=== PATIENT | male | born 1955 | race Hispanic/Latino ===

== ENCOUNTER 2018-02-13 01:00 | Emergency (ER) | payer OTHER ==
[2018-02-13] MEDS ORDERED: EYE WASH SOLNT 118 ML BTL ONE (01:34)
[2018-02-13] MEDS ORDERED: TETRACAINE HCL 0.5% 2ML OPTH ONE (01:34)
[2018-02-13] MEDS ORDERED: FLUORESCEIN SODIUM 0.6 MG/WRAP ONE (01:34)
--- NOTE | 2018-02-13 01:53 | EDPHYS ---
Physician Documentation [facility] Name: Clinton Arnold Age: 63 yrs Sex: Male : 1955 Arrival Date: 02/13/2018 Time: 01:05 Bed 5 Private MD: ED Physician Jermaine Chou HPI: 02/13 01:32 This 63 yrs old Male presents to ER via Ambulatory with complaints of Foreign cecily Body In Eye, Redness of Eye. 01:32 The patient sustained Unknown. Onset: The symptoms/episode began/occurred just prior to [facility] arrival, last night. Duration: the symptoms are continuous. Aggravated by blinking, closing eye. Associated signs and symptoms: Pertinent positives: None. Patient wears glasses. Severity of symptoms: At their worst the symptoms were mild moderate in the emergency department the symptoms are unchanged. The patient has not experienced similar symptoms in the past. Historical: - Allergies: 01:20 No Known Allergies; bp - Home Meds: 01:20 Unable to obtain [Active]; bp - PMHx: 01:20 Back pain; Hypertension; High Cholesterol; bp - PSHx: 01:20 Heart stents; bp - Immunization history:: Adult Immunizations up to date. - Social history:: Smoking status: Patient/guardian denies using tobacco. - Family history:: not pertinent. ROS: 01:32 Constitutional: Negative for fever, chills, and weight loss, ENT: Negative for injury, cecily pain, and discharge, Neck: Negative for injury, pain, and swelling, Cardiovascular: Negative for chest pain, palpitations, and edema, Respiratory: Negative for shortness of breath, cough, wheezing, and pleuritic chest pain, Abdomen/GI: Negative for abdominal pain, nausea, vomiting, diarrhea, and constipation, Back: Negative for injury and pain, : Negative for injury, bleeding, discharge, and swelling, MS/Extremity: Negative for injury and deformity, Skin: Negative for injury, rash, and discoloration, Neuro: Negative for headache, weakness, numbness, tingling, and seizure, Psych: Negative for depression, anxiety, suicide ideation, homicidal ideation, and hallucinations, Allergy/Immunology: Negative for hives, rash, and allergies, Endocrine: Negative for neck swelling, polydipsia, polyuria, polyphagia, and marked weight changes. 01:32 Eyes: Positive for foreign body sensation, pain, of the outer aspect of conjuctiva of right eye, iris of right eye and inner aspect of conjuctiva of right eye. Exam: 01:32 Constitutional: This is a well developed, well nourished patient who is awake, alert, cecily and in no acute distress. Head/Face: Normocephalic, atraumatic. ENT: Nares patent. No nasal discharge, no septal abnormalities noted. Tympanic membranes are normal and external auditory canals are clear. Oropharynx with no redness, swelling, or masses, exudates, or evidence of obstruction, uvula midline. Mucous membranes moist. Neck: Trachea midline, no thyromegaly or masses palpated, and no cervical lymphadenopathy. Supple, full range of motion without nuchal rigidity, or vertebral point tenderness. No Meningismus. Chest/axilla: Normal chest wall appearance and motion. Nontender with no deformity. No lesions are appreciated. Cardiovascular: Regular rate and rhythm with a normal S1 and S2. No gallops, murmurs, or rubs. Normal PMI, no JVD. No pulse deficits. Respiratory: Lungs have equal breath sounds bilaterally, clear to auscultation and percussion. No rales, rhonchi or wheezes noted. No increased work of breathing, no retractions or nasal flaring. Abdomen/GI: Soft, non-tender, with normal bowel sounds. No distension or tympany. No guarding or rebound. No evidence of tenderness throughout. Back: No spinal tenderness. No costovertebral tenderness. Full range of motion. Male : Normal genitalia with no discharge or lesions. Skin: Warm, dry with normal turgor. Normal color with no rashes, no lesions, and no evidence of cellulitis. MS/ Extremity: Pulses equal, no cyanosis. Neurovascular intact. Full, normal range of motion. Neuro: Awake and alert, GCS 15, oriented to person, place, time, and situation. Cranial nerves II-XII grossly intact. Motor strength 5/5 in all extremities. Sensory grossly intact. Cerebellar exam normal. Normal gait. Psych: Awake, alert, with orientation to person, place and time. Behavior, mood, and affect are within normal limits. 01:32 Eyes: Periorbital structures: appear normal, Pupils: irregularly shaped, in the right eye, Extraocular movements: intact throughout, Conjunctiva: injected, Corneas: are normal, Sclera: injected. Vital Signs: 01:20 BP 143 / 83; Pulse 78; Resp 16; Temp 98.1; Pulse Ox 98% on R/A; Weight 81.65 kg; Height bp 5 ft. 7 in. (170.18 cm); 02:00 BP 129 / 79; Pulse 71; Resp 16; Pulse Ox 96% on R/A; bp 01:20 Body Mass Index 28.19 (81.65 kg, 170.18 cm) bp MDM: 01:29 Patient medically screened. [facility] 01:32 Data reviewed: vital signs, nurses notes. [facility] 02/13 01:32 Order name: Eye Tray; Complete Time: 01:39 [facility] Administered Medications: 01:39 Drug: Tetracaine Drops 0.5 % 1 drops Route: Ophthalmic; Site: right eye; bp 02:05 CANCELLED (Duplicate Order): Garamycin Ointment 0.3 % 0.5 inches Ophthalmic once; Right cecily Eye 02:09 Not Given (PT D/C PRIOR TO ORDER): ERYTHromycin Ointment 1 application Ophthalmic once bp Disposition: 02/13/18 01:52 Discharged to Home. Impression: Ocular pain, right eye, Conjunctivitis. - Condition is Stable. - Discharge Instructions: Conjunctivitis (Viral and Bacterial), Pain Without a Known Cause. - Prescriptions for Tylenol- Codeine #3 300-30 mg Oral Tablet - take 2 tablet by ORAL route every 6 hours As needed; 30 tablet. Erythromycin 5 mg/gram (0.5 %) Ophthalmic Ointment - apply 1 centimeter by OPHTHALMIC route 4 times per day for 7 days; 1 tube. - Medication Reconciliation Form, Thank You Letter, Antibiotic Education, Prescription Opioid Use form. - Follow up: Private Physician; When: Today; Reason: Recheck today's complaints, Continuance of care, Re-evaluation by your physician. Follow up: Mauricio Pham MD; When: Today; Reason: Recheck today's complaints, Re-evaluation by your physician. - Problem is new. - Symptoms have improved. Signatures: Jermaine Chou MD MD cha Peltier, Brian, RN RN bp Corrections: (The following items were deleted from the chart) 02:05 01:51 Garamycin Ointment 0.3 % 0.5 inches Ophthalmic once; Right Eye ordered. cecily tony
--- NOTE | 2018-02-13 01:53 | ER ---
Nurse's Notes [facility] Name: Clinton Arnold Age: 63 yrs Sex: Male : 1955 Arrival Date: 02/13/2018 Time: 01:05 Bed 5 Private MD: Diagnosis: Ocular pain, right eye;Conjunctivitis Presentation: 02/13 01:18 Presenting complaint: Patient states: I GOT SOMETHING IN MY EYE AT MY [employer] bp GAME. Transition of care: patient was not received from another setting of care. Onset of symptoms was February 12, 2018 at 18:00. Care prior to arrival: None. 01:18 Method Of Arrival: Ambulatory bp 01:18 Acuity: [place] 4 bp Triage Assessment: 01:20 General: Appears in no apparent distress. comfortable, Behavior is calm, cooperative, bp appropriate for age. Pain: Complains of pain in right eye. Historical: - Allergies: 01:20 No Known Allergies; bp - Home Meds: 01:20 Unable to obtain [Active]; bp - PMHx: 01:20 Back pain; Hypertension; High Cholesterol; bp - PSHx: 01:20 Heart stents; bp - Immunization history:: Adult Immunizations up to date. - Social history:: Smoking status: Patient/guardian denies using tobacco. - Family history:: not pertinent. Screenin:40 Abuse screen: Denies threats or abuse. Denies injuries from another. Nutritional bp screening: No deficits noted. Tuberculosis screening: No symptoms or risk factors identified. Fall Risk None identified. Assessment: 01:20 General: Appears in no apparent distress. comfortable, Behavior is calm, cooperative, bp appropriate for age. Pain: Complains of pain in right eye. Neuro: Level of Consciousness is awake, alert, obeys commands, Oriented to person, place, time, situation, Appropriate for age. Cardiovascular: No deficits noted. Respiratory: Airway is patent Respiratory effort is even, unlabored, Respiratory pattern is regular, symmetrical. GI: No signs and/or symptoms were reported involving the gastrointestinal system. : No signs and/or symptoms were reported regarding the genitourinary system. EENT: Eyes are tearing on outer aspect of conjuctiva of right eye, iris of right eye and inner aspect of conjuctiva of right eye. Derm: No signs and/or symptoms reported regarding the dermatologic system. Musculoskeletal: Circulation, motion, and sensation intact. Range of motion: intact in all extremities. 02:09 Reassessment: PT D/C HOME, DX WITH CONJUNCTIVITIS, TO F/U WITH OPTHO IN THE AM. bp Vital Signs: 01:20 BP 143 / 83; Pulse 78; Resp 16; Temp 98.1; Pulse Ox 98% on R/A; Weight 81.65 kg; Height bp 5 ft. 7 in. (170.18 cm); 02:00 BP 129 / 79; Pulse 71; Resp 16; Pulse Ox 96% on R/A; bp 01:20 Body Mass Index 28.19 (81.65 kg, 170.18 cm) bp ED Course: 01:05 Patient arrived in ED. do 01:18 Dallin Arthur, RN is Primary Nurse. bp 01:19 Triage completed. bp 01:21 Arm band placed on. bp 01:29 Jermaine Chou MD is Attending Physician. cecily 01:40 Patient has correct armband on for positive identification. Bed in low position. Call bp light in reach. Side rails up X2. 01:51 Mauricio Pham MD is Referral Physician. cecily 02:10 No provider procedures requiring assistance completed. Patient did not have IV access bp during this emergency room visit. Administered Medications: 01:39 Drug: Tetracaine Drops 0.5 % 1 drops Route: Ophthalmic; Site: right eye; bp 02:05 CANCELLED (Duplicate Order): Garamycin Ointment 0.3 % 0.5 inches Ophthalmic once; Right cecily Eye 02:09 Not Given (PT D/C PRIOR TO ORDER): ERYTHromycin Ointment 1 application Ophthalmic once bp Outcome: 01:52 Discharge ordered by . cecily 02:10 Discharged to home ambulatory, with family. bp 02:10 Condition: stable 02:10 Discharge instructions given to patient, Instructed on discharge instructions, follow up and referral plans. medication usage, Demonstrated understanding of instructions, follow-up care, medications, Prescriptions given X 2. 02:12 Patient left the ED. bp Signatures: Jermaine Chou MD MD cha Ogletree, Danielle do Peltier, Brian, RN RN bp
[2018-02-13 02:29] VITALS: TEMP 98.1
[2018-02-13 02:30] VITALS: BP 129/79; O2SAT 96
== END 2018-02-13 02:12 | disposition home or self-care (01) ==
LOC: ER 01:00
DX: H10.9 Unspecified conjunctivitis (principal); I10 Essential (primary) hypertension; Z95.818 Presence of other cardiac implants and grafts
CPT/HCPCS: 99283

== ENCOUNTER 2018-02-18 09:01 | Emergency (ER) | payer OTHER ==
[2018-02-18] MEDS ORDERED: ALBUTEROL 2.5 MG/3 ML NEB SOL ONE (09:25)
[2018-02-18] MEDS ORDERED: CETIRIZINE HCL 5 MG TABLET ONE (09:25)
[2018-02-18] MEDS ORDERED: HYDROCODONE/CHLORPHEN 5 ML/OSYR ONE (09:26)
--- NOTE | 2018-02-18 10:14 | RAD REPORT ---
EXAM DESCRIPTION: RAD - Chest Pa And Lat (2 Views) - 02/18/2018 9:44 am CLINICAL HISTORY: Productive cough. COMPARISON: 09/06/2016 FINDINGS: Ill-defined interstitial lung opacities are present bilaterally. Increased left lung base anterior lingular lung markings also seen, raising suspicion for superimposed pneumonia or aspiration . The heart is normal in size. No displaced fractures.
[2018-02-18] MEDS ORDERED: levoFLOXacin 500 MG TAB ONE (11:25)
--- NOTE | 2018-02-18 11:58 | EDPHYS ---
Physician Documentation [facility] Name: Clinton Arnold Age: 63 yrs Sex: Male : 1955 Arrival Date: 02/18/2018 Time: 09:03 Bed 14 Private MD: Alonzo Barrett B ED Physician Eloy Palmer HPI: 02/18 09:35 This 63 yrs old Male presents to ER via Ambulatory with complaints of Cough, snw Chest Pain, Headache. 09:35 The patient or guardian reports airway noise, cough, described as moderate, flu snw symptoms, no appetite, hoarse voice. Onset: The symptoms/episode began/occurred suddenly, 4 day(s) ago, and became persistent. Severity of symptoms: At their worst the symptoms were moderate. Associated signs and symptoms: Pertinent positives: fever, rhinorrhea. The patient has not experienced similar symptoms in the past. appt with Dr. Barrett next week. Historical: - Allergies: 09:20 NKA; iw - Home Meds: 09:18 Plavix 75 mg Oral tab 1 tab once daily [Active]; aspirin 81 mg Oral TbEC 1 tab once iw daily [Active]; atorvastatin 40 mg oral tab 1 tab once daily [Active]; losartan 25 mg oral tab 1 tab once daily [Active]; multivitamin oral cap [Active]; - PMHx: 09:18 Back pain; High Cholesterol; Hypertension; Hodgkin's Lymphoma; iw - PSHx: 09:18 Heart stents; iw - Immunization history:: Adult Immunizations up to date. - Social history:: Smoking status: Patient/guardian denies using tobacco. ROS: 09:35 ENT: Negative for injury, pain, and discharge, Neck: Negative for injury, pain, and snw swelling, Cardiovascular: Negative for chest pain, palpitations, and edema. 09:35 Abdomen/GI: Negative for abdominal pain, nausea, vomiting, diarrhea, and constipation, Back: Negative for injury and pain, : Negative for injury, bleeding, discharge, and swelling, MS/Extremity: Negative for injury and deformity, Skin: Negative for injury, rash, and discoloration, Neuro: Negative for headache, weakness, numbness, tingling, and seizure. 09:35 Constitutional: Positive for body aches, fatigue, fever, malaise, poor PO intake. 09:35 Eyes: Positive for redness. 09:35 Respiratory: Positive for cough, orthopnea. Exam: 09:20 Head/Face: Normocephalic, atraumatic. snw 09:20 Neck: Trachea midline, no thyromegaly or masses palpated, and no cervical lymphadenopathy. Supple, full range of motion without nuchal rigidity, or vertebral point tenderness. No Meningismus. Chest/axilla: Normal chest wall appearance and motion. Nontender with no deformity. No lesions are appreciated. Cardiovascular: Regular rate and rhythm with a normal S1 and S2. No gallops, murmurs, or rubs. Normal PMI, no JVD. No pulse deficits. 09:20 Abdomen/GI: Soft, non-tender, with normal bowel sounds. No distension or tympany. No guarding or rebound. No evidence of tenderness throughout. Back: No spinal tenderness. No costovertebral tenderness. Full range of motion. Skin: Warm, dry with normal turgor. Normal color with no rashes, no lesions, and no evidence of cellulitis. MS/ Extremity: Pulses equal, no cyanosis. Neurovascular intact. Full, normal range of motion. Neuro: Awake and alert, GCS 15, oriented to person, place, time, and situation. Cranial nerves II-XII grossly intact. Motor strength 5/5 in all extremities. Sensory grossly intact. Cerebellar exam normal. Normal gait. 09:20 Constitutional: The patient appears alert, awake, anxious. 09:20 Eyes: Conjunctiva: subconjunctival hemorrhage(s), are present in both eyes. 09:20 ENT: Ear canal(s): are normal, TM's: are normal, Nose: Nasal mucosa: edematous, Mouth: is normal, Posterior pharynx: is normal, Voice: is hoarse. 09:20 Respiratory: the patient does not display signs of respiratory distress, Respirations: shallow respirations, Breath sounds: bronchial sounds, that are moderate, are heard in the left posterior lower lobe, rhonchi, are located in both bases, bronchitic cough. Vital Signs: 09:21 BP 116 / 78; Pulse 115; Resp 20 S; Temp 99.2(TE); Pulse Ox 98% on R/A; iw 10:30 BP 134 / 70; Pulse 113; Resp 19; Pulse Ox 90% on 2 lpm NC; rb1 11:30 BP 138 / 80; Pulse 102; Resp 18; Pulse Ox 93% on 2 lpm NC; rb1 12:40 BP 141 / 83; Pulse 99; Resp 17; Pulse Ox 95% on R/A; rb1 MDM: 09:18 Patient medically screened. snw 12:04 Data reviewed: vital signs, nurses notes. Data interpreted: Pulse oximetry: on room air snw is 95 %. Interpretation: normal. Counseling: I had a detailed discussion with the patient and/or guardian regarding: the historical points, exam findings, and any diagnostic results supporting the discharge/admit diagnosis, the presence of at least one elevated blood pressure reading (>120/80) during this emergency department visit, radiology results, the need for outpatient follow up, to return to the emergency department if symptoms worsen or persist or if there are any questions or concerns that arise at home. Response to treatment: the patient's symptoms have markedly improved after treatment. Special discussion: I have referred the patient to see his PCP for further evaluation of high blood pressure. Based on the history and exam findings, there is no indication for further emergent testing or inpatient evaluation. I discussed with the patient/guardian the need to see the primary care provider for further evaluation of the symptoms. ED course: discussed need for f/u with PCP as scheduled in one week. Return to ED immediately for worsening s/s. 02/18 10:20 Order name: Blood Culture Adult (2) snw 02/18 09:18 Order name: Chest Pa And Lat (2 Views) XRAY; Complete Time: 10:18 snw Administered Medications: : Drug: Tussionex Pennkinetic ER 5 ml Route: PO; rb1 10:00 Follow up: Response: No adverse reaction; Marked relief of symptoms rb1 : Drug: ZyrTEC - Cetirizine 10 mg Route: PO; rb1 10:00 Follow up: Response: No adverse reaction rb1 : Drug: Albuterol 2.5 mg Route: Inhalation; rb1 10:50 Drug: Albuterol 2.5 mg Route: Inhalation; rb1 11:20 Drug: Albuterol 2.5 mg Route: Inhalation; rb1 11:20 Drug: LevaQUIN 500 mg Route: PO; rb1 12:00 Follow up: Response: No adverse reaction rb1 12:18 Drug: Simethicone 120 mg {Note: Had to wait for pharmacy to bring the medication to the rb1 floor..} Route: PO; 12:40 Follow up: Response: No adverse reaction rb1 Disposition: 18:08 Co-signature as Attending Physician, Eloy Palmer MD Available for consultation at ps1 all times. . Disposition: 02/18/18 11:58 Discharged to Home. Impression: Pneumonia, unspecified organism. - Condition is Stable. - Discharge Instructions: Pneumonia, Adult. - Prescriptions for Levaquin 500 mg Oral Tablet - take 1 tablet by ORAL route once daily for 7 days; 7 tablet. Zyrtec 10 mg Oral Tablet - take 1 tablet by ORAL route once daily As needed; 20 tablet. Tessalon Perles 100 mg Oral Capsule - take 1 capsule by ORAL route every 8 hours As needed; 15 capsule. Albuterol Sulfate 90 mcg/actuation - inhale 1-2 puff by INHALATION route every 4-6 hours; 1 Inhaler. - Medication Reconciliation Form, Thank You Letter, Antibiotic Education, Prescription Opioid Use form. - Follow up: Alonzo Barrett MD; When: as scheduled; Reason: Recheck today's complaints, Continuance of care, Re-evaluation by your physician. Follow up: Emergency Department; When: As needed; Reason: Worsening of condition. Signatures: Dispatcher [employer] EDMS Richa Gutierrez, MARIA DE JESUS-C BRIM POUNCING MACHINE OPERATOR-Csnw Patricia Dawkins, RN ELIJAH iw Prabha Ventura RN RN rb1 Eloy Palmer MD MD ps1
--- NOTE | 2018-02-18 11:58 | ER ---
Nurse's Notes [facility] Name: Clinton Arnold Age: 63 yrs Sex: Male : 1955 Arrival Date: 02/18/2018 Time: 09:03 Bed 14 Private MD: Alonzo Barrett B Diagnosis: Pneumonia, unspecified organism Presentation: 02/18 09:15 Presenting complaint: Patient states: has had a productive cough X 4 days, lots of iw congestion, fever, fatigue, also started to have midsternal CP last night. Transition of care: patient was not received from another setting of care. Onset of symptoms was February 14, 2018. Initial Sepsis Screen: Does the patient meet any 2 criteria? HR > 90 bpm. No. Patient's initial sepsis screen is negative. Does the patient have a suspected source of infection? Yes: Productive cough/pneumonia. Care prior to arrival: None. 09:15 Method Of Arrival: Ambulatory iw 09:15 Acuity: [place] 3 iw Historical: - Allergies: 09:20 NKA; iw - Home Meds: 09:18 Plavix 75 mg Oral tab 1 tab once daily [Active]; aspirin 81 mg Oral TbEC 1 tab once iw daily [Active]; atorvastatin 40 mg oral tab 1 tab once daily [Active]; losartan 25 mg oral tab 1 tab once daily [Active]; multivitamin oral cap [Active]; - PMHx: 09:18 Back pain; High Cholesterol; Hypertension; Hodgkin's Lymphoma; iw - PSHx: 09:18 Heart stents; iw - Immunization history:: Adult Immunizations up to date. - Social history:: Smoking status: Patient/guardian denies using tobacco. Screenin:15 Abuse screen: Denies threats or abuse. Nutritional screening: No deficits noted. rb1 Tuberculosis screening: No symptoms or risk factors identified. Fall Risk None identified. Assessment: 09:15 General: Appears in no apparent distress. comfortable, Behavior is calm, cooperative, rb1 Reports fever for fatigue for >3 days. Pain: Complains of pain in mid-sternal Pain does not radiate. Pain currently is 6 out of 10 on a pain scale. Quality of pain is described as Pt. stated, "My chest hurts from coughing." Pain began x 4 days. Neuro: Level of Consciousness is awake, alert, obeys commands, Oriented to person, place, time, situation. Cardiovascular: Capillary refill < 3 seconds is brisk in bilateral fingers. Respiratory: Airway is patent Respiratory effort is even, unlabored, Respiratory pattern is regular, symmetrical. Derm: Skin is dry, Skin is normal, Skin temperature is warm. 10:09 Reassessment: Patient appears in no apparent distress at this time. Patient and/or rb1 family updated on plan of care and expected duration. Pain level reassessed. Patient is alert, oriented x 3, equal unlabored respirations, skin warm/dry/pink. 11:00 Reassessment: Patient appears in no apparent distress at this time. No changes from rb1 previously documented assessment. 12:00 Reassessment: Patient appears in no apparent distress at this time. Patient and/or rb1 family updated on plan of care and expected duration. Pain level reassessed. Patient is alert, oriented x 3, equal unlabored respirations, skin warm/dry/pink. 12:15 Reassessment: discharge pending due to paperwork and prescriptions needing to be rb1 reprinted by the provider. 12:35 Reassessment: Pt. voiced concern about his insurance not covering the Albuterol because rb1 he is on disability; provider notified. Provider stated, "He really needs to get the Albuterol." No new order received. Vital Signs: 09:21 BP 116 / 78; Pulse 115; Resp 20 S; Temp 99.2(TE); Pulse Ox 98% on R/A; iw 10:30 BP 134 / 70; Pulse 113; Resp 19; Pulse Ox 90% on 2 lpm NC; rb1 11:30 BP 138 / 80; Pulse 102; Resp 18; Pulse Ox 93% on 2 lpm NC; rb1 12:40 BP 141 / 83; Pulse 99; Resp 17; Pulse Ox 95% on R/A; rb1 ED Course: 09:03 Patient arrived in ED. as 09:04 Alonzo Barrett MD is Private Physician. as 09:12 Richa Gutierrez FNP-C is [facility]. snw 09:12 Eloy Palmer MD is Attending Physician. snw 09:15 Patient has correct armband on for positive identification. Bed in low position. Call rb1 light in reach. Side rails up X 1. Pulse ox on. NIBP on. 09:15 Patient maintains SpO2 saturation greater than 95% on room air. rb1 09:16 Triage completed. iw 09:21 Arm band placed on. iw 09:22 Prabha Ventura, RN is Primary Nurse. rb1 09:42 X-ray completed. Patient tolerated procedure well. Patient moved back from radiology. ml 09:43 Chest Pa And Lat (2 Views) XRAY In Process Unspecified. EDMS 11:57 Alonzo Barrett MD is Referral Physician. snw 12:40 No provider procedures requiring assistance completed. Patient did not have IV access rb1 during this emergency room visit. Administered Medications: 09:25 Drug: Tussionex Pennkinetic ER 5 ml Route: PO; rb1 10:00 Follow up: Response: No adverse reaction; Marked relief of symptoms rb1 09:25 Drug: ZyrTEC - Cetirizine 10 mg Route: PO; rb1 10:00 Follow up: Response: No adverse reaction rb1 09:27 Drug: Albuterol 2.5 mg Route: Inhalation; rb1 10:50 Drug: Albuterol 2.5 mg Route: Inhalation; rb1 11:20 Drug: Albuterol 2.5 mg Route: Inhalation; rb1 11:20 Drug: LevaQUIN 500 mg Route: PO; rb1 12:00 Follow up: Response: No adverse reaction rb1 12:18 Drug: Simethicone 120 mg {Note: Had to wait for pharmacy to bring the medication to the rb1 floor..} Route: PO; 12:40 Follow up: Response: No adverse reaction rb1 Outcome: 11:58 Discharge ordered by MD. snw 12:40 Discharged to home ambulatory. rb1 12:40 Condition: stable 12:40 Discharge instructions given to patient, Instructed on discharge instructions, follow up and referral plans. medication usage, Demonstrated understanding of instructions, follow-up care, medications, Prescriptions given X 4. 12:40 Patient left the ED. rb1 Signatures: Dispatcher [employer] EDOR Richa Gutierrez FNP-C COMMISSION CLERK-Vanessa Lucas Irene, ELIJAH RN iw Dali Arnold Rebecca, RN RN rb1 Corrections: (The following items were deleted from the chart) 12:43 12:43 Patient left the ED. rb1 rb1
[2018-02-18 12:47] VITALS: TEMP 99.2
[2018-02-18 12:56] VITALS: BP 141/83; O2SAT 95
[2018-02-18] MEDS ORDERED: SIMETHICONE 80 MG TAB PO ONE (13:00)
== END 2018-02-18 12:43 | disposition home or self-care (01) ==
LOC: ER 09:01
DX: J18.9 Pneumonia, unspecified organism (principal); I10 Essential (primary) hypertension; E78.00 Pure hypercholesterolemia, unspecified; Z85.72 Personal history of non-Hodgkin lymphomas; Z95.818 Presence of other cardiac implants and grafts; Z79.01 Long term (current) use of anticoagulants; Z79.82 Long term (current) use of aspirin
CPT/HCPCS: 71046; 87040; 87077; 87186; 87205; 99285

== ENCOUNTER 2018-02-19 03:17 | Inpatient (IN) | payer OTHER ==
[2018-02-19 04:30] LABS: Absolute Lymphocytes (CBC) 1.9 K/uL (0.7-4.9); Absolute Monocytes 1.5 K/uL (0.1-1.3); Absolute Neutrophil 12.2 K/uL (1.8-8.0); Basophils % 0.3 % (0-1.3); Eosinophils % 1.2 % (0-4.4); Hematocrit 37.6 % (39.6-49.0); Lymphocytes % 11.9 % (15.3-44.8); MCH 28.3 pg (27.0-35.0); MCV 85.8 fL (80-100); MPV 8.5 fL (7.6-11.3); Monocytes % 9.5 % (3.3-12.3); RBC Red Blood Cell Count 4.39 M/uL (4.33-5.43)
[2018-02-19] MEDS ORDERED: NA CHLORIDE 0.9% 1,000 ML ONE (04:32)
[2018-02-19] MEDS ORDERED: CEFTRIAXONE 1000 MG/VIAL ONE (04:32)
[2018-02-19] MEDS ORDERED: LEVALBUTEROL 1.25 MG/3 ML NEB ONE (04:32)
[2018-02-19] MEDS ORDERED: IPRATROPIUM BROM 0.5MG/2.5ML ONE (04:32)
[2018-02-19 04:37] LABS: Protime INR 1.21
[2018-02-19] MEDS ORDERED: AZITHROMYCIN 250 MG TAB ONE (04:37)
[2018-02-19 04:58] LABS: Glucose Level 123 mg/dL (65-120)
[2018-02-19 04:59] LABS: Bicarbonate 28 mEq/L (21-31); CKMB Creatine Kinase MB 3.5 ng/ml (0.3-4.0); Sodium Level 135 mEq/L (135-145)
[2018-02-19 05:04] LABS: ALT/SGPT 53 IU/L (10-60); AST/SGOT 60 IU/L (10-42); Albumin 3.4 g/dL (3.2-5.5); Alkaline Phosphatase 118 IU/L (42-121); BUN Blood Urea Nitrogen 16 mg/dL (6-20); Bilirubin Direct 0.4 mg/dL (0-0.2); Bilirubin Total 1.6 mg/dL (0.3-1.2); Creatine Phosphokinase 521 IU/L (22-269); Magnesium 2.2 mg/dL (1.8-2.5)
[2018-02-19] MEDS ORDERED: POTASSIUM 25 MEQ EFFERV TAB ONE (05:49)
--- NOTE | 2018-02-19 07:01 | ER ---
Nurse's Notes [facility] Name: Clinton Arnold Age: 63 yrs Sex: Male : 1955 Arrival Date: 02/19/2018 Time: 03:21 Bed 15 Private MD: Alonzo Barrett B Diagnosis: Dyspnea;Essential (primary) hypertension;Bronchiectasis;Chronic obstructive pulmonary disease, unspecified;Hypokalemia Presentation: 02/19 03:35 Presenting complaint: Patient states: he was here yesterday and diagnosed with bb pneumonia but is having difficulty breathing. Transition of care: patient was not received from another setting of care. Onset of symptoms was February 19, 2018. Initial Sepsis Screen: Does the patient meet any 2 criteria? No. Patient's initial sepsis screen is negative. Does the patient have a suspected source of infection? No. Patient's initial sepsis screen is negative. Care prior to arrival: None. 03:35 Method Of Arrival: Ambulatory bb 03:35 Acuity: [place] 3 bb Triage Assessment: 05:10 Respiratory: Reports shortness of breath Onset: The symptoms/episode began/occurred jd3 yesterday, the patient has mild shortness of breath. Historical: - Allergies: 03:38 NKA; bb - Home Meds: 03:38 aspirin 81 mg Oral TbEC 1 tab once daily [Active]; atorvastatin 40 mg Oral tab 1 tab bb once daily [Active]; losartan 25 mg Oral tab 1 tab once daily [Active]; multivitamin Oral cap [Active]; Plavix 75 mg Oral tab 1 tab once daily [Active]; - PMHx: 03:38 Back pain; High Cholesterol; Hodgkin's Lymphoma; Hypertension; bb - PSHx: 03:38 Heart stents; bb - Immunization history:: Adult Immunizations unknown. - Social history:: Smoking status: Patient/guardian denies using tobacco, Patient/guardian denies using alcohol, street drugs. - Family history:: not pertinent. Screenin:09 Abuse screen: Denies threats or abuse. Nutritional screening: No deficits noted. jd3 Nutritional screening:. Tuberculosis screening: No symptoms or risk factors identified. Fall Risk IV access (20 points). Total Ziegler Fall Scale indicates No Risk (0-24 pts). Assessment: 03:45 General: Appears in no apparent distress. uncomfortable, Behavior is calm, cooperative, jd3 appropriate for age. Pain: Complains of pain in chest Quality of pain is described as aching. Neuro: Level of Consciousness is awake, alert, obeys commands, Oriented to person, place, time, situation. Cardiovascular: Heart tones S1 S2 present Capillary refill < 3 seconds Patient's skin is warm and dry. Rhythm is regular. Respiratory: Airway is patent Respiratory effort is even, unlabored, Respiratory pattern is regular, symmetrical, Breath sounds are clear bilaterally. GI: Abdomen is round Bowel sounds present X 4 quads. Abd is soft and non tender X 4 quads. : No signs and/or symptoms were reported regarding the genitourinary system. EENT: No signs and/or symptoms were reported regarding the EENT system. Derm: Skin is intact, Skin is dry, Skin is normal, Skin temperature is warm. Musculoskeletal: Circulation, motion, and sensation intact. Range of motion: intact in all extremities. 05:11 Reassessment: Patient appears in no apparent distress at this time. Patient and/or jd3 family updated on plan of care and expected duration. Pain level reassessed. Patient is alert, oriented x 3, equal unlabored respirations, skin warm/dry/pink. 05:59 Reassessment: Patient appears in no apparent distress at this time. Patient and/or jd3 family updated on plan of care and expected duration. Pain level reassessed. Patient is alert, oriented x 3, equal unlabored respirations, skin warm/dry/pink. 06:53 Reassessment: Patient appears in no apparent distress at this time. Patient and/or jd3 family updated on plan of care and expected duration. Pain level reassessed. Patient is alert, oriented x 3, equal unlabored respirations, skin warm/dry/pink. 07:00 General: Appears in no apparent distress. uncomfortable, Behavior is calm, cooperative, hj appropriate for age. Pain: Complains of pain in right posterior lower lobe and right posterior middle lobe Quality of pain is described as aching. Neuro: Level of Consciousness is awake, alert, obeys commands, Oriented to person, place, time, situation, Appropriate for age. Cardiovascular: Heart tones S1 S2 present Capillary refill < 3 seconds Patient's skin is warm and dry. Rhythm is regular. Respiratory: Airway is patent Respiratory effort is even, unlabored, Respiratory pattern is regular, symmetrical, Breath sounds are clear. GI: Abdomen is round Bowel sounds present X 4 quads. Abd is soft and non tender. : No signs and/or symptoms were reported regarding the genitourinary system. EENT: No signs and/or symptoms were reported regarding the EENT system. Derm: Skin is intact, Skin is dry, Skin is pink, warm \T\ dry. normal, Skin temperature is warm. Musculoskeletal: No signs and/or symptoms reported regarding the musculoskeletal system. 07:42 Reassessment: awaiting room placement;. hj Vital Signs: 03:38 BP 136 / 84; Pulse 88; Resp 20 S; Temp 98.3(O); Pulse Ox 95% on R/A; Weight 81.65 kg bb (R); Height 5 ft. 7 in. (170.18 cm) (R); Pain 6/10; 05:07 BP 119 / 74; Pulse 94; Resp 20 S; Pulse Ox 96% on R/A; jd3 05:58 BP 120 / 75; Pulse 90; Resp 22 S; Pulse Ox 95% on R/A; jd3 06:53 BP 110 / 64; Pulse 97; Resp 22 S; Pulse Ox 94% on R/A; jd3 07:15 BP 120 / 65; Pulse 86; Resp 18; Pulse Ox 95% on R/A; hj 03:38 Body Mass Index 28.19 (81.65 kg, 170.18 cm) ED Course: 03:21 Patient arrived in ED. do 03:22 Alonzo Barrett MD is Private Physician. do 03:32 Jermaine Chou MD is Attending Physician. cecily 03:37 Triage completed. bb 03:38 Arm band placed on Patient placed in an exam room, on a stretcher, on pulse oximetry. bb 03:47 El Early RN is Primary Nurse. jd3 03:53 X-ray completed. Portable x-ray completed in exam room. Patient tolerated procedure kw well. 03:54 XRAY Chest (1 view) In Process Unspecified. EDMS 04:15 Inserted saline lock: 20 gauge in right antecubital area, using aseptic technique. jd3 Blood collected. 04:46 Radiology exam delayed due to lab results not completed at this time. (BUN/Creatinine). vm2 05:10 Patient has correct armband on for positive identification. Bed in low position. Call j light in reach. Side rails up X2. 05:21 CT Chest For PE Angio In Process Unspecified. EDMS 06:59 Peace Pop MD is Hospitalizing Provider. cecily 07:04 Report given to Adryan NAVA. jd3 09:47 No provider procedures requiring assistance completed. Patient admitted, IV remains in hj place. Administered Medications: Discontinued: NS 0.9% 1000 ml IV at 125 ml/hr continuous 04:51 Drug: Xopenex 2.5 mg Route: Inhalation; jd3 05:56 Follow up: Response: No adverse reaction jd3 04:51 Drug: AtroVENT Aerosol 0.5 mg Route: Inhalation; jd3 05:56 Follow up: Response: No adverse reaction jd3 04:51 Drug: Rocephin - (cefTRIAXone) 1 grams Route: IVPB; Infused Over: 30 mins; Site: right [facility] antecubital; 05:56 Follow up: Response: No adverse reaction; IV Status: Completed infusion jd3 04:52 Drug: NS 0.9% 1000 ml Route: IV; Rate: 125 ml/hr; Site: right antecubital; jd3 04:52 Drug: Zithromax 500 mg {Note: provider changed order to PO.} Route: IVPB; Infused Over: j 1 hrs; Site: Other; 05:57 Follow up: Response: No adverse reaction jd3 07:45 Follow up: IV Status: Completed infusion hj 05:55 Drug: Potassium Effervescent Tablet 50 mEq Route: PO; jd3 06:58 Follow up: Response: No adverse reaction jd3 07:00 Drug: levofloxacin 500 mg Volume: 100 ml; Route: IVPB; Infused Over: 60 mins; Site: hj right antecubital; 07:44 Follow up: IV Status: Completed infusion hj 07:00 Drug: SOLU-Medrol 125 mg Route: IVP; Site: right antecubital; hj 07:44 Follow up: Response: No adverse reaction hj 07:00 Drug: Pepcid 20 mg Route: IVP; Site: right antecubital; hj 07:44 Follow up: Response: No adverse reaction hj 07:02 Drug: NS 0.9% with KCl 20 mEq/L 1000 ml Route: IV; Rate: ml/hr; Site: right antecubital;hj 07:43 Follow up: IV Status: Infusion continued upon admission harris Outcome: 07:00 Decision to Hospitalize by Provider. cecily 09:47 Admitted to Tele accompanied by nurse, via wheelchair, room 423, with chart, Report harris called to ELIJAH Chung 09:47 Condition: stable 09:47 Instructed on the need for admit, Demonstrated understanding of instructions. 09:48 Patient left the ED. harris Signatures: Dispatcher [employer] EDMS Jermaine Chou MD MD cha Ballard, Brenda, RN RN Liz Esqueda Henry, RN RN Jaymie Blue [facility] El Early RN RN jd3 Corrections: (The following items were deleted from the chart) 04:54 04:53 Inserted saline lock: 20 gauge in right antecubital area, using aseptic jd3 technique. Blood collected. jd3
--- NOTE | 2018-02-19 07:01 | EDPHYS ---
Physician Documentation [facility] Name: Clinton Arnold Age: 63 yrs Sex: Male : 1955 Arrival Date: 02/19/2018 Time: 03:21 Bed 15 Private MD: Alonzo Barrett B ED Physician Jermaine Chou HPI: 02/19 03:40 This 63 yrs old Male presents to ER via Ambulatory with complaints of cecily Breathing Difficulty. 03:40 The patient has shortness of breath at rest, with light activity. Onset: The cecily symptoms/episode began/occurred 3 day(s) ago. Duration: The symptoms are continuous, and are steadily getting worse. The patient's shortness of breath has no apparent modifying factors. Associated signs and symptoms: The patient has no apparent associated signs or symptoms. Severity of symptoms: At their worst the symptoms were mild in the emergency department the symptoms are unchanged. The patient has not experienced similar symptoms in the past. Historical: - Allergies: 03:38 NKA; bb - Home Meds: 03:38 aspirin 81 mg Oral TbEC 1 tab once daily [Active]; atorvastatin 40 mg Oral tab 1 tab bb once daily [Active]; losartan 25 mg Oral tab 1 tab once daily [Active]; multivitamin Oral cap [Active]; Plavix 75 mg Oral tab 1 tab once daily [Active]; - PMHx: 03:38 Back pain; High Cholesterol; Hodgkin's Lymphoma; Hypertension; bb - PSHx: 03:38 Heart stents; bb - Immunization history:: Adult Immunizations unknown. - Social history:: Smoking status: Patient/guardian denies using tobacco, Patient/guardian denies using alcohol, street drugs. - Family history:: not pertinent. ROS: 03:40 Constitutional: Negative for fever, chills, and weight loss, Eyes: Negative for injury, cecily pain, redness, and discharge, ENT: Negative for injury, pain, and discharge, Neck: Negative for injury, pain, and swelling, Cardiovascular: Negative for chest pain, palpitations, and edema, Abdomen/GI: Negative for abdominal pain, nausea, vomiting, diarrhea, and constipation, Back: Negative for injury and pain, : Negative for injury, bleeding, discharge, and swelling, MS/Extremity: Negative for injury and deformity, Skin: Negative for injury, rash, and discoloration, Neuro: Negative for headache, weakness, numbness, tingling, and seizure, Psych: Negative for depression, anxiety, suicide ideation, homicidal ideation, and hallucinations, Allergy/Immunology: Negative for hives, rash, and allergies, Endocrine: Negative for neck swelling, polydipsia, polyuria, polyphagia, and marked weight changes, Hematologic/Lymphatic: Negative for swollen nodes, abnormal bleeding, and unusual bruising. 03:40 Respiratory: Positive for cough, shortness of breath, at rest. Exam: 03:40 Constitutional: This is a well developed, well nourished patient who is awake, alert, cecily and in no acute distress. Head/Face: Normocephalic, atraumatic. Eyes: Pupils equal round and reactive to light, extra-ocular motions intact. Lids and lashes normal. Conjunctiva and sclera are non-icteric and not injected. Cornea within normal limits. Periorbital areas with no swelling, redness, or edema. ENT: Nares patent. No nasal discharge, no septal abnormalities noted. Tympanic membranes are normal and external auditory canals are clear. Oropharynx with no redness, swelling, or masses, exudates, or evidence of obstruction, uvula midline. Mucous membranes moist. Neck: Trachea midline, no thyromegaly or masses palpated, and no cervical lymphadenopathy. Supple, full range of motion without nuchal rigidity, or vertebral point tenderness. No Meningismus. Chest/axilla: Normal chest wall appearance and motion. Nontender with no deformity. No lesions are appreciated. Cardiovascular: Regular rate and rhythm with a normal S1 and S2. No gallops, murmurs, or rubs. Normal PMI, no JVD. No pulse deficits. Abdomen/GI: Soft, non-tender, with normal bowel sounds. No distension or tympany. No guarding or rebound. No evidence of tenderness throughout. Back: No spinal tenderness. No costovertebral tenderness. Full range of motion. Male : Normal genitalia with no discharge or lesions. Skin: Warm, dry with normal turgor. Normal color with no rashes, no lesions, and no evidence of cellulitis. MS/ Extremity: Pulses equal, no cyanosis. Neurovascular intact. Full, normal range of motion. Neuro: Awake and alert, GCS 15, oriented to person, place, time, and situation. Cranial nerves II-XII grossly intact. Motor strength 5/5 in all extremities. Sensory grossly intact. Cerebellar exam normal. Normal gait. Psych: Awake, alert, with orientation to person, place and time. Behavior, mood, and affect are within normal limits. 03:40 Respiratory: the patient does not display signs of respiratory distress, Respirations: normal, Breath sounds: bronchial sounds, rhonchi, that are moderate, are heard in the right posterior middle lobe and right posterior lower lobe. Vital Signs: 03:38 BP 136 / 84; Pulse 88; Resp 20 S; Temp 98.3(O); Pulse Ox 95% on R/A; Weight 81.65 kg bb (R); Height 5 ft. 7 in. (170.18 cm) (R); Pain 6/10; 05:07 BP 119 / 74; Pulse 94; Resp 20 S; Pulse Ox 96% on R/A; jd3 05:58 BP 120 / 75; Pulse 90; Resp 22 S; Pulse Ox 95% on R/A; jd3 06:53 BP 110 / 64; Pulse 97; Resp 22 S; Pulse Ox 94% on R/A; jd3 07:15 BP 120 / 65; Pulse 86; Resp 18; Pulse Ox 95% on R/A; hj 03:38 Body Mass Index 28.19 (81.65 kg, 170.18 cm) MDM: 03:32 Patient medically screened. [facility] 03:43 Data reviewed: vital signs, nurses notes, lab test result(s), EKG, radiologic studies, [facility] CT scan, plain films. 02/19 03:39 Order name: Basic Metabolic Panel; Complete Time: 05:14 [facility] 02/19 03:39 Order name: BNP; Complete Time: 05:14 [facility] 02/19 03:39 Order name: CBC with Diff; Complete Time: 05:14 [facility] 02/19 03:39 Order name: Ckmb; Complete Time: 05:14 [facility] 02/19 03:39 Order name: CPK; Complete Time: 05:14 [facility] 02/19 03:39 Order name: LFT's; Complete Time: 05:14 [facility] 02/19 03:39 Order name: Magnesium; Complete Time: 05:14 [facility] 02/19 03:39 Order name: PT-INR; Complete Time: 05:14 [facility] 02/19 03:39 Order name: Ptt, Activated; Complete Time: 05:14 [facility] 02/19 03:39 Order name: Troponin (emerg Dept Use Only); Complete Time: 05:14 [facility] 02/19 03:39 Order name: XRAY Chest (1 view) [facility] 02/19 03:39 Order name: Blood Culture Adult (2) [facility] 02/19 06:58 Order name: Sputum Culture [facility] 02/19 08:59 Order name: Urine Dipstick--Ancillary (enter results) mw2 02/19 03:39 Order name: EKG; Complete Time: 03:40 [facility] 02/19 03:39 Order name: Cardiac monitoring; Complete Time: 04:53 [facility] 02/19 03:39 Order name: EKG - Nurse/Tech; Complete Time: 04:53 [facility] 02/19 03:39 Order name: CT Chest For PE Angio [facility] 02/19 07:09 Order name: CONS Physician Consult EDFL 02/19 07:52 Order name: Diet Regular; Complete Time: 07:52 02/19 03:39 Order name: IV Saline Lock; Complete Time: 04:53 [facility] 02/19 03:39 Order name: Labs collected and sent; Complete Time: 04:53 [facility] 02/19 03:39 Order name: O2 Per Protocol; Complete Time: 04:53 [facility] 02/19 03:39 Order name: O2 Sat Monitoring; Complete Time: 04:53 [facility] Administered Medications: Discontinued: NS 0.9% 1000 ml IV at 125 ml/hr continuous 04:51 Drug: Xopenex 2.5 mg Route: Inhalation; jd3 05:56 Follow up: Response: No adverse reaction jd3 04:51 Drug: AtroVENT Aerosol 0.5 mg Route: Inhalation; jd3 05:56 Follow up: Response: No adverse reaction jd3 04:51 Drug: Rocephin - (cefTRIAXone) 1 grams Route: IVPB; Infused Over: 30 mins; Site: right jd3 antecubital; 05:56 Follow up: Response: No adverse reaction; IV Status: Completed infusion jd3 04:52 Drug: NS 0.9% 1000 ml Route: IV; Rate: 125 ml/hr; Site: right antecubital; jd3 04:52 Drug: Zithromax 500 mg {Note: provider changed order to PO.} Route: IVPB; Infused Over: jd3 1 hrs; Site: Other; 05:57 Follow up: Response: No adverse reaction jd3 07:45 Follow up: IV Status: Completed infusion hj 05:55 Drug: Potassium Effervescent Tablet 50 mEq Route: PO; jd3 06:58 Follow up: Response: No adverse reaction jd3 07:00 Drug: levofloxacin 500 mg Volume: 100 ml; Route: IVPB; Infused Over: 60 mins; Site: right antecubital; 07:44 Follow up: IV Status: Completed infusion hj 07:00 Drug: SOLU-Medrol 125 mg Route: IVP; Site: right antecubital; hj 07:44 Follow up: Response: No adverse reaction hj 07:00 Drug: Pepcid 20 mg Route: IVP; Site: right antecubital; hj 07:44 Follow up: Response: No adverse reaction hj 07:02 Drug: NS 0.9% with KCl 20 mEq/L 1000 ml Route: IV; Rate: ml/hr; Site: right antecubital;hj 07:43 Follow up: IV Status: Infusion continued upon admission Disposition: 18 07:00 Hospitalization ordered by Peace Pop for Inpatient Admission. Preliminary diagnosis are Dyspnea, Essential (primary) hypertension, Bronchiectasis, Chronic obstructive pulmonary disease, unspecified, Hypokalemia. - Bed requested for Telemetry/MedSurg (Inpatient). - Status is Inpatient Admission. hj - Condition is Stable. - Problem is new. - Symptoms have improved. UTI on Admission? No Signatures: Dispatcher [employer] EDJermaine Latham MD MD cha Ballard, Brenda, RN RN bb Joaquin, Henry, RN RN hj Davies, Jonathon, RN RN jd3 Westbrook, MyKena 2
[2018-02-19] MEDS ORDERED: METHYLPREDNISOLONE 125 MG INJ ONE (07:05)
[2018-02-19] MEDS ORDERED: FAMOTIDINE 20 MG/2 ML VIAL IV ONE (07:06)
[2018-02-19] MEDS ORDERED: NS KCL 20MEQ 1,000 ML IV ONE (07:06)
[2018-02-19] MEDS ORDERED: Levofloxacin500mg IV 500 MG/100 ML BAG IV ONE (07:06)
--- NOTE | 2018-02-19 07:26 | EKG ---
Test Date: 2018-02-19 Test Time: 03:59:03 [employer]: SUJATA MEASUREMENT RESULTS: Intervals: Rate: 88 AL: 138 QRSD: 96 QT: 396 QTc: 479 Bayard: P: 23 AL: 138 QRS: -14 T: 5 INTERPRETIVE STATEMENTS: Sinus rhythm with occasional premature ventricular complexes Minimal voltage criteria for LVH, may be normal variant Borderline ECG Compared to ECG 10/26/2014 07:03:05 Ventricular premature complex(es) now present Sinus bradycardia no longer present Myocardial infarct finding no longer present Electronically Signed On 02-19-18 07:26:16 CDT by Orlando Ledezma
[2018-02-19] MEDS ORDERED: IPRATROPIUM BROM 0.5MG/2.5ML NEB PRN (08:01)
[2018-02-19] MEDS ORDERED: ACETAMINOPHEN 500 MG TAB PO PRN (08:01)
[2018-02-19] MEDS ORDERED: ALBUTEROL 2.5 MG/3 ML NEB SOL NEB PRN (08:01)
[2018-02-19] MEDS ORDERED: ONDANSETRON 4 MG/2 ML VIAL IV PRN (08:01)
[2018-02-19] MEDS: METHYLPREDNISOLONE 40 MG INJ IV SCH ×2 (09:00→17:46)
[2018-02-19] MEDS: AZITHROMYCIN IV 500 MG in NA CHLORIDE 0.9% 250 ML IVPB SCH (09:00)
--- NOTE | 2018-02-19 09:03 | RAD REPORT ---
EXAM DESCRIPTION: RAD - Chest Single View - 02/19/2018 3:56 am CLINICAL HISTORY: Shortness of breath. COMPARISON: 02/18/2018, 09/06/2016 FINDINGS: Portable technique limits examination quality. 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 Ill-defined opacities in the lung bases, greater on the left raise suspicion for atypical infection or aspiration. The heart is normal in siz e. No displaced fractures. IMPRESSION: Stable chest since 02/18/2018.
--- NOTE | 2018-02-19 09:04 | RAD REPORT ---
EXAM DESCRIPTION: CT - Chest For Pe Angio - 02/19/2018 6:23 am CLINICAL HISTORY: Chest pain. COMPARISON: None. TECHNIQUE: CT angiogram of the pulmonary arteries was performed with MIP. All CT scans are performed using dose optimization technique as appropriate and may include automated exposure control or mA/KV adjustment according to patient size. FINDINGS: No evidence of pulmonary thromboembolism. No acute aortic finding demonstrated. Fibrotic changes are present throughout the lungs with traction bronchiectasis in both lung bases. Mi ld reticular opacities in both medial lung bases could represent superimposed atypical infection or a spiration. No significant pericardial or pleural fluid. No concerning bony finding. IMPRESSION: No evidence of pulmonary thromboembolism.
[2018-02-19 10:03] LABS: Urine Blood NEGATIVE (NEG); Urine Glucose NEGATIVE (NEG); Urine Protein TRACE (NEG); Urine Specific Gravity <1.005 (1.005-1.030)
[2018-02-19] MEDS: NA CHLORIDE 0.9% 1,000 ML IV SCH ×3 (10:52→22:33)
[2018-02-19 11:09] VITALS: BMI 27.3
[2018-02-19] MEDS: ENOXAPARIN 40 MG/0.4 ML SQ SCH (17:46)
[2018-02-19] MEDS: ATORVASTATIN 40 MG TAB PO SCH (22:19)
[2018-02-19] MEDS ORDERED: SIMETHICONE 125 MG TAB PO PRN (23:09)
[2018-02-19] MEDS: BENZONATATE 100 MG CAP PO PRN (23:56)
[2018-02-20] MEDS: METHYLPREDNISOLONE 40 MG INJ IV SCH ×2 (01:20→09:39)
--- NOTE | 2018-02-20 03:43 | HP ---
Date of Admission: 02/19/2018 Chief Complaint: Shortness of breath. Primary Care Physician: Alonzo Barrett MD. Code Status: Full. History Of Present Illness: The patient is a 63-year-old male with past medical history of hypertens ion, hyperlipidemia, coronary artery disease status post stent, history of Hodgkin's lymphoma, and ch ronic back pain, who was in his usual state of health until 3 days prior to admission when the patien t started having some cough with sputum production as well as some shortness of breath. The patient did have some subjective fever and chills. Denies any ill contact. The patient's symptoms were cons tant, moderate, and progressively worsening, worsened with cough. He also reports some dizziness whe n he has a coughing fit. The patient came to the ER for further evaluation. Upon arrival, he was st able, he was afebrile, saturating 95% on room air. [place] [address]. Potass ium was low. His imaging studies including chest x-ray showed some ill-defined opacities throughout the lung bases, greater on the left, great suspicion for atypical infection or aspiration, fibroemphy sematous changes. CT angio chest was also done, which showed no PE. When seen in the ER, the patien t was awake, alert, and oriented x3, not in any acute distress. Past Medical History: Hypertension, hyperlipidemia, coronary artery disease status post stent, Hodgk in's lymphoma, chronic back pain. Past Surgical History: Knee surgery, 4 laminectomies, balloon angioplasty, and cardiac stent x3. Allergies: NO KNOWN DRUG ALLERGIES. Medications: Reviewed. Social History: The patient denies any tobacco use. Drinks occasionally. No illicit drug use. Ind ependent of activities of daily living. Family History: Positive for heart disease, hypertension, hyperlipidemia, and stroke. Father o f [place] at age of 91. Review of Systems: An 11-point systems reviewed, negative except as per HPI. Physical Examination: Vital Signs: Temperature 98.3, heart rate 86, blood pressure 120/65, respirations 18, O2 saturation 95% on room air. General: Awake, alert, oriented x3, not in acute distress. HEENT: Normocephalic and atraumatic. PERRLA. EOMI. Moist mucous membranes. Dentition is normal. Oropharynx is clear. Conjunctivae anicteric. Neck: Supple. No JVD. Trachea midline. CV: S1, S2. No murmurs. Regular rate and rhythm. Peripheral pulses present bilaterally. Respiratory: Diminished breath sounds bilaterally. Some wheezing. No rhonchi. No use of accessory muscles. Gastrointestinal: Soft abdomen, nontender, and nondistended. Positive bowel sounds. No guarding or rigidity. Extremities: No clubbing, cyanosis, or edema. No calf tenderness. Neuro: Cranial nerves 2 through 12 intact grossly, 5/5 strength in bilateral upper and lower extremi ties. Sensation intact to light touch. Speech is normal. Skin: No rashes. Normal skin turgor. Psych: Mood is okay. Affect is full. Insight and judgment are good. Laboratory Data: Sodium 135, potassium 3, chloride 98, CO2 of 28, BUN 16, creatinine 0.72, glucose 1 23, calcium 8.9, magnesium 2.2, total bilirubin 1.6, AST 60, ALT 53, alkaline phosphatase 118. CK of 521. Troponin 0.03. BNP 30. Albumin 3.4. INR 1.21. WBC 15.8, H and H 12.4 and 37.6, platelets 3 05, neutrophils 77%. UA negative. Blood cultures and sputum cultures pending. CT angio chest shows no PE. Chest x-ray shows fibroemphysematous changes present throughout the lungs; calcified opaciti es in the lung bases, greater on the left, great suspicion for atypical infection or aspiration; no d isplaced fractures. Assessment And Plan: A 63-year-old male with; 1.Shortness of breath, likely secondary to chronic obstructive pulmonary disease, bronchiectasis. W e will continue with nebulizer treatments and steroids. 2.Acute chronic obstructive pulmonary disease exacerbation. Continue with treatment with steroids a nd nebulizer treatments. We will resume home medications. We will get Pulmonology involved. The katy velasquez sees Dr. Natarajan as an outpatient. 3.Hypokalemia. We will replace and monitor. 4.Elevated CK level, possible rhabdomyolysis. Creatinine level is normal. We will continue with IV fluids and monitor. 5.Essential hypertension. Resume home medications as appropriate. 6.Mixed hyperlipidemia, statins. 7.Coronary artery disease, status post stent to the [place] artery and [place] heart without angina. 8.History of Hodgkin lymphoma, currently in remission. 9.Chronic back pain in midline without sciatica. Resume home medications. 10.Gastrointestinal and deep venous thrombosis prophylaxes with PPI and Lovenox. Plan: Admit the patient to Med-Surg, place as inpatient. /PRIYA Voice ID: [id number]
[2018-02-20] MEDS: NA CHLORIDE 0.9% 1,000 ML IV SCH (05:00)
[2018-02-20 05:47] LABS: Absolute Lymphocytes (CBC) 1.2 K/uL (0.7-4.9); Absolute Monocytes 0.5 K/uL (0.1-1.3); Absolute Neutrophil 17.4 K/uL (1.8-8.0); Basophils % 0.1 % (0-1.3); Hematocrit 37.1 % (39.6-49.0); Lymphocytes % 6.3 % (15.3-44.8); MCH 28.1 pg (27.0-35.0); MCV 86.5 fL (80-100); MPV 8.7 fL (7.6-11.3); Monocytes % 2.5 % (3.3-12.3); RBC Red Blood Cell Count 4.29 M/uL (4.33-5.43)
[2018-02-20 06:01] LABS: BUN Blood Urea Nitrogen 17 mg/dL (6-20); Bicarbonate 26 mEq/L (21-31); Glucose Level 143 mg/dL (65-120); Potassium 5.2 mEq/L (3.6-5.0); Sodium Level 139 mEq/L (135-145)
[2018-02-20] MEDS: CEFTRIAXONE/SWI 1gm 1 GM/10 ML SYR IV SCH (06:06)
[2018-02-20 07:22] LABS: Anisocytosis 1+; Blood Morphology Comment NOTED (NOT SEEN); Platelet Estimate ADEQ
--- NOTE | 2018-02-20 08:03 | P.CNS ---
Date of Consult: 02/20/18 Chief Complaint: Shortness of breath History of Present Illness: Patient is 63 years of age I last saw him about a year ago and was prescribed Breo patient did not follow up with me for the past 3-4 days intake icteric complaining of increasing shortness of breath denies any chest pain cough sputum or hemoptysis was admitted to the hospital apparently debris had a helped him in the past he does not smoke and is doing much better CT scan shows no evidence of thromboembolism he has some interstitial changes Allergies No Known Drug Allergies Allergy (Verified 02/19/18 08:48) Unknown No Known Allergies Allergy (Uncoded 02/19/18 10:31) Unknown Home Medications: Aspirin [Vickie Chewable Aspirin] 81 mg PO DAILY 02/19/18 Atorvastatin Calcium [Lipitor] 40 mg PO BEDTIME 02/19/18 Clopidogrel Bisulfate [Plavix] 75 mg PO DAILY 02/19/18 Losartan Potassium [Cozaar] 25 mg PO DAILY 02/19/18 - Past Medical/Surgical History Diabetic: No -: htn -: chronic back pain -: hyperlipidemia -: hodgkins lymphoma -: knee surgery -: right eye surgery -: laminectomy x4 - Family History Father Medical History: Heart disease Mother Medical History: Stroke, Cancer Sister Medical History: Hypertension, Stroke Brother Medical History: Heart disease, Hypertension brother casa Notes: glaucoma - Social History Alcohol use: Yes CD- Drugs: No Caffeine use: Yes Place of Residence: Home Review of Systems Unremarkable Physical Examination Temp Pulse Resp BP Pulse Ox 97.8 F 68 16 113/69 97 02/20/18 04:00 02/20/18 04:00 02/20/18 04:00 02/20/18 04:00 02/20/18 04:00 General: Alert, Oriented x3 Neck: Supple Respiratory: Clear to auscultation bilaterally Cardiovascular: No edema, Regular rate/rhythm Gastrointestinal: Normal bowel sounds, Soft and benign - Problems (1) Dyspnea Onset Date: 02/19/18 Current Visit: Yes Status: Acute Plan: Patient is 63 years of age admitted with dyspnea I seen her any year ago Janice and responded very well to Breo discharged home resume Breo vital signs are stable oxygenation is satisfactory no evidence of thromboembolism CT scan shows some interstitial changes no evidence of an infection is quite possible that his underlying obstructive airways disease stable to go home follow up with me in 2 weeks patient's white count is elevated probably due to side effect of steroids he does not need any antibiotics
[2018-02-20] MEDS: ASPIRIN 81 MG CHEWABLE TABLET PO SCH (09:37)
[2018-02-20] MEDS: LOSARTAN POTASSIUM 50 MG TABLET PO SCH (09:37)
[2018-02-20] MEDS: CLOPIDOGREL 75 MG TABLET PO SCH (09:37)
[2018-02-20] MEDS: AZITHROMYCIN IV 500 MG in NA CHLORIDE 0.9% 250 ML IVPB SCH (09:38)
[2018-02-20] MEDS ORDERED: SOD POLYSTYREN SUL 15 GM/60 ML UCUP PO ONE (10:09)
[2018-02-20] MEDS: BENZONATATE 100 MG CAP PO PRN (17:26)
[2018-02-20] MEDS: ENOXAPARIN 40 MG/0.4 ML SQ SCH (17:26)
--- NOTE | 2018-02-20 18:25 | PN ---
Date of Progress Note: 02/20/2018 Subjective: The patient seen and examined, chart reviewed, and case discussed with RN. The patient says that, he is feeling better, however, still having some shortness of breath. Says his appetite h as returned. Did have some diarrhea this morning. Review of Systems: Negative except as above. Medications: Reviewed. Physical Examination: Vital Signs: Temperature 97.4, heart rate 71, blood pressure 115/69, respirations 16, and O2 93% on room air. General: awake, alert, oriented x3, in some mild distress, elderly male. CV: S1, S2. No murmurs. Regular rate and rhythm. Peripheral pulses present. Respiratory: Air movement is better, still somewhat diminished at the bases. Very minimal wheezing Gastrointestinal: Abdomen is soft, nontender, nondistended. Positive bowel sounds. No guarding or rigidity. Extremities: No clubbing, cyanosis, edema. Neurologic: Nonfocal. Laboratory Data: Sodium 139, potassium 5.2, chloride 108, CO2 26, BUN 17, creatinine 0.74, glucose 1 43, and calcium 9.1. WBC 19.1, H and H 12.1, 37.1, and neutrophils 91.1%. Blood cultures, no growth to date. Sputum cultures, no growth to date. Assessment: A 63-year-old male with; 1.Shortness of breath, likely secondary to chronic obstructive pulmonary disease exacerbation and br onchiectasis. Continue nebulizer treatments. We will wean steroids. 2.Acute chronic obstructive pulmonary disease exacerbation. Continue nebulizer treatments. Wean st eroids to p.o. Appreciate Pulmonology input. Continue antibiotics. 3.Leukocytosis, likely steroid induced. We will check procalcitonin level. 4.Hyperkalemia. We will give Kayexalate and repeat potassium level. 5.Essential hypertension, stable, on home medications. 6.Mixed hyperlipidemia, statin. 7.Coronary artery disease, status post stent, [place] artery, [place] heart without angina. 8.History of Hodgkin lymphoma, currently in remission. 9.Chronic back pain, midline, without sciatica. 10.Gastrointestinal and deep venous thrombosis prophylaxis with PPI and Lovenox. Plan: Likely discharge in the next 24 hours if continues to improve. We will have respiratory thera py to ambulate the patient and recheck room air sat. SA/MODL Voice ID: [id number] Report ID: [id number]
[2018-02-20] MEDS: predniSONE 20 MG TAB PO SCH (21:53)
[2018-02-20] MEDS: ATORVASTATIN 40 MG TAB PO SCH (21:53)
[2018-02-21] MEDS: CEFTRIAXONE/SWI 1gm 1 GM/10 ML SYR IV SCH (05:21)
[2018-02-21 06:35] LABS: Absolute Lymphocytes (CBC) 1.5 K/uL (0.7-4.9); Absolute Monocytes 1.1 K/uL (0.1-1.3); Absolute Neutrophil 17.7 K/uL (1.8-8.0); Basophils % 0.1 % (0-1.3); Hematocrit 35.2 % (39.6-49.0); Lymphocytes % 7.3 % (15.3-44.8); MCH 28.3 pg (27.0-35.0); MCV 86.8 fL (80-100); MPV 8.6 fL (7.6-11.3); Monocytes % 5.3 % (3.3-12.3); RBC Red Blood Cell Count 4.05 M/uL (4.33-5.43)
[2018-02-21 06:39] LABS: BUN Blood Urea Nitrogen 16 mg/dL (6-20); Bicarbonate 28 mEq/L (21-31); Glucose Level 108 mg/dL (65-120); Potassium 4.2 mEq/L (3.6-5.0); Sodium Level 140 mEq/L (135-145)
[2018-02-21] MEDS: ASPIRIN 81 MG CHEWABLE TABLET PO SCH (09:04)
[2018-02-21] MEDS: LOSARTAN POTASSIUM 50 MG TABLET PO SCH (09:04)
[2018-02-21] MEDS: CLOPIDOGREL 75 MG TABLET PO SCH (09:04)
[2018-02-21] MEDS: predniSONE 20 MG TAB PO SCH (09:05)
[2018-02-21] MEDS: AZITHROMYCIN IV 500 MG in NA CHLORIDE 0.9% 250 ML IVPB SCH (09:09)
[2018-02-21 09:27] VITALS: O2SAT 98
[2018-02-21 09:58] LABS: Blood Morphology Comment NOT SEEN (NOT SEEN); Platelet Estimate ADEQ
[2018-02-21 13:03] VITALS: BP 121/79; TEMP 97.4
[2018-02-21 13:39] LABS: Absolute Lymphocytes (CBC) 1.4 K/uL (0.7-4.9); Absolute Monocytes 1.1 K/uL (0.1-1.3); Absolute Neutrophil 12.9 K/uL (1.8-8.0); Basophils % 0.1 % (0-1.3); Eosinophils % 0.3 % (0-4.4); MCH 28.7 pg (27.0-35.0); MPV 8.5 fL (7.6-11.3); Monocytes % 7.3 % (3.3-12.3); RBC Red Blood Cell Count 4.53 M/uL (4.33-5.43)
[2018-02-21] MEDS ORDERED: HYDROCODONE/CHLORPHEN 5 ML/OSYR PO ONE (15:02)
--- NOTE | 2018-02-22 07:16 | DS ---
Date of Discharge: 02/21/2018 Consultants: Dr. Natarajan with Pulmonology. Admitting Diagnoses: 1.Shortness of breath. 2.Acute chronic obstructive pulmonary disease exacerbation. 3.Hypokalemia. 4.Elevated CK level. 5.Essential hypertension. 6.Mixed hyperlipidemia. 7.Coronary artery disease, status post stent. [place] artery and [place] heart without angina. 8.History of Hodgkin lymphoma, in remission. 9.Chronic back pain, midline without sciatica. Discharge Diagnoses: 1.Shortness of breath, improved, now off supplemental oxygen. 2.Acute chronic obstructive pulmonary disease exacerbation, improved. 3.Leukocytosis, steroid induced, procalcitonin level negative, not septic. 4.Hyperkalemia, corrected. 5.Essential hypertension, stable. 6.Mixed hyperlipidemia, statin. 7.Coronary artery disease, status post stent. [place] artery and [place] heart without angina, stable . 8.History of Hodgkin lymphoma, in remission. 9.Chronic back pain, midline without sciatica. Hospital Course: The patient is a 63-year-old male, who came in with shortness of breath. The patie nt does have a history of COPD and his inhalers have been recently changed. The patient was found to have COPD exacerbation. He did have an elevated white count of 15,000. His chest x-ray showed some ill-defined opacities suspicious for atypical infection or aspiration, fibro-emphysematous changes. CT angio of the chest was also done, which showed no PE. The patient was seen by his textile coating machine operator, Dr. Natarajan. He was started on breathing treatments and nebulizer treatments, which improved his c ondition. The patient was able to be weaned off oxygen. He was ambulated and did well. His O2 satu rations were above 95% after ambulation. The patient's shortness of breath improved significantly. The patient did complain of couple episodes of diarrhea, which resolved. The patient's white count w as likely elevated further secondary to steroids. His procalcitonin level was checked which was nega tive. He did develop some hyperkalemia, which was corrected. His blood cultures remained negative. The patient was able to produce a sputum culture. The patient was then cleared for discharge from P ulmonology standpoint. He was doing well and was then discharged home in a stable condition. Followup: Follow up with primary care physician in 2-3 days. Activity: No strenuous activity. Medications: As per medication reconciliation list. Total time spent discharging the patient was 35 minutes. Physical Examination: General: Awake, alert, oriented, no acute distress. CV: S1, S2. No murmurs. Respiratory: Moving air well bilaterally. No wheezing. Gastrointestinal: Abdomen is soft, nontender, nondistended. Positive bowel sounds. Extremities: No clubbing, cyanosis, edema. Neurologic: Nonfocal. SA/MODL Voice ID: [id number] Report ID: [id number]
[2018-02-22] MEDS ORDERED: predniSONE 20 MG TAB PO SCH (09:00)
== END 2018-02-21 15:33 | disposition home or self-care (01) | DRG 192 ==
LOC: ER 03:17 → ERHOLD 07:05 → 4TH 09:12
PROVIDERS: ADMIT Family Medicine; ATTEND Family Medicine
DX: J44.1 Chronic obstructive pulmonary disease with (acute) exacerbation (principal); D72.829 Elevated white blood cell count, unspecified; I25.10 Atherosclerotic heart disease of native coronary artery without angina pectoris; I10 Essential (primary) hypertension; M54.9 Dorsalgia, unspecified; E78.2 Mixed hyperlipidemia; E87.6 Hypokalemia; E87.5 Hyperkalemia; Z95.5 Presence of coronary angioplasty implant and graft; Z85.71 Personal history of Hodgkin lymphoma; Z79.82 Long term (current) use of aspirin
CPT/HCPCS: 36415; 71045; 71046; 71275; 80048; 80076; 81003; 82550; 82553; 83735; 83880; 84132; 84145; 84484; 85025; 85610; 85730; 87040; 87077; 87186; 87205; 93005; 94640; 94760; 99285; J0456; J0696; J1650; J2920; J2930; J7030; J7512; Q9967

== ENCOUNTER 2019-05-17 08:36 | Observation (INO) | payer OTHER ==
[2019-05-17 09:14] LABS: Absolute Lymphocytes (CBC) 1.9 K/uL (0.7-4.9); Basophils % 0.4 % (0-1.3); Eosinophils % 1.5 % (0-4.4); Hematocrit 40.7 % (39.6-49.0); Lymphocytes % 22.9 % (15.3-44.8); MPV 8.7 fL (7.6-11.3); Monocytes % 7.1 % (3.3-12.3); RBC Red Blood Cell Count 4.69 M/uL (4.33-5.43)
[2019-05-17 09:15] LABS: Protime INR 0.89
--- NOTE | 2019-05-17 09:18 | RAD REPORT ---
EXAM DESCRIPTION: Pradip Single View05/17/2019 9:05 am CLINICAL HISTORY: Chest pain COMPARISON: February 2018 FINDINGS: The lungs appear clear of acute infiltrate. The heart is mildly enlarged IMPRESSION: No acute abnormalities displayed
[2019-05-17] MEDS ORDERED: ASPIRIN 81 MG CHEWABLE TABLET ONE (09:21)
[2019-05-17 09:29] LABS: ALT/SGPT 36 U/L (12-78); AST/SGOT 27 U/L (15-37); Albumin 3.9 g/dL (3.4-5.0); Alkaline Phosphatase 118 U/L (45-117); BUN Blood Urea Nitrogen 15 mg/dL (7-18); Bicarbonate 29 mmol/L (21-32); Bilirubin Direct 0.3 mg/dL (0-0.2); Bilirubin Total 0.9 mg/dL (0.2-1.0); Glucose Level 102 mg/dL (74-106); Magnesium 2.2 mg/dL (1.8-2.4); NT PRO-BNP 111 pg/mL (<125); Potassium 3.1 mmol/L (3.5-5.1); Protein, Total 7.8 g/dL (6.4-8.2); Sodium Level 140 mmol/L (136-145); Troponin (Emerg Dept Use Only) < 0.02 ng/mL (0.0-0.045)
[2019-05-17] MEDS ORDERED: POTASSIUM 25 MEQ EFFERV TAB ONE (10:05)
--- NOTE | 2019-05-17 10:27 | RAD REPORT ---
EXAM DESCRIPTION: CT - Chest For Pe Angio - 05/17/2019 10:07 am CLINICAL HISTORY: Chest pain COMPARISON: February 2018 TECHNIQUE: Dynamically enhanced axial 3 mm thick images of the chest were obtained during administra tion of <100> mL Isovue 370 IV contrast. Coronal and oblique reconstruction images were generated and reviewed. Exam utilizes a protocol for optimal evaluation of pulmonary arterial tree. Maximum intensity projections 3D imaging was utilized All CT scans are performed using dose optimization technique as appropriate and may include automated exposure control or mA/KV adjustment according to patient size. FINDINGS: A pulmonary embolus is not seen. A thoracic aortic aneurysm is not noted. A pleural effusion is not seen. A pericardial effusion is not seen. A lung consolidation is not present. Mild to moderate pulmonary fibrosis IMPRESSION: Negative for a pulmonary embolism.
--- NOTE | 2019-05-17 10:56 | EDPHYS ---
Physician Documentation [facility] Name: Clinton Arnold Age: 64 yrs Sex: Male : 1955 Arrival Date: 05/17/2019 Time: 08:37 Bed 20 Private MD: Alonzo Barrett B ED Physician Jace Hannah HPI: 05/17 08:44 This 64 yrs old Male presents to ER via Unassigned with complaints of Chest snw Pain. 08:44 Onset: The symptoms/episode began/occurred suddenly, at 04:00. Associated signs and snw symptoms: Pertinent positives: chest pain, congestion, cough. Modifying factors: The patient symptoms are alleviated by nothing. The patient has experienced similar episodes in the past. The patient has not recently seen a physician. sees Dr. Barrett and Dr. Calle, hx of 3 stents, no medication changes. Historical: - Allergies: 09:04 NKA; iw - Home Meds: 09:04 aspirin 81 mg Oral TbEC 1 tab once daily [Active]; atorvastatin 40 mg Oral tab 1 tab aa5 once daily [Active]; losartan 25 mg Oral tab 1 tab once daily [Active]; Plavix 75 mg Oral tab 1 tab once daily [Active]; multivitamin Oral cap [Active]; tramadol 50 mg Oral tab [Active]; Flexeril 10 mg Oral tab [Active]; - PMHx: 09:04 Back pain; High Cholesterol; Hodgkin's Lymphoma; Hypertension; iw - PSHx: 09:04 Heart stents; iw 09:04 Knee surgery; back sx; aa5 - Immunization history:: Flu vaccine is not up to date. - Ebola Screening: : Patient negative for fever greater than or equal to 101.5 degrees Fahrenheit, and additional compatible Ebola Virus Disease symptoms Patient denies exposure to infectious person Patient denies travel to an Ebola-affected area in the 21 days before illness onset No symptoms or risks identified at this time. - Social history:: Smoking status: Patient/guardian denies using tobacco. ROS: 08:44 Constitutional: Negative for fever, chills, and weight loss, Eyes: Negative for injury, snw pain, redness, and discharge, ENT: Negative for injury, pain, and discharge, Neck: Negative for injury, pain, and swelling. 08:44 Abdomen/GI: Negative for abdominal pain, nausea, vomiting, diarrhea, and constipation, Back: Negative for injury and pain, : Negative for injury, bleeding, discharge, and swelling, MS/Extremity: Negative for injury and deformity, Skin: Negative for injury, rash, and discoloration, Neuro: Negative for headache, weakness, numbness, tingling, and seizure, Psych: Negative for depression, anxiety, suicide ideation, homicidal ideation, and hallucinations. 08:44 Cardiovascular: Positive for chest pain. 08:44 Respiratory: Positive for cough, shortness of breath. Exam: 08:42 Head/Face: Normocephalic, atraumatic. Eyes: Pupils equal round and reactive to light, snw extra-ocular motions intact. Lids and lashes normal. Conjunctiva and sclera are non-icteric and not injected. Cornea within normal limits. Periorbital areas with no swelling, redness, or edema. ENT: Nares patent. No nasal discharge, no septal abnormalities noted. Tympanic membranes are normal and external auditory canals are clear. Oropharynx with no redness, swelling, or masses, exudates, or evidence of obstruction, uvula midline. Mucous membranes moist. Neck: Trachea midline, no thyromegaly or masses palpated, and no cervical lymphadenopathy. Supple, full range of motion without nuchal rigidity, or vertebral point tenderness. No Meningismus. Chest/axilla: Normal chest wall appearance and motion. Nontender with no deformity. No lesions are appreciated. 08:42 Abdomen/GI: Soft, non-tender, with normal bowel sounds. No distension or tympany. No guarding or rebound. No evidence of tenderness throughout. Back: No spinal tenderness. No costovertebral tenderness. Full range of motion. Skin: Warm, dry with normal turgor. Normal color with no rashes, no lesions, and no evidence of cellulitis. MS/ Extremity: Pulses equal, no cyanosis. Neurovascular intact. Full, normal range of motion. Neuro: Awake and alert, GCS 15, oriented to person, place, time, and situation. Cranial nerves II-XII grossly intact. Motor strength 5/5 in all extremities. Sensory grossly intact. Cerebellar exam normal. Normal gait. 08:42 Constitutional: The patient appears alert, awake, anxious. 08:42 Cardiovascular: Rate: tachycardic, Heart sounds: normal. 08:42 ECG was reviewed by the Attending Physician. 08:42 Respiratory: the patient does not display signs of respiratory distress, Respirations: shallow respirations, Breath sounds: rhonchi, that are moderate, are heard in the right posterior lower lobe. Vital Signs: 08:58 BP 151 / 73; Pulse 68; Resp 20; Temp 98.5; Pulse Ox 98% ; aa5 08:58 Weight 74.84 kg (R); Height 5 ft. 6 in. (167.64 cm) (R); Pain 0/10; aa5 10:17 BP 134 / 67; Pulse 58; Resp 21; Temp 98.2; Pulse Ox 99% on R/A; mh5 08:58 Body Mass Index 26.63 (74.84 kg, 167.64 cm) aa5 MDM: 08:39 Patient medically screened. rn 10:43 Data reviewed: vital signs, nurses notes. Data interpreted: Pulse oximetry: on room air snw is 99 %. Interpretation: normal. Counseling: I had a detailed discussion with the patient and/or guardian regarding: the historical points, exam findings, and any diagnostic results supporting the discharge/admit diagnosis, the presence of at least one elevated blood pressure reading (>120/80) during this emergency department visit, lab results, radiology results. 10:44 HEART Score: History: Highly Suspicious (2), ECG: Non specific repolarization snw disturbance / LBTB / PM (1), Age: > 45 and < 65 years (1), Risk Factors: > or = 3 Risk factors for atherosclerotic disease (2), [Hypercholesterolemia] [Hypertension] [+ Family HX] Troponin: < or = 1 x Normal Limit (0). 10:56 The patient was given aspirin in the Emergency Department. Physician consultation: baltazar Liz MD was called at 10:56, was contacted at 10:56, regarding admission, to the telemetry unit. 05/17 08:41 Order name: Basic Metabolic Panel [facility] 05/17 08:41 Order name: CBC with Diff [facility] 05/17 08:41 Order name: LFT's [facility] 05/17 08:41 Order name: Magnesium; Complete Time: 09:43 [facility] 05/17 08:41 Order name: NT PRO-BNP; Complete Time: 09:43 [facility] 05/17 08:41 Order name: PT-INR; Complete Time: 09:43 snw 05/17 08:41 Order name: Troponin (emerg Dept Use Only); Complete Time: 09:43 snw 05/17 08:41 Order name: Blood Culture Adult (2) snw 05/17 08:41 Order name: Lactate; Complete Time: 09:43 snw 05/17 08:42 Order name: Basic Metabolic Panel; Complete Time: 09:43 EDMS 05/17 08:42 Order name: CBC with Automated Diff; Complete Time: 09:43 EDMS 05/17 08:43 Order name: Liver (Hepatic) Function; Complete Time: 09:43 EDMS 05/17 11:17 Order name: Troponin I EDMS 05/17 11:17 Order name: Troponin I EDMS 05/17 08:41 Order name: XRAY Chest (1 view); Complete Time: 09:22 snw 05/17 08:41 Order name: EKG; Complete Time: 08:43 snw 05/17 08:41 Order name: Cardiac monitoring; Complete Time: 09:03 snw 05/17 08:41 Order name: EKG - Nurse/Tech; Complete Time: 09:03 snw 05/17 08:41 Order name: IV Saline Lock; Complete Time: 09:03 snw 05/17 08:41 Order name: Labs collected and sent; Complete Time: 09:03 snw 05/17 08:41 Order name: O2 Per Protocol; Complete Time: 09:03 snw 05/17 08:41 Order name: O2 Sat Monitoring; Complete Time: 09:03 snw 05/17 09:44 Order name: CT Chest For PE Angio; Complete Time: 10:38 snw 05/17 11:17 Order name: Troponin I EDMS 05/17 11:17 Order name: Troponin I EDMS 05/17 11:24 Order name: Diet Heart Healthy; Complete Time: 11:24 aa5 Administered Medications: 09:04 Drug: Aspirin Chewable Tablet 324 mg Route: PO; aa5 09:50 Follow up: Response: No adverse reaction aa5 09:20 CANCELLED (error): Phenergan 12.5 mg IVP once snw 09:50 Drug: Potassium Effervescent Tablet 50 mEq Route: PO; aa5 11:57 Follow up: Response: No adverse reaction aa5 Disposition: 14:46 Co-signature as Attending Physician, Jace Hannah MD. rn Disposition: 05/17/19 10:56 Hospitalization ordered by Lindsay Liz for Observation. Preliminary diagnosis is Chest pain, unspecified. - Bed requested for Telemetry/MedSurg (observation). - Status is Observation. iw - Condition is Stable. - Problem is new. - Symptoms are unchanged. UTI on Admission? No Signatures: Dispatcher [employer] EDMS Richa Gutierrez, GRADER OPERATOR-C GRADER OPERATOR-Csnw Patricia Dawkins, RN RN iw Jace Hannah MD MD rn Calderon, Audri, RN RN aa5 Bambi Sands Corrections: (The following items were deleted from the chart) 09:20 09:18 Phenergan 12.5 mg IVP once ordered. snw snw 11:52 10:56 Hospitalization Ordered by Lindsay Liz MD for Observation. Preliminary eb diagnosis is Chest pain, unspecified. Bed requested for Telemetry/MedSurg (observation). Status is Observation. Condition is Stable. Problem is new. Symptoms are unchanged. UTI on Admission? No. snw 12:32 11:52 05/17/2019 10:56 Hospitalization Ordered by Lindsay Liz MD for Observation. iw Preliminary diagnosis is Chest pain, unspecified. Bed requested for Telemetry/MedSurg (observation). Status is Observation. Condition is Stable. Problem is new. Symptoms are unchanged. UTI on Admission? No. eb
--- NOTE | 2019-05-17 10:56 | ER ---
Nurse's Notes [facility] Name: Clinton Arnold Age: 64 yrs Sex: Male : 1955 Arrival Date: 05/17/2019 Time: 08:37 Bed 20 Private MD: Alonzo Barrett B Diagnosis: Chest pain, unspecified Presentation: 05/17 08:44 Presenting complaint: Patient states: woke up with midsternal cheat pain and difficulty iw breathing, has had cough. 08:44 Transition of care: patient was not received from another setting of care. Onset of iw symptoms was May 17, 2019. Risk Assessment: Do you want to hurt yourself or someone else? Patient reports no desire to harm self or others. Initial Sepsis Screen: Does the patient meet any 2 criteria? No. Patient's initial sepsis screen is negative. Does the patient have a suspected source of infection? No. Patient's initial sepsis screen is negative. Care prior to arrival: None. 08:44 Method Of Arrival: Ambulatory iw 08:44 Acuity: [place] 3 iw Historical: - Allergies: 09:04 NKA; iw - Home Meds: 09:04 aspirin 81 mg Oral TbEC 1 tab once daily [Active]; atorvastatin 40 mg Oral tab 1 tab aa5 once daily [Active]; losartan 25 mg Oral tab 1 tab once daily [Active]; Plavix 75 mg Oral tab 1 tab once daily [Active]; multivitamin Oral cap [Active]; tramadol 50 mg Oral tab [Active]; Flexeril 10 mg Oral tab [Active]; - PMHx: 09:04 Back pain; High Cholesterol; Hodgkin's Lymphoma; Hypertension; iw - PSHx: 09:04 Heart stents; iw 09:04 Knee surgery; back sx; aa5 - Immunization history:: Flu vaccine is not up to date. - Ebola Screening: : Patient negative for fever greater than or equal to 101.5 degrees Fahrenheit, and additional compatible Ebola Virus Disease symptoms Patient denies exposure to infectious person Patient denies travel to an Ebola-affected area in the 21 days before illness onset No symptoms or risks identified at this time. - Social history:: Smoking status: Patient/guardian denies using tobacco. Screenin:14 Abuse screen: Denies threats or abuse. Nutritional screening: No deficits noted. aa5 Tuberculosis screening: No symptoms or risk factors identified. Fall Risk None identified. Assessment: 08:45 General: Appears comfortable, Behavior is calm, cooperative. Pain: Complains of pain in aa5 mid-sternal area Pain does not radiate. Pain currently is 0 out of 10 on a pain scale. Quality of pain is described as pressure, Pt states "It's not really pain is just discomfort" Pain began 0400 today Is continuous. Neuro: Level of Consciousness is awake, alert, obeys commands, Oriented to person, place, time, situation. Cardiovascular: Heart tones S1 S2 present Rhythm is regular. Respiratory: Reports shortness of breath cough Airway is patent Respiratory effort is even, unlabored, Respiratory pattern is regular, symmetrical, Breath sounds with crackles in left posterior lower lobe, right posterior middle lobe and right posterior lower lobe. GI: Abdomen is round Bowel sounds present X 4 quads. Abd is soft and non tender X 4 quads. : No signs and/or symptoms were reported regarding the genitourinary system. EENT: No signs and/or symptoms were reported regarding the EENT system. Derm: Skin is dry, Skin is normal, Skin temperature is warm. Musculoskeletal: Range of motion: intact in all extremities. 09:50 Reassessment: Patient is alert, oriented x 3, equal unlabored respirations, skin aa5 warm/dry/pink. Pt sitting up watching TV. Pt c/o SOB and dizziness. . 09:50 Cardiovascular: Rhythm is sinus rhythm. aa5 09:58 Reassessment: Pt taken to CT . aa5 10:45 Reassessment: Patient is alert, oriented x 3, equal unlabored respirations, skin aa5 warm/dry/pink. Patient denies pain at this time. 10:59 Reassessment: JOSE Abrams at bedside speaking to patient about need for admission. . aa5 11:57 Reassessment: Patient is alert, oriented x 3, equal unlabored respirations, skin aa5 warm/dry/pink. Pt given food tray, pt now eating and tolerating well. . Vital Signs: 08:58 BP 151 / 73; Pulse 68; Resp 20; Temp 98.5; Pulse Ox 98% ; aa5 08:58 Weight 74.84 kg (R); Height 5 ft. 6 in. (167.64 cm) (R); Pain 0/10; aa5 10:17 BP 134 / 67; Pulse 58; Resp 21; Temp 98.2; Pulse Ox 99% on R/A; mh5 08:58 Body Mass Index 26.63 (74.84 kg, 167.64 cm) aa5 ED Course: 08:37 Patient arrived in ED. as 08:37 Charito Crowe, RN is Primary Nurse. aa5 08:38 Alonzo Barrett MD is Private Physician. as 08:39 Jace Hannah MD is Attending Physician. rn 08:41 Richa Gutierrez FNP-C is [facility]. snw 08:45 EKG done, by ED staff, reviewed by Richa PEREYRA. 5 08:45 Arm band placed on. aa5 08:45 Patient has correct armband on for positive identification. Placed in gown. Bed in low aa5 position. Call light in reach. Side rails up X2. transverse abdominal muscle nurse on. Pulse ox on. NIBP on. 08:50 First set of blood cultures drawn by me. aa5 09:00 Inserted saline lock: 20 gauge in right forearm, using aseptic technique. Blood aa5 collected. 09:00 Second set of blood cultures drawn by me. aa5 09:03 Triage completed. iw 09:05 XRAY Chest (1 view) In Process Unspecified. EDMS 09:14 No provider procedures requiring assistance completed. Patient maintains SpO2 aa5 saturation greater than 95% on room air. 10:06 CT completed. Patient tolerated procedure well. Patient moved back from CT. mw3 10:07 CT Chest For PE Angio In Process Unspecified. EDMS 10:55 Lindsay Liz MD is Hospitalizing Provider. snw 11:45 Report given to ELIJAH Green. aa5 12:07 Patient admitted, IV remains in place. intact. aj 12:07 Report given to Adryan NAVA. aj Administered Medications: 09:04 Drug: Aspirin Chewable Tablet 324 mg Route: PO; aa5 09:50 Follow up: Response: No adverse reaction aa5 09:20 CANCELLED (error): Phenergan 12.5 mg IVP once snw 09:50 Drug: Potassium Effervescent Tablet 50 mEq Route: PO; aa5 11:57 Follow up: Response: No adverse reaction aa5 Outcome: 10:56 Decision to Hospitalize by Provider. snw 12:07 Admitted to Tele accompanied by tech, via wheelchair, room 414, Report called to Adryan narayanan 12:07 Condition: good 12:07 Instructed on the need for admit. 12:32 Patient left the ED. iw Signatures: Dispatcher [employer] EDNorma Clinton, Richa Spann RN, PLASTIC MIXER-C PLASTIC MIXER-Csnw Vanessa Rosario Irene, RN RN Jace Hannah MD MD rn Calderon, Audri, RN RN aa5 Martinez, Maria [facility] Sonam Smith mw3 Corrections: (The following items were deleted from the chart) 08:59 08:58 BP 151 / 73; Pulse 68bpm; Resp 20bpm; Pulse Ox 98%; iw aa5 09:03 08:40 Presenting complaint: Patient states: woke up with midsternal cheat pain and iw difficulty breathing, has had cough iw 09:12 09:04 Arm band placed on iw aa5
[2019-05-17] MEDS: INSULIN -REGULAR HUMAN 50 UNIT/0.5 ML ML SQ SCH ×3 (12:34→21:00)
--- NOTE | 2019-05-17 12:41 | P.HP ---
Certification for Inpatient Patient admitted to: Observation With expected LOS: <2 Midnights Patient will require the following post-hospital care: None Practitioner: I am a practitioner with admitting privileges, knowledge of patient current condition, hospital course, and medical plan of care. Services: Services provided to patient in accordance with Admission requirements found in Title 42 Section 412.3 of the Code of Federal Regulations Patient History Date of Service: 05/17/19 Reason for admission: Chest pain History of Present Illness: 64-year-old male with significant past medical history who presented to the ED complaining of having chest pain that started 4:00 a.m. this morning. Patient stated that pain was stabbing in nature and was not radiating anywhere. Patient denied having any shortness of breath nausea vomiting or any abdominal pain at that time. Patient does have a history of stent placement in the past does see watershed engineer here locally. Stated that his pain is not not like it was before. Was created progressively worse and thus he decided to come to the ER to get a further checked out. Allergies No Known Drug Allergies Allergy (Verified 02/19/18 08:48) Unknown No Known Allergies Allergy (Uncoded 02/19/18 10:31) Unknown Home Medications: Aspirin [Vickie Chewable Aspirin] 81 mg PO DAILY 02/19/18 Atorvastatin Calcium [Lipitor] 40 mg PO BEDTIME 02/19/18 Clopidogrel Bisulfate [Plavix*] 75 mg PO DAILY 02/19/18 Losartan Potassium [Cozaar] 25 mg PO DAILY 02/19/18 Albuterol Inhaler [Ventolin Inhaler*] 2 puff IH Q6H PRN #1 hfa.aer.ad 02/21/18 Benzonatate [Tessalon Perle*] 100 mg PO TID PRN #20 cap 02/21/18 Fluticasone/Vilanterol [Breo Ellipta 200-25 Mcg INH] 1 each IH DAILY #30 blst.w.dev 02/21/18 Guaifenesin/Dextromethorphan [Tussin Dm Cough Syrup] 120 ml PO Q6HR #1 bottle levoFLOXacin [Levaquin] 750 mg PO DAILY #7 tab 02/21/18 predniSONE [Deltasone*] 10 mg PO BID #20 tab 02/21/18 - Past Medical/Surgical History Diabetic: No -: htn -: chronic back pain -: hyperlipidemia -: hodgkins lymphoma -: knee surgery -: right eye surgery -: laminectomy x4 - Family History Father -: Heart disease Mother -: Stroke, Cancer Sister -: Hypertension, Stroke Brother -: Heart disease, Hypertension brother casa Notes: glaucoma - Social History Alcohol use: Yes CD- Drugs: No Caffeine use: Yes Review of Systems 10-point ROS is otherwise unremarkable Physical Examination - Physical Exam General: Alert, In no apparent distress HEENT: Atraumatic, PERRLA, Mucous membr. moist/pink, EOMI, Sclerae nonicteric Neck: Supple, 2+ carotid pulse no bruit, No LAD, Without JVD or thyroid abnormality Respiratory: Clear to auscultation bilaterally, Normal air movement Cardiovascular: Regular rate/rhythm, Normal S1 S2 Gastrointestinal: Normal bowel sounds, No tenderness Musculoskeletal: No tenderness Integumentary: No rashes Neurological: Normal gait, Normal speech, Normal strength at 5/5 x4 extr, Normal tone, Normal affect Lymphatics: No axilla or inguinal lymphadenopathy - Studies Laboratory Data (last 24 hrs) 05/17/19 09:00: WBC 8.2, Hgb 13.4 L, Hct 40.7, Plt Count 255 05/17/19 09:00: Sodium 140, Potassium 3.1 L, BUN 15, Creatinine 0.75, Glucose 102, Magnesium 2.2, Total Bilirubin 0.9, AST 27, ALT 36, Alkaline Phosphatase 118 H 05/17/19 08:50: PT 10.5, INR 0.89 Assessment and Plan - Problems (Diagnosis) (1) Chest pain Onset Date: 10/07/14 Current Visit: No Status: Acute Plan: Chest pain rule out ACS -troponin x1 negative. EKG within normal limits -heart score of 6 -will rule get troponin x2 done here in the hospital -will restart on ACS protocol here in the hospital -if needed will get cardiology consultation Qualifiers: Chest pain type: other chest pain Qualified Code(s): R07.89 - Other chest pain; R07.8 - Other chest pain (2) Hodgkin disease Current Visit: Yes Status: Chronic Qualifiers: Hodgkin lymphoma type: unspecified type Lymphoma site: unspecified region Qualified Code(s): C81.90 - Hodgkin lymphoma, unspecified, unspecified site (3) CAD (coronary artery disease) Onset Date: 10/26/14 Current Visit: No Status: Chronic Qualifiers: Coronary Disease-Associated Artery/Lesion type: [place] artery [place] vs. transplanted heart: [place] heart Associated angina: with stable angina Qualified Code(s): I25.118 - Atherosclerotic heart disease of [place] coronary artery with other forms of angina pectoris Discharge Plan: Home Plan to discharge in: 48 Hours - Advance Directives Does patient have a Living Will: No Does patient have a Durable POA for Healthcare: No - Code Status/Comfort Care Code Status Assessed: Yes Critical Care: No
[2019-05-17 15:02] VITALS: BMI 26.6
[2019-05-17] MEDS ORDERED: POTASSIUM CL SA 10 MEQ TAB PO ONE (16:00)
--- NOTE | 2019-05-17 20:06 | RAD REPORT ---
EXAM DESCRIPTION: USCarotid Artery Bilateral05/17/2019 7:53 pm CLINICAL HISTORY: Coronary artery disease COMPARISON: None FINDINGS: The velocity of the right internal carotid artery equals 78 cm/sec. The right ICA/CCA rati o 1.2 The velocity of the left internal carotid artery equals 61 cm/sec. The left ICA/CCA ratio 1.1 Mild to moderate plaque is present within the carotid bulbs bilaterally. The vertebral arteries demonstrate antegrade flow IMPRESSION: Mild to moderate plaque within the carotid bulbs bilaterally which do not appear to resu lt in hemodynamically significant stenosis NASCET criteria used. Mild 0-49% stenosis Moderate 50-69% stenosis Severe 70-99% stenosis
--- NOTE | 2019-05-17 20:09 | EKG ---
Test Date: 2019-05-17 Test Time: 13:32:50 Pharmacist Helper: PHYLLIS MEASUREMENT RESULTS: Intervals: Rate: 58 OR: 148 QRSD: 88 QT: 440 QTc: 431 [place]: P: 19 OR: 148 QRS: -10 T: 20 INTERPRETIVE STATEMENTS: Sinus bradycardia Minimal voltage criteria for LVH, may be normal variant Borderline ECG Compared to ECG 05/17/2019 08:40:22 Sinus rhythm no longer present Electronically Signed On 05-17-19 20:08:24 CDT by Orlando Ledezma
--- NOTE | 2019-05-17 20:10 | EKG ---
Test Date: 2019-05-17 Test Time: 08:40:22 Lard Bleacher: DONNA MEASUREMENT RESULTS: Intervals: Rate: 77 TX: 142 QRSD: 92 QT: 394 QTc: 445 [place]: P: 22 TX: 142 QRS: -15 T: 12 INTERPRETIVE STATEMENTS: Normal sinus rhythm Minimal voltage criteria for LVH, may be normal variant Borderline ECG Compared to ECG 02/19/2018 03:59:03 Ventricular premature complex(es) no longer present Electronically Signed On 05-17-19 20:08:45 CDT by Orlando Ledezma
[2019-05-17 22:36] LABS: Urine Appearance CLEAR; Urine Bilirubin NEGATIVE (NEG); Urine Blood NEGATIVE (NEG); Urine Color YELLOW; Urine Glucose NEGATIVE (NEG); Urine Protein NEGATIVE (NEG); Urine Specific Gravity 1.015 (1.005-1.030); Urine Urobilinogen 0.2 mg/dL (0.2-1.0)
[2019-05-17 22:40] LABS: Urine Microscopic Reflex NO UMIC
[2019-05-18 05:38] LABS: Absolute Lymphocytes (CBC) 1.9 K/uL (0.7-4.9); Basophils % 0.4 % (0-1.3); Eosinophils % 3.7 % (0-4.4); Lymphocytes % 25.2 % (15.3-44.8); MPV 8.4 fL (7.6-11.3); Monocytes % 8.2 % (3.3-12.3); RBC Red Blood Cell Count 4.61 M/uL (4.33-5.43)
[2019-05-18 06:03] LABS: ALT/SGPT 30 U/L (12-78); AST/SGOT 23 U/L (15-37); Albumin 3.6 g/dL (3.4-5.0); Alkaline Phosphatase 98 U/L (45-117); BUN Blood Urea Nitrogen 11 mg/dL (7-18); Bicarbonate 29 mmol/L (21-32); Bilirubin Total 1.4 mg/dL (0.2-1.0); Glucose Level 93 mg/dL (74-106); Protein, Total 7.3 g/dL (6.4-8.2); Sodium Level 139 mmol/L (136-145)
[2019-05-18] MEDS: INSULIN -REGULAR HUMAN 50 UNIT/0.5 ML ML SQ SCH ×2 (07:30→11:30)
[2019-05-18] MEDS: CLOPIDOGREL 75 MG TABLET PO SCH (10:40)
[2019-05-18] MEDS: LOSARTAN POTASSIUM 50 MG TABLET PO SCH (10:40)
[2019-05-18] MEDS: ASPIRIN 81 MG CHEWABLE TABLET PO SCH (10:40)
[2019-05-18] MEDS ORDERED: HEPA 1000U/500MLS 0 UNIT/0 ML BAG IV ONE (10:43)
[2019-05-18] MEDS ORDERED: TRAMADOL HCL 50 MG TAB PO ONE (10:49)
--- NOTE | 2019-05-18 12:59 | P.PN ---
Subjective Date of Service: 05/18/19 Chief Complaint: Chest pain Patient seen and examined at bedside with RN. Chart reviewed. Case discussed with cardiology at this time. Patient denies having any chest pain at this time. Does state that he is much better than before. No nausea vomiting abdominal pain or any other associated symptoms. Review of Systems 10-point ROS is otherwise unremarkable Physical Examination - Vital Signs Temperature: 97.4 F Blood Pressure: 123/74 Pulse: 62 Respirations: 16 Pulse Ox (%): 98 - Physical Exam General: Alert, In no apparent distress HEENT: Atraumatic, PERRLA, EOMI Neck: Supple, JVD not distended Respiratory: Clear to auscultation bilaterally, Normal air movement Cardiovascular: Regular rate/rhythm, Normal S1 S2 Gastrointestinal: Normal bowel sounds, No tenderness Musculoskeletal: No tenderness Integumentary: No rashes Neurological: Normal speech, Normal tone, Normal affect Lymphatics: No axilla or inguinal lymphadenopathy - Studies Microbiology Data (last 24 hrs): 05/17/19 08:50 Blood - Blood Anaerobic Blood Culture - Final Medications List Reviewed: Yes Assessment And Plan - Current Problems (Diagnosis) (1) Chest pain Onset Date: 10/07/14 Current Visit: No Status: Acute Plan: Chest pain rule out ACS -troponin x2 negative. EKG within normal limits -heart score of 6 -cardiology consulted. Appreciated recommendations at this time -currently on ACS medication -scheduled for cardiac catheterization tomorrow morning Qualifiers: Chest pain type: other chest pain Qualified Code(s): R07.89 - Other chest pain; R07.8 - Other chest pain (2) Hodgkin disease Current Visit: Yes Status: Chronic Qualifiers: Hodgkin lymphoma type: unspecified type Lymphoma site: unspecified region Qualified Code(s): C81.90 - Hodgkin lymphoma, unspecified, unspecified site (3) CAD (coronary artery disease) Onset Date: 10/26/14 Current Visit: No Status: Chronic Qualifiers: Coronary Disease-Associated Artery/Lesion type: [place] artery [place] vs. transplanted heart: [place] heart Associated angina: with stable angina Qualified Code(s): I25.118 - Atherosclerotic heart disease of [place] coronary artery with other forms of angina pectoris - Plan Pending clinical improvement at this time Discharge Plan: Home Plan to discharge in: 48 Hours - Code Status/Comfort Care Code Status Assessed: Yes Critical Care: No
--- NOTE | 2019-05-18 14:32 | CON ---
Identifying Information: A 64-year-old man. Chief Complaint: Chest pain and shortness of breath. History Of Present Illness: Mr. Arnold is 64. He has a history of intracoronary stents, both the RCA and LAD in 2014. Since then, he is on Lipitor, aspirin, and Plavix. Does not use tobacco. He was feeling well until an episode of chest pain and shortness of breath that awakened him and went away i n a few hours. Later the same day, while driving, he had the same thing occurred. He came to the em ergency room. The symptoms went away, but he has not had any symptoms from 2014 until now. The francois ent has a history of coronary heart disease, dyslipidemia, hypertension. Does not have diabetes. He uses no tobacco. He has had Hodgkin disease remotely, somewhere around 2005 and is in complete radha ssion. Since being in the hospital, troponins are all normal. His creatinine is 0.75. One blood john[place] gar was 175, all the others are 102 or less. Physical Examination: Vital Signs: He is 5 feet 6 inches, 165 pounds. HEENT: Unremarkable. Lungs: Clear. Cardiac: Within normal limits. Extremities: Normal. Imaging Data: Electrocardiogram reveals LVH, sinus bradycardia. Recommendation: I would recommend we do a nuclear stress test and if it is abnormal, do a cardiac ca th. An alternative would be to schedule him for cardiac cath tomorrow. ERIK Voice ID: [id number] Report ID: [id number]
[2019-05-18] MEDS: ATORVASTATIN 40 MG TAB PO SCH (20:23)
[2019-05-18] MEDS ORDERED: LORATADINE 10 MG TAB PO ONE (23:25)
[2019-05-18] MEDS ORDERED: METHYLPREDNISOLONE 40 MG INJ IV ONE (23:25)
[2019-05-19] MEDS: ASPIRIN 81 MG CHEWABLE TABLET PO SCH (08:04)
[2019-05-19] MEDS: CLOPIDOGREL 75 MG TABLET PO SCH (08:04)
[2019-05-19] MEDS ORDERED: NA CHLORIDE 0.9% 1,000 ML ONE (08:07)
[2019-05-19] MEDS: LOSARTAN POTASSIUM 50 MG TABLET PO SCH (08:10)
[2019-05-19] MEDS: PANTOPRAZOLE 40MG TABLET PO SCH (08:10)
[2019-05-19] MEDS ORDERED: HEPA 1000U/500MLS 1,000 UNIT/500 ML BAG IV ONE (08:50)
[2019-05-19] MEDS ORDERED: NA CHLORIDE 0.9% 50 ML ONE (08:51)
[2019-05-19] MEDS ORDERED: MIDAZOLAM HCL 2 MG/2 ML INJ ONE ×3 (08:51→09:17)
[2019-05-19] MEDS ORDERED: FENTANYL CITR 100 MCG/2 ML ONE (08:51)
[2019-05-19] MEDS ORDERED: ATROPINE SULF 1 MG/10 ML SYR IV ONE (08:51)
[2019-05-19] MEDS ORDERED: PRASUGREL (EFFIENT) 10 MG TAB ONE (10:06)
[2019-05-19] MEDS ORDERED: ACETAMINOPHEN 325 MG TABLET PO PRN (11:00)
[2019-05-19] MEDS ORDERED: NITROGLYCERIN 0.4 MG/TAB SL PRN (11:00)
[2019-05-19] MEDS ORDERED: NA CHLORIDE 0.9% 1,000 ML IV SCH (11:00)
[2019-05-19] MEDS ORDERED: ZOLPIDEM TARTRATE 5 MG TABLET PO PRN (11:03)
[2019-05-19] MEDS ORDERED: MORPHINE 4 MG/ML SYR IV PRN (11:04)
--- NOTE | 2019-05-19 11:43 | P.PN ---
Subjective Date of Service: 05/19/19 Chief Complaint: Chest pain Patient seen and examined at bedside with RN. Chart reviewed. Case discussed with cardiology at this time. Patient denies having any chest pain at this time. Does state that he is much better than before. No nausea vomiting abdominal pain or any other associated symptoms. Currently status post heart catheterization with stent placement Review of Systems 10-point ROS is otherwise unremarkable Physical Examination - Vital Signs Temperature: 98.1 F Blood Pressure: 120/68 Pulse: 62 Respirations: 18 Pulse Ox (%): 96 - Physical Exam General: Alert, In no apparent distress HEENT: Atraumatic, PERRLA, EOMI Neck: Supple, JVD not distended Respiratory: Clear to auscultation bilaterally, Normal air movement Cardiovascular: Regular rate/rhythm, Normal S1 S2 Gastrointestinal: Normal bowel sounds, No tenderness Musculoskeletal: No tenderness Integumentary: No rashes Neurological: Normal speech, Normal tone, Normal affect Lymphatics: No axilla or inguinal lymphadenopathy - Studies Microbiology Data (last 24 hrs): 05/17/19 08:50 Blood - Blood Anaerobic Blood Culture - Final Medications List Reviewed: Yes Assessment And Plan - Current Problems (Diagnosis) (1) Chest pain Onset Date: 10/07/14 Current Visit: No Status: Acute Plan: Chest pain rule out ACS -troponin x2 negative. EKG within normal limits, heart score of 6 -cardiology consulted. Appreciated recommendations at this time -status post heart catheterization with stent placement at this time -will monitor for next 24 hr and discharge if doing well overall overnight Qualifiers: Chest pain type: other chest pain Qualified Code(s): R07.89 - Other chest pain; R07.8 - Other chest pain (2) Hodgkin disease Current Visit: Yes Status: Chronic Qualifiers: Hodgkin lymphoma type: unspecified type Lymphoma site: unspecified region Qualified Code(s): C81.90 - Hodgkin lymphoma, unspecified, unspecified site (3) CAD (coronary artery disease) Onset Date: 10/26/14 Current Visit: No Status: Chronic Qualifiers: Coronary Disease-Associated Artery/Lesion type: [place] artery [place] vs. transplanted heart: [place] heart Associated angina: with stable angina Qualified Code(s): I25.118 - Atherosclerotic heart disease of [place] coronary artery with other forms of angina pectoris - Plan Anticipate discharge in next 24-48 hr. Discharge Plan: Home Plan to discharge in: 24 Hours - Code Status/Comfort Care Code Status Assessed: Yes Critical Care: No
[2019-05-19] MEDS: ATORVASTATIN 40 MG TAB PO SCH (20:19)
--- NOTE | 2019-05-19 20:21 | OP ---
Date of Procedure: 05/19/2019 Surgeon: Jacky Calle MD Product Development Engineer: Hailey Hurst. The patient received Angiomax during the procedure. He will also receive Effient and aspirin today. He will be going home tomorrow. Procedures: Left heart catheterization, selective coronary arteriogram, primary stent of the mid lef t anterior descending artery. Indications For Procedure: Mr. Arnold is 64, who has had a history of stents in the LAD in the past. He came in with unstable angina, was admitted by Dr. Liz on 05/17/2019. Dr. Ledezma saw him on 05/04, for unstable angina. He was brought to the cath lab technologist today as an inpatient. Description Of Procedure: He was prepped and draped in the routine sterile fashion. Given believe 4 mg of Versed and 100 of fentanyl for sedation. Right common femoral artery access obtained with a 6 -[place] sheath. Angiography there was normal. Angio-Seal was used to close the case. Meaghan justin ter was used to do the diagnostic angiography. His right coronary had mild plaquing throughout, was right dominant. The circumflex was normal. Proximal LAD had multiple sequential stents in the proxi mal area, all of which were patent. He had an 80% stenosis in the mid LAD, far from the previous shruthi nts. An XB LAD 3.5 guide with side hole was used to cannulate the left main. A [place] wire was used to cross the lesion, 0.14. A primary stent, Synergy 2.25 x 16 was deployed in the lesion with 0% re sidual. Complications: There were no complications. Blood Loss: 5 cc. Final Diagnosis: Status post successful LAD stent. Anesthesia: Conscious sedation was 45 minutes. MAHESH/PRIYA Voice ID: [id number] Report ID: [id number]
[2019-05-20 05:58] LABS: Absolute Lymphocytes (CBC) 3.2 K/uL (0.7-4.9); Basophils % 0.4 % (0-1.3); Eosinophils % 1.6 % (0-4.4); Hematocrit 42.1 % (39.6-49.0); Lymphocytes % 28.5 % (15.3-44.8); MPV 8.8 fL (7.6-11.3); Monocytes % 7.8 % (3.3-12.3); RBC Red Blood Cell Count 4.78 M/uL (4.33-5.43)
[2019-05-20 06:17] VITALS: O2SAT 96
[2019-05-20 06:19] LABS: Potassium 5.3 mmol/L (3.5-5.1)
[2019-05-20 06:24] VITALS: TEMP 97.4
[2019-05-20] MEDS: CLOPIDOGREL 75 MG TABLET PO SCH (08:34)
[2019-05-20] MEDS: ASPIRIN 81 MG CHEWABLE TABLET PO SCH (08:34)
[2019-05-20] MEDS: PANTOPRAZOLE 40MG TABLET PO SCH (08:34)
[2019-05-20] MEDS: LOSARTAN POTASSIUM 50 MG TABLET PO SCH (08:37)
[2019-05-20 09:28] VITALS: BP 121/61
--- NOTE | 2019-05-20 09:45 | PN ---
Mr. Arnold is free of any chest pain. His right groin looks good. He will go home and take 80 mg of Lipitor instead of pravastatin. He will continue aspirin, Plavix, losartan, his previous medications . He will see Dr. Calle in a couple of weeks. At this point, he is stable enough to be discharged and okay with Dr. Liz. RONY/PRIYA Voice ID: [id number] Report ID: [id number]
--- NOTE | 2019-05-20 13:05 | P.DS ---
Admission Date: 05/17/19 Discharge Date: 05/20/19 Disposition: ROUTINE DISCHARGE Discharge Condition: GOOD Reason for Admission: Chest pain Consultations: Cardiology Procedures: Cardiac angiography with stent placement - Problems (1) Chest pain Onset Date: 10/07/14 Status: Acute Qualifiers: Chest pain type: other chest pain Qualified Code(s): R07.89 - Other chest pain; R07.8 - Other chest pain (2) Hodgkin disease Status: Chronic Qualifiers: Hodgkin lymphoma type: unspecified type Lymphoma site: unspecified region Qualified Code(s): C81.90 - Hodgkin lymphoma, unspecified, unspecified site (3) CAD (coronary artery disease) Onset Date: 10/26/14 Status: Chronic Qualifiers: Coronary Disease-Associated Artery/Lesion type: [place] artery [place] vs. transplanted heart: [place] heart Associated angina: with stable angina Qualified Code(s): I25.118 - Atherosclerotic heart disease of [place] coronary artery with other forms of angina pectoris Brief History of Present Illness: 64-year-old male with significant past medical history who presented to the ED complaining of having chest pain that started 4:00 a.m. this morning. Patient stated that pain was stabbing in nature and was not radiating anywhere. Patient denied having any shortness of breath nausea vomiting or any abdominal pain at that time. Patient does have a history of stent placement in the past does see headwaitress here locally. Stated that his pain is not not like it was before. Was created progressively worse and thus he decided to come to the ER to get a further checked out. Hospital Course: Overall during the hospital stay patient remained stable Patient was initially admitted to the hospital for chest pain ACS rule out. Troponin x2 was negative. EKG was with acute changes. Cardiology was consulted who recommended cardiac catheterization. Patient had a heart catheterization done which was positive for LAD occlusion patient received stent placement in the LAD and was monitor for next 24 hr did well overall and thus was discharged home under stable condition Vital Signs/Physical Exam: Temp Pulse Resp BP Pulse Ox 97.4 F 51 16 121/61 99 05/20/19 08:00 05/20/19 08:00 05/20/19 08:00 05/20/19 08:00 05/20/19 08:00 General: Alert, In no apparent distress HEENT: Atraumatic, PERRLA, EOMI Neck: Supple, JVD not distended Respiratory: Clear to auscultation bilaterally, Normal air movement Cardiovascular: Regular rate/rhythm, Normal S1 S2 Gastrointestinal: Normal bowel sounds, No tenderness Musculoskeletal: No tenderness Integumentary: No rashes Neurological: Normal speech, Normal tone, Normal affect Lymphatics: No axilla or inguinal lymphadenopathy Laboratory Data at Discharge: WBC 11.1 K/uL (4.3-10.9) H D 05/20/19 05:17 Hgb 13.6 g/dL (13.6-17.9) 05/20/19 05:17 Hct 42.1 % (39.6-49.0) 05/20/19 05:17 Plt Count 286 K/uL (152-406) 05/20/19 05:17 PT 10.5 SECONDS (9.5-12.5) 05/17/19 08:50 INR 0.89 05/17/19 08:50 Sodium 140 mmol/L (136-145) 05/20/19 05:17 Potassium 5.3 mmol/L (3.5-5.1) H 05/20/19 05:17 BUN 19 mg/dL (7-18) H 05/20/19 05:17 Creatinine 0.88 mg/dL (0.55-1.3) 05/20/19 05:17 Glucose 98 mg/dL (74-106) 05/20/19 05:17 Magnesium 2.2 mg/dL (1.8-2.4) 05/17/19 09:00 Total Bilirubin 1.4 mg/dL (0.2-1.0) H 05/18/19 05:30 AST 23 U/L (15-37) 05/18/19 05:30 ALT 30 U/L (12-78) 05/18/19 05:30 Alkaline Phosphatase 98 U/L (45-117) 05/18/19 05:30 Troponin I < 0.02 ng/mL (0.0-0.045) 05/18/19 05:30 Triglycerides 113 mg/dL (<150) 05/20/19 05:17 Cholesterol 145 mg/dL (<200) 05/20/19 05:17 HDL Cholesterol 64 mg/dL (40-60) H 05/20/19 05:17 Cholesterol/HDL Ratio 2.27 05/20/19 05:17 Home Medications: Aspirin [Vickie Chewable Aspirin] 81 mg PO DAILY 02/19/18 Atorvastatin Calcium [Lipitor] 40 mg PO BEDTIME 02/19/18 Clopidogrel Bisulfate [Plavix*] 75 mg PO DAILY 02/19/18 Losartan Potassium [Cozaar] 25 mg PO DAILY 02/19/18 Cyclobenzaprine [Flexeril*] 10 mg PO TID PRN 05/17/19 Montelukast [Singulair*] 10 mg PO DAILY 05/17/19 Tramadol HCl [Ultram] 50 mg PO TID 05/17/19 Atorvastatin Calcium [Lipitor] 80 mg PO BEDTIME #90 tab 05/20/19 New Medications: Atorvastatin Calcium [Lipitor] 80 mg PO BEDTIME #90 tab Diet: Regular Activity: Ad jhoana
--- NOTE | 2019-05-20 15:05 | EKG ---
Test Date: 2019-05-20 Test Time: 07:13:03 Sales And Distribution Clerk: DONNA MEASUREMENT RESULTS: Intervals: Rate: 51 WI: 156 QRSD: 108 QT: 456 QTc: 420 [place]: P: 26 WI: 156 QRS: -6 T: 26 INTERPRETIVE STATEMENTS: Sinus bradycardia Otherwise normal ECG Compared to ECG 05/17/2019 13:32:50 Left ventricular hypertrophy no longer present Electronically Signed On 05-20-19 15:04:37 CDT by Orlando Ledezma
== END 2019-05-20 10:19 | disposition home or self-care (01) ==
LOC: ER 08:36 → ERHOLD 11:15 → 4TH 12:12
PROVIDERS: ADMIT Family Medicine; ATTEND Family Medicine
DX: I25.118 Atherosclerotic heart disease of native coronary artery with other forms of angina pectoris (principal); E78.5 Hyperlipidemia, unspecified; I10 Essential (primary) hypertension; Z79.82 Long term (current) use of aspirin; Z79.02 Long term (current) use of antithrombotics/antiplatelets; Z79.899 Other long term (current) drug therapy; Z85.71 Personal history of Hodgkin lymphoma
CPT/HCPCS: 93005 ×3; 87040 ×2; 85025 ×3; 80048 ×2; 36415 ×2; 83735; 84132; 85610; 80061; 82962 ×4; 80076; 85347 ×2; 83605; 81003; 84484 ×4; 80053; 83880; 71275; 71045; 93454; 93880; 99285; Q9967; C1893; C1760; C1725; C1877; C9600; J2250 ×3; J3010; J0583; J7030; J2920; G0378 ×2

== ENCOUNTER 2022-09-24 12:58 | Emergency (ER) | payer OTHER ==
--- OUTSIDE RECORDS SUMMARY | 2022-09-24 13:03 | XMS REPORT | Continuity of Care Document ---
:1955 Author Organization [facility] t Address [address] [place] [address] Care Team Providers Name Role Phone [phone] Primary Care Physician Unavailable SYSTEM, PROVIDER NOT IN Attending Clinician Unavailable WARREN CASTRO Attending Clinician Unavailable LUCRETIA LOVE Attending Clinician Unavailable ROOSEVELT MESSINA Attending Clinician Unavailable ARABELLA WHITNEY Attending Clinician Unavailable NIKITA WILSON Attending Clinician Unavailable JULIANA LOVE Attending Clinician Unavailable FAUSTINO ESPINOSA Attending Clinician Unavailable eMlissa Attending Clinician Unavailable Sagrario Avalos Attending Clinician [phone] SILVA DOVER Attending Clinician Unavailable ANJELICA ROCK Attending Clinician Unavailable JANA DIAS Attending Clinician Unavailable ANDREY LAWSON Attending Clinician Unavailable CLAUDIA CESAR Attending Clinician Unavailable ADONIS YOU Attending Clinician Unavailable ASHUTOSH BARROW Attending Clinician Unavailable TENA BHAKTA Attending Clinician Unavailable FUENTES DOLAN Attending Clinician Unavailable UNIQUE RAVI Attending Clinician Unavailable JULIANA LOVE Admitting Clinician Unavailable Melissa Admitting Clinician Unavailable SILVIA LAW Admitting Clinician Unavailable Payers Payer Name Policy Type Policy Number Effective Date Expiration Date S anneliese [employer] MEDICARE PPO [id number] 2020 00:00:00 MEDICARE PART A [id number] 2016 AND B 00:00:00 [employer] MEDICARE PPO [id number] 2020 00:00:00 Problems Condition Condition Condition Status Onset Resolution Last Treating Co mments Source Name Details Category Date Date Treatment Clinician Date Lumbar Lumbar Problem Active [facility] radiculopa Radiculopa 7-08 [facility] thy thy 00:00: dic 00 Sports Medic[facility] e Pain in Pain in Problem Active 2019-11 [facility] left knee Left Knee 0-01 Orth ope 00:00: dic 00 Sports Medic[facility] e Lumbar Lumbar Problem Active [facility] spine 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 Ankylosis 00:00: dic 00 Sports Medicin e Lumbosacra Lumbosacra Problem Active A zalea l l 3-20 [facility] spondylosi Spondylosi 00:00: di c s s 00 Sports Medicin e Lumbar Lumbar Problem Active [facility] disc Disc 3-20 [facility] prolapse Prolapse 00:00: dic with with 00 Sports radiculopa Radiculopa Me dicin thy thy e Degenerati Degenerati Problem Active A [place] on of on of 3-20 [facility] lumbar Lumbar 00:00: dic interverte Interverte 00 Sp orts bral disc bral Disc Medi mike e 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 00 Sports Medicin e Lumbosacra Lumbosacra Problem Active A zalea l l 3-22 [facility] spondylosi Spondylosi 00:00: di c s with s with 00 Sports radiculopa Radiculopa Me dicin thy thy e Displaceme Displaceme Problem Active A [place] nt of nt of 3-22 [facility] lumbar Lumbar 00:00: dic interverte Interverte 00 Sp orts bral disc bral Disc Medi mike without without e myelopathy Myelopathy Prepatella Prepatella Problem Active A [facility] r bursitis r Bursitis 8-25 Or thope 00:00: dic 00 Sports Medicin e 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 7-17 Orth[facility] syndrome Syndrome 00:00: dic 00 Sports Medicin e Hypertensi Hypertensi Problem Active phu ve ve 06-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 00:00: dic 00 Sports Medicin e Degenerati Degenerati Problem Active [place] on of on of 06-30 Orthope cervicotho Cervicotho 00:00: di c racic racic 00 Sports interverte Interverte Me dicin bral disc bral Disc e Radiculiti Radiculiti Problem Active phu s due to s Due to 06-30 Orthop e displaceme Displaceme 00:00: di c nt of nt of 00 Sports lumbar Lumbar Medicin interverte Interverte e bral disc bral Disc Allergies, Adverse Reactions, Alerts Allergy Allergy Status Severity Reaction(s) Onset Inactive Treating Comm ents Source Name Type Date Date Clinician PREDNISO DRUG Active Other 2020-0 MD LONE INGREDI 2-24 Anderso 00:00: n 00 PREDNISO DRUG Active Other 2020-0 MD LONE INGREDI 2-24 Anderso 00:00: n 00 PREDNISO DRUG Active Other 2020-0 MD LONE INGREDI 2-24 Anderso 00:00: n 00 PREDNISO DRUG Active Other 2020-0 MD LONE INGREDI 2-24 Anderso 00:00: n 00 PREDNISO DRUG Active Other 2020-0 MD LONE INGREDI 2-24 Anderso 00:00: n 00 PREDNISO DRUG Active Other 2020-0 MD LONE INGREDI 2-24 Anderso 00:00: n 00 PREDNISO DRUG Active Other 2020-0 MD LONE INGREDI 2-24 Anderso 00:00: n 00 PREDNISO DRUG Active Other 2020-0 MD LONE INGREDI 2-24 Anderso 00:00: n 00 PREDNISO DRUG Active Other 2020-0 MD LONE INGREDI 2-24 Anderso 00:00: n 00 PREDNISO DRUG Active Other 2020-0 MD LONE INGREDI 2-24 Anderso 00:00: n 00 PREDNISO DRUG Active Other 2020-0 MD LONE INGREDI 2-24 Anderso 00:00: n 00 PREDNISO DRUG Active Other 2020-0 MD LONE INGREDI 2-24 Anderso 00:00: n 00 PREDNISO DRUG Active Other 2020-0 MD LONE INGREDI 2-24 Anderso 00:00: n 00 PREDNISO DRUG Active Other 2020-0 MD LONE INGREDI 2-24 Anderso 00:00: n 00 PREDNISO DRUG Active Other 2020-0 MD LONE INGREDI 2-24 Anderso 00:00: n 00 PREDNISO DRUG Active Other 2020-0 MD LONE INGREDI 2-24 Anderso 00:00: n 00 PREDNISO DRUG Active Other 2020-0 MD LONE INGREDI 2-24 Anderso 00:00: n 00 PREDNISO DRUG Active Other 2020-0 MD LONE INGREDI 2-24 Anderso 00:00: n 00 PREDNISO DRUG Active Other 2020-0 MD LONE INGREDI 2-24 Anderso 00:00: n 00 PREDNISO DRUG Active Other 2020-0 MD LONE INGREDI 2-24 Anderso 00:00: n 00 PREDNISO DRUG Active Other 2020-0 MD LONE INGREDI 2-24 Anderso 00:00: n 00 PREDNISO DRUG Active Other 2020-0 MD LONE INGREDI 2-24 Anderso 00:00: n 00 PREDNISO DRUG Active Other 2020-0 MD LONE INGREDI 2-24 Anderso 00:00: n 00 PREDNISO DRUG Active Other 2020-0 MD LONE INGREDI 2-24 Anderso 00:00: n 00 PREDNISO DRUG Active Other 2020-0 MD LONE INGREDI 2-24 Anderso 00:00: n 00 PREDNISO DRUG Active Other 2020-0 MD LONE INGREDI 2-24 Anderso 00:00: n 00 PREDNISO DRUG Active Other 2020-0 MD LONE INGREDI 2-24 Anderso 00:00: n 00 PREDNISO DRUG Active Other 2020-0 MD LONE INGREDI 2-24 Anderso 00:00: n 00 PREDNISO DRUG Active Other 2020-0 MD LONE INGREDI 2-24 Anderso 00:00: n 00 PREDNISO DRUG Active Other 2020-0 MD LONE INGREDI 2-24 Anderso 00:00: n 00 PREDNISO DRUG Active Other 2020-0 MD LONE INGREDI 2-24 Anderso 00:00: n 00 PREDNISO DRUG Active Other 2020-0 MD LONE INGREDI 2-24 Anderso 00:00: n 00 PREDNISO DRUG Active Other 2020-0 MD LONE INGREDI 2-24 Anderso 00:00: n 00 PREDNISO DRUG Active Other 2020-0 MD LONE INGREDI 2-24 Anderso 00:00: n 00 PREDNISO DRUG Active Other 2020-0 MD LONE INGREDI 2-24 Anderso 00:00: n 00 PREDNISO DRUG Active Other 2020-0 MD LONE INGREDI 2-24 Anderso 00:00: n 00 PREDNISO DRUG Active Other 2020-0 MD LONE INGREDI 2-24 Anderso 00:00: n 00 PREDNISO DRUG Active Other 2020-0 MD LONE INGREDI 2-24 Anderso 00:00: n 00 PREDNISO DRUG Active Other 2020-0 MD LONE INGREDI 2-24 Anderso 00:00: n 00 PREDNISO DRUG Active Other 2020-0 MD LONE INGREDI 2-24 Anderso 00:00: n 00 PREDNISO DRUG Active Other 2020-0 MD LONE INGREDI 2-24 Anderso 00:00: n 00 PREDNISO DRUG Active Other 2020-0 MD LONE INGREDI 2-24 Anderso 00:00: n 00 PREDNISO DRUG Active Other 2020-0 MD LONE INGREDI 2-24 Anderso 00:00: n 00 PREDNISO DRUG Active Other 2020-0 MD LONE INGREDI 2-24 Anderso 00:00: n 00 PREDNISO DRUG Active Other 2020-0 MD LONE INGREDI 2-24 Anderso 00:00: n 00 PREDNISO DRUG Active Other 2020-0 MD LONE INGREDI 2-24 Anderso 00:00: n 00 PREDNISO DRUG Active Other 2020-0 MD LONE INGREDI 2-24 Anderso 00:00: n 00 PREDNISO DRUG Active Other 2020-0 MD LONE INGREDI 2-24 Anderso 00:00: n 00 PREDNISO DRUG Active Other 2020-0 MD LONE INGREDI 2-24 Anderso 00:00: n 00 PREDNISO DRUG Active Other 2020-0 MD LONE INGREDI 2-24 Anderso 00:00: n 00 PREDNISO DRUG Active Other 2020-0 MD LONE INGREDI 2-24 Anderso 00:00: n 00 PREDNISO DRUG Active Other 2020-0 MD LONE INGREDI 2-24 Anderso 00:00: n 00 PREDNISO DRUG Active Other 2020-0 MD LONE INGREDI 2-24 Anderso 00:00: n 00 PREDNISO DRUG Active Other 2020-0 MD LONE INGREDI 2-24 Anderso 00:00: n 00 PREDNISO DRUG Active Other 2020-0 MD LONE INGREDI 2-24 Anderso 00:00: n 00 PREDNISO DRUG Active Other 2020-0 MD LONE INGREDI 2-24 Anderso 00:00: n 00 PREDNISO DRUG Active Other 2020-0 MD LONE INGREDI 2-24 Anderso 00:00: n 00 PREDNISO DRUG Active Other 2020-0 MD LONE INGREDI 2-24 Anderso 00:00: n 00 PREDNISO DRUG Active Other 2020-0 MD LONE INGREDI 2-24 Anderso 00:00: n 00 PREDNISO DRUG Active Other 2020-0 MD LONE INGREDI 2-24 Anderso 00:00: n 00 PREDNISO DRUG Active Other 2020-0 MD LONE INGREDI 2-24 Anderso 00:00: n 00 PREDNISO DRUG Active Other 2020-0 MD LONE INGREDI 2-24 Anderso 00:00: n 00 PREDNISO DRUG Active Other 2020-0 MD LONE INGREDI 2-24 Anderso 00:00: n 00 PREDNISO DRUG Active Other 2020-0 MD LONE INGREDI 2-24 Anderso 00:00: n 00 PREDNISO DRUG Active Other 2020-0 MD LONE INGREDI 2-24 Anderso 00:00: n 00 PREDNISO DRUG Active Other 2020-0 MD LONE INGREDI 2-24 Anderso 00:00: n 00 PREDNISO DRUG Active Other 2020-0 MD LONE INGREDI 2-24 Anderso 00:00: n 00 PREDNISO DRUG Active Other 2020-0 MD LONE INGREDI 2-24 Anderso 00:00: n 00 PREDNISO DRUG Active Other 2020-0 MD LONE INGREDI 2-24 Anderso 00:00: n 00 PREDNISO DRUG Active Other 2020-0 MD LONE INGREDI 2-24 Anderso 00:00: n 00 PREDNISO DRUG Active Other 2020-0 MD LONE INGREDI 2-24 Anderso 00:00: n 00 PREDNISO DRUG Active Other 2020-0 MD LONE INGREDI 2-24 Anderso 00:00: n 00 PREDNISO DRUG Active Other 2020-0 MD LONE INGREDI 2-24 Anderso 00:00: n 00 PREDNISO DRUG Active Other 2020-0 MD LONE INGREDI 2-24 Anderso 00:00: n 00 PREDNISO DRUG Active Other 2020-0 MD LONE INGREDI 2-24 Anderso 00:00: n 00 PREDNISO DRUG Active Other 2020-0 MD LONE INGREDI 2-24 Anderso 00:00: n 00 PREDNISO DRUG Active Other 2020-0 MD LONE INGREDI 2-24 Anderso 00:00: n 00 PREDNISO DRUG Active Other 2020-0 MD LONE INGREDI 2-24 Anderso 00:00: n 00 PREDNISO DRUG Active Other 2020-0 MD LONE INGREDI 2-24 Anderso 00:00: n 00 PREDNISO DRUG Active Other 2020-0 MD LONE INGREDI 2-24 Anderso 00:00: n 00 PREDNISO DRUG Active Other 2020-0 MD LONE INGREDI 2-24 Anderso 00:00: n 00 PREDNISO DRUG Active Other 2020-0 MD LONE INGREDI 2-24 Anderso 00:00: n 00 LEVOFLOX DRUG Active Other 2019-0 MD ACIN INGREDI 8-16 Anderso 00:00: n 00 LEVOFLOX DRUG Active Other 2019-0 MD ACIN INGREDI 8-16 Anderso 00:00: n 00 LEVOFLOX DRUG Active Other 2019-0 MD ACIN INGREDI 8-16 Anderso 00:00: n 00 LEVOFLOX DRUG Active Other 2019-0 MD ACIN INGREDI 8-16 Anderso 00:00: n 00 LEVOFLOX DRUG Active Other 2019-0 MD ACIN INGREDI 8-16 Anderso 00:00: n 00 LEVOFLOX DRUG Active Other 2019-0 MD ACIN INGREDI 8-16 Anderso 00:00: n 00 LEVOFLOX DRUG Active Other 2019-0 MD ACIN INGREDI 8-16 Anderso 00:00: n 00 LEVOFLOX DRUG Active Other 2019-0 MD ACIN INGREDI 8-16 Anderso 00:00: n 00 LEVOFLOX DRUG Active Other 2019-0 MD ACIN INGREDI 8-16 Anderso 00:00: n 00 LEVOFLOX DRUG Active Other 2019-0 MD ACIN INGREDI 8-16 Anderso 00:00: n 00 LEVOFLOX DRUG Active Other 2019-0 MD ACIN INGREDI 8-16 Anderso 00:00: n 00 LEVOFLOX DRUG Active Other 2019-0 MD ACIN INGREDI 8-16 Anderso 00:00: n 00 LEVOFLOX DRUG Active Other 2019-0 MD ACIN INGREDI 8-16 Anderso 00:00: n 00 LEVOFLOX DRUG Active Other 2019-0 MD ACIN INGREDI 8-16 Anderso 00:00: n 00 LEVOFLOX DRUG Active Other 2019-0 MD ACIN INGREDI 8-16 Anderso 00:00: n 00 LEVOFLOX DRUG Active Other 2019-0 MD ACIN INGREDI 8-16 Anderso 00:00: n 00 LEVOFLOX DRUG Active Other 2019-0 MD ACIN INGREDI 8-16 Anderso 00:00: n 00 LEVOFLOX DRUG Active Other 2019-0 MD ACIN INGREDI 8-16 Anderso 00:00: n 00 LEVOFLOX DRUG Active Other 2019-0 MD ACIN INGREDI 8-16 Anderso 00:00: n 00 LEVOFLOX DRUG Active Other 2019-0 MD ACIN INGREDI 8-16 Anderso 00:00: n 00 LEVOFLOX DRUG Active Other 2019-0 MD ACIN INGREDI 8-16 Anderso 00:00: n 00 LEVOFLOX DRUG Active Other 2019-0 MD ACIN INGREDI 8-16 Anderso 00:00: n 00 LEVOFLOX DRUG Active Other 2019-0 MD ACIN INGREDI 8-16 Anderso 00:00: n 00 LEVOFLOX DRUG Active Other 2019-0 MD ACIN INGREDI 8-16 Anderso 00:00: n 00 LEVOFLOX DRUG Active Other 2019-0 MD ACIN INGREDI 8-16 Anderso 00:00: n 00 LEVOFLOX DRUG Active Other 2019-0 MD ACIN INGREDI 8-16 Anderso 00:00: n 00 LEVOFLOX DRUG Active Other 2019-0 MD ACIN INGREDI 8-16 Anderso 00:00: n 00 LEVOFLOX DRUG Active Other 2019-0 MD ACIN INGREDI 8-16 Anderso 00:00: n 00 LEVOFLOX DRUG Active Other 2019-0 MD ACIN INGREDI 8-16 Anderso 00:00: n 00 LEVOFLOX DRUG Active Other 2019-0 MD ACIN INGREDI 8-16 Anderso 00:00: n 00 LEVOFLOX DRUG Active Other 2019-0 MD ACIN INGREDI 8-16 Anderso 00:00: n 00 LEVOFLOX DRUG Active Other 2019-0 MD ACIN INGREDI 8-16 Anderso 00:00: n 00 LEVOFLOX DRUG Active Other 2019-0 MD ACIN INGREDI 8-16 Anderso 00:00: n 00 LEVOFLOX DRUG Active Other 2019-0 MD ACIN INGREDI 8-16 Anderso 00:00: n 00 LEVOFLOX DRUG Active Other 2019-0 MD ACIN INGREDI 8-16 Anderso 00:00: n 00 LEVOFLOX DRUG Active Other 2019-0 MD ACIN INGREDI 8-16 Anderso 00:00: n 00 LEVOFLOX DRUG Active Other 2019-0 MD ACIN INGREDI 8-16 Anderso 00:00: n 00 LEVOFLOX DRUG Active Other 2019-0 MD ACIN INGREDI 8-16 Anderso 00:00: n 00 LEVOFLOX DRUG Active Other 2019-0 MD ACIN INGREDI 8-16 Anderso 00:00: n 00 LEVOFLOX DRUG Active Other 2019-0 MD ACIN INGREDI 8-16 Anderso 00:00: n 00 LEVOFLOX DRUG Active Other 2019-0 MD ACIN INGREDI 8-16 Anderso 00:00: n 00 LEVOFLOX DRUG Active Other 2019-0 MD ACIN INGREDI 8-16 Anderso 00:00: n 00 LEVOFLOX DRUG Active Other 2019-0 MD ACIN INGREDI 8-16 Anderso 00:00: n 00 LEVOFLOX DRUG Active Other 2019-0 MD ACIN INGREDI 8-16 Anderso 00:00: n 00 LEVOFLOX DRUG Active Other 2019-0 MD ACIN INGREDI 8-16 Anderso 00:00: n 00 LEVOFLOX DRUG Active Other 2019-0 MD ACIN INGREDI 8-16 Anderso 00:00: n 00 LEVOFLOX DRUG Active Other 2019-0 MD ACIN INGREDI 8-16 Anderso 00:00: n 00 LEVOFLOX DRUG Active Other 2019-0 MD ACIN INGREDI 8-16 Anderso 00:00: n 00 LEVOFLOX DRUG Active Other 2019-0 MD ACIN INGREDI 8-16 Anderso 00:00: n 00 LEVOFLOX DRUG Active Other 2019-0 MD ACIN INGREDI 8-16 Anderso 00:00: n 00 LEVOFLOX DRUG Active Other 2019-0 MD ACIN INGREDI 8-16 Anderso 00:00: n 00 LEVOFLOX DRUG Active Other 2019-0 MD ACIN INGREDI 8-16 Anderso 00:00: n 00 LEVOFLOX DRUG Active Other 2019-0 MD ACIN INGREDI 8-16 Anderso 00:00: n 00 LEVOFLOX DRUG Active Other 2019-0 MD ACIN INGREDI 8-16 Anderso 00:00: n 00 LEVOFLOX DRUG Active Other 2019-0 MD ACIN INGREDI 8-16 Anderso 00:00: n 00 LEVOFLOX DRUG Active Other 2019-0 MD ACIN INGREDI 8-16 Anderso 00:00: n 00 LEVOFLOX DRUG Active Other 2019-0 MD ACIN INGREDI 8-16 Anderso 00:00: n 00 LEVOFLOX DRUG Active Other 2019-0 MD ACIN INGREDI 8-16 Anderso 00:00: n 00 LEVOFLOX DRUG Active Other 2019-0 MD ACIN INGREDI 8-16 Anderso 00:00: n 00 LEVOFLOX DRUG Active Other 2019-0 MD ACIN INGREDI 8-16 Anderso 00:00: n 00 LEVOFLOX DRUG Active Other 2019-0 MD ACIN INGREDI 8-16 Anderso 00:00: n 00 LEVOFLOX DRUG Active Other 2019-0 MD ACIN INGREDI 8-16 Anderso 00:00: n 00 LEVOFLOX DRUG Active Other 2019-0 MD ACIN INGREDI 8-16 Anderso 00:00: n 00 LEVOFLOX DRUG Active Other 2019-0 MD ACIN INGREDI 8-16 Anderso 00:00: n 00 LEVOFLOX DRUG Active Other 2019-0 MD ACIN INGREDI 8-16 Anderso 00:00: n 00 LEVOFLOX DRUG Active Other 2019-0 MD ACIN INGREDI 8-16 Anderso 00:00: n 00 LEVOFLOX DRUG Active Other 2019-0 MD ACIN INGREDI 8-16 Anderso 00:00: n 00 LEVOFLOX DRUG Active Other 2019-0 MD ACIN INGREDI 8-16 Anderso 00:00: n 00 LEVOFLOX DRUG Active Other 2019-0 MD ACIN INGREDI 8-16 Anderso 00:00: n 00 LEVOFLOX DRUG Active Other 2019-0 MD ACIN INGREDI 8-16 Anderso 00:00: n 00 LEVOFLOX DRUG Active Other 2019-0 MD ACIN INGREDI 8-16 Anderso 00:00: n 00 LEVOFLOX DRUG Active Other 2019-0 MD ACIN INGREDI 8-16 Anderso 00:00: n 00 LEVOFLOX DRUG Active Other 2019-0 MD ACIN INGREDI 8-16 Anderso 00:00: n 00 LEVOFLOX DRUG Active Other 2019-0 MD ACIN INGREDI 8-16 Anderso 00:00: n 00 LEVOFLOX DRUG Active Other 2019-0 MD ACIN INGREDI 8-16 Anderso 00:00: n 00 LEVOFLOX DRUG Active Other 2019-0 MD ACIN INGREDI 8-16 Anderso 00:00: n 00 LEVOFLOX DRUG Active Other 2019-0 MD ACIN INGREDI 8-16 Anderso 00:00: n 00 LEVOFLOX DRUG Active Other 2019-0 MD ACIN INGREDI 8-16 Anderso 00:00: n 00 LEVOFLOX DRUG Active Other 2019-0 MD ACIN INGREDI 8-16 Anderso 00:00: n 00 LEVOFLOX DRUG Active Other 2019-0 MD ACIN INGREDI 8-16 Anderso 00:00: n 00 LEVOFLOX DRUG Active Other 2019-0 MD ACIN INGREDI 8-16 Anderso 00:00: n 00 LEVOFLOX DRUG Active Other 2018-0 MD ACIN INGREDI 8-16 Anderso 00:00: n 00 No Known DA Active [facility] 00[facility]: [facility] 00 [facility] No Known DA Active U 0 [facility]26 [facility] 00:00: [facility] 00 dic [facility]ospita [facility] Social History Smoking Status Start Date Stop Date Source Never Smoker [facility] Medications Ordered Filled Start Stop Current Ordering Indication Dosage Frequency Signature Comments Components Source Medication Medication Date Date Medication? Clinician (SIG) Name Name Valium 5 mg Valium 5 mg 2019-11 No Valium 5 [facility] tablet Take tablet Take 2-03 mg tablet Orth[facility] one tablet one tablet 00:00: Take one dic one hour one hour 00 tablet one S ports before the before the hour Med icin MRI and 2nd MRI and 2nd before the e one right one right MRI and before the before the 2nd one study if study if right still still before the needed needed study if still needed Valium 10 Valium 10 2012-11 No Valium 10 [facility] mg tablet mg tablet 0-15 mg tablet [facility] TAKE 1 PO TAKE 1 PO 00:00: TAKE 1 PO dic 15 MINUTES 15 MINUTES 00 15 MINUTES Sports PRIOR TO PRIOR TO PRIOR TO Med icin PROCEDURE PROCEDURE PROCEDURE e THEN 1 THEN 1 THEN 1 IMMEDIATELY IMMEDIATELY IMMEDIATEL PRIOR TO PRIOR TO Y PRIOR TO PROCEDURE PROCEDURE PROCEDURE atorvastati atorvastati No 1 Q1D atorvastat [facility] n 40 mg n 40 mg in 40 mg Ortho pe tablet Take tablet Take tablet dic 1 tablet 1 tablet Take 1 Sport s every day every day tablet Med icin by oral by oral every day e route as route as by oral directed. directed. route as directed. Cialis 5 mg Cialis 5 mg No Cialis 5 [facility] tablet RX tablet RX mg tablet [facility] by other MD by other MD RX by dic other MD Sports Medicin e cyclobenzap cyclobenzap No 1 BID cyclobenza [facility] rine 10 mg rine 10 mg janell 10 [facility] tablet Take tablet Take mg tablet dic 1 tablet 1 tablet Take 1 Sport s twice a day twice a day tablet Medicin by oral by oral twice a e route for route for day by 30 days. 30 days. oral route for 30 days. gabapentin gabapentin No gabapentin [facility] 300 mg 300 mg 300 mg [facility] capsule capsule capsule dic Take 2 caps Take 2 caps Take 2 Sports PO TID PO TID caps PO Medicin TID e losartan 25 losartan 25 No 1 Q1D losartan [facility] mg tablet mg tablet 25 mg Orth ope Take 1 Take 1 tablet dic tablet tablet Take 1 Sports every day every day tablet Med icin by oral by oral every day e route as route as by oral directed. directed. route as directed. pantoprazol pantoprazol No 1 Q1D pantoprazo [facility] e 40 mg e 40 mg le 40 mg Ortho pe tablet,mike tablet,mike tablet,del dic yed release yed release ayed S ports Take 1 Take 1 release Medicin tablet tablet Take 1 e every day every day tablet by oral by oral every day route as route as by oral directed. directed. route as directed. Plavix 75 Plavix 75 No 1 Q1D Plavix 75 [facility] mg tablet mg tablet mg tablet [facility] Take 1 Take 1 Take 1 dic tablet tablet tablet Sports every day every day every day Medicin by oral by oral by oral e route as route as route as directed. directed. directed. SB Low Dose SB Low Dose No 1 Q1D SB Low [facility] ASA EC 81 ASA EC 81 Dose ASA O rthope mg mg EC 81 mg dic tablet,mike tablet,mike tablet,del Sports yed release yed release ayed M edicin Take 1 Take 1 release e tablet tablet Take 1 every day every day tablet by oral by oral every day route as route as by oral directed. directed. route as directed. Singulair Singulair No 1 Q1D Singulair [facility] 10 mg 10 mg 10 mg [facility] tablet Take tablet Take tablet dic 1 tablet 1 tablet Take 1 Sport s every day every day tablet Med icin by oral by oral every day e route as route as by oral directed. directed. route as directed. Symbicort Symbicort No 2puff(s BID Symbicort [facility] 160 mcg-4.5 160 mcg-4.5 ) 160 O rthope mcg/actuati mcg/actuati mcg-4.5 dic on HFA on HFA mcg/actuat Sport s aerosol aerosol ion HFA Medici n inhaler inhaler aerosol e Inhale 2 Inhale 2 inhaler puffs twice puffs twice Inhale 2 a day by a day by puffs inhalation inhalation twice a route as route as day by directed. directed. inhalation route as directed. tramadol 50 tramadol 50 No 1 TID tramadol [facility] mg tablet mg tablet 50 mg Orth ope Take 1 Take 1 tablet dic tablet 3 tablet 3 Take 1 Sport s times a day times a day tablet 3 Medicin by oral by oral times a e route as route as day by needed for needed for oral route 30 days. 30 days. as needed for 30 days. atorvastati atorvastati No 1 Q1D atorvastat [facility] n 40 mg n 40 mg in 40 mg Ortho pe tablet Take tablet Take tablet dic 1 tablet 1 tablet Take 1 Sport s every day every day tablet Med icin by oral by oral every day e route as route as by oral directed. directed. route as directed. Cialis 5 mg Cialis 5 mg No Cialis 5 [facility] tablet RX tablet RX mg tablet Orthope by other MD by other MD RX by dic other MD Sports Medicin e cyclobenzap cyclobenzap No 1 BID cyclobenza [facility] rine 10 mg rine 10 mg janell 10 [facility] tablet Take tablet Take mg tablet dic 1 tablet 1 tablet Take 1 Sport s twice a day twice a day tablet Medicin by oral by oral twice a e route for route for day by 30 days. 30 days. oral route for 30 days. gabapentin gabapentin No 1capsul TID gabapentin [facility] 300 mg 300 mg e(s) 300 mg [facility] capsule capsule capsule dic Take 1 Take 1 Take 1 Sports capsule 3 capsule 3 capsule 3 Medicin times a day times a day times a e by oral by oral day by route for route for oral route 30 days. 30 days. for 30 days. losartan 25 losartan 25 No 1 Q1D losartan [facility] mg tablet mg tablet 25 mg Orth ope Take 1 Take 1 tablet dic tablet tablet Take 1 Sports every day every day tablet Med icin by oral by oral every day e route as route as by oral directed. directed. route as directed. pantoprazol pantoprazol No 1 Q1D pantoprazo [facility] e 40 mg e 40 mg le 40 mg Ortho pe tablet,mike tablet,mike tablet,del dic yed release yed release ayed S ports Take 1 Take 1 release Medicin tablet tablet Take 1 e every day every day tablet by oral by oral every day route as route as by oral directed. directed. route as directed. Plavix 75 Plavix 75 No 1 Q1D Plavix 75 [facility] mg tablet mg tablet mg tablet [facility] Take 1 Take 1 Take 1 dic tablet tablet tablet Sports every day every day every day Medicin by oral by oral by oral e route as route as route as directed. directed. directed. SB Low Dose SB Low Dose No 1 Q1D SB Low [facility] ASA EC 81 ASA EC 81 Dose ASA O rthope mg mg EC 81 mg dic tablet,mike tablet,mike tablet,del Sports yed release yed release ayed M edicin Take 1 Take 1 release e tablet tablet Take 1 every day every day tablet by oral by oral every day route as route as by oral directed. directed. route as directed. Singulair Singulair No 1 Q1D Singulair [facility] 10 mg 10 mg 10 mg [facility] tablet Take tablet Take tablet dic 1 tablet 1 tablet Take 1 Sport s every day every day tablet Med icin by oral by oral every day e route as route as by oral directed. directed. route as directed. Symbicort Symbicort No 2puff(s BID Symbicort [facility] 160 mcg-4.5 160 mcg-4.5 ) 160 O rthope mcg/actuati mcg/actuati mcg-4.5 dic on HFA on HFA mcg/actuat Sport s aerosol aerosol ion HFA Medici n inhaler inhaler aerosol e Inhale 2 Inhale 2 inhaler puffs twice puffs twice Inhale 2 a day by a day by puffs inhalation inhalation twice a route as route as day by directed. directed. inhalation route as directed. tramadol 50 tramadol 50 No 1 TID tramadol [facility] mg tablet mg tablet 50 mg Orth ope Take 1 Take 1 tablet dic tablet 3 tablet 3 Take 1 Sport s times a day times a day tablet 3 Medicin by oral by oral times a e route as route as day by needed for needed for oral route 30 days. 30 days. as needed for 30 days. Vital Signs Vital Name Observation Time Observation Value Comments Source Height 2022-06-13 00:00:00 67 [in_i] [facility] BMI (Body Mass 2022-06-13 00:00:00 28.2 kg/m2 [facility]) Sports Medicine Body Weight 2022-06-13 00:00:00 180 [lb_av] [facility] Medicine Height 2022-05-11 00:00:00 67 [in_i] [facility] BMI (Body Mass 2022-05-11 00:00:00 28.5 kg/m2 [facility] Sports Medicine Body Weight 2022-05-11 00:00:00 182 [lb_av] [facility] WEIGHT 2021-03-20 11:23:15 82 kg HEIGHT 2020-12-26 07:45:00 168 cm WEIGHT 2020-12-26 07:45:00 79 kg WEIGHT 2020-12-12 09:25:40 79 kg HEIGHT 2020-06-21 11:47:00 168 cm WEIGHT 2020-06-21 11:47:00 81 kg WEIGHT 2020-05-24 10:19:22 81 kg Procedures This patient has no known procedures. Plan of Care Planned Activity Planned Date Details Comments Source Instructions [facility] Encounters Start End Encounter Admission Attending Care Care Encounter Source Date/Time Date/Time Type Type Clinicians Facility Department ID 2022-09-[address] [facility] [id number] [place] 13:39:20 [id number] [facility] 2022-09-[address] [facility] [id number] [place] 11:52:17 [id number] [facility] 2022-08-[address] [facility] [id number] [place] 11:27:12 [id number] [facility] 2022-08-[address] [facility] [id number] [place] 13:51:48 [id number] [facility] 2022-07-[address] [facility] [id number] [place] 15:15:30 [id number] [facility] 2021-09-05 Outpatient SYSTEM, MDA MDA [id number] 12:42:25 PROVIDER Vaughn billings 2021-05-19 [address]patient GORDON-AVENDA [facility] [id number] [place] 17:11:58 NO, WARREN Heal 2021-05-19 Outpatient SYSTEM, MDA MDA [id number] 13:16:01 PROVIDER Vaughn billings 2020-12-30 Outpatient SYSTEM, MDA MDA [id number] 16:03:31 PROVIDER Vaughn billings 2020-05-25 Outpatient IVAN LUCRETIA MDA MDA [id number] 13:03:32 Karli billings 2022-09-13 2022-09-[address] [facility]-AV[facility] [id number] [place] 15:40:00 15:40:00 NO, WARREN [facility] 2022-07-20 2022-07-20 Outpatient CHRIS MESSINA, MDA MDA [id number] 09:37:54 23:59:00 ROOSEVELT billings 2022-07-20 2022-07-20 Outpatient CHRIS MAYURI, MDA MDA [id number] 09:37:06 23:59:00 ROOSEVELT billings 2022-07-20 2022-07-20 Outpatient EL WHITNEY, MDA MDA [id number] 12:33:48 14:05:20 ARABELLA billings 2022-07-12 2022-07-13 Inpatient UR VOGEL [facility] [id number] 16:51:00 16:51:00 Javier GAMEZ 2022-07-13 2022-07-13 Inpatient EL IVAN, MDA MDA [id number] 02:04:44 02:43:18 JULIANA billings 2022-06-22 2022-06-22 Outpatient CHRIS ESPINOSA, MDA MDA [id number] 08:56:19 23:59:00 PRACHEE Vaughn phuc billings 2022-06-22 2022-06-22 Outpatient CHRIS ESPINOSA MDA MDA [id number] 12:49:33 14:55:23 FAUSTINO Solers o manuelito 2022-06-22 2022-06-22 Outpatient CHRIS ESPINOSA MDA MDA [id number] 09:18:08 09:18:08 FAUSTINO Solers o manuelito 2022-06-13 2022-06-13 Outpatient FOG_Torres_ AOSM AOSM [id number] Alicia 00:00:00 00:00:00 Veroni_NP [id number] Orth ope dic Sports Medicin e 2022-06-13 2022-06-13 Sagrario J AOSM [place] - Ortho 2021 [id number] Alicia 00:00:00 00:00:00 Avalos, Irwin - Or thope POEM WRITER: [id number] FOG_Ofc dic [facility], [place] [id number] , Ph. [phone] 2022-06-13 2022-06-13 Outpatient Robbie, AOSM AOSM [id number] 00:00:00 00:00:00 Sagrario Trejo [id number] 2022-05-21 2022-05-21 Outpatient CHRIS DOVER MDA MDA [id number] 12:45:00 23:59:00 SILVA billings 2022-05-21 2022-05-21 Outpatient CHRIS DOVER MDA MDA [id number] 12:20:45 12:44:00 SILVA Solers o manuelito 2022-05-21 2022-05-21 Outpatient CHRIS DOVER MDA MDA [id number] 10:59:15 12:36:40 SILVA Solers o manuelito 2022-05-11 2022-05-11 Outpatient FOG_Torres_ AOSM AOSM [id number] Alicia 00:00:00 00:00:00 Veroni_NP [id number] Orth ope dic Sports Medicin e 2022-05-11 2022-05-11 Sagrario Trejo AOSM [place] - Ortho 2021 [id number] Alicia 00:00:00 00:00:00 Avalos, Irwin - Or thope POEM WRITER: [id number] FOG_Ofc dic [facility], [place] [address] , Ph. [phone] 2022-05-11 2022-05-11 Outpatient LISSA Avalos AO [id number] 00:00:00 00:00:00 Sagrario Trejo mobility [id number] 2022-01-05 2022-01-05 Outpatient CHRIS PRANAV, MDA MDA [id number] MD 11:14:13 23:59:00 ANJELICA Herrera rso n 2022-01-05 2022-01-05 Outpatient CHRIS ROCK MDA MDA [id number] MD 09:00:00 11:13:00 ANJELICA Herrera rso n 2022-01-05 2022-01-05 Outpatient CHRIS ROCK MDA MDA [id number] MD 08:50:00 08:59:00 ANJELICA Herrera rso n 2022-01-05 2022-01-05 Outpatient CHRIS ROCK MDA MDA [id number] MD 08:49:57 08:49:57 ANJELICA Herrera rso n 2022-01-05 2022-01-05 Outpatient CHRIS ROCK MDA MDA [id number] MD 08:09:45 08:48:00 ANJELICA Herrera rso n 2022-01-05 2022-01-05 Outpatient CHRIS ROCK MDA MDA [id number] MD 07:15:39 08:08:00 ANJELICA Herrera rso n 2021-12-29 2021-12-29 Outpatient CHRIS DIAS MDA MDA [id number] MD 12:46:56 12:46:56 JANA billings 2021-12-25 2021-12-25 Outpatient CHRIS ROCK MDA MDA [id number] MD 15:22:30 23:59:00 ANJELICA Herrera rso n 2021-12-25 2021-12-25 Outpatient CHRIS ROCK MDA MDA [id number] MD 14:41:42 15:21:00 ANJELICA Herrera rso n 2021-12-25 2021-12-25 Outpatient CHRIS DOVER MDA MDA [id number] MD 14:00:02 15:15:53 SILVA billings 2021-12-25 2021-12-25 Outpatient EL LARISSA, MDA MDA [id number] 11:09:16 11:52:34 JANA billings 2021-09-25 2021-09-25 Outpatient EL LARISSA, MDA MDA [id number] 08:08:58 10:04:23 JANA billings 2021-09-15 2021-09-16 Outpatient ER ANDREY LAWSON MDA Emergency 1 [id number] 12:03:00 13:25:00 Vaughn billings 2021-09-02 2021-09-02 Outpatient EL MDA MDA [id number] 12:36:38 12:36:38 Vaughn billings 2021-08-18 2021-08-18 Outpatient EL DEVONTE, MDA MDA [id number] 10:02:16 10:02:16 ARABELLA billings 2021-06-26 2021-06-26 Outpatient EL DEVONTE, MDA MDA [id number] 10:50:15 11:13:08 ARABELLA billings 2021-06-23 2021-06-23 Outpatient EL TALI, MDA MDA [id number] 14:06:56 15:58:36 CLAUDIA billings 2021-06-08 2021-06-08 Outpatient EL DEVONTE, MDA MDA [id number] 13:51:51 23:59:00 ARABELLA billings 2021-06-08 2021-06-08 Outpatient EL WHITNEY, MDA MDA [id number] 12:47:17 12:47:17 ARABELLA billings 2021-05-26 2021-05-26 Outpatient EL TALI, MDA MDA [id number] MD 08:35:17 23:59:00 CLAUDIA billings 2021-05-26 2021-05-26 Outpatient EL TALI, MDA MDA [id number] MD 08:47:32 08:47:32 CLAUDIA billings 2021-05-02 2021-05-02 Outpatient EL YOU, MDA MDA [id number] 09:10:58 09:10:58 ADONIS billings 2021-03-20 2021-03-20 Outpatient CHRIS DOVER, MDA MDA [id number] 12:11:06 15:58:51 SILVA billings 2021-03-20 2021-03-20 Outpatient CHRIS WHITNEY, MDA MDA [id number] MD 10:23:01 12:28:40 ARABELLA billings 2021-03-20 2021-03-20 Outpatient DEVONTE, MDA MDA [id number] MD 09:59:56 09:59:56 ARABELLA billings 2020-12-31 2020-12-31 Outpatient CHRIS WHITNEY, MDA MDA [id number] 10:08:40 11:59:17 ARABELLA billings 2020-12-26 2020-12-26 Outpatient CHRIS DOVER, MDA MDA [id number] MD 09:25:14 23:59:00 SILVA billings 2020-12-26 2020-12-26 Outpatient CHRIS DOVER, MDA MDA [id number] MD 07:33:15 09:24:00 SILVA billings 2020-12-26 2020-12-26 Outpatient CHRIS DOVER, MDA MDA [id number] MD 07:33:00 07:33:00 ISLVA billings 2020-12-26 2020-12-26 Outpatient CHRIS DOVER, MDA MDA [id number] 07:08:19 07:32:00 SILVA billings 2020-12-12 2020-12-12 Outpatient CHRIS DOVER, MDA MDA [id number] MD 08:59:11 23:59:00 SILVA billings 2020-12-12 2020-12-12 Outpatient DEVONTE, MDA MDA [id number] MD 11:22:35 11:22:35 ARABELLA billings 2020-12-12 2020-12-12 Outpatient PUSHPA, MDA MDA [id number] MD 08:33:58 11:00:10 JEANNE billings 2020-12-12 2020-12-12 Outpatient DEVONTE, MDA MDA [id number] MD 07:42:51 08:58:00 ARABELLA billings 2020-12-10 2020-12-10 Outpatient EL YONY, MDA MDA [id number] MD 10:14:40 10:33:36 TENA billings 2020-11-16 2020-11-16 Outpatient DEVONTE, MDA MDA [id number] MD 11:20:08 14:51:10 ARABELLA billings 2020-09-02 2020-09-02 Outpatient KENYATTA, MDA MDA [id number] MD 13:40:49 13:40:49 ADONIS billings 2020-08-02 2020-08-02 Outpatient NEL MDA MDA [id number] MD 08:09:05 09:39:30 N, FUENTES And erso n 2020-08-02 2020-08-02 Outpatient TALI, MDA MDA [id number] MD 06:12:36 06:12:36 CLAUDIA billings 2020-07-25 2020-07-25 Outpatient TALI, MDA MDA [id number] MD 00:00:00 00:00:00 CLAUDIA billings 2020-06-21 2020-06-21 Outpatient DEVONTE, MDA MDA [id number] MD 07:40:19 23:59:00 ARABELLA billings 2020-06-21 2020-06-21 Outpatient DEVONTE, MDA MDA [id number] MD 07:40:01 23:59:00 ARABELLA billings 2020-06-21 2020-06-21 Outpatient NEL MDA MDA [id number] 10:01:04 13:05:13 N, FUENTES And erso n 2020-06-21 2020-06-21 Outpatient MAYURI, MDA MDA [id number] 07:39:23 07:39:23 ROOSEVELT billings 2020-05-26 2020-05-26 Outpatient TALI, MDA MDA [id number] 12:36:31 12:36:31 CLAUDIA billings 2020-05-24 2020-05-24 Outpatient TALI, MDA MDA [id number] MD 12:36:47 12:50:04 CLAUDIA billings 2020-05-24 2020-05-24 Outpatient TALI, MDA MDA [id number] MD 09:50:14 12:16:05 CLAUDIA billings 2020-05-24 2020-05-24 Outpatient EL TALI, MDA MDA [id number] 08:26:51 08:26:51 CLAUDIA billings 2020-05-24 2020-05-24 Outpatient EL TALI, MDA MDA [id number] 08:00:39 08:00:39 CLAUDIA billings 2020-05-24 2020-05-24 Outpatient EL BREONNA, MDA MDA [id number] 07:06:16 07:06:16 UNIQUE billings 2020-05-24 2020-05-24 Outpatient EL TALI, MDA MDA [id number] 00:00:00 00:00:00 CLAUDIA billings 2016-04-13 2016-04-13 Outpatient EL MDA MDA [id number] 00:00:00 00:00:00 Vaughn billings Results This patient has no known results.
--- NOTE | 2022-09-24 15:21 | RAD REPORT ---
EXAM DESCRIPTION: RAD - Chest Pa And Lat (2 Views) - 09/24/2022 3:03 pm CLINICAL HISTORY: COUGH Chest pain. COMPARISON: Chest Single View dated 05/17/2019; Chest Single View dated 02/19/2018; Chest Pa And Lat ( 2 Views) dated 02/18/2018; Chest Pa And Lat (2 Views) dated 09/06/2016 FINDINGS: Moderate bilateral interstitial lung opacities are present. This most likely represents in fection/pneumonia or less likely pulmonary edema. The heart is upper limit normal in size.
[2022-09-24 16:07] LABS: SARS-COV-2 RT PCR NEGATIVE (NEGATIVE)
[2022-09-24 16:23] LABS: Absolute Lymphocytes (CBC) 0.7 K/uL (0.7-4.9); Hematocrit 40.9 % (39.6-49.0); Lymphocytes % 8.8 % (15.3-44.8); MCV 87.5 fL (80-100); MPV 8.1 fL (7.6-11.3); RBC Red Blood Cell Count 4.67 M/uL (4.33-5.43)
[2022-09-24] MEDS ORDERED: PIPERACIL/TAZO 3.375 GM VIAL IV ONE (16:33)
[2022-09-24] MEDS ORDERED: HYDROCODONE/CHLORPHEN 5 ML/OSYR ONE (16:33)
[2022-09-24] MEDS ORDERED: NA CHLORIDE 0.9% 1,000 ML ONE (16:33)
[2022-09-24] MEDS ORDERED: NA CHLORIDE 0.9% 100 ML IV ONE (16:33)
[2022-09-24 16:48] LABS: Potassium 3.4 mmol/L (3.5-5.1)
--- NOTE | 2022-09-24 18:05 | ER ---
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 Coronavirus screen: Vaccine status: Patient reports receiving the 2nd dose of the covid vaccine. Client denies travel out of the [place] in the last 14 days. Ebola Screen: Patient negative for fever greater than or equal to 101.5 degrees Fahrenheit, and additional compatible Ebola Virus Disease symptoms Patient denies exposure to infectious person. Patient denies travel to an Ebola-affected area in the 21 days before illness onset. Initial Sepsis Screen: Does the patient meet any 2 criteria? No. Patient's initial sepsis screen is negative. Does the patient have a suspected source of infection? No. Patient's initial sepsis screen is negative. Risk Assessment: Do you want to hurt yourself or someone else? Patient reports no desire to harm self or others. 13:12 Method Of Arrival: Ambulatory [facility] 13:12 Acuity: [place] 3 5 Triage Assessment: 13:16 General: Appears uncomfortable, slender, well groomed, well developed, well nourished, [facility] Behavior is calm, cooperative, appropriate for age, anxious. Pain: Denies pain. Historical: - Allergies: 13:16 Prednisone; jh5 - PMHx: 13:16 Hypertension; Hodgkin's Lymphoma; High Cholesterol; Back pain; pulmonary fibrosis; jh5 - Immunization history:: Adult Immunizations up to date. - Social history:: Smoking status: Patient denies any tobacco usage or history of. Screenin:45 Abuse screen: Denies threats or abuse. Denies injuries from another. Nutritional kb3 screening: No deficits noted. Tuberculosis screening: No symptoms or risk factors identified. Fall Risk None identified. Assessment: 14:45 General: Appears in no apparent distress. Behavior is calm, cooperative, Pt reports kb3 cough and SOB since last night. reports history of pulmonary fibrosis. 14:45 Pain: Denies pain. Cardiovascular: Heart tones present Chest pain is described as kb3 vague, quality is Pain with cough. Respiratory: Reports shortness of breath cough that is air hunger Airway is patent Respiratory effort is even, unlabored, Breath sounds with rhonchi bilaterally. Onset: The symptoms/episode began/occurred yesterday. 16:22 General: Pt moved to room 18 via stretcher pending admission. kb3 16:57 Reassessment: Patient appears in no apparent distress at this time. No changes from vg1 previously documented assessment. Patient and/or family updated on plan of care and expected duration. Pain level reassessed. Patient is alert, oriented x 3, equal unlabored respirations, skin warm/dry/pink. 18:02 Reassessment: Patient appears in no apparent distress at this time. No changes from vg1 previously documented assessment. Patient and/or family updated on plan of care and expected duration. Pain level reassessed. Patient is alert, oriented x 3, equal unlabored respirations, skin warm/dry/pink. 19:10 Reassessment: Patient appears in no apparent distress at this time. Patient and/or vg1 family updated on plan of care and expected duration. Pain level reassessed. Patient is alert, oriented x 3, equal unlabored respirations, skin warm/dry/pink. Patient denies pain at this time. Patient states feeling better. Vital Signs: 13:12 BP 161 / 84; Pulse 94; Resp 23; Temp 99.1; Pulse Ox 97% ; Weight 83.91 kg; Height 5 ft. 5 6 in. (167.64 cm); Pain 6/10; 16:24 BP 131 / 62; Pulse 89; Resp 22; Pulse Ox 97% ; kb3 17:00 BP 120 / 56; Pulse 86; Resp 17; Pulse Ox 95% on R/A; vg1 13:12 Body Mass Index 29.86 (83.91 kg, 167.64 cm) [facility] ED Course: 13:01 Patient arrived in ED. rg4 13:16 Triage completed. 5 13:16 Arm band placed on right wrist. [facility] 14:03 Richa Steel FNP-C [facility] 14:03 Trell Bloom MD is Attending Physician. snw 14:45 Maria Luisa Sarabia, ELIJAH is Primary Nurse. kb3 14:45 Patient has correct armband on for positive identification. Placed in gown. Bed in low kb3 position. Call light in reach. Side rails up X 1. Adult w/ patient. Client placed on continuous cardiac and pulse oximetry monitoring. NIBP monitoring applied. Warm blanket given. 14:45 No provider procedures requiring assistance completed. Inserted saline lock: 20 gauge kb3 in right antecubital area, using aseptic technique. Blood collected. Patient maintains SpO2 saturation greater than 95% on room air. 14:50 Patient moved to radiology via wheelchair. kb3 15:04 Chest Pa And Lat (2 Views) XRAY In Process Unspecified. EDMS 16:36 First set of blood cultures drawn Right wrist. vg1 16:44 Second set of blood cultures drawn Left wrist. vg1 19:11 IV discontinued, intact, bleeding controlled, No redness/swelling at site. Pressure vg1 dressing applied. Administered Medications: 16:37 Drug: Tussionex Pennkinetic ER (chlorpheniramine-hydrocodone) Suspension 5 ml Route: PO;vg1 19:00 Follow up: Response: No adverse reaction; Marked relief of symptoms vg1 16:45 Drug: NS 0.9% 1000 ml Route: IV; Rate: 75 ml/hr; Site: right antecubital; vg1 19:10 Follow up: IV Status: Completed infusion; IV Intake: 200ml vg1 16:51 Drug: Zosyn (piperacillin-tazobactam) 3.375 grams Route: IVPB; Infused Over: 60 mins; vg1 Site: right antecubital; 17:52 Follow up: IV Status: Completed infusion; IV Intake: 100ml vg1 18:55 Drug: Albuterol 2.5 mg Route: Inhalation; vg1 19:10 Follow up: Response: Marked relief of symptoms vg1 Medication: 14:45 VIS not applicable for this client. kb3 Intake: 17:52 IV: 100ml; Total: 100ml. vg1 19:10 IV: 200ml; Total: 300ml. vg1 Outcome: 18:05 Discharge ordered by . snw 19:10 Discharged to home ambulatory, with family. vg1 19:10 Condition: good 19:10 Discharge instructions given to patient, family, Instructed on discharge instructions, follow up and referral plans. medication usage, Demonstrated understanding of instructions, follow-up care, medications, Prescriptions given X x6 19:11 Patient left the ED. vg1 Signatures: Dispatcher [employer] EDMS Richa Steel, MARIA DE JESUS-C CLINICAL ACCOUNT EXECUTIVE-Ilaw Isha Sullivan rg4 Deysi Sullivan, RN RN vg1 Lucretia Llody, RN RN jh5 Maria Luisa Sarabia RN RN kb3 Corrections: (The following items were deleted from the chart) 13:17 13:16 Allergies: NKA; 5 5 16:22 14:45 Respiratory: Reports shortness of breath cough that is air hunger Airway is kb3 patent Respiratory effort is even, unlabored, Breath sounds are clear Onset: The symptoms/episode began/occurred yesterday, kb3
--- NOTE | 2022-09-24 18:06 | EDPHYS ---
Physician Documentation [facility] Name: Clinton Arnold Age: 67 yrs Sex: Male : 1955 Arrival Date: 09/24/2022 Time: 13:01 Bed 18 Private MD: ED Physician Trell Bloom HPI: 09/24 15:52 This 67 yrs old Male presents to ER via Ambulatory with complaints of Cough, snw Chest Pain, Congestion. 15:52 The patient or guardian reports cough, described as moderate, flu symptoms, low-grade snw fever, myalgias. Onset: The symptoms/episode began/occurred suddenly, yesterday, and became worse last night. Severity of symptoms: At their worst the symptoms were moderate, severe. Associated signs and symptoms: The patient has no apparent associated signs or symptoms. The patient has experienced similar episodes in the past, multiple times. Dr. Barrett. Historical: - Allergies: 13:16 Prednisone; jh5 - PMHx: 13:16 Hypertension; Hodgkin's Lymphoma; High Cholesterol; Back pain; pulmonary fibrosis; jh5 - Immunization history:: Adult Immunizations up to date. - Social history:: Smoking status: Patient denies any tobacco usage or history of. ROS: 15:50 Eyes: Negative for injury, pain, redness, and discharge, ENT: Negative for injury, snw pain, and discharge, Neck: Negative for injury, pain, and swelling. 15:50 Abdomen/GI: Negative for abdominal pain, nausea, vomiting, diarrhea, and constipation, Back: Negative for injury and pain, : Negative for injury, bleeding, discharge, and swelling, MS/Extremity: Negative for injury and deformity, Skin: Negative for injury, rash, and discoloration, Neuro: Negative for headache, weakness, numbness, tingling, and seizure. 15:50 Constitutional: Positive for body aches, fatigue, fever, malaise. 15:50 Cardiovascular: Positive for chest pain, of the anterior aspect of left upper chest. 15:50 Respiratory: Positive for cough, with yellow sputum. Exam: 15:48 Constitutional: This is a well developed, well nourished patient who is awake, alert, snw and in no acute distress. Head/Face: Normocephalic, atraumatic. Eyes: Pupils equal round and reactive to light, extra-ocular motions intact. Lids and lashes normal. Conjunctiva and sclera are non-icteric and not injected. Cornea within normal limits. Periorbital areas with no swelling, redness, or edema. 15:48 Neck: Trachea midline, no thyromegaly or masses palpated, and no cervical lymphadenopathy. Supple, full range of motion without nuchal rigidity, or vertebral point tenderness. No Meningismus. Chest/axilla: Normal chest wall appearance and motion. Nontender with no deformity. No lesions are appreciated. Cardiovascular: Regular rate and rhythm with a normal S1 and S2. No gallops, murmurs, or rubs. Normal PMI, no JVD. No pulse deficits. 15:48 Abdomen/GI: Soft, non-tender, with normal bowel sounds. No distension or tympany. No guarding or rebound. No evidence of tenderness throughout. Back: No spinal tenderness. No costovertebral tenderness. Full range of motion. Skin: Warm, dry with normal turgor. Normal color with no rashes, no lesions, and no evidence of cellulitis. MS/ Extremity: Pulses equal, no cyanosis. Neurovascular intact. Full, normal range of motion. Neuro: Awake and alert, GCS 15, oriented to person, place, time, and situation. Cranial nerves II-XII grossly intact. Motor strength 5/5 in all extremities. Sensory grossly intact. Cerebellar exam normal. Normal gait. 15:48 ENT: Nose: Nasal mucosa: edematous, Mouth: is normal. 15:48 Respiratory: the patient does not display signs of respiratory distress, Respirations: tachypnea, Breath sounds: rhonchi, that are moderate. Vital Signs: 13:12 BP 161 / 84; Pulse 94; Resp 23; Temp 99.1; Pulse Ox 97% ; Weight 83.91 kg; Height 5 ft. jh5 6 in. (167.64 cm); Pain 6/10; 16:24 BP 131 / 62; Pulse 89; Resp 22; Pulse Ox 97% ; kb3 17:00 BP 120 / 56; Pulse 86; Resp 17; Pulse Ox 95% on R/A; vg1 13:12 Body Mass Index 29.86 (83.91 kg, 167.64 cm) 5 MDM: 15:11 Patient medically screened. snw 18:08 Data reviewed: vital signs, nurses notes. Data interpreted: Pulse oximetry: on room air snw is 95 %. Interpretation: acceptable. Counseling: I had a detailed discussion with the patient and/or guardian regarding: the historical points, exam findings, and any diagnostic results supporting the discharge/admit diagnosis, lab results, radiology results, the need for outpatient follow up, to return to the emergency department if symptoms worsen or persist or if there are any questions or concerns that arise at home. Special discussion: Based on the history and exam findings, there is no indication for further emergent testing or inpatient evaluation. I discussed with the patient/guardian the need to see the primary care provider for further evaluation of the symptoms. 09/24 14:04 Order name: COVID-19/FLU A+B/RSV; Complete Time: 16:24 snw 09/24 15:47 Order name: CBC with Diff; Complete Time: 16:40 snw 09/24 15:47 Order name: Chem 7; Complete Time: 16:49 snw 09/24 15:47 Order name: Procalcitonin; Complete Time: 17:23 snw 09/24 15:47 Order name: Lactate w/ 2H reflex if indic.; Complete Time: 16:40 snw 09/24 15:47 Order name: Blood Culture Adult (2) snw 09/24 14:04 Order name: Chest Pa And Lat (2 Views) XRAY; Complete Time: 15:31 snw 09/24 15:50 Order name: Troponin High Sensitivity; Complete Time: 18:05 snw 09/24 15:50 Order name: EKG; Complete Time: 15:51 snw 09/24 15:50 Order name: EKG - Nurse/Tech; Complete Time: 17:44 snw EC:49 Rate is 87 beats/min. Rhythm is regular. QRS [place] is Normal. AR interval is normal. QRS snw interval is normal. QT interval is normal. T waves are Flattened. Clinical impression: NSR w/ Non-specific ST/T Changes. Administered Medications: 16:37 Drug: Tussionex Pennkinetic ER (chlorpheniramine-hydrocodone) Suspension 5 ml Route: PO;vg1 19:00 Follow up: Response: No adverse reaction; Marked relief of symptoms vg1 16:45 Drug: NS 0.9% 1000 ml Route: IV; Rate: 75 ml/hr; Site: right antecubital; vg1 19:10 Follow up: IV Status: Completed infusion; IV Intake: 200ml vg1 16:51 Drug: Zosyn (piperacillin-tazobactam) 3.375 grams Route: IVPB; Infused Over: 60 mins; vg1 Site: right antecubital; 17:52 Follow up: IV Status: Completed infusion; IV Intake: 100ml vg1 18:55 Drug: Albuterol 2.5 mg Route: Inhalation; vg1 19:10 Follow up: Response: Marked relief of symptoms vg1 Disposition: 16:44 Co-signature as Attending Physician, Trell Bloom MD I agree with the assessment and rt plan of care. Disposition Summary: 09/24/22 18:05 Discharge Ordered Location: Home snw Condition: Stable snw Diagnosis - Influenza due to identified novel influenza A virus snw - Viral pneumonia, unspecified snw Followup: snw - With: Emergency Department - When: As needed - Reason: Worsening of condition Followup: snw - With: Private Physician - When: 2 - 3 days - Reason: Recheck today's complaints, Continuance of care, Re-evaluation by your physician Discharge Instructions: - Discharge Summary Sheet snw - Fever, Adult snw - How to Provide Postural Drainage, Chest Percussion, and Chest Vibration, Pediatric snw - Influenza, Adult, [id number] snw - Community-Acquired Pneumonia, Adult, [id number] snw Forms: - Medication Reconciliation Form snw - Thank You Letter snw - Antibiotic Education snw - Prescription Opioid Use snw Prescriptions: - Xofluza 80 mg Oral tablet - take 1 tablet by ORAL route one time; 1 tablet; Refills: 0, Product Selection snw Permitted - Zyrtec 10 mg Oral Tablet - take 1 tablet by ORAL route once daily As needed; 20 tablet; Refills: 0, snw Product Selection Permitted - Pepcid 20 mg Oral Tablet - take 1 tablet by ORAL route once daily; 20 tablet; Refills: 0, Product snw Selection Permitted - Tylenol-Codeine #3 300 mg-30 mg Oral - take 1 tablet by ORAL route 2 times per day; 12 tablet; Refills: 0, Product snw Selection Permitted - acetylcysteine (bulk) - take 600 milligram by ORAL route once daily; 30 milligram; Refills: 0, Product snw Selection Permitted - albuterol sulfate 90 mcg/actuation Inhalation HFA aerosol inhaler - inhale 2 puff by INHALATION route every 4-6 hours; 1 vial; Refills: 0, Product snw Selection Permitted Signatures: Dispatcher [employer] EDRicha Mcleod FNP-C FNP-Deysi Lin RN RN vg1 Lucretia Lloyd RN RN jh5 Trell Bloom MD MD rt Corrections: (The following items were deleted from the chart) 13:17 13:16 Allergies: NKA; marika jh5
[2022-09-24] MEDS ORDERED: ALBUTEROL 2.5 MG/3 ML NEB SOL ONE (18:43)
[2022-09-24 19:21] VITALS: TEMP 99.1
[2022-09-24 19:23] VITALS: BP 120/56; O2SAT 95
--- NOTE | 2022-09-25 13:49 | EKG ---
Test Date: 2022-09-24 Test Time: 17:34:31 Inspector Optical Instrument: MEASUREMENT RESULTS: Intervals: Rate: 87 UT: 142 QRSD: 94 QT: 344 QTc: 413 [place]: P: 19 UT: 142 QRS: -7 T: -2 INTERPRETIVE STATEMENTS: Normal sinus rhythm Minimal voltage criteria for LVH, may be normal variant Borderline ECG Compared to ECG 05/20/2019 07:13:03 Left ventricular hypertrophy now present Sinus bradycardia no longer present Electronically Signed On 09-25-22 13:47:03 ELECTRONIC OPERATOR by Jimmy Streeter
== END 2022-09-24 19:11 | disposition home or self-care (01) ==
LOC: ER 12:58
DX: J10.08 Influenza due to other identified influenza virus with other specified pneumonia (principal); J12.9 Viral pneumonia, unspecified; Z20.822 Contact with and (suspected) exposure to COVID-19; I10 Essential (primary) hypertension; Z85.6 Personal history of leukemia; Z88.8 Allergy status to other drugs, medicaments and biological substances
CPT/HCPCS: 96365; 96361; 93005; 87040 ×2; 85025; 80048; 36415; 83605; 84484; 84145; 0241U; 71046; 99285; J2543; J7613; J7030

== ENCOUNTER 2023-02-27 02:11 | Emergency (ER) | payer OTHER ==
--- OUTSIDE RECORDS SUMMARY | 2023-02-27 02:19 | XMS REPORT | Continuity of Care Document ---
:[address] [facility] t Address [address] [facility] [address] [place] [address] Care Team Providers Name Role Phone [phone] Primary Care Physician Unavailable SYSTEM, PROVIDER NOT IN Attending Clinician Unavailable WARREN CASTRO Attending Clinician Unavailable LUCRETIA LOVE Attending Clinician Unavailable SILVA DOVER Attending Clinician Unavailable Grazyna Hairston Attending Clinician Unavailable Doctor Unassigned, [place] Attending Clinician Unavailable STONE FUENTES Attending Clinician Unavailable Therapist, [facility] Attending Clinician Unavailable Stone Fuentes MD Attending Clinician ARABELLA WHITNEY Attending Clinician Unavailable ROOSEVELT MESSINA Attending Clinician Unavailable NIKITA WILSON Attending Clinician Unavailable JULIANA LOVE Attending Clinician Unavailable FAUSTINO ESPINOSA Attending Clinician Unavailable [email or web address]_NP Attending Clinician Unavailable Sagrario Avalos Attending Clinician [phone] ANJELICA ROCK Attending Clinician Unavailable JANA DIAS Attending Clinician Unavailable ANDREY LAWSON Attending Clinician Unavailable CLAUDIA CESAR Attending Clinician Unavailable ADONIS YOU Attending Clinician Unavailable ASHUTOSH BARROW Attending Clinician Unavailable TENA BHAKTA Attending Clinician Unavailable FUENTES DOLAN Attending Clinician Unavailable UNIQUE RAVI Attending Clinician Unavailable JULIANA LOVE Admitting Clinician Unavailable [email or web address] Admitting Clinician Unavailable SILVIA LAW Admitting Clinician Unavailable Payers Payer Name Policy Type Policy Number Effective Date Expiration Date Yisel coy [employer] PPO [id number] 2020 00:00:00 MEDICARE PART A [id number] 2016 AND B 00:00:00 [employer] MED[employer] PPO [id number] 2020 00:00:00 Problems Condition Condition Condition Status [...] myelopathy Myelopathy Prepatella Prepatella Problem Active A [place] r bursitis r Bursitis 8-25 Or thope 00:00: dic 00 Sports Medicin e 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 00:00: dic 00 Sports Medicin e Hypertensi Hypertensi Problem Active A [place] ve ve 06-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 00:00: dic 00 Sports Medicin e Degenerati Degenerati Problem Active A [place] on of on of 06-30 Orthope cervicotho Cervicotho 00:00: di c racic racic 00 Sports interverte Interverte Me dicin bral disc bral Disc e Radiculiti Radiculiti Problem Active Emily nuñez s due to s Due to 06-30 Orthop e displaceme Displaceme 00:00: di c nt of nt of 00 Sports lumbar Lumbar Medicin interverte Interverte e bral disc bral Disc No known No known Disease Unive rs active active ity of problems problems [place] [facility] Allergies, Adverse Reactions, Alerts Allergy Allergy Status Severity Reaction(s) Onset Inactive Treating Comm ents Source Name Type Date Date Clinician Levoflox Propensi Active Other - See 2021-11 Weakened Univers acin ty to comments 2-15 muscles ity of adverse 00:00: everywher [place] reaction 00 e Medical s Branch Methylpr Propensi Active Hives 2021-11 Univer s ednisolo ty to 2-15 ity of ne adverse 00:00: [place] reaction 00 Medical s Branch LEVOFLOX DRUG Active High Other-Cmnt 2021-11 Univ ers ACIN INGREDI 2-15 ity of 00:00: [place] 00 Medical Branch METHYLPR DRUG Active High Hives 2021-11 Univers EDNISOLO INGREDI 2-15 ity of NE 00:00: [place] 00 Medical Branch PREDNISO DRUG Active Other 2019-0 MD LONE INGREDI 2-24 Anderso 00:00: n 00 PREDNISO DRUG Active Other 2019-0 MD LONE INGREDI 2-24 Anderso 00:00: n 00 PREDNISO DRUG Active Other 2019-0 MD LONE INGREDI 2-24 Anderso 00:00: n 00 PREDNISO DRUG Active Other 2019-0 MD LONE INGREDI 2-24 Anderso 00:00: n [...] n 00 No Known DA Active U 2018-0 [facility] Allergie 3-26 [place] [facility] 00:[facility]: [facility] No Known DA Active U 2018-0 [facility] Allergie 3-26 [place] [facility] 00:[facility]: [facility] 00 dic H[facility] NO KNOWN Drug Active Univers ALLERGIE Class ity of S [facility] Social History Social Habit Start Date Stop Date Quantity Comments Source History of Snuff User University of tobacco use [facility] Exposure to 2022-12-08 2022-12-18 Not sure [facility] SARS-CoV-2 00:00:00 11:57:00 [facility] (event) Branch Tobacco use and 2022-10-18 2022-10-18 Former smokeless Uni versity of exposure 00:00:00 00:00:00 [facility] Alcohol intake 2022-10-18 2022-10-18 .29 /d University of 00:00:00 00:00:00 [facility] Tobacco Comment 2022-10-18 2022-10-18 Quit 30 yrs ago Univ ersity of 00:00:00 00:00:00 [facility] Alcohol Comment 2022-10-18 2022-10-18 reports drinks 1 Uni versity of 00:00:00 00:00:00 beer q2wks; 1 [place] [facility] bottle 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 Clinician (SIG) Name Name sodium Yes 1{ampul Inhale 1 Univ ers chloride 2-07 e} Ampule 2 ity of 3.5 % Nebu 12:02: (two) [place] 54 times Medical daily. Branch Indication s: help clear secretions , per pt & MD Chou; reports takes separately from Albuterol. sodium Yes 1{ampul Inhale 1 Univ ers chloride 2-07 e} Ampule 2 ity of 3.5 % Nebu 12:02: (two) [place] 54 times Medical daily. Branch Indication s: help clear secretions , per pt & MD Chou; reports takes separately from Albuterol. sodium Yes 1{ampul Inhale 1 Univ ers chloride 2-07 e} Ampule 2 ity of 3.5 % Nebu 12:02: (two) [place] 54 times Medical daily. Branch Indication s: help clear secretions , per pt & MD José Antonio; reports takes separately from Albuterol. sodium 2023-0 Yes 1{ampul Inhale 1 Univ ers chloride 2-07 e} Ampule 2 ity of 3.5 % Nebu 12:02: (two) [place] 54 times Medical daily. Branch Indication s: help clear secretions , per pt & MD José Antonio; reports takes separately from Albuterol. sodium 3-0 Yes 1{ampul Inhale 1 Univ ers chloride 2-07 e} Ampule 2 ity of 3.5 % Nebu 12:02: (two) [place] 54 times Medical daily. Branch Indication s: help clear secretions , per pt & MD José Antonio; reports takes separately from Albuterol. sodium 2022-0 Yes 1{ampul Inhale 1 Univ ers chloride 2-07 e} Ampule 2 ity of 3.5 % Nebu 12:02: (two) [place] 54 times Medical daily. Branch Indication s: help clear secretions , per pt & MD José Antonio; reports takes separately from Albuterol. sodium 2023-0 Yes 1{ampul Inhale 1 Univ ers chloride 2-07 e} Ampule 2 ity of 3.5 % Nebu 12:02: (two) [place] 54 times Medical daily. Branch Indication s: help clear secretions , per pt & MD José Antonio; reports takes separately from Albuterol. sodium 2022-0 Yes 1{ampul Inhale 1 Univ ers chloride 2-07 e} Ampule 2 ity of 3.5 % Nebu 12:02: (two) [place] 54 times Medical daily. Branch Indication s: help clear secretions , per pt & MD José Antonio; reports takes separately from Albuterol. sodium 2023-0 Yes 1{ampul Inhale 1 Univ ers chloride 2-07 e} Ampule 2 ity of 3.5 % Nebu 12:02: (two) [place] 54 times Medical daily. Branch Indication s: help clear secretions , per pt & MD José Antonio; reports takes separately from Albuterol. sodium 2023-0 Yes 1{ampul Inhale 1 Univ ers chloride 2-07 e} Ampule 2 ity of 3.5 % Nebu 12:02: (two) [place] 54 times Medical daily. Branch Indication s: help clear secretions , per pt & MD José Antonio; reports takes separately from Albuterol. aspirin 81 2021-11 Yes 81mg Take 81 mg U nivers mg EC 2-15 by mouth ity of tablet 14:38: in the [place] [address] morning. Medical Indication Branch s: per pt from Cardiologi st, MD Chou albuterol 2021-11 Yes 2{puff} Inhale 2 U nivers 90 2-15 Puffs ity of mcg/actuati 14:38: every 6 [place] as on inhaler 04 (six) Medical hours as Branch needed for Wheezing or Shortness of Breath. Indication s: per MD Chou fluticasone 2021-11 Yes 2{puff} Inhale 2 Univers propionate 2-15 Puffs ity of (FLOVENT 14:38: every 6 [place] HFA) 110 04 (six) Medical mcg/actuati hours. Branch on inhaler Indication s: PRN from MD Chou albuterol 2021-11 Yes 1{ampul Use 1 Univ ers 2.5 mg/0.5 2-15 e} Ampule as ity of mL 14:38: directed [place] nebulizer 04 in the Medical solution morning Branch and 1 Ampule in the evening. Indication s: from MD Chou losartan 25 2021-11 Yes 25mg Take 25 mg Univers mg tablet 2-15 by mouth ity of 14:38: in the [place] [address] morning. Medical Indication Branch s: taking 50 mg daily per MD Chou atorvastati 2021-11 Yes 80mg Take 80 mg Univers n 80 mg 2-15 by mouth ity of tablet 14:38: at [place] [address] bedtime. Medical Indication Branch s: per MD Chou tadalafiL 5 2021-11 Yes 5mg Take 5 mg U nivers mg tablet 2-15 by mouth ity of 14:38: in the [place] [address] morning. Medical Indication Branch s: per MD Chou gabapentin 2021-11 Yes 300mg Take 300 Un valeriy 300 mg 2-15 mg by ity of capsule 14:38: mouth in [place] [address] the Medical morning Branch and 300 mg in the evening. Indication s: per MD Chou traMADoL 50 2021-11 Yes 50mg Take 50 mg Univers mg tablet 2-15 by mouth ity of 14:38: every 6 [place] 04 (six) Medical hours as Branch needed (usually takes at least daily, depending on level pain; per patient). magnesium 2021-11 Yes 200mg Take 200 Uni vers gluconate 2-15 mg by ity of 200 mg 14:38: mouth in [place] tablet 04 the Medical morning. Branch Indication s: per patient; PCP ordered cholecalcif 2021-11 Yes 1000U Take 1,000 Univers marleen, 2-15 Units by ity of vitamin D3, 14:38: mouth in [place] (VITAMIN 04 the Medical D3) 25 mcg morning. Branc h (1,000 Indication unit) s: per pt, tablet PCP ordered aspirin 81 2021-11 Yes 81mg Take 81 mg U nivers mg EC 2-15 by mouth ity of tablet 14:38: in the [place] 04 morning. Medical Indication Branch s: per pt from Cardiologi MD José Antonio sandoval albuterol 2021-11 Yes 2{puff} Inhale 2 U nivers 90 2-15 Puffs ity of mcg/actuati 14:38: every 6 [place] as on inhaler 04 (six) Medical hours as Branch needed for Wheezing or Shortness of Breath. Indication s: per MD Chou fluticasone 2021-11 Yes 2{puff} Inhale 2 Univers propionate 2-15 Puffs ity of (FLOVENT 14:38: every 6 [place] HFA) 110 04 (six) Medical mcg/actuati hours. Branch on inhaler Indication s: PRN from MD Chou albuterol 2021-11 Yes 1{ampul Use 1 Univ ers 2.5 mg/0.5 2-15 e} Ampule as ity of mL 14:38: directed [place] nebulizer 04 in the Medical solution morning Branch and 1 Ampule in the evening. Indication s: from MD Chou losartan 25 2021-11 Yes 25mg Take 25 mg Univers mg tablet 2-15 by mouth ity of 14:38: in the [place] 04 morning. Medical Indication Branch s: taking 50 mg daily per MD Chou atorvastati 2021-11 Yes 80mg Take 80 mg Univers n 80 mg 2-15 by mouth ity of tablet 14:38: at [place] 04 bedtime. Medical Indication Branch s: per MD Chou tadalafiL 5 2021-11 Yes 5mg Take 5 mg U nivers mg tablet 2-15 by mouth ity of 14:38: in the [place] 04 morning. Medical Indication Branch s: per MD Chou gabapentin 2021-11 Yes 300mg Take 300 Un valeriy 300 mg 2-15 mg by ity of capsule 14:38: mouth in [place] 04 the Medical morning Branch and 300 mg in the evening. Indication s: per MD Chou traMADoL 50 2021-11 Yes 50mg Take 50 mg Univers mg tablet 2-15 by mouth ity of 14:38: every 6 [place] 04 (six) Medical hours as Branch needed (usually takes at least daily, depending on level pain; per patient). magnesium 2021-11 Yes 200mg Take 200 Uni vers gluconate 2-15 mg by ity of 200 mg 14:38: mouth in [place] tablet 04 the Medical morning. Branch Indication s: per patient; PCP ordered cholecalcif 2021-11 Yes 1000U Take 1,000 Univers marleen, 2-15 Units by ity of vitamin D3, 14:38: [place] (VITAMIN 04 the Medical D3) 25 mcg morning. Branc h (1,000 Indication unit) s: per pt, tablet PCP ordered aspirin 81 2021-11 Yes 81mg Take 81 mg U nivers mg EC 2-15 by mouth ity of tablet 14:38: in the [place] 04 morning. Medical Indication Branch s: per pt from Cardiologi stMD Chou albuterol 2021-11 Yes 2{puff} Inhale 2 U nivers 90 2-15 Puffs ity of mcg/actuati 14:38: every 6 [place] as on inhaler 04 (six) Medical hours as Branch needed for Wheezing or Shortness of Breath. Indication s: per MD Chou fluticasone 2021-11 Yes 2{puff} Inhale 2 Univers propionate 2-15 Puffs ity of (FLOVENT 14:38: every 6 [place] HFA) 110 04 (six) Medical mcg/actuati hours. Branch on inhaler Indication s: PRN from MD Chou albuterol 2021-11 Yes 1{ampul Use 1 Univ ers 2.5 mg/0.5 2-15 e} Ampule as ity of mL 14:38: directed [place] nebulizer 04 in the Medical solution morning Branch and 1 Ampule in the evening. Indication s: from MD Chou losartan 25 2021-11 Yes 25mg Take 25 mg Univers mg tablet 2-15 by mouth ity of 14:38: in the [place] 04 morning. Medical Indication Branch s: taking 50 mg daily per MD Chou atorvastati 2021-11 Yes 80mg Take 80 mg Univers n 80 mg 2-15 by mouth ity of tablet 14:38: at [place] [address] bedtime. Medical Indication Branch s: per MD Chou tadalafiL 5 2021-11 Yes 5mg Take 5 mg U nivers mg tablet 2-15 by mouth ity of 14:38: in the [place] 04 morning. Medical Indication Branch s: per MD Chou gabapentin 2021-11 Yes 300mg Take 300 Un valeriy 300 mg 2-15 mg by ity of capsule 14:38: mouth in [place] 04 the Medical morning Branch and 300 mg in the evening. Indication s: per MD Chou traMADoL 50 2021-11 Yes 50mg Take 50 mg Univers mg tablet 2-15 by mouth ity of 14:38: every 6 [place] 04 (six) Medical hours as Branch needed (usually takes at least daily, depending on level pain; per patient). magnesium 2021-11 Yes 200mg Take 200 Uni vers gluconate 2-15 mg by ity of 200 mg 14:38: mouth in [place] tablet 04 the Medical morning. Branch Indication s: per patient; PCP ordered cholecalcif 2021-11 Yes 1000U Take 1,000 Univers marleen, 2-15 Units by ity of vitamin D3, 14:38: mouth in [place] (VITAMIN 04 the Medical D3) 25 mcg morning. Branc h (1,000 Indication unit) s: per pt, tablet PCP ordered aspirin 81 2021-11 Yes 81mg Take 81 mg U nivers mg EC 2-15 by mouth ity of tablet 14:38: in the [place] 04 morning. Medical Indication Branch s: per pt from Cardiologi MD Chou albuterol 2021-11 Yes 2{puff} Inhale 2 U nivers 90 2-15 Puffs ity of mcg/actuati 14:38: every 6 [place] as on inhaler 04 (six) Medical hours as Branch needed for Wheezing or Shortness of Breath. Indication s: per MD Chou fluticasone 2021-11 Yes 2{puff} Inhale 2 Univers propionate 2-15 Puffs ity of (FLOVENT 14:38: every 6 [place] HFA) 110 04 (six) Medical mcg/actuati hours. Branch on inhaler Indication s: PRN from MD Chou albuterol 2021-11 Yes 1{ampul Use 1 Univ ers 2.5 mg/0.5 2-15 e} Ampule as ity of mL 14:38: directed [place] nebulizer 04 in the Medical solution morning Branch and 1 Ampule in the evening. Indication s: from MD Chou losartan 25 2021-11 Yes 25mg Take 25 mg Univers mg tablet 2-15 by mouth ity of 14:38: in the [place] 04 morning. Medical Indication Branch s: taking 50 mg daily per MD Chou atorvastati 2021-11 Yes 80mg Take 80 mg Univers n 80 mg 2-15 by mouth ity of tablet 14:38: at [place] [address] bedtime. Medical Indication Branch s: per MD Chou tadalafiL 5 2021-11 Yes 5mg Take 5 mg U nivers mg tablet 2-15 by mouth ity of 14:38: in the [place] 04 morning. Medical Indication Branch s: per MD Chou gabapentin 2021-11 Yes 300mg Take 300 Un valeriy 300 mg 2-15 mg by ity of capsule 14:38: mouth in [place] 04 the Medical morning Branch and 300 mg in the evening. Indication s: per MD Chou traMADoL 50 2021-11 Yes 50mg Take 50 mg Univers mg tablet 2-15 by mouth ity of 14:38: every 6 [place] 04 (six) Medical hours as Branch needed (usually takes at least daily, depending on level pain; per patient). magnesium 2021-11 Yes 200mg Take 200 Uni vers gluconate 2-15 mg by ity of 200 mg 14:38: mouth in [place] tablet 04 the Medical morning. Branch Indication s: per patient; PCP ordered cholecalcif 2021-11 Yes 1000U Take 1,000 Univers marleen, 2-15 Units by ity of vitamin D3, 14:38: mouth in [place] (VITAMIN 04 the Medical D3) 25 mcg morning. Branc h (1,000 Indication unit) s: per pt, tablet PCP ordered aspirin 81 2021-11 Yes 81mg Take 81 mg U nivers mg EC 2-15 by mouth ity of tablet 14:38: in the [place] 04 morning. Medical Indication Branch s: per pt from Cardiologi stMD Chou albuterol 2021-11 Yes 2{puff} Inhale 2 U nivers 90 2-15 Puffs ity of mcg/actuati 14:38: every 6 [place] as on inhaler 04 (six) Medical hours as Branch needed for Wheezing or Shortness of Breath. Indication s: per MD Chou fluticasone 2021-11 Yes 2{puff} Inhale 2 Univers propionate 2-15 Puffs ity of (FLOVENT 14:38: every 6 [place] HFA) 110 04 (six) Medical mcg/actuati hours. Branch on inhaler Indication s: PRN from MD Chou albuterol 2021-11 Yes 1{ampul Use 1 Univ ers 2.5 mg/0.5 2-15 e} Ampule as ity of mL 14:38: directed [place] nebulizer 04 in the Medical solution morning Branch and 1 Ampule in the evening. Indication s: from MD Chou losartan 25 2021-11 Yes 25mg Take 25 mg Univers mg tablet 2-15 by mouth ity of 14:38: in the [place] [address] morning. Medical Indication Branch s: taking 50 mg daily per MD Chou atorvastati 2021-11 Yes 80mg Take 80 mg Univers n 80 mg 2-15 by mouth ity of tablet 14:38: at [place] [address] bedtime. Medical Indication Branch s: per MD Chou tadalafiL 5 2021-11 Yes 5mg Take 5 mg U nivers mg tablet 2-15 by mouth ity of 14:38: in the [place] [address] morning. Medical Indication Branch s: per MD Chou gabapentin 2021-11 Yes 300mg Take 300 Un valeriy 300 mg 2-15 mg by ity of capsule 14:38: mouth in [place] [address] the Medical morning Branch and 300 mg in the evening. Indication s: per MD Chou traMADoL 50 2021-11 Yes 50mg Take 50 mg Univers mg tablet 2-15 by mouth ity of 14:38: every 6 [place] 04 (six) Medical hours as Branch needed (usually takes at least daily, depending on level pain; per patient). magnesium 2021-11 Yes 200mg Take 200 Uni vers gluconate 2-15 mg by ity of 200 mg 14:38: mouth in [place] tablet 04 the Medical morning. Branch Indication s: per patient; PCP ordered cholecalcif 2021-11 Yes 1000U Take 1,000 Univers marleen, 2-15 Units by ity of vitamin D3, 14:38: mouth in [place] (VITAMIN 04 the Medical D3) 25 mcg morning. Branc h (1,000 Indication unit) s: per pt, tablet PCP ordered aspirin 81 2021-11 Yes 81mg Take 81 mg U nivers mg EC 2-15 by mouth ity of tablet 14:38: in the [place] [address] morning. Medical Indication Branch s: per pt from Cardiologi st, MD Chou albuterol 2021-11 Yes 2{puff} Inhale 2 U nivers 90 2-15 Puffs ity of mcg/actuati 14:38: every 6 [place] as on inhaler 04 (six) Medical hours as Branch needed for Wheezing or Shortness of Breath. Indication s: per MD Chou fluticasone 2021-11 Yes 2{puff} Inhale 2 Univers propionate 2-15 Puffs ity of (FLOVENT 14:38: every 6 [place] HFA) 110 04 (six) Medical mcg/actuati hours. Branch on inhaler Indication s: PRN from MD Chou albuterol 2021-11 Yes 1{ampul Use 1 Univ ers 2.5 mg/0.5 2-15 e} Ampule as ity of mL 14:38: directed [place] nebulizer 04 in the Medical solution morning Branch and 1 Ampule in the evening. Indication s: from MD Chou losartan 25 2021-11 Yes 25mg Take 25 mg Univers mg tablet 2-15 by mouth ity of 14:38: in the [place] [address] morning. Medical Indication Branch s: taking 50 mg daily per MD Chou atorvastati 2021-11 Yes 80mg Take 80 mg Univers n 80 mg 2-15 by mouth ity of tablet 14:38: at [place] [address] bedtime. Medical Indication Branch s: per MD Chou tadalafiL 5 2021-11 Yes 5mg Take 5 mg U nivers mg tablet 2-15 by mouth ity of 14:38: in the [place] [address] morning. Medical Indication Branch s: per MD Chou gabapentin 2021-11 Yes 300mg Take 300 Un valeriy 300 mg 2-15 mg by ity of capsule 14:38: mouth in [place] 04 the Medical morning Branch and 300 mg in the evening. Indication s: per MD Chou albuterol 2021-11 Yes 2{puff} Inhale 2 U nivers 90 2-15 Puffs ity of mcg/actuati 14:38: every 6 [place] as on inhaler 04 (six) Medical hours as Branch needed for Wheezing or Shortness of Breath. Indication s: per MD Chou traMADoL 50 2021-11 Yes 50mg Take 50 mg Univers mg tablet 2-15 by mouth ity of 14:38: every 6 [place] 04 (six) Medical hours as Branch needed (usually takes at least daily, depending on level pain; per patient). magnesium 2021-11 Yes 200mg Take 200 Uni vers gluconate 2-15 mg by ity of 200 mg 14:38: mouth in [place] tablet 04 the Medical morning. Branch Indication s: per patient; PCP ordered cholecalcif 2021-11 Yes 1000U Take 1,000 Univers marleen, 2-15 Units by ity of vitamin D3, 14:38: mouth in [place] (VITAMIN 04 the Medical D3) 25 mcg morning. Branc h (1,000 Indication unit) s: per pt, tablet PCP ordered aspirin 81 2021-11 Yes 81mg Take 81 mg U nivers mg EC 2-15 by mouth ity of tablet 14:38: in the [place] 04 morning. Medical Indication Branch s: per pt from Cardiologi st, MD Chou fluticasone 2021-11 Yes 2{puff} Inhale 2 Univers propionate 2-15 Puffs ity of (FLOVENT 14:38: every 6 [place] HFA) 110 04 (six) Medical mcg/actuati hours. Branch on inhaler Indication s: PRN from MD Chou albuterol 2021-11 Yes 2{puff} Inhale 2 U nivers 90 2-15 Puffs ity of mcg/actuati 14:38: every 6 [place] as on inhaler 04 (six) Medical hours as Branch needed for Wheezing or Shortness of Breath. Indication s: per MD Chou fluticasone 2021-11 Yes 2{puff} Inhale 2 Univers propionate 2-15 Puffs ity of (FLOVENT 14:38: every 6 [place] HFA) 110 04 (six) Medical mcg/actuati hours. Branch on inhaler Indication s: PRN from MD Chou albuterol 2021-11 Yes 1{ampul Use 1 Univ ers 2.5 mg/0.5 2-15 e} Ampule as ity of mL 14:38: directed [place] nebulizer 04 in the Medical solution morning Branch and 1 Ampule in the evening. Indication s: from MD Chou losartan 25 2021-11 Yes 25mg Take 25 mg Univers mg tablet 2-15 by mouth ity of 14:38: in the [place] 04 morning. Medical Indication Branch s: taking 50 mg daily per MD Chou atorvastati 2021-11 Yes 80mg Take 80 mg Univers n 80 mg 2-15 by mouth ity of tablet 14:38: at [place] 04 bedtime. Medical Indication Branch s: per MD Chou tadalafiL 5 2021-11 Yes 5mg Take 5 mg U nivers mg tablet 2-15 by mouth ity of 14:38: in the [place] 04 morning. Medical Indication Branch s: per MD Chou gabapentin 2021-11 Yes 300mg Take 300 Un valeriy 300 mg 2-15 mg by ity of capsule 14:38: mouth in [place] 04 the Medical morning Branch and 300 mg in the evening. Indication s: per MD Chou traMADoL 50 2021-11 Yes 50mg Take 50 mg Univers mg tablet 2-15 by mouth ity of 14:38: every 6 [place] 04 (six) Medical hours as Branch needed (usually takes at least daily, depending on level pain; per patient). albuterol 2021-11 Yes 1{ampul Use 1 Univ ers 2.5 mg/0.5 2-15 e} Ampule as ity of mL 14:38: directed [place] nebulizer 04 in the Medical solution morning Branch and 1 Ampule in the evening. Indication s: from MD Chou magnesium 2021-11 Yes 200mg Take 200 Uni vers gluconate 2-15 mg by ity of 200 mg 14:38: mouth in [place] tablet 04 the Medical morning. Branch Indication s: per patient; PCP ordered cholecalcif 2021-11 Yes 1000U Take 1,000 Univers marleen, 2-15 Units by ity of vitamin D3, 14:38: mouth in [place] (VITAMIN 04 the Medical D3) 25 mcg morning. Branc h (1,000 Indication unit) s: per pt, tablet PCP ordered aspirin 81 2021-11 Yes 81mg Take 81 mg U nivers mg EC 2-15 by mouth ity of tablet 14:38: in the [place] 04 morning. Medical Indication Branch s: per pt from Cardiologi stMD Chou albuterol 2021-11 Yes 2{puff} Inhale 2 U nivers 90 2-15 Puffs ity of mcg/actuati 14:38: every 6 [place] as on inhaler 04 (six) Medical hours as Branch needed for Wheezing or Shortness of Breath. Indication s: per [facility] losartan 25 2021-11 Yes 25mg Take 25 mg Univers mg tablet 2-15 by mouth ity of 14:38: in the [place] [address] morning. Medical Indication Branch s: taking 50 mg daily per [facility] fluticasone 2021-11 Yes 2{puff} Inhale 2 Univers propionate 2-15 Puffs ity of (FLOVENT 14:38: every 6 [place] HF) [facility] 04 (six) Medical mcg/actuati hours. Branch on inhaler Indication s: PRN from [facility] albuterol 2021-11 Yes 1{ampul Use 1 Univ ers 2.5 mg/0.5 2-15 e} Ampule as ity of mL 14:38: directed [place] nebulizer 04 in the Medical solution morning Branch and 1 Ampule in the evening. Indication s: from [facility] losartan 25 2021-11 Yes 25mg Take 25 mg [facility] mg tablet 2-15 by mouth ity of 14:38: in the [place] [address] morning. Medical Indication Branch s: taking 50 mg daily per [facility] atorvastati 2021-11 Yes 80mg Take 80 mg [facility] n 80 mg 2-15 by mouth ity of tablet 14:38: at [place] [address] bedtime. Medical Indication Branch s: per [facility] tadalafiL 5 2021-11 Yes 5mg Take 5 mg U nivers mg tablet 2-15 by mouth ity of 14:38: in the [place] [address] morning. Medical Indication Branch s: per [facility] gabapentin 2021-11 Yes 300mg Take 300 Un valeriy 300 mg 2-15 mg by ity of capsule 14:38: mouth in [place] [address] the Medical morning Branch and 300 mg in the evening. Indication s: per [facility] traMADoL 50 2021-11 Yes 50mg Take 50 mg [facility] mg tablet 2-15 by mouth ity of 14:38: every 6 [place] 04 (six) Medical hours as Branch needed (usually takes at least daily, depending on level pain; per patient). magnesium 2021-11 Yes 200mg Take 200 Uni vers gluconate 2-15 mg by ity of 200 mg 14:38: mouth in [facility] 04 the Medical morning. Branch Indication s: per patient; PCP ordered cholecalcif 2021-11 Yes 1000U Take 1,000 [facility] marleen, 2-15 Units by ity of vitamin D3, 14:38: mouth in [place] (VITAMIN 04 the Medical D3) 25 mcg morning. Branc h (1,000 Indication unit) s: per pt, tablet PCP ordered aspirin 81 2021-11 Yes 81mg Take 81 mg U nivers mg EC 2-15 by mouth ity of tablet 14:38: in the [place] 04 morning. Medical Indication Branch s: per pt from Cardiologi st, MD Chou atorvastati 2021-11 Yes 80mg Take 80 mg [facility] n 80 mg 2-15 by mouth ity of tablet 14:38: at [place] [address] bedtime. Medical Indication Branch s: per MD Chou albuterol 2021-11 Yes 2{puff} Inhale 2 U nivers 90 2-15 Puffs ity of mcg/actuati 14:38: every 6 [place] as on inhaler 04 (six) Medical hours as Branch needed for Wheezing or Shortness of Breath. Indication s: per MD Chou fluticasone 2021-11 Yes 2{puff} Inhale 2 [facility] propionate 2-15 Puffs ity of (FLOVENT 14:38: every 6 [place] HFA) 110 04 (six) Medical mcg/actuati hours. Branch on inhaler Indication s: PRN from MD Chou tadalafiL 5 2021-11 Yes 5mg Take 5 mg U nivers mg tablet 2-15 by mouth ity of 14:38: in the [place] 04 morning. Medical Indication Branch s: per MD Chou albuterol 2021-11 Yes 1{ampul Use 1 Univ ers 2.5 mg/0.5 2-15 e} Ampule as ity of mL 14:38: directed [place] nebulizer 04 in the Medical solution morning Branch and 1 Ampule in the evening. Indication s: from MD Chou losartan 25 2021-11 Yes 25mg Take 25 mg [facility] mg tablet 2-15 by mouth ity of 14:38: in the [place] [address] morning. Medical Indication Branch s: taking 50 mg daily per MD Chou atorvastati 2021-11 Yes 80mg Take 80 mg [facility] n 80 mg 2-15 by mouth ity of tablet 14:38: at [place] [address] bedtime. Medical Indication Branch s: per MD Chou tadalafiL 5 2021-11 Yes 5mg Take 5 mg U nivers mg tablet 2-15 by mouth ity of 14:38: in the [place] 04 morning. Medical Indication Branch s: per MD Chou gabapentin 2021-11 Yes 300mg Take 300 Un valeriy 300 mg 2-15 mg by ity of capsule 14:38: mouth in [place] 04 the Medical morning Branch and 300 mg in the evening. Indication s: per MD Chou traMADoL 50 2021-11 Yes 50mg Take 50 mg [facility] mg tablet 2-15 by mouth ity of 14:38: every 6 [place] 04 (six) Medical hours as Branch needed (usually takes at least daily, depending on level pain; per patient). magnesium 2021-11 Yes 200mg Take 200 Uni vers gluconate 2-15 mg by ity of 200 mg 14:38: mouth in [place] tablet 04 the Medical morning. Branch Indication s: per patient; PCP ordered cholecalcif 2021-11 Yes 1000U Take 1,000 [facility] marleen, 2-15 Units by ity of vitamin D3, 14:38: mouth [place] (VITAMIN 04 the Medical D3) 25 mcg morning. Branc h (1,000 Indication unit) s: per pt, tablet PCP ordered aspirin 81 2021-11 Yes 81mg Take 81 mg U nivers mg EC 2-15 by mouth ity of tablet 14:38: in the [place] 04 morning. Medical Indication Branch s: per pt from [facility], MD Chou gabapentin 2021-11 Yes 300mg Take 300 Un valeriy 300 mg 2-15 mg by ity of capsule 14:38: mouth in [place] 04 the Medical morning Branch and 300 mg in the evening. Indication s: per MD Chou albuterol 2021-11 Yes 2{puff} Inhale 2 U nivers 90 2-15 Puffs ity of mcg/actuati 14:38: every 6 [place] as on inhaler 04 (six) Medical hours as Branch needed for Wheezing or Shortness of Breath. Indication s: per MD Chou fluticasone 2021-11 Yes 2{puff} Inhale 2 [facility] propionate 2-15 Puffs ity of (FLOVENT 14:38: every 6 [place] HFA) 110 04 (six) Medical mcg/actuati hours. Branch on inhaler Indication s: PRN from MD Chou albuterol 2021-11 Yes 1{ampul Use 1 Univ ers 2.5 mg/0.5 2-15 e} Ampule as ity of mL 14:38: directed [place] nebulizer 04 in the Medical solution morning Branch and 1 Ampule in the evening. Indication s: from MD Chou losartan 25 2021-11 Yes 25mg Take 25 mg [facility] mg tablet 2-15 by mouth ity of 14:38: in the [place] [address] morning. Medical Indication Branch s: taking 50 mg daily per MD Chou atorvastati 2021-11 Yes 80mg Take 80 mg [facility] n 80 mg 2-15 by mouth ity of tablet 14:38: at [place] [address] bedtime. Medical Indication Branch s: per MD Chou tadalafiL 5 2021-11 Yes 5mg Take 5 mg U nivers mg tablet 2-15 by mouth ity of 14:38: in the [place] [address] morning. Medical Indication Branch s: per MD Chou gabapentin 2021-11 Yes 300mg Take 300 Un valeriy 300 mg 2-15 mg by ity of capsule 14:38: mouth in [place] 04 the Medical morning Branch and 300 mg in the evening. Indication s: per MD Chou traMADoL 50 2021-11 Yes 50mg Take 50 mg [facility] mg tablet 2-15 by mouth ity of 14:38: every 6 [place] [address] (six) Medical hours as Branch needed (usually takes at least daily, depending on level pain; per patient). traMADoL 50 2021-11 Yes 50mg Take 50 mg [facility] mg tablet 2-15 by mouth ity of 14:38: every 6 [place] [address] (six) Medical hours as Branch needed (usually takes at least daily, depending on level pain; per patient). magnesium 2021-11 Yes 200mg Take 200 Uni vers gluconate 2-15 mg by ity of 200 mg 14:38: mouth in [place] tablet 04 the Medical morning. Branch Indication s: per patient; PCP ordered cholecalcif 2021-11 Yes 1000U Take 1,000 [facility] marleen, 2-15 Units by ity of vitamin D3, 14:38: mouth in [place] (VITAMIN 04 the Medical D3) 25 mcg morning. Branc h (1,000 Indication unit) s: per pt, tablet PCP ordered aspirin 81 2021-11 Yes 81mg Take 81 mg U nivers mg EC 2-15 by mouth ity of tablet 14:38: in the [place] [address] morning. Medical Indication Branch s: per pt from Cardiologi stMD Chou albuterol 2021-11 Yes 2{puff} Inhale 2 U nivers 90 2-15 Puffs ity of mcg/actuati 14:38: every 6 [place] as on inhaler 04 (six) Medical hours as Branch needed for Wheezing or Shortness of Breath. Indication s: per MD Chou fluticasone 2021-11 Yes 2{puff} Inhale 2 [facility] propionate 2-15 Puffs ity of (FLOVENT 14:38: every 6 [place] HFA) 110 04 (six) Medical mcg/actuati hours. Branch on inhaler Indication s: PRN from MD Chou magnesium 2021-11 Yes 200mg Take 200 Uni vers gluconate 2-15 mg by ity of 200 mg 14:38: mouth in [place] tablet 04 the Medical morning. Branch Indication s: per patient; PCP ordered albuterol 2021-11 Yes 1{ampul Use 1 Univ ers 2.5 mg/0.5 2-15 e} Ampule as ity of mL 14:38: directed [place] nebulizer 04 in the Medical solution morning Branch and 1 Ampule in the evening. Indication s: from MD Chou losartan 25 2021-11 Yes 25mg Take 25 mg [facility] mg tablet 2-15 by mouth ity of 14:38: in the [place] [address] morning. Medical Indication Branch s: taking 50 mg daily per MD Chou atorvastati 2021-11 Yes 80mg Take 80 mg [facility] n 80 mg 2-15 by mouth ity of tablet 14:38: at [place] [address] bedtime. Medical Indication Branch s: per MD Chou tadalafiL 5 2021-11 Yes 5mg Take 5 mg U nivers mg tablet 2-15 by mouth ity of 14:38: in the [place] [address] morning. Medical Indication Branch s: per MD Chou gabapentin 2021-11 Yes 300mg Take 300 Un valeriy 300 mg 2-15 mg by ity of capsule 14:38: mouth in [place] 04 the Medical morning Branch and 300 mg in the evening. Indication s: per MD Chou traMADoL 50 2021-11 Yes 50mg Take 50 mg [facility] mg tablet 2-15 by mouth ity of 14:38: every 6 [place] 04 (six) Medical hours as Branch needed (usually takes at least daily, depending on level pain; per patient). magnesium 2021-11 Yes 200mg Take 200 Uni vers gluconate 2-15 mg by ity of 200 mg 14:38: mouth in [place] tablet 04 the Medical morning. Branch Indication s: per patient; PCP ordered cholecalcif 2021-11 Yes 1000U Take 1,000 [facility] marleen, 2-15 Units by ity of vitamin D3, 14:38: mouth in [place] (VITAMIN 04 the Medical D3) 25 mcg morning. Branc h (1,000 Indication unit) s: per pt, tablet PCP ordered aspirin 81 2021-11 Yes 81mg Take 81 mg U nivers mg EC 2-15 by mouth ity of tablet 14:38: in the [place] 04 morning. Medical Indication Branch s: per pt from Cardiologi MD José Antonio sandoval cholecalcif 2021-11 Yes 1000U Take 1,000 [facility] marleen, 2-15 Units by ity of vitamin D3, 14:38: mouth in [place] (VITAMIN 04 the Medical D3) 25 mcg morning. Branc h (1,000 Indication unit) s: per pt, tablet PCP ordered albuterol 2021-11 Yes 2{puff} Inhale 2 U nivers 90 2-15 Puffs ity of mcg/actuati 14:38: every 6 [place] as on inhaler 04 (six) Medical hours as Branch needed for Wheezing or Shortness of Breath. Indication s: per MD Chou fluticasone 2021-11 Yes 2{puff} Inhale 2 [facility] propionate 2-15 Puffs ity of (FLOVENT 14:38: every 6 [place] HFA) 110 04 (six) Medical mcg/actuati hours. Branch on inhaler Indication s: PRN from MD Chou albuterol 2021-11 Yes 1{ampul Use 1 Univ ers 2.5 mg/0.5 2-15 e} Ampule as ity of mL 14:38: directed [place] nebulizer 04 in the Medical solution morning Branch and 1 Ampule in the evening. Indication s: from MD Chou losartan 25 2021-11 Yes 25mg Take 25 mg [facility] mg tablet 2-15 by mouth ity of 14:38: in the [place] [address] morning. Medical Indication Branch s: taking 50 mg daily per MD Chou atorvastati 2021-11 Yes 80mg Take 80 mg [facility] n 80 mg 2-15 by mouth ity of tablet 14:38: at [place] [address] bedtime. Medical Indication Branch s: per MD Chou tadalafiL 5 2021-11 Yes 5mg Take 5 mg U nivers mg tablet 2-15 by mouth ity of 14:38: in the [place] 04 morning. Medical Indication Branch s: per MD Chou gabapentin 2021-11 Yes 300mg Take 300 Un valeriy 300 mg 2-15 mg by ity of capsule 14:38: mouth in [place] 04 the Medical morning Branch and 300 mg in the evening. Indication s: per MD Chou traMADoL 50 2021-11 Yes 50mg Take 50 mg [facility] mg tablet 2-15 by mouth ity of 14:38: every 6 [place] 04 (six) Medical hours as Branch needed (usually takes at least daily, depending on level pain; per patient). aspirin 81 2021-11 Yes 81mg Take 81 mg U nivers mg EC 2-15 by mouth ity of tablet 14:38: in the [place] 04 morning. Medical Indication Branch s: [facility] 2021-11 Yes 200mg Take 200 Uni vers gluconate 2-15 mg by ity of 200 mg 14:38: mouth in [place] [facility] 04 the Medical morning. Branch Indication s: per patient; PCP ordered cholecalcif 2021-11 Yes 1000U Take 1,000 [facility] marleen, 2-15 Units by ity of vitamin D3, 14:38: mouth in [place] (VITAMIN 04 the Medical D3) 25 mcg morning. Branc h (1,000 Indication unit) s: per pt, tablet PCP ordered aspirin 81 2021-11 Yes 81mg Take 81 mg U nivers mg EC 2-15 by mouth ity of tablet 14:38: in the [place] 04 morning. Medical Indication Branch s: [facility] albuterol 2021-11 Yes 2{puff} Inhale 2 U nivers 90 2-15 Puffs ity of mcg/actuati 14:38: every 6 [place] as on inhaler 04 (six) Medical hours as Branch needed for Wheezing or Shortness of Breath. Indication s: per MD Chou fluticasone 2021-11 Yes 2{puff} Inhale 2 [facility] propionate 2-15 Puffs ity of (FLOVENT 14:38: every 6 [place] HFA) 110 04 (six) Medical mcg/actuati hours. Branch on inhaler Indication s: PRN from MD Chou albuterol 2021-11 Yes 1{ampul Use 1 Univ ers 2.5 mg/0.5 2-15 e} Ampule as ity of mL 14:38: directed [place] nebulizer 04 in the Medical solution morning Branch and 1 Ampule in the evening. Indication s: from MD Chou losartan 25 2021-11 Yes 25mg Take 25 mg [facility] mg tablet 2-15 by mouth ity of 14:38: in the [place] 04 morning. Medical Indication Branch s: taking 50 mg daily per MD Chou atorvastati 2021-11 Yes 80mg Take 80 mg [facility] n 80 mg 2-15 by mouth ity of tablet 14:38: at [place] [address] bedtime. Medical Indication Branch s: per MD Chou tadalafiL 5 2021-11 Yes 5mg Take 5 mg U nivers mg tablet 2-15 by mouth ity of 14:38: in the [place] 04 morning. Medical Indication Branch s: per MD Chou gabapentin 2021-11 Yes 300mg Take 300 Un valeriy 300 mg 2-15 mg by ity of capsule 14:38: mouth in [place] 04 the Medical morning Branch and 300 mg in the evening. Indication s: per MD Chou traMADoL 50 2021-11 Yes 50mg Take 50 mg [facility] mg tablet 2-15 by mouth ity of 14:38: every 6 [place] 04 (six) Medical hours as Branch needed (usually takes at least daily, depending on level pain; per patient). magnesium 2021-11 Yes 200mg Take 200 Uni vers gluconate 2-15 mg by ity of 200 mg 14:38: mouth in [place] tablet 04 the Medical morning. Branch Indication s: per patient; PCP ordered cholecalcif 2021-11 Yes 1000U Take 1,000 [facility] marleen, 2-15 Units by ity of vitamin D3, 14:38: mouth in [place] (VITAMIN 04 the Medical D3) 25 mcg morning. Branc h (1,000 Indication unit) s: per pt, tablet PCP ordered aspirin 81 2021-11 Yes 81mg Take 81 mg U nivers mg EC 2-15 by mouth ity of tablet 14:38: in the [place] [address] morning. Medical Indication Branch s: per pt from Cardiologi stMD Chou albuterol 2021-11 Yes 2{puff} Inhale 2 U nivers 90 2-15 Puffs ity of mcg/actuati 14:38: every 6 [place] as on inhaler 04 (six) Medical hours as Branch needed for Wheezing or Shortness of Breath. Indication s: per MD Chou fluticasone 2021-11 Yes 2{puff} Inhale 2 [facility] propionate 2-15 Puffs ity of (FLOVENT 14:38: every 6 [place] HFA) 110 04 (six) Medical mcg/actuati hours. Branch on inhaler Indication s: PRN from MD Chou albuterol 2021-11 Yes 1{ampul Use 1 Univ ers 2.5 mg/0.5 2-15 e} Ampule as ity of mL 14:38: directed [place] nebulizer 04 in the Medical solution morning Branch and 1 Ampule in the evening. Indication s: from MD Chou losartan 25 2021-11 Yes 25mg Take 25 mg [facility] mg tablet 2-15 by mouth ity of 14:38: in the [place] [address] morning. Medical Indication Branch s: taking 50 mg daily per José Antonio atorvastati 2021-11 Yes 80mg Take 80 mg [facility] n 80 mg 2-15 by mouth ity of tablet 14:38: at [place] [address] bedtime. Medical Indication Branch s: per MD Chou tadalafiL 5 2021-11 Yes 5mg Take 5 mg U nivers mg tablet 2-15 by mouth ity of 14:38: in the [place] [address] morning. Medical Indication Branch s: per MD Chou gabapentin 2021-11 Yes 300mg Take 300 Un valeriy 300 mg 2-15 mg by ity of capsule 14:38: mouth in [place] [address] the Medical morning Branch and 300 mg in the evening. Indication s: per [facility] traMADoL 50 2021-11 Yes 50mg Take 50 mg [facility] mg tablet 2-15 by mouth ity of 14:38: every 6 [place] 04 (six) Medical hours as Branch needed (usually takes at least daily, depending on level pain; per patient). magnesium 2021-11 Yes 200mg Take 200 Uni vers gluconate 2-15 mg by ity of 200 mg 14:38: mouth in [place] tablet 04 the Medical morning. Branch Indication s: per patient; PCP ordered cholecalcif 2021-11 Yes 1000U Take 1,000 [facility] marleen, 2-15 Units by ity of vitamin D3, 14:38: mouth in [place] (VITAMIN 04 the Medical D3) 25 mcg morning. Branc h (1,000 Indication unit) s: per pt, tablet PCP ordered aspirin 81 2021-11 Yes 81mg Take 81 mg U nivers mg EC 2-15 by mouth ity of tablet 14:38: in the [place] [address] morning. Medical Indication Branch s: per pt from Cardiologi MD José Antonio sandoval albuterol 2021-11 Yes 2{puff} Inhale 2 U nivers 90 2-15 Puffs ity of mcg/actuati 14:38: every 6 [place] as on inhaler 04 (six) Medical hours as Branch needed for Wheezing or Shortness of Breath. Indication s: per MD Chou fluticasone 2021-11 Yes 2{puff} Inhale 2 [facility] propionate 2-15 Puffs ity of (FLOVENT 14:38: every 6 [place] HFA) 110 04 (six) Medical mcg/actuati hours. Branch on inhaler Indication s: PRN from MD Chou albuterol 2021-11 Yes 1{ampul Use 1 Univ ers 2.5 mg/0.5 2-15 e} Ampule as ity of mL 14:38: directed [place] nebulizer 04 in the Medical solution morning Branch and 1 Ampule in the evening. Indication s: from MD Chou losartan 25 2021-11 Yes 25mg Take 25 mg [facility] mg tablet 2-15 by mouth ity of 14:38: in the [place] [address] morning. Medical Indication Branch s: taking 50 mg daily per MD Chou atorvastati 2021-11 Yes 80mg Take 80 mg [facility] n 80 mg 2-15 by mouth ity of tablet 14:38: at [place] [address] bedtime. Medical Indication Branch s: per MD Chou tadalafiL 5 2021-11 Yes 5mg Take 5 mg U nivers mg tablet 2-15 by mouth ity of 14:38: in the [place] [address] morning. Medical Indication Branch s: per MD Chou gabapentin 2021-11 Yes 300mg Take 300 Un valeriy 300 mg 2-15 mg by ity of capsule 14:38: mouth in [place] 04 the Medical morning Branch and 300 mg in the evening. Indication s: per MD Chou traMADoL 50 2021-11 Yes 50mg Take 50 mg [facility] mg tablet 2-15 by mouth ity of 14:38: every 6 [place] 04 (six) Medical hours as Branch needed (usually takes at least daily, depending on level pain; per patient). magnesium 2021-11 Yes 200mg Take 200 Uni vers gluconate 2-15 mg by ity of 200 mg 14:38: mouth in [place] tablet 04 the Medical morning. Branch Indication s: per patient; PCP ordered cholecalcif 2021-11 Yes 1000U Take 1,000 [facility] marleen, 2-15 Units by ity of vitamin D3, 14:38: mouth in [place] (VITAMIN 04 the Medical D3) 25 mcg morning. Branc h (1,000 Indication unit) s: per pt, tablet PCP ordered aspirin 81 2021-11 Yes 81mg Take 81 mg U nivers mg EC 2-15 by mouth ity of tablet 14:38: in the [place] 04 morning. Medical Indication Branch s: per pt from Cardiologi , MD hCou albuterol 2021-11 Yes 2{puff} Inhale 2 U nivers 90 2-15 Puffs ity of mcg/actuati 14:38: every 6 [place] as on inhaler 04 (six) Medical hours as Branch needed for Wheezing or Shortness of Breath. Indication s: per MD Chou fluticasone 2021-11 Yes 2{puff} Inhale 2 [facility] propionate 2-15 Puffs ity of (FLOVENT 14:38: every 6 [place] HFA) 110 04 (six) Medical mcg/actuati hours. Branch on inhaler Indication s: PRN from MD Chou albuterol 2021-11 Yes 1{ampul Use 1 Univ ers 2.5 mg/0.5 2-15 e} Ampule as ity of mL 14:38: directed [place] nebulizer 04 in the Medical solution morning Branch and 1 Ampule in the evening. Indication s: from MD Chou losartan 25 2021-11 Yes 25mg Take 25 mg [facility] mg tablet 2-15 by mouth ity of 14:38: in the [place] 04 morning. Medical Indication Branch s: taking 50 mg daily per MD Chou atorvastati 2021-11 Yes 80mg Take 80 mg [facility] n 80 mg 2-15 by mouth ity of tablet 14:38: at [place] 04 bedtime. Medical Indication Branch s: per MD Chou tadalafiL 5 2021-11 Yes 5mg Take 5 mg U nivers mg tablet 2-15 by mouth ity of 14:38: in the [place] 04 morning. Medical Indication Branch s: per MD Chou gabapentin 2021-11 Yes 300mg Take 300 Un valeriy 300 mg 2-15 mg by ity of capsule 14:38: mouth in [place] 04 the Medical morning Branch and 300 mg in the evening. Indication s: per MD Chou traMADoL 50 2021-11 Yes 50mg Take 50 mg [facility] mg tablet 2-15 by mouth ity of 14:38: every 6 [place] 04 (six) Medical hours as Branch needed (usually takes at least daily, depending on level pain; per patient). magnesium 2021-11 Yes 200mg Take 200 Uni vers gluconate 2-15 mg by ity of 200 mg 14:38: mouth in [place] tablet 04 the Medical morning. Branch Indication s: per patient; PCP ordered cholecalcif 2021-11 Yes 1000U Take 1,000 [facility] marleen, 2-15 Units by ity of vitamin D3, 14:38: [place] (VITAMIN 04 the Medical D3) 25 mcg morning. Branc h (1,000 Indication unit) s: per pt, tablet PCP ordered aspirin 81 2021-11 Yes 81mg Take 81 mg U nivers mg EC 2-15 by mouth ity of tablet 14:38: in the [place] [address] morning. Medical Indication Branch s: per pt from Cardiologi st, MD Chou albuterol 2021-11 Yes 2{puff} Inhale 2 U nivers 90 2-15 Puffs ity of mcg/actuati 14:38: every 6 [place] as on inhaler 04 (six) Medical hours as Branch needed for Wheezing or Shortness of Breath. Indication s: per MD Chou fluticasone 2021-11 Yes 2{puff} Inhale 2 [facility] propionate 2-15 Puffs ity of (FLOVENT 14:38: every 6 [place] HFA) 110 04 (six) Medical mcg/actuati hours. Branch on inhaler Indication s: PRN from MD Chou albuterol 2021-11 Yes 1{ampul Use 1 Univ ers 2.5 mg/0.5 2-15 e} Ampule as ity of mL 14:38: directed [place] nebulizer 04 in the Medical solution morning Branch and 1 Ampule in the evening. Indication s: from MD Chou losartan 25 2021-11 Yes 25mg Take 25 mg [facility] mg tablet 2-15 by mouth ity of 14:38: in the [place] 04 morning. Medical Indication Branch s: taking 50 mg daily per MD Chou atorvastati 2021-11 Yes 80mg Take 80 mg [facility] n 80 mg 2-15 by mouth ity of tablet 14:38: at [place] [address] bedtime. Medical Indication Branch s: per MD Chou tadalafiL 5 2021-11 Yes 5mg Take 5 mg U nivers mg tablet 2-15 by mouth ity of 14:38: in the [place] 04 morning. Medical Indication Branch s: per MD Cohu gabapentin 2021-11 Yes 300mg Take 300 Un valeriy 300 mg 2-15 mg by ity of capsule 14:38: mouth in [place] 04 the Medical morning Branch and 300 mg in the evening. Indication s: per MD Chou traMADoL 50 2021-11 Yes 50mg Take 50 mg [facility] mg tablet 2-15 by mouth ity of 14:38: every 6 [place] 04 (six) Medical hours as Branch needed (usually takes at least daily, depending on level pain; per patient). magnesium 2021-11 Yes 200mg Take 200 Uni vers gluconate 2-15 mg by ity of 200 mg 14:38: mouth in [place] tablet 04 the Medical morning. Branch Indication s: per patient; PCP ordered cholecalcif 2021-11 Yes 1000U Take 1,000 [facility] marleen, 2-15 Units by ity of vitamin D3, 14:38: mouth in [place] (VITAMIN 04 the Medical D3) 25 mcg morning. Branc h (1,000 Indication unit) s: per pt, tablet PCP ordered aspirin 81 2021-11 Yes 81mg Take 81 mg U nivers mg EC 2-15 by mouth ity of tablet 14:38: in the [place] 04 morning. Medical Indication Branch s: per pt from Cardiologi stMD Chou albuterol 2021-11 Yes 2{puff} Inhale 2 U nivers 90 2-15 Puffs ity of mcg/actuati 14:38: every 6 [place] as on inhaler 04 (six) Medical hours as Branch needed for Wheezing or Shortness of Breath. Indication s: per MD Chou fluticasone 2021-11 Yes 2{puff} Inhale 2 [facility] propionate 2-15 Puffs ity of (FLOVENT 14:38: every 6 [place] HFA) 110 04 (six) Medical mcg/actuati hours. Branch on inhaler Indication s: PRN from MD Chou albuterol 2021-11 Yes 1{ampul Use 1 Univ ers 2.5 mg/0.5 2-15 e} Ampule as ity of mL 14:38: directed [place] nebulizer 04 in the Medical solution morning Branch and 1 Ampule in the evening. Indication s: from MD Chou losartan 25 2021-11 Yes 25mg Take 25 mg [facility] mg tablet 2-15 by mouth ity of 14:38: in the [place] 04 morning. Medical Indication Branch s: taking 50 mg daily per MD Chou atorvastati 2021-11 Yes 80mg Take 80 mg [facility] n 80 mg 2-15 by mouth ity of tablet 14:38: at [place] [address] bedtime. Medical Indication Branch s: per MD Chou tadalafiL 5 2021-11 Yes 5mg Take 5 mg U nivers mg tablet 2-15 by mouth ity of 14:38: in the [place] 04 morning. Medical Indication Branch s: per MD Chou gabapentin 2021-11 Yes 300mg Take 300 Un valeriy 300 mg 2-15 mg by ity of capsule 14:38: mouth in [place] 04 the Medical morning Branch and 300 mg in the evening. Indication s: per MD Chou traMADoL 50 2021-11 Yes 50mg Take 50 mg [facility] mg tablet 2-15 by mouth ity of 14:38: every 6 [place] 04 (six) Medical hours as Branch needed (usually takes at least daily, depending on level pain; per patient). magnesium 2021-11 Yes 200mg Take 200 Uni vers gluconate 2-15 mg by ity of 200 mg 14:38: mouth in [place] tablet 04 the Medical morning. Branch Indication s: per patient; PCP ordered cholecalcif 2021-11 Yes 1000U Take 1,000 [facility] marleen, 2-15 Units by ity of vitamin D3, 14:38: mouth in [place] (VITAMIN 04 the Medical D3) 25 mcg morning. Branc h (1,000 Indication unit) s: per pt, tablet PCP ordered aspirin 81 2021-11 Yes 81mg Take 81 mg U nivers mg EC 2-15 by mouth ity of tablet 14:38: in the [place] [address] morning. Medical Indication Branch s: per pt from Cardiologi st, MD Chou albuterol 2021-11 Yes 2{puff} Inhale 2 U nivers 90 2-15 Puffs ity of mcg/actuati 14:38: every 6 [place] as on inhaler 04 (six) Medical hours as Branch needed for Wheezing or Shortness of Breath. Indication s: per MD Chou fluticasone 2021-11 Yes 2{puff} Inhale 2 [facility] propionate 2-15 Puffs ity of (FLOVENT 14:38: every 6 [place] HFA) 110 04 (six) Medical mcg/actuati hours. Branch on inhaler Indication s: PRN from MD Chou albuterol 2021-11 Yes 1{ampul Use 1 Univ ers 2.5 mg/0.5 2-15 e} Ampule as ity of mL 14:38: directed [place] nebulizer 04 in the Medical solution morning Branch and 1 Ampule in the evening. Indication s: from MD Chou losartan 25 2021-11 Yes 25mg Take 25 mg [facility] mg tablet 2-15 by mouth ity of 14:38: in the [place] [address] morning. Medical Indication Branch s: taking 50 mg daily per MD Chou atorvastati 2021-11 Yes 80mg Take 80 mg [facility] n 80 mg 2-15 by mouth ity of tablet 14:38: at [place] [address] bedtime. Medical Indication Branch s: per MD Chou tadalafiL 5 2021-11 Yes 5mg Take 5 mg U nivers mg tablet 2-15 by mouth ity of 14:38: in the [place] [address] morning. Medical Indication Branch s: per MD Chou gabapentin 2021-11 Yes 300mg Take 300 Un valeriy 300 mg 2-15 mg by ity of capsule 14:38: mouth in [place] 04 the Medical morning Branch and 300 mg in the evening. Indication s: per MD Chou traMADoL 50 2021-11 Yes 50mg Take 50 mg [facility] mg tablet 2-15 by mouth ity of 14:38: every 6 [place] 04 (six) Medical hours as Branch needed (usually takes at least daily, depending on level pain; per patient). magnesium 2021-11 Yes 200mg Take 200 Uni vers gluconate 2-15 mg by ity of 200 mg 14:38: mouth in [place] tablet 04 the Medical morning. Branch Indication s: per patient; PCP ordered cholecalcif 2021-11 Yes 1000U Take 1,000 [facility] marleen, 2-15 Units by ity of vitamin D3, 14:38: mouth in [place] (VITAMIN 04 the Medical D3) 25 mcg morning. Branc h (1,000 Indication unit) s: per pt, tablet PCP ordered aspirin 81 2021-11 Yes 81mg Take 81 mg U nivers mg EC 2-15 by mouth ity of tablet 14:38: in the [place] [address] morning. Medical Indication Branch s: per pt from Cardiologi st, MD Chou albuterol 2021-11 Yes 2{puff} Inhale 2 U nivers 90 2-15 Puffs ity of mcg/actuati 14:38: every 6 [place] as on inhaler 04 (six) Medical hours as Branch needed for Wheezing or Shortness of Breath. Indication s: per MD Chou fluticasone 2021-11 Yes 2{puff} Inhale 2 [facility] propionate 2-15 Puffs ity of (FLOVENT 14:38: every 6 [place] HFA) 110 04 (six) Medical mcg/actuati hours. Branch on inhaler Indication s: PRN from MD Chou albuterol 2021-11 Yes 1{ampul Use 1 Univ ers 2.5 mg/0.5 2-15 e} Ampule as ity of mL 14:38: directed [place] nebulizer 04 in the Medical solution morning Branch and 1 Ampule in the evening. Indication s: from MD Chou losartan 25 2021-11 Yes 25mg Take 25 mg [facility] mg tablet 2-15 by mouth ity of 14:38: in the [place] [address] morning. Medical Indication Branch s: taking 50 mg daily per MD Chou atorvastati 2021-11 Yes 80mg Take 80 mg [facility] n 80 mg 2-15 by mouth ity of tablet 14:38: at [place] [address] bedtime. Medical Indication Branch s: per MD Chou tadalafiL 5 2021-11 Yes 5mg Take 5 mg U nivers mg tablet 2-15 by mouth ity of 14:38: in the [place] [address] morning. Medical Indication Branch s: per MD Chou gabapentin 2021-11 Yes 300mg Take 300 Un valeriy 300 mg 2-15 mg by ity of capsule 14:38: mouth in [place] 04 the Medical morning Branch and 300 mg in the evening. Indication s: per MD Chou traMADoL 50 2021-11 Yes 50mg Take 50 mg [facility] mg tablet 2-15 by mouth ity of 14:38: every 6 [place] 04 (six) Medical hours as Branch needed (usually takes at least daily, depending on level pain; per patient). magnesium 2021-11 Yes 200mg Take 200 Uni vers gluconate 2-15 mg by ity of 200 mg 14:38: mouth in [place] tablet 04 the Medical morning. Branch Indication s: per patient; PCP ordered cholecalcif 2021-11 Yes 1000U Take 1,000 [facility] marleen, 2-15 Units by ity of vitamin D3, 14:38: mouth in [place] (VITAMIN 04 the Medical D3) 25 mcg morning. Branc h (1,000 Indication unit) s: per pt, tablet PCP ordered aspirin 81 2021-11 Yes 81mg Take 81 mg U nivers mg EC 2-15 by mouth ity of tablet 14:38: in the [place] 04 morning. Medical Indication Branch s: per pt from Cardiologi , MD Chou albuterol 2021-11 Yes 2{puff} Inhale 2 U nivers 90 2-15 Puffs ity of mcg/actuati 14:38: every 6 [place] as on inhaler 04 (six) Medical hours as Branch needed for Wheezing or Shortness of Breath. Indication s: per MD Chou fluticasone 2021-11 Yes 2{puff} Inhale 2 [facility] propionate 2-15 Puffs ity of (FLOVENT 14:38: every 6 [place] HFA) 110 04 (six) Medical mcg/actuati hours. Branch on inhaler Indication s: PRN from MD Chou albuterol 2021-11 Yes 1{ampul Use 1 Univ ers 2.5 mg/0.5 2-15 e} Ampule as ity of mL 14:38: directed [place] nebulizer 04 in the Medical solution morning Branch and 1 Ampule in the evening. Indication s: from MD Chou albuterol 2021-11 Yes 2{puff} Inhale 2 U nivers 90 2-15 Puffs ity of mcg/actuati 14:38: every 6 [place] as on inhaler 04 (six) Medical hours as Branch needed for Wheezing or Shortness of Breath. Indication s: per MD Chou losartan 25 2021-11 Yes 25mg Take 25 mg [facility] mg tablet 2-15 by mouth ity of 14:38: in the [place] 04 morning. Medical Indication Branch s: taking 50 mg daily per MD Chou atorvastati 2021-11 Yes 80mg Take 80 mg [facility] n 80 mg 2-15 by mouth ity of tablet 14:38: at [place] 04 bedtime. Medical Indication Branch s: per MD Chou tadalafiL 5 2021-11 Yes 5mg Take 5 mg U nivers mg tablet 2-15 by mouth ity of 14:38: in the [place] 04 morning. Medical Indication Branch s: per MD Chou gabapentin 2021-11 Yes 300mg Take 300 Un valeriy 300 mg 2-15 mg by ity of capsule 14:38: mouth in [place] 04 the Medical morning Branch and 300 mg in the evening. Indication s: per MD Chou traMADoL 50 2021-11 Yes 50mg Take 50 mg [facility] mg tablet 2-15 by mouth ity of 14:38: every 6 [place] 04 (six) Medical hours as Branch needed (usually takes at least daily, depending on level pain; per patient). magnesium 2021-11 Yes 200mg Take 200 Uni vers gluconate 2-15 mg by ity of 200 mg 14:38: mouth in [place] tablet 04 the Medical morning. Branch Indication s: per patient; PCP ordered cholecalcif 2021-11 Yes 1000U Take 1,000 [facility] marleen, 2-15 Units by ity of vitamin D3, 14:38: [place] (VITAMIN 04 the Medical D3) 25 mcg morning. Branc h (1,000 Indication unit) s: per pt, tablet PCP ordered aspirin 81 2021-11 Yes 81mg Take 81 mg U nivers mg EC 2-15 by mouth ity of tablet 14:38: in the [place] [address] morning. Medical Indication Branch s: per pt from Cardiologi st, MD Chou fluticasone 2021-11 Yes 2{puff} Inhale 2 [facility] propionate 2-15 Puffs ity of (FLOVENT 14:38: every 6 [place] HFA) 110 04 (six) Medical mcg/actuati hours. Branch on inhaler Indication s: PRN from MD Chou albuterol 2021-11 Yes 2{puff} Inhale 2 U nivers 90 2-15 Puffs ity of mcg/actuati 14:38: every 6 [place] as on inhaler 04 (six) Medical hours as Branch needed for Wheezing or Shortness of Breath. Indication s: per MD Chou fluticasone 2021-11 Yes 2{puff} Inhale 2 [facility] propionate 2-15 Puffs ity of (FLOVENT 14:38: every 6 [place] HFA) 110 04 (six) Medical mcg/actuati hours. Branch on inhaler Indication s: PRN from MD Chou albuterol 2021-11 Yes 1{ampul Use 1 Univ ers 2.5 mg/0.5 2-15 e} Ampule as ity of mL 14:38: directed [place] nebulizer 04 in the Medical solution morning Branch and 1 Ampule in the evening. Indication s: from [facility] losartan 25 2021-11 Yes 25mg Take 25 mg [facility] mg tablet 2-15 by mouth ity of 14:38: in the [place] [address] morning. Medical Indication Branch s: taking 50 mg daily per [facility] atorvastati 2021-11 Yes 80mg Take 80 mg [facility] n 80 mg 2-15 by mouth ity of tablet 14:38: at [place] [address] bedtime. Medical Indication Branch s: per [facility] tadalafiL 5 2021-11 Yes 5mg Take 5 mg U nivers mg tablet 2-15 by mouth ity of 14:38: in the [place] [address] morning. Medical Indication Branch s: per [facility] gabapentin 2021-11 Yes 300mg Take 300 Un valeriy 300 mg 2-15 mg by ity of capsule 14:38: mouth in [place] [address] the Medical morning Branch and 300 mg in the evening. Indication s: per [facility] albuterol 2021-11 Yes 1{ampul Use 1 Univ ers 2.5 mg/0.5 2-15 e} Ampule as ity of mL 14:38: directed [place] nebulizer 04 in the Medical solution morning Branch and 1 Ampule in the evening. Indication s: from [facility] traMADoL 50 2021-11 Yes 50mg Take 50 mg [facility] mg tablet 2-15 by mouth ity of 14:38: every 6 [place] [address] (six) Medical hours as Branch needed (usually takes at least daily, depending on level pain; per patient). magnesium 2021-11 Yes 200mg Take 200 Uni vers gluconate 2-15 mg by ity of 200 mg 14:38: mouth in [place] tablet 04 the Medical morning. Branch Indication s: per patient; PCP ordered cholecalcif 2021-11 Yes 1000U Take 1,000 [facility] marleen, 2-15 Units by ity of vitamin D3, 14:38: mouth in [place] (VITAMIN 04 the Medical D3) 25 mcg morning. Branc h (1,000 Indication unit) s: per pt, tablet PCP ordered aspirin 81 2021-11 Yes 81mg Take 81 mg U nivers mg EC 2-15 by mouth ity of tablet 14:38: in the [place] 04 morning. Medical Indication Branch s: per pt from Cardiologi st, MD Chou losartan 25 2021-11 Yes 25mg Take 25 mg [facility] mg tablet 2-15 by mouth ity of 14:38: in the [place] [address] morning. Medical Indication Branch s: taking 50 mg daily per MD Chou albuterol 2021-11 Yes 2{puff} Inhale 2 U nivers 90 2-15 Puffs ity of mcg/actuati 14:38: every 6 [place] as on inhaler 04 (six) Medical hours as Branch needed for Wheezing or Shortness of Breath. Indication s: per MD Chou fluticasone 2021-11 Yes 2{puff} Inhale 2 [facility] propionate 2-15 Puffs ity of (FLOVENT 14:38: every 6 [place] HFA) 110 04 (six) Medical mcg/actuati hours. Branch on inhaler Indication s: PRN from MD Chou albuterol 2021-11 Yes 1{ampul Use 1 Univ ers 2.5 mg/0.5 2-15 e} Ampule as ity of mL 14:38: directed [place] nebulizer 04 in the Medical solution morning Branch and 1 Ampule in the evening. Indication s: from MD Chou losartan 25 2021-11 Yes 25mg Take 25 mg [facility] mg tablet 2-15 by mouth ity of 14:38: in the [place] [address] morning. Medical Indication Branch s: taking 50 mg daily per MD Chou atorvastati 2021-11 Yes 80mg Take 80 mg [facility] n 80 mg 2-15 by mouth ity of tablet 14:38: at [place] [address] bedtime. Medical Indication Branch s: per MD Chou tadalafiL 5 2021-11 Yes 5mg Take 5 mg U nivers mg tablet 2-15 by mouth ity of 14:38: in the [place] [address] morning. Medical Indication Branch s: per MD Chou gabapentin 2021-11 Yes 300mg Take 300 Un valeriy 300 mg 2-15 mg by ity of capsule 14:38: mouth in [place] 04 the Medical morning Branch and 300 mg in the evening. Indication s: per MD Chou traMADoL 50 2021-11 Yes 50mg Take 50 mg [facility] mg tablet 2-15 by mouth ity of 14:38: every 6 [place] 04 (six) Medical hours as Branch needed (usually takes at least daily, depending on level pain; per patient). magnesium 2021-11 Yes 200mg Take 200 Uni vers gluconate 2-15 mg by ity of 200 mg 14:38: mouth in [place] tablet 04 the Medical morning. Branch Indication s: per patient; PCP ordered atorvastati 2021-11 Yes 80mg Take 80 mg [facility] n 80 mg 2-15 by mouth ity of tablet 14:38: at [place] 04 bedtime. Medical Indication Branch s: per MD Chou cholecalcif 2021-11 Yes 1000U Take 1,000 [facility] marleen, 2-15 Units by ity of vitamin D3, 14:38: mouth in [place] (VITAMIN 04 the Medical D3) 25 mcg morning. Branc h (1,000 Indication unit) s: per pt, tablet PCP ordered aspirin 81 2021-11 Yes 81mg Take 81 mg U nivers mg EC 2-15 by mouth ity of tablet 14:38: in the [place] 04 morning. Medical Indication Branch s: per pt from Cardiologi st, MD Chou albuterol 2021-11 Yes 2{puff} Inhale 2 U nivers 90 2-15 Puffs ity of mcg/actuati 14:38: every 6 [place] as on inhaler 04 (six) Medical hours as Branch needed for Wheezing or Shortness of Breath. Indication s: per MD Chou fluticasone 2021-11 Yes 2{puff} Inhale 2 [facility] propionate 2-15 Puffs ity of (FLOVENT 14:38: every 6 [place] HFA) 110 04 (six) Medical mcg/actuati hours. Branch on inhaler Indication s: PRN from MD Chou albuterol 2021-11 Yes 1{ampul Use 1 Univ ers 2.5 mg/0.5 2-15 e} Ampule as ity of mL 14:38: directed [place] nebulizer 04 in the Medical solution morning Branch and 1 Ampule in the evening. Indication s: from MD Chou losartan 25 2021-11 Yes 25mg Take 25 mg [facility] mg tablet 2-15 by mouth ity of 14:38: in the [place] 04 morning. Medical Indication Branch s: taking 50 mg daily per MD Chou atorvastati 2021-11 Yes 80mg Take 80 mg [facility] n 80 mg 2-15 by mouth ity of tablet 14:38: at [place] [address] bedtime. Medical Indication Branch s: per MD Chou tadalafiL 5 2021-11 Yes 5mg Take 5 mg U nivers mg tablet 2-15 by mouth ity of 14:38: in the [place] [address] morning. Medical Indication Branch s: per MD Chou tadalafiL 5 2021-11 Yes 5mg Take 5 mg U nivers mg tablet 2-15 by mouth ity of 14:38: in the [place] [address] morning. Medical Indication Branch s: per MD Chou gabapentin 2021-11 Yes 300mg Take 300 Un valeriy 300 mg 2-15 mg by ity of capsule 14:38: mouth in [place] 04 the Medical morning Branch and 300 mg in the evening. Indication s: per MD Chou traMADoL 50 2021-11 Yes 50mg Take 50 mg [facility] mg tablet 2-15 by mouth ity of 14:38: every 6 [place] 04 (six) Medical hours as Branch needed (usually takes at least daily, depending on level pain; per patient). magnesium 2021-11 Yes 200mg Take 200 Uni vers gluconate 2-15 mg by ity of 200 mg 14:38: mouth in [facility] 04 the Medical morning. Branch Indication s: per patient; PCP ordered cholecalcif 2021-11 Yes 1000U Take 1,000 [facility] marleen, 2-15 Units by ity of vitamin D3, 14:38: [place] (VITAMIN 04 the Medical D3) 25 mcg morning. Branc h (1,000 Indication unit) s: per pt, tablet PCP ordered aspirin 81 2021-11 Yes 81mg Take 81 mg U nivers mg EC 2-15 by mouth ity of tablet 14:38: in the [place] [address] morning. Medical Indication Branch s: per pt from Cardiologi MD José Antonio sandoval gabapentin 2021-11 Yes 300mg Take 300 Un valeriy 300 mg 2-15 mg by ity of capsule 14:38: mouth in [place] 04 the Medical morning Branch and 300 mg in the evening. Indication s: per MD Chou albuterol 2021-11 Yes 2{puff} Inhale 2 U nivers 90 2-15 Puffs ity of mcg/actuati 14:38: every 6 [place] as on inhaler 04 (six) Medical hours as Branch needed for Wheezing or Shortness of Breath. Indication s: per MD Chou fluticasone 2021-11 Yes 2{puff} Inhale 2 [facility] propionate 2-15 Puffs ity of (FLOVENT 14:38: every 6 [place] HFA) 110 04 (six) Medical mcg/actuati hours. Branch on inhaler Indication s: PRN from MD Chou albuterol 2021-11 Yes 1{ampul Use 1 Univ ers 2.5 mg/0.5 2-15 e} Ampule as ity of mL 14:38: directed [place] nebulizer 04 in the Medical solution morning Branch and 1 Ampule in the evening. Indication s: from MD Chou losartan 25 2021-11 Yes 25mg Take 25 mg [facility] mg tablet 2-15 by mouth ity of 14:38: in the [place] [address] morning. Medical Indication Branch s: taking 50 mg daily per MD Chou atorvastati 2021-11 Yes 80mg Take 80 mg [facility] n 80 mg 2-15 by mouth ity of tablet 14:38: at [place] [address] bedtime. Medical Indication Branch s: per MD Chou tadalafiL 5 2021-11 Yes 5mg Take 5 mg U nivers mg tablet 2-15 by mouth ity of 14:38: in the [place] [address] morning. Medical Indication Branch s: per MD Chou gabapentin 2021-11 Yes 300mg Take 300 Un valeriy 300 mg 2-15 mg by ity of capsule 14:38: mouth in [place] 04 the Medical morning Branch and 300 mg in the evening. Indication s: per MD Chou traMADoL 50 2021-11 Yes 50mg Take 50 mg [facility] mg tablet 2-15 by mouth ity of 14:38: every 6 [place] 04 (six) Medical hours as Branch needed (usually takes at least daily, depending on level pain; per patient). traMADoL 50 2021-11 Yes 50mg Take 50 mg [facility] mg tablet 2-15 by mouth ity of 14:38: every 6 [place] 04 (six) Medical hours as Branch needed (usually takes at least daily, depending on level pain; per patient). magnesium 2021-11 Yes 200mg Take 200 Uni vers gluconate 2-15 mg by ity of 200 mg 14:38: mouth in [place] tablet 04 the Medical morning. Branch Indication s: per patient; PCP ordered cholecalcif 2021-11 Yes 1000U Take 1,000 [facility] marleen, 2-15 Units by ity of vitamin D3, 14:38: mouth in [place] (VITAMIN 04 the Medical D3) 25 mcg morning. Branc h (1,000 Indication unit) s: per pt, tablet PCP ordered aspirin 81 2021-11 Yes 81mg Take 81 mg U nivers mg EC 2-15 by mouth ity of tablet 14:38: in the [place] 04 morning. Medical Indication Branch s: per pt from Cardiologi MD Chou albuterol 2021-11 Yes 2{puff} Inhale 2 U nivers 90 2-15 Puffs ity of mcg/actuati 14:38: every 6 [place] as on inhaler 04 (six) Medical hours as Branch needed for Wheezing or Shortness of Breath. Indication s: per MD Chou fluticasone 2021-11 Yes 2{puff} Inhale 2 [facility] propionate 2-15 Puffs ity of (FLOVENT 14:38: every 6 [place] HFA) 110 04 (six) Medical mcg/actuati hours. Branch on inhaler Indication s: PRN from MD Chou magnesium 2021-11 Yes 200mg Take 200 Uni vers gluconate 2-15 mg by ity of 200 mg 14:38: mouth in [place] tablet 04 the Medical morning. Branch Indication s: per patient; PCP ordered albuterol 2021-11 Yes 1{ampul Use 1 Univ ers 2.5 mg/0.5 2-15 e} Ampule as ity of mL 14:38: directed [place] nebulizer 04 in the Medical solution morning Branch and 1 Ampule in the evening. Indication s: from MD Chou losartan 25 2021-11 Yes 25mg Take 25 mg [facility] mg tablet 2-15 by mouth ity of 14:38: in the [place] 04 morning. Medical Indication Branch s: taking 50 mg daily per MD Chou atorvastati 2021-11 Yes 80mg Take 80 mg [facility] n 80 mg 2-15 by mouth ity of tablet 14:38: at [place] [address] bedtime. Medical Indication Branch s: per MD Chou tadalafiL 5 2021-11 Yes 5mg Take 5 mg U nivers mg tablet 2-15 by mouth ity of 14:38: in the [place] [address] morning. Medical Indication Branch s: per MD Chou gabapentin 2021-11 Yes 300mg Take 300 Un valeriy 300 mg 2-15 mg by ity of capsule 14:38: mouth in [place] 04 the Medical morning Branch and 300 mg in the evening. Indication s: per MD Chou traMADoL 50 2021-11 Yes 50mg Take 50 mg [facility] mg tablet 2-15 by mouth ity of 14:38: every 6 [place] 04 (six) Medical hours as Branch needed (usually takes at least daily, depending on level pain; per patient). magnesium 2021-11 Yes 200mg Take 200 Uni vers gluconate 2-15 mg by ity of 200 mg 14:38: mouth in [place] tablet 04 the Medical morning. Branch Indication s: per patient; PCP ordered cholecalcif 2021-11 Yes 1000U Take 1,000 [facility] marleen, 2-15 Units by ity of vitamin D3, 14:38: mouth in [place] (VITAMIN 04 the Medical D3) 25 mcg morning. Branc h (1,000 Indication unit) s: per pt, tablet PCP ordered aspirin 81 2021-11 Yes 81mg Take 81 mg U nivers mg EC 2-15 by mouth ity of tablet 14:38: in the [place] 04 morning. Medical Indication Branch [facility] ch[facility] 2021-11 Yes 1000U Take 1,000 [facility] marleen, 2-15 Units by ity of vitamin D3, 14:38: mouth in [place] (VITAMIN 04 the Medical D3) 25 mcg morning. Branc h (1,000 Indication unit) s: per pt, tablet PCP ordered aspirin 81 2021-11 Yes 81mg Take 81 mg U nivers mg EC 2-15 by mouth ity of tablet 14:38: in the [place] 04 morning. Medical Indication Branch [facility] José Antonio sandoval albuterol 2021-11 Yes 2{puff} Inhale 2 U nivers 90 2-15 Puffs ity of mcg/actuati 14:38: every 6 [place] as on inhaler 04 (six) Medical hours as Branch needed for Wheezing or Shortness of Breath. Indication s: per MD Chou fluticasone 2021-11 Yes 2{puff} Inhale 2 [facility] propionate 2-15 Puffs ity of (FLOVENT 14:38: every 6 [place] HFA) 110 04 (six) Medical mcg/actuati hours. Branch on inhaler Indication s: PRN from MD Chou albuterol 2021-11 Yes 1{ampul Use 1 Univ ers 2.5 mg/0.5 2-15 e} Ampule as ity of mL 14:38: directed [place] nebulizer 04 in the Medical solution morning Branch and 1 Ampule in the evening. Indication s: from MD Chou losartan 25 2021-11 Yes 25mg Take 25 mg [facility] mg tablet 2-15 by mouth ity of 14:38: in the [place] [address] morning. Medical Indication Branch s: taking 50 mg daily per MD Chou atorvastati 2021-11 Yes 80mg Take 80 mg [facility] n 80 mg 2-15 by mouth ity of tablet 14:38: at [place] [address] bedtime. Medical Indication Branch s: per MD Chou tadalafiL 5 2021-11 Yes 5mg Take 5 mg U nivers mg tablet 2-15 by mouth ity of 14:38: in the [place] [address] morning. Medical Indication Branch s: per MD Chou gabapentin 2021-11 Yes 300mg Take 300 Un valeriy 300 mg 2-15 mg by ity of capsule 14:38: mouth in [place] 04 the Medical morning Branch and 300 mg in the evening. Indication s: per MD Chou traMADoL 50 2021-11 Yes 50mg Take 50 mg [facility] mg tablet 2-15 by mouth ity of 14:38: every 6 [place] 04 (six) Medical hours as Branch needed (usually takes at least daily, depending on level pain; per patient). magnesium 2021-11 Yes 200mg Take 200 Uni vers gluconate 2-15 mg by ity of 200 mg 14:38: mouth in [place] tablet 04 the Medical morning. Branch Indication s: per patient; PCP ordered cholecalcif 2021-11 Yes 1000U Take 1,000 [facility] marleen, 2-15 Units by ity of vitamin D3, 14:38: mouth in [place] (VITAMIN 04 the Medical D3) 25 mcg morning. Branc h (1,000 Indication unit) s: per pt, tablet PCP ordered aspirin 81 2021-11 Yes 81mg Take 81 mg U nivers mg EC 2-15 by mouth ity of tablet 14:38: in the [place] [address] morning. Medical Indication Branch s: per pt from Cardiologi MD José Antonio sandoval albuterol 2021-11 Yes 2{puff} Inhale 2 U nivers 90 2-15 Puffs ity of mcg/actuati 14:38: every 6 [place] as on inhaler 04 (six) Medical hours as Branch needed for Wheezing or Shortness of Breath. Indication s: per MD Chou fluticasone 2021-11 Yes 2{puff} Inhale 2 [facility] propionate 2-15 Puffs ity of (FLOVENT 14:38: every 6 [place] HFA) 110 04 (six) Medical mcg/actuati hours. Branch on inhaler Indication s: PRN from José Antonio albuterol 2021-11 Yes 1{ampul Use 1 Univ ers 2.5 mg/0.5 2-15 e} Ampule as ity of mL 14:38: directed [place] nebulizer 04 in the Medical solution morning Branch and 1 Ampule in the evening. Indication s: from José Antonio losartan 25 2021-11 Yes 25mg Take 25 mg [facility] mg tablet 2-15 by mouth ity of 14:38: in the [place] [address] morning. Medical Indication Branch s: taking 50 mg daily per José Antonio atorvastati 2021-11 Yes 80mg Take 80 mg [facility] n 80 mg 2-15 by mouth ity of tablet 14:38: at [place] [address] bedtime. Medical Indication Branch s: per [facility] tadalafiL 5 2021-11 Yes 5mg Take 5 mg U nivers mg tablet 2-15 by mouth ity of 14:38: in the [place] [address] morning. Medical Indication Branch s: per [facility] gabapentin 2021-11 Yes 300mg Take 300 Un valeriy 300 mg 2-15 mg by ity of capsule 14:38: mouth in [place] [address] the Medical morning Branch and 300 mg in the evening. Indication s: per [facility] traMADoL 50 2021-11 Yes 50mg Take 50 mg [facility] mg tablet 2-15 by mouth ity of 14:38: every 6 [place] 04 (six) Medical hours as Branch needed (usually takes at least daily, depending on level pain; per patient). magnesium 2021-11 Yes 200mg Take 200 Uni vers gluconate 2-15 mg by ity of 200 mg 14:38: mouth in [place] tablet 04 the Medical morning. Branch Indication s: per patient; PCP ordered cholecalcif 2021-11 Yes 1000U Take 1,000 [facility] marleen, 2-15 Units by ity of vitamin D3, 14:38: mouth in [place] (VITAMIN 04 the Medical D3) 25 mcg morning. Branc h (1,000 Indication unit) s: per pt, tablet PCP ordered aspirin 81 2021-11 Yes 81mg Take 81 mg U nivers mg EC 2-15 by mouth ity of tablet 14:38: in the [place] 04 morning. Medical Indication Branch s: per pt from Cardiologi MD José Antonio sandoval albuterol 2021-11 Yes 2{puff} Inhale 2 U nivers 90 2-15 Puffs ity of mcg/actuati 14:38: every 6 [place] as on inhaler 04 (six) Medical hours as Branch needed for Wheezing or Shortness of Breath. Indication s: per MD Chou fluticasone 2021-11 Yes 2{puff} Inhale 2 [facility] propionate 2-15 Puffs ity of (FLOVENT 14:38: every 6 [place] HFA) 110 04 (six) Medical mcg/actuati hours. Branch on inhaler Indication s: PRN from MD Chou albuterol 2021-11 Yes 1{ampul Use 1 [facility] ers 2.5 mg/0.5 2-15 e} Ampule as ity of mL 14:38: directed [place] nebulizer 04 in the Medical solution morning Branch and 1 Ampule in the evening. Indication s: from MD Chou losartan 25 2021-11 Yes 25mg Take 25 mg [facility] mg tablet 2-15 by mouth ity of 14:38: in the [place] [address] morning. Medical Indication Branch s: taking 50 mg daily per MD Chou atorvastati 2021-11 Yes 80mg Take 80 mg [facility] n 80 mg 2-15 by mouth ity of tablet 14:38: at [place] [address] bedtime. Medical Indication Branch s: per MD Chou tadalafiL 5 2021-11 Yes 5mg Take 5 mg [facility] nivers mg tablet 2-15 by mouth ity of 14:38: in the [place] [address] morning. Medical Indication Branch s: per MD Chou gabapentin 2021-11 Yes 300mg Take 300 Un valeriy 300 mg 2-15 mg by ity of capsule 14:38: mouth in [place] 04 the Medical morning Branch and 300 mg in the evening. Indication s: per MD Chou traMADoL 50 2021-11 Yes 50mg Take 50 mg [facility] mg tablet 2-15 by mouth ity of 14:38: every 6 [place] 04 (six) Medical hours as Branch needed (usually takes at least daily, depending on level pain; per patient). magnesium 2021-11 Yes 200mg Take 200 [facility] vers gluconate 2-15 mg by ity of 200 mg 14:38: mouth in [place] tablet 04 the Medical morning. Branch Indication s: per patient; PCP ordered cholecalcif 2021-11 Yes 1000U Take 1,000 [facility] marleen, 2-15 Units by ity of vitamin D3, 14:38: mouth in [place] (VITAMIN 04 the Medical D3) 25 mcg morning. Branc h (1,000 Indication unit) s: per pt, tablet PCP ordered aspirin 81 2021-11 Yes 81mg Take 81 mg [facility] nivers mg EC 2-15 by mouth ity of tablet 14:38: in the [place] 04 morning. Medical Indication Branch s: per pt from Cardiologi st, MD Chou albuterol 2021-11 Yes 2{puff} Inhale 2 U nivers 90 2-15 Puffs ity of mcg/actuati 14:38: every 6 [place] as on inhaler 04 (six) Medical hours as Branch needed for Wheezing or Shortness of Breath. Indication s: per MD Chou fluticasone 2021-11 Yes 2{puff} Inhale 2 [facility] propionate 2-15 Puffs ity of (FLOVENT 14:38: every 6 [place] HFA) 110 04 (six) Medical mcg/actuati hours. Branch on inhaler Indication s: PRN from MD Chou albuterol 2021-11 Yes 1{ampul Use 1 [facility] ers 2.5 mg/0.5 2-15 e} Ampule as ity of mL 14:38: directed [place] nebulizer 04 in the Medical solution morning Branch and 1 Ampule in the evening. Indication s: from MD Chou losartan 25 2021-11 Yes 25mg Take 25 mg [facility] mg tablet 2-15 by mouth ity of 14:38: in the [place] 04 morning. Medical Indication Branch s: taking 50 mg daily per MD Chou atorvastati 2021-11 Yes 80mg Take 80 mg [facility] n 80 mg 2-15 by mouth ity of tablet 14:38: at [place] [address] bedtime. Medical Indication Branch s: per MD Chou tadalafiL 5 2021-11 Yes 5mg Take 5 mg [facility] nivers mg tablet 2-15 by mouth ity of 14:38: in the [place] [address] morning. Medical Indication Branch s: per MD Chou gabapentin 2021-11 Yes 300mg Take 300 Un valeriy 300 mg 2-15 mg by ity of capsule 14:38: mouth in [place] 04 the Medical morning Branch and 300 mg in the evening. Indication s: per MD Chou traMADoL 50 2021-11 Yes 50mg Take 50 mg [facility] mg tablet 2-15 by mouth ity of 14:38: every 6 [place] 04 (six) Medical hours as Branch needed (usually takes at least daily, depending on level pain; per patient). magnesium 2021-11 Yes 200mg Take 200 [facility] vers gluconate 2-15 mg by ity of 200 mg 14:38: mouth in [place] tablet 04 the Medical morning. Branch Indication s: per patient; PCP ordered cholecalcif 2021-11 Yes 1000U Take 1,000 [facility] marleen, 2-15 Units by ity of vitamin D3, 14:38: mouth in [place] (VITAMIN 04 the Medical D3) 25 mcg morning. Branc h (1,000 Indication unit) s: per pt, tablet PCP ordered aspirin 81 2021-11 Yes 81mg Take 81 mg [facility] nivers mg EC 2-15 by mouth ity of tablet 14:38: in the [place] 04 morning. Medical Indication Branch s: per pt from Cardiologi , MD Chou albuterol 2021-11 Yes 2{puff} Inhale 2 U nivers 90 2-15 Puffs ity of mcg/actuati 14:38: every 6 [place] as on inhaler 04 (six) Medical hours as Branch needed for Wheezing or Shortness of Breath. Indication s: per MD Chou fluticasone 2021-11 Yes 2{puff} Inhale 2 [facility] propionate 2-15 Puffs ity of (FLOVENT 14:38: every 6 [place] HFA) 110 04 (six) Medical mcg/actuati hours. Branch on inhaler Indication s: PRN from MD Chou albuterol 2021-11 Yes 1{ampul Use 1 [facility] ers 2.5 mg/0.5 2-15 e} Ampule as ity of mL 14:38: directed [place] nebulizer 04 in the Medical solution morning Branch and 1 Ampule in the evening. Indication s: from MD Chou losartan 25 2021-11 Yes 25mg Take 25 mg [facility] mg tablet 2-15 by mouth ity of 14:38: in the [place] 04 morning. Medical Indication Branch s: taking 50 mg daily per MD Chou atorvastati 2021-11 Yes 80mg Take 80 mg [facility] n 80 mg 2-15 by mouth ity of tablet 14:38: at [place] 04 bedtime. Medical Indication Branch s: per MD Chou tadalafiL 5 2021-11 Yes 5mg Take 5 mg [facility] nivers mg tablet 2-15 by mouth ity of 14:38: in the [place] 04 morning. Medical Indication Branch s: per MD Chou albuterol 2021-11 Yes 2{puff} Inhale 2 U nivers 90 2-15 Puffs ity of mcg/actuati 14:38: every 6 [place] as on inhaler 04 (six) Medical hours as Branch needed for Wheezing or Shortness of Breath. Indication s: per MD Chou gabapentin 2021-11 Yes 300mg Take 300 Un valeriy 300 mg 2-15 mg by ity of capsule 14:38: mouth in [place] 04 the Medical morning Branch and 300 mg in the evening. Indication s: per MD Chou traMADoL 50 2021-11 Yes 50mg Take 50 mg [facility] mg tablet 2-15 by mouth ity of 14:38: every 6 [place] 04 (six) Medical hours as Branch needed (usually takes at least daily, depending on level pain; per patient). magnesium 2021-11 Yes 200mg Take 200 [facility] vers gluconate 2-15 mg by ity of 200 mg 14:38: mouth in [place] tablet 04 the Medical morning. Branch Indication s: per patient; PCP ordered cholecalcif 2021-11 Yes 1000U Take 1,000 [facility] marleen, 2-15 Units by ity of vitamin D3, 14:38: mouth in [place] (VITAMIN 04 the Medical D3) 25 mcg morning. Branc h (1,000 Indication unit) s: per pt, tablet PCP ordered aspirin 81 2021-11 Yes 81mg Take 81 mg [facility] nivers mg EC 2-15 by mouth ity of tablet 14:38: in the [place] 04 morning. Medical Indication Branch s: per pt from Cardiologi st, MD Chou fluticasone 2021-11 Yes 2{puff} Inhale 2 [facility] propionate 2-15 Puffs ity of (FLOVENT 14:38: every 6 [place] HFA) 110 04 (six) Medical mcg/actuati hours. Branch on inhaler Indication s: PRN from MD Chou albuterol 2021-11 Yes 2{puff} Inhale 2 U nivers 90 2-15 Puffs ity of mcg/actuati 14:38: every 6 [place] as on inhaler 04 (six) Medical hours as Branch needed for Wheezing or Shortness of Breath. Indication s: per MD Chou fluticasone 2021-11 Yes 2{puff} Inhale 2 [facility] propionate 2-15 Puffs ity of (FLOVENT 14:38: every 6 [place] HFA) 110 04 (six) Medical mcg/actuati hours. Branch on inhaler Indication s: PRN from MD Chou albuterol 2021-11 Yes 1{ampul Use 1 [facility] ers 2.5 mg/0.5 2-15 e} Ampule as ity of mL 14:38: directed [place] nebulizer 04 in the Medical solution morning Branch and 1 Ampule in the evening. Indication s: from MD Chou losartan 25 2021-11 Yes 25mg Take 25 mg [facility] mg tablet 2-15 by mouth ity of 14:38: in the [place] [address] morning. Medical Indication Branch s: taking 50 mg daily per MD Chou atorvastati 2021-11 Yes 80mg Take 80 mg [facility] n 80 mg 2-15 by mouth ity of tablet 14:38: at [place] [address] bedtime. Medical Indication Branch s: per MD Chou tadalafiL 5 2021-11 Yes 5mg Take 5 mg [facility] nivers mg tablet 2-15 by mouth ity of 14:38: in the [place] [address] morning. Medical Indication Branch s: per MD Chou gabapentin 2021-11 Yes 300mg Take 300 Un valeriy 300 mg 2-15 mg by ity of capsule 14:38: mouth in [place] 04 the Medical morning Branch and 300 mg in the evening. Indication s: per MD Chou traMADoL 50 2021-11 Yes 50mg Take 50 mg [facility] mg tablet 2-15 by mouth ity of 14:38: every 6 [place] 04 (six) Medical hours as Branch needed (usually takes at least daily, depending on level pain; per patient). albuterol 2021-11 Yes 1{ampul Use 1 [facility] ers 2.5 mg/0.5 2-15 e} Ampule as ity of mL 14:38: directed [place] nebulizer 04 in the Medical solution morning Branch and 1 Ampule in the evening. Indication s: from MD Chou magnesium 2021-11 Yes 200mg Take 200 [facility] vers gluconate 2-15 mg by ity of 200 mg 14:38: mouth in [facility] 04 the Medical morning. Branch Indication s: per patient; PCP ordered cholecalcif 2021-11 Yes 1000U Take 1,000 [facility] marleen, 2-15 Units by ity of vitamin D3, 14:38: mouth in [place] (VITAMIN 04 the Medical D3) 25 mcg morning. Branc h (1,000 Indication unit) s: per pt, tablet PCP ordered aspirin 81 2021-11 Yes 81mg Take 81 mg U nivers mg EC 2-15 by mouth ity of tablet 14:38: in the [place] 04 morning. Medical Indication Branch s: per pt from Cardiologi st, MD Chou losartan 25 2021-11 Yes 25mg Take 25 mg [facility] mg tablet 2-15 by mouth ity of 14:38: in the [place] 04 morning. Medical Indication Branch s: taking 50 mg daily per MD Chou albuterol 2021-11 Yes 2{puff} Inhale 2 U nivers 90 2-15 Puffs ity of mcg/actuati 14:38: every 6 [place] as on inhaler 04 (six) Medical hours as Branch needed for Wheezing or Shortness of Breath. Indication s: per MD Chou fluticasone 2021-11 Yes 2{puff} Inhale 2 [facility] propionate 2-15 Puffs ity of (FLOVENT 14:38: every 6 [place] HFA) 110 04 (six) Medical mcg/actuati hours. Branch on inhaler Indication s: PRN from MD Chou albuterol 2021-11 Yes 1{ampul Use 1 [facility] ers 2.5 mg/0.5 2-15 e} Ampule as ity of mL 14:38: directed [place] nebulizer 04 in the Medical solution morning Branch and 1 Ampule in the evening. Indication s: from MD Chou losartan 25 2021-11 Yes 25mg Take 25 mg [facility] mg tablet 2-15 by mouth ity of 14:38: in the [place] 04 morning. Medical Indication Branch s: taking 50 mg daily per MD Chou atorvastati 2021-11 Yes 80mg Take 80 mg [facility] n 80 mg 2-15 by mouth ity of tablet 14:38: at [place] 04 bedtime. Medical Indication Branch s: per MD Chou tadalafiL 5 2021-11 Yes 5mg Take 5 mg U nivers mg tablet 2-15 by mouth ity of 14:38: in the [place] [address] morning. Medical Indication Branch s: per MD Chou gabapentin 2021-11 Yes 300mg Take 300 Un valeriy 300 mg 2-15 mg by ity of capsule 14:38: mouth in [place] 04 the Medical morning Branch and 300 mg in the evening. Indication s: per MD Chou traMADoL 50 2021-11 Yes 50mg Take 50 mg [facility] mg tablet 2-15 by mouth ity of 14:38: every 6 [place] 04 (six) Medical hours as Branch needed (usually takes at least daily, depending on level pain; per patient). magnesium 2021-11 Yes 200mg Take 200 [facility] vers gluconate 2-15 mg by ity of 200 mg 14:38: mouth in [place] tablet 04 the Medical morning. Branch Indication s: per patient; PCP ordered atorvastati 2021-11 Yes 80mg Take 80 mg [facility] n 80 mg 2-15 by mouth ity of tablet 14:38: at [place] [address] bedtime. Medical Indication Branch s: per MD Chou cholecalcif 2021-11 Yes 1000U Take 1,000 [facility] marleen, 2-15 Units by ity of vitamin D3, 14:38: [place] (VITAMIN 04 the Medical D3) 25 mcg morning. Branc h (1,000 Indication unit) s: per pt, tablet PCP ordered aspirin 81 2021-11 Yes 81mg Take 81 mg U nivers mg EC 2-15 by mouth ity of tablet 14:38: in the [place] 04 morning. Medical Indication Branch s: per pt from Cardiologi MD José Antonio sandoval albuterol 2021-11 Yes 2{puff} Inhale 2 U nivers 90 2-15 Puffs ity of mcg/actuati 14:38: every 6 [place] as on inhaler 04 (six) Medical hours as Branch needed for Wheezing or Shortness of Breath. Indication s: per MD Chou tadalafiL 5 2021-11 Yes 5mg Take 5 mg U nivers mg tablet 2-15 by mouth ity of 14:38: in the [place] 04 morning. Medical Indication Branch s: per MD Chou fluticasone 2021-11 Yes 2{puff} Inhale 2 [facility] propionate 2-15 Puffs ity of (FLOVENT 14:38: every 6 [place] HFA) 110 04 (six) Medical mcg/actuati hours. Branch on inhaler Indication s: PRN from MD Chou albuterol 2021-11 Yes 1{ampul Use 1 [facility] ers 2.5 mg/0.5 2-15 e} Ampule as ity of mL 14:38: directed [place] nebulizer 04 in the Medical solution morning Branch and 1 Ampule in the evening. Indication s: from MD Chou losartan 25 2021-11 Yes 25mg Take 25 mg [facility] mg tablet 2-15 by mouth ity of 14:38: in the [place] 04 morning. Medical Indication Branch s: taking 50 mg daily per MD Chou atorvastati 2021-11 Yes 80mg Take 80 mg [facility] n 80 mg 2-15 by mouth ity of tablet 14:38: at [place] [address] bedtime. Medical Indication Branch s: per MD Chou tadalafiL 5 2021-11 Yes 5mg Take 5 mg U nivers mg tablet 2-15 by mouth ity of 14:38: in the [place] 04 morning. Medical Indication Branch s: per MD Chou gabapentin 2021-11 Yes 300mg Take 300 Un valeriy 300 mg 2-15 mg by ity of capsule 14:38: mouth in [place] [address] the Medical morning Branch and 300 mg in the evening. Indication s: per MD Chou traMADoL 50 2021-11 Yes 50mg Take 50 mg [facility] mg tablet 2-15 by mouth ity of 14:38: every 6 [place] [address] (six) Medical hours as Branch needed (usually takes at least daily, depending on level pain; per patient). magnesium 2021-11 Yes 200mg Take 200 [facility] vers gluconate 2-15 mg by ity of 200 mg 14:38: mouth in [place] tablet 04 the Medical morning. Branch Indication s: per patient; PCP ordered cholecalcif 2021-11 Yes 1000U Take 1,000 [facility] marleen, 2-15 Units by ity of vitamin D3, 14:38: mouth in [place] (VITAMIN 04 the Medical D3) 25 mcg morning. Branc h (1,000 Indication unit) s: per pt, tablet PCP ordered aspirin 81 2021-11 Yes 81mg Take 81 mg U nivers mg EC 2-15 by mouth ity of tablet 14:38: in the [place] 04 morning. Medical Indication Branch s: per pt from Cardiologi stMD Chou gabapentin 2021-11 Yes 300mg Take 300 Un valeriy 300 mg 2-15 mg by ity of capsule 14:38: mouth in [place] 04 the Medical morning Branch and 300 mg in the evening. Indication s: per José Antonio albuterol 2021-11 Yes 2{puff} Inhale 2 U nivers 90 2-15 Puffs ity of mcg/actuati 14:38: every 6 [place] as on inhaler 04 (six) Medical hours as Branch needed for Wheezing or Shortness of Breath. Indication s: per MD Chou fluticasone 2021-11 Yes 2{puff} Inhale 2 [facility] propionate 2-15 Puffs ity of (FLOVENT 14:38: every 6 [place] HFA) 110 04 (six) Medical mcg/actuati hours. Branch on inhaler Indication s: PRN from [facility] albuterol 2021-11 Yes 1{ampul Use 1 [facility] ers 2.5 mg/0.5 2-15 e} Ampule as ity of mL 14:38: directed [place] nebulizer 04 in the Medical solution morning Branch and 1 Ampule in the evening. Indication s: from MD Chou losartan 25 2021-11 Yes 25mg Take 25 mg [facility] mg tablet 2-15 by mouth ity of 14:38: in the [place] [address] morning. Medical Indication Branch s: taking 50 mg daily per MD Chou atorvastati 2021-11 Yes 80mg Take 80 mg [facility] n 80 mg 2-15 by mouth ity of tablet 14:38: at [place] [address] bedtime. Medical Indication Branch s: per [facility] tadalafiL 5 2021-11 Yes 5mg Take 5 mg U nivers mg tablet 2-15 by mouth ity of 14:38: in the [place] [address] morning. Medical Indication Branch s: per MD Chou gabapentin 2021-11 Yes 300mg Take 300 Un valeriy 300 mg 2-15 mg by ity of capsule 14:38: mouth in [place] [address] the Medical morning Branch and 300 mg in the evening. Indication s: per [facility] traMADoL 50 2021-11 Yes 50mg Take 50 mg [facility] mg tablet 2-15 by mouth ity of 14:38: every 6 [place] 04 (six) Medical hours as Branch needed (usually takes at least daily, depending on level pain; per patient). traMADoL 50 2021-11 Yes 50mg Take 50 mg [facility] mg tablet 2-15 by mouth ity of 14:38: every 6 [place] 04 (six) Medical hours as Branch needed (usually takes at least daily, depending on level pain; per patient). magnesium 2021-11 Yes 200mg Take 200 [facility] vers gluconate 2-15 mg by ity of 200 mg 14:38: mouth in [place] tablet 04 the Medical morning. Branch Indication s: per patient; PCP ordered cholecalcif 2021-11 Yes 1000U Take 1,000 [facility] marleen, 2-15 Units by ity of vitamin D3, 14:38: mouth in [place] (VITAMIN 04 the Medical D3) 25 mcg morning. Branc h (1,000 Indication unit) s: per pt, tablet PCP ordered aspirin 81 2021-11 Yes 81mg Take 81 mg U nivers mg EC 2-15 by mouth ity of tablet 14:38: in the [place] 04 morning. Medical Indication Branch s: per pt from Cardiologi MD José Antonio sandoval albuterol 2021-11 Yes 2{puff} Inhale 2 U nivers 90 2-15 Puffs ity of mcg/actuati 14:38: every 6 [place] as on inhaler 04 (six) Medical hours as Branch needed for Wheezing or Shortness of Breath. Indication s: per MD Chou magnesium 2021-11 Yes 200mg Take 200 [facility] vers gluconate 2-15 mg by ity of 200 mg 14:38: mouth in [place] tablet 04 the Medical morning. Branch Indication s: per patient; PCP ordered fluticasone 2021-11 Yes 2{puff} Inhale 2 [facility] propionate 2-15 Puffs ity of (FLOVENT 14:38: every 6 [place] HFA) 110 04 (six) Medical mcg/actuati hours. Branch on inhaler Indication s: PRN from MD [place] albuterol 2021-11 Yes 1{ampul Use 1 [facility] ers 2.5 mg/0.5 2-15 e} Ampule as ity of mL 14:38: directed [place] nebulizer 04 in the Medical solution morning Branch and 1 Ampule in the evening. Indication s: from MD Chou losartan 25 2021-11 Yes 25mg Take 25 mg [facility] mg tablet 2-15 by mouth ity of 14:38: in the [place] [address] morning. Medical Indication Branch s: taking 50 mg daily per MD Chou atorvastati 2021-11 Yes 80mg Take 80 mg [facility] n 80 mg 2-15 by mouth ity of tablet 14:38: at [place] [address] bedtime. Medical Indication Branch s: per MD Chou tadalafiL 5 2021-11 Yes 5mg Take 5 mg U nivers mg tablet 2-15 by mouth ity of 14:38: in the [place] 04 morning. Medical Indication Branch s: per MD Chou gabapentin 2021-11 Yes 300mg Take 300 Un valeriy 300 mg 2-15 mg by ity of capsule 14:38: mouth in [place] 04 the Medical morning Branch and 300 mg in the evening. Indication s: per MD Chou traMADoL 50 2021-11 Yes 50mg Take 50 mg [facility] mg tablet 2-15 by mouth ity of 14:38: every 6 [place] 04 (six) Medical hours as Branch needed (usually takes at least daily, depending on level pain; per patient). magnesium 2021-11 Yes 200mg Take 200 [facility] vers gluconate 2-15 mg by ity of 200 mg 14:38: mouth in [place] tablet 04 the Medical morning. Branch Indication s: per patient; PCP ordered cholecalcif 2021-11 Yes 1000U Take 1,000 [facility] marleen, 2-15 Units by ity of vitamin D3, 14:38: mouth in [place] (VITAMIN 04 the Medical D3) 25 mcg morning. Branc h (1,000 Indication unit) s: per pt, tablet PCP ordered aspirin 81 2021-11 Yes 81mg Take 81 mg U nivers mg EC 2-15 by mouth ity of tablet 14:38: in the [place] 04 morning. Medical Indication Branch s: per pt from Cardiologi MD José Antonio sandoval cholecalcif 2021-11 Yes 1000U Take 1,000 [facility] marleen, 2-15 Units by ity of vitamin D3, 14:38: mouth in [place] (VITAMIN 04 the Medical D3) 25 mcg morning. Branc h (1,000 Indication unit) s: per pt, tablet PCP ordered albuterol 2021-11 Yes 2{puff} Inhale 2 U nivers 90 2-15 Puffs ity of mcg/actuati 14:38: every 6 [place] as on inhaler 04 (six) Medical hours as Branch needed for Wheezing or Shortness of Breath. Indication s: per MD Chou fluticasone 2021-11 Yes 2{puff} Inhale 2 [facility] propionate 2-15 Puffs ity of (FLOVENT 14:38: every 6 [place] HFA) 110 04 (six) Medical mcg/actuati hours. Branch on inhaler Indication s: PRN from MD Chou albuterol 2021-11 Yes 1{ampul Use 1 [facility] ers 2.5 mg/0.5 2-15 e} Ampule as ity of mL 14:38: directed [place] nebulizer 04 in the Medical solution morning Branch and 1 Ampule in the evening. Indication s: from MD Chou losartan 25 2021-11 Yes 25mg Take 25 mg [facility] mg tablet 2-15 by mouth ity of 14:38: in the [place] 04 morning. Medical Indication Branch s: taking 50 mg daily per MD Chou atorvastati 2021-11 Yes 80mg Take 80 mg [facility] n 80 mg 2-15 by mouth ity of tablet 14:38: at [place] [address] bedtime. Medical Indication Branch s: per MD Chou aspirin 81 2021-11 Yes 81mg Take 81 mg U nivers mg EC 2-15 by mouth ity of tablet 14:38: in the [place] [address] morning. Medical Indication Branch s: per pt from Cardiologi , MD Chou tadalafiL 5 2021-11 Yes 5mg Take 5 mg U nivers mg tablet 2-15 by mouth ity of 14:38: in the [place] [address] morning. Medical Indication Branch s: per MD Chou gabapentin 2021-11 Yes 300mg Take 300 Un valeriy 300 mg 2-15 mg by ity of capsule 14:38: mouth in [place] 04 the Medical morning Branch and 300 mg in the evening. Indication s: per MD Chou traMADoL 50 2021-11 Yes 50mg Take 50 mg [facility] mg tablet 2-15 by mouth ity of 14:38: every 6 [place] [address] (six) Medical hours as Branch needed (usually takes at least daily, depending on level pain; per patient). magnesium 2021-11 Yes 200mg Take 200 [facility] vers gluconate 2-15 mg by ity of 200 mg 14:38: mouth in [place] tablet 04 the Medical morning. Branch Indication s: per patient; PCP ordered cholecalcif 2021-11 Yes 1000U Take 1,000 [facility] marleen, 2-15 Units by ity of vitamin D3, 14:38: mouth in [place] (VITAMIN 04 the Medical D3) 25 mcg morning. Branc h (1,000 Indication unit) s: per pt, tablet PCP ordered aspirin 81 2021-11 Yes 81mg Take 81 mg U nivers mg EC 2-15 by mouth ity of tablet 14:38: in the [place] [address] morning. Medical Indication Branch s: per pt from Cardiologi st, MD Chou albuterol 2021-11 Yes 2{puff} Inhale 2 U nivers 90 2-15 Puffs ity of mcg/actuati 14:38: every 6 [place] as on inhaler 04 (six) Medical hours as Branch needed for Wheezing or Shortness of Breath. Indication s: per MD Chou fluticasone 2021-11 Yes 2{puff} Inhale 2 [facility] propionate 2-15 Puffs ity of (FLOVENT 14:38: every 6 [place] HFA) 110 04 (six) Medical mcg/actuati hours. Branch on inhaler Indication s: PRN from MD Chou albuterol 2021-11 Yes 1{ampul Use 1 Univ ers 2.5 mg/0.5 2-15 e} Ampule as ity of mL 14:38: directed [place] nebulizer 04 in the Medical solution morning Branch and 1 Ampule in the evening. Indication s: from MD Chou losartan 25 2021-11 Yes 25mg Take 25 mg [facility] mg tablet 2-15 by mouth ity of 14:38: in the [place] [address] morning. Medical Indication Branch s: taking 50 mg daily per MD Chou atorvastati 2021-11 Yes 80mg Take 80 mg [facility] n 80 mg 2-15 by mouth ity of tablet 14:38: at [place] [address] bedtime. Medical Indication Branch s: per MD Chou tadalafiL 5 2021-11 Yes 5mg Take 5 mg U nivers mg tablet 2-15 by mouth ity of 14:38: in the [place] [address] morning. Medical Indication Branch s: per MD Chou gabapentin 2021-11 Yes 300mg Take 300 Un valeriy 300 mg 2-15 mg by ity of capsule 14:38: mouth in [place] 04 the Medical morning Branch and 300 mg in the evening. Indication s: per MD Chou traMADoL 50 2021-11 Yes 50mg Take 50 mg [facility] mg tablet 2-15 by mouth ity of 14:38: every 6 [place] 04 (six) Medical hours as Branch needed (usually takes at least daily, depending on level pain; per patient). magnesium 2021-11 Yes 200mg Take 200 Uni vers gluconate 2-15 mg by ity of 200 mg 14:38: mouth in [place] tablet 04 the Medical morning. Branch Indication s: per patient; PCP ordered cholecalcif 2021-11 Yes 1000U Take 1,000 [facility] marleen, 2-15 Units by ity of vitamin D3, 14:38: mouth in [place] (VITAMIN 04 the Medical D3) 25 mcg morning. Branc h (1,000 Indication unit) s: per pt, tablet PCP ordered aspirin 81 2021-11 Yes 81mg Take 81 mg U nivers mg EC 2-15 by mouth ity of tablet 14:38: in the [place] 04 morning. Medical Indication Branch s: per pt from Cardiologi st, MD Chou albuterol 2021-11 Yes 2{puff} Inhale 2 U nivers 90 2-15 Puffs ity of mcg/actuati 14:38: every 6 [place] as on inhaler 04 (six) Medical hours as Branch needed for Wheezing or Shortness of Breath. Indication s: per MD Chou fluticasone 2021-11 Yes 2{puff} Inhale 2 [facility] propionate 2-15 Puffs ity of (FLOVENT 14:38: every 6 [place] HFA) 110 04 (six) Medical mcg/actuati hours. Branch on inhaler Indication s: PRN from MD Chou albuterol 2021-11 Yes 1{ampul Use 1 [facility] ers 2.5 mg/0.5 2-15 e} Ampule as ity of mL 14:38: directed [place] nebulizer 04 in the Medical solution morning Branch and 1 Ampule in the evening. Indication s: from MD Chou losartan 25 2021-11 Yes 25mg Take 25 mg [facility] mg tablet 2-15 by mouth ity of 14:38: in the [place] [address] morning. Medical Indication Branch s: taking 50 mg daily per MD Chou atorvastati 2021-11 Yes 80mg Take 80 mg Univers n 80 mg 2-15 by mouth ity of tablet 14:38: at [place] [address] bedtime. Medical Indication Branch s: per MD Chou tadalafiL 5 2021-11 Yes 5mg Take 5 mg U nivers mg tablet 2-15 by mouth ity of 14:38: in the [place] [address] morning. Medical Indication Branch s: per MD Chou gabapentin 2021-11 Yes 300mg Take 300 Un valeriy 300 mg 2-15 mg by ity of capsule 14:38: mouth in [place] 04 the Medical morning Branch and 300 mg in the evening. Indication s: per MD Chou traMADoL 50 2021-11 Yes 50mg Take 50 mg Univers mg tablet 2-15 by mouth ity of 14:38: every 6 [place] 04 (six) Medical hours as Branch needed (usually takes at least daily, depending on level pain; per patient). magnesium 2021-11 Yes 200mg Take 200 Uni vers gluconate 2-15 mg by ity of 200 mg 14:38: mouth in [place] tablet 04 the Medical morning. Branch Indication s: per patient; PCP ordered cholecalcif 2021-11 Yes 1000U Take 1,000 Univers marleen, 2-15 Units by ity of vitamin D3, 14:38: [place] in [place] (VITAMIN 04 the Medical D3) 25 mcg morning. Branc h (1,000 Indication unit) s: per pt, tablet PCP ordered aspirin 81 2021-11 Yes 81mg Take 81 mg U nivers mg EC 2-15 by mouth ity of tablet 14:38: in the [place] 04 morning. Medical Indication Branch s: per pt from Cardiologi st, MD Chou albuterol 2021-11 Yes 2{puff} Inhale 2 U nivers 90 2-15 Puffs ity of mcg/actuati 14:38: every 6 [place] as on inhaler 04 (six) Medical hours as Branch needed for Wheezing or Shortness of Breath. Indication s: per MD Chou fluticasone 2021-11 Yes 2{puff} Inhale 2 Univers propionate 2-15 Puffs ity of (FLOVENT 14:38: every 6 [place] HFA) 110 04 (six) Medical mcg/actuati hours. Branch on inhaler Indication s: PRN from MD Chou albuterol 2021-11 Yes 1{ampul Use 1 Univ ers 2.5 mg/0.5 2-15 e} Ampule as ity of mL 14:38: directed [place] nebulizer 04 in the Medical solution morning Branch and 1 Ampule in the evening. Indication s: from MD Chou losartan 25 2021-11 Yes 25mg Take 25 mg Univers mg tablet 2-15 by mouth ity of 14:38: in the [place] 04 morning. Medical Indication Branch s: taking 50 mg daily per MD Chou atorvastati 2021-11 Yes 80mg Take 80 mg Univers n 80 mg 2-15 by mouth ity of tablet 14:38: at [place] [address] bedtime. Medical Indication Branch s: per MD Chou tadalafiL 5 2021-11 Yes 5mg Take 5 mg U nivers mg tablet 2-15 by mouth ity of 14:38: in the [place] 04 morning. Medical Indication Branch s: per MD Chou gabapentin 2021-11 Yes 300mg Take 300 Un valeriy 300 mg 2-15 mg by ity of capsule 14:38: mouth in [place] 04 the Medical morning Branch and 300 mg in the evening. Indication s: per MD Chou traMADoL 50 2021-11 Yes 50mg Take 50 mg Univers mg tablet 2-15 by mouth ity of 14:38: every 6 [place] 04 (six) Medical hours as Branch needed (usually takes at least daily, depending on level pain; per patient). magnesium 2021-11 Yes 200mg Take 200 Uni vers gluconate 2-15 mg by ity of 200 mg 14:38: mouth in [place] tablet 04 the Medical morning. Branch Indication s: per patient; PCP ordered cholecalcif 2021-11 Yes 1000U Take 1,000 Univers marleen, 2-15 Units by ity of vitamin D3, 14:38: mouth [place] (VITAMIN 04 the Medical D3) 25 mcg morning. Branc h (1,000 Indication unit) s: per pt, tablet PCP ordered aspirin 81 2021-11 Yes 81mg Take 81 mg U nivers mg EC 2-15 by mouth ity of tablet 14:38: in the [place] [address] morning. Medical Indication Branch s: per pt from Cardiologi [facility] MD Chou albuterol 2021-11 Yes 2{puff} Inhale 2 U nivers 90 2-15 Puffs ity of mcg/actuati 14:38: every 6 [place] as on inhaler 04 (six) Medical hours as Branch needed for Wheezing or Shortness of Breath. Indication s: per MD Chou fluticasone 2021-11 Yes 2{puff} Inhale 2 Univers propionate 2-15 Puffs ity of (FLOVENT 14:38: every 6 [place] HFA) 110 04 (six) Medical mcg/actuati hours. Branch on inhaler Indication s: PRN from MD Chou albuterol 2021-11 Yes 1{ampul Use 1 Univ ers 2.5 mg/0.5 2-15 e} Ampule as ity of mL 14:38: directed [place] nebulizer 04 in the Medical solution morning Branch and 1 Ampule in the evening. Indication s: from MD Chou losartan 25 2021-11 Yes 25mg Take 25 mg Univers mg tablet 2-15 by mouth ity of 14:38: in the [place] [address] morning. Medical Indication Branch s: taking 50 mg daily per MD Chou atorvastati 2021-11 Yes 80mg Take 80 mg Univers n 80 mg 2-15 by mouth ity of tablet 14:38: at [place] [address] bedtime. Medical Indication Branch s: per MD Chou tadalafiL 5 2021-11 Yes 5mg Take 5 mg U nivers mg tablet 2-15 by mouth ity of 14:38: in the [place] [address] morning. Medical Indication Branch s: per MD Chou gabapentin 2021-11 Yes 300mg Take 300 Un valeriy 300 mg 2-15 mg by ity of capsule 14:38: mouth in [place] [address] the Medical morning Branch and 300 mg in the evening. Indication s: per MD Chou traMADoL 50 2021-11 Yes 50mg Take 50 mg Univers mg tablet 2-15 by mouth ity of 14:38: every 6 [place] [address] (six) Medical hours as Branch needed (usually takes at least daily, depending on level pain; per patient). magnesium 2021-11 Yes 200mg Take 200 Uni vers gluconate 2-15 mg by ity of 200 mg 14:38: mouth in [facility] 04 the Medical morning. Branch Indication s: per patient; PCP ordered cholecalcif 2021-11 Yes 1000U Take 1,000 Univers marleen, 2-15 Units by ity of vitamin D3, 14:38: [place] (VITAMIN 04 the Medical D3) 25 mcg morning. Branc h (1,000 Indication unit) s: per pt, tablet PCP ordered Valium 5 mg Valium 5 mg 2019-11 [...] Name Observation Time Observation Value Comments Source Systolic blood 2022-12-18 122 mm[Hg] manual; before 6MW Univers ity of pressure 19:31:00 [facility] Diastolic blood 2022-12-18 60 mm[Hg] manual; before 6MW Univer sity of pressure 19:31:00 [facility] Heart rate 2022-12-18 60 /min University of 19:31:00 [facility] Respiratory rate 2022-12-18 22 /min University of 19:31:00 [facility] Body weight 2022-12-18 82.918 kg University of 19:31:00 [facility] Oxygen saturation 2022-12-18 97 /min arrived on ; 6MW Univ ersity of in Arterial blood 19:31:[address] [facility] by Pulse oximetry Branch Systolic blood 2022-12-13 122 mm[Hg] manual University of pressure 17:00:00 [facility] Diastolic blood 2022-12-13 58 mm[Hg] manual University o f pressure 17:00:00 [facility] Heart rate 2022-12-13 82 /min University of 17:00:00 [facility] Respiratory rate 2022-12-13 22 /min University of 17:00:00 [facility] Body weight 2022-12-13 83.28 kg University of 17:00:00 [facility] Oxygen saturation 2022-12-13 97 /min arrived on ; Universi ty of in Arterial blood 17:00:00 exercised on [facility] edical by Pulse oximetry Branch Systolic blood 2022-12-11 120 mm[Hg] manual University of pressure 17:00:00 [place] [facility] Diastolic blood 2022-12-11 56 mm[Hg] manual University o f pressure 17:00:00 [place] [facility] Heart rate 2022-12-11 77 /min University of 17:00:00 [place] [facility] Respiratory rate 2022-12-11 22 /min University of 17:00:00 [place] [facility] Body weight 2022-12-11 83.643 kg University of 17:00:00 [place] [facility] Oxygen saturation 2022-12-11 98 /min arrived on RA; Universi ty of in Arterial blood 17:00:00 exercised on RA [facility] edical by Pulse oximetry Branch Systolic blood 2022-12-04 124 mm[Hg] manual University of pressure 17:00:00 [place] [facility] Diastolic blood 2022-12-04 58 mm[Hg] manual University o f pressure 17:00:00 [place] [facility] Heart rate 2022-12-04 84 /min University of 17:00:00 [place] [facility] Respiratory rate 2022-12-04 22 /min University of 17:00:00 [facility] Branch Body weight 2022-12-04 83.19 kg University of 17:00:00 [place] [facility] Oxygen saturation 2022-12-04 98 /min arrived on RA; Universi ty of in Arterial blood 17:00:00 exercised on RA [facility] edical by Pulse oximetry Branch Systolic blood 2022-11-29 124 mm[Hg] manual University of pressure 17:00:00 [place] [facility] Diastolic blood 2022-11-29 50 mm[Hg] manual University o f pressure 17:00:00 [place] [facility] Heart rate 2022-11-29 83 /min University of 17:00:00 [place] [facility] Respiratory rate 2022-11-29 24 /min University of 17:00:00 [place] [facility] Body weight 2022-11-29 83.008 kg University of 17:00:00 [place] [facility] Oxygen saturation 2022-11-29 98 /min arrived on RA; Universi ty of in Arterial blood 17:00:00 exercised on RA [facility] edical by Pulse oximetry Branch Systolic blood 2022-11-22 134 mm[Hg] manual University of pressure 21:00:00 [place] [facility] Diastolic blood 2022-11-22 60 mm[Hg] manual University o f pressure 21:00:00 [facility] Branch Heart rate 2022-11-22 89 /min University of 21:00:00 [facility] Branch Respiratory rate 2022-11-22 22 /min University of 21:00:00 [facility] Body weight 2022-11-22 83.371 kg University of 21:00:00 [facility] Branch Oxygen saturation 2022-11-22 97 /min arrived on RA; Universi ty of in Arterial blood 21:00:00 exercised on RA [facility] edical by Pulse oximetry Branch Systolic blood 2022-11-20 124 mm[Hg] manual University of pressure 17:00:00 [place] [facility] Diastolic blood 2022-11-20 52 mm[Hg] manual University o f pressure 17:00:00 [facility] Branch Heart rate 2022-11-20 62 /min University of 17:00:00 [facility] Respiratory rate 2022-11-20 22 /min University of 17:00:00 [facility] Body weight 2022-11-20 83.643 kg University of 17:00:00 [facility] Oxygen saturation 2022-11-20 97 /min arrived on RA; Universi ty of in Arterial blood 17:00:00 reassessment done [facility] by Pulse oximetry on RA, with Branch frequent coughs Systolic blood 2022-11-08 138 mm[Hg] manual University of pressure 17:00:00 [place] [facility] Diastolic blood 2022-11-08 50 mm[Hg] manual University o f pressure 17:00:00 [facility] Heart rate 2022-11-08 76 /min University of 17:00:00 [facility] Branch Respiratory rate 2022-11-08 22 /min University of 17:00:00 [facility] Body weight 2022-11-08 82.192 kg University of 17:00:00 [facility] Oxygen saturation 2022-11-08 98 /min arrived on RA; Universi ty of in Arterial blood 17:00:00 exercised on RA [facility] edical by Pulse oximetry Branch Systolic blood 2022-11-02 120 mm[Hg] manual University of pressure 17:00:00 [facility] Branch Diastolic blood 2022-11-02 50 mm[Hg] manual University o f pressure 17:00:00 [facility] Heart rate 2022-11-02 66 /min University of 17:00:00 [place] [facility] Respiratory rate 2022-11-02 20 /min University of 17:00:00 [facility] Branch Body weight 2022-11-02 83.689 kg University of 17:00:00 [facility] Branch Oxygen saturation 2022-11-02 99 /min arrived on RA; Universi ty of in Arterial blood 17:00:00 exercised on RA [facility] edical by Pulse oximetry Branch Systolic blood 2022-11-01 116 mm[Hg] University of pressure 17:01:00 [facility] Branch Diastolic blood 2022-11-01 62 mm[Hg] University o f pressure 17:01:00 [facility] Branch Heart rate 2022-11-01 67 /min University of 17:01:00 [facility] Branch Body weight 2022-11-01 82.645 kg University of 17:01:00 [facility] Branch Oxygen saturation 2022-11-01 98 /min University of in Arterial blood 17:01:00 [facility] leonid by Pulse oximetry Branch Systolic blood 2022-10-30 118 mm[Hg] University of pressure 17:01:00 [facility] Branch Diastolic blood 2022-10-30 64 mm[Hg] University o f pressure 17:01:00 [place] [facility] Heart rate 2022-10-30 71 /min University of 17:01:00 [facility] Branch Body weight 2022-10-30 82.827 kg University of 17:01:00 [facility] Branch Oxygen saturation 2022-10-30 97 /min University of in Arterial blood 17:01:00 [facility] by Pulse oximetry Branch Systolic blood 2022-10-26 114 mm[Hg] manual University of pressure 17:00:00 [place] [facility] Diastolic blood 2022-10-26 56 mm[Hg] manual University o f pressure 17:00:00 [place] [facility] Heart rate 2022-10-26 82 /min University of 17:00:00 [place] [facility] Respiratory rate 2022-10-26 20 /min University of 17:00:00 [facility] Branch Body weight 2022-10-26 82.373 kg University of 17:00:00 [facility] Branch Oxygen saturation 2022-10-26 97 /min arrived on RA; Universi ty of in Arterial blood 17:00:00 exercised on RA [facility] edical by Pulse oximetry Branch Systolic blood 2022-10-25 130 mm[Hg] [facility] University of pressure 17:00:00 [facility] Diastolic blood 2022-10-25 66 mm[Hg] manl University o f pressure 17:00:00 [facility] Heart rate 2022-10-25 64 /min University of 17:00:00 [facility] Branch Respiratory rate 2022-10-25 20 /min University of 17:00:00 [facility] Body weight 2022-10-25 82.192 kg University of 17:00:00 [facility] Oxygen saturation 2022-10-25 94 /min arrived on RA; Universi ty of in Arterial blood 17:00:00 [facility] Systolic blood 2022-10-23 128 mm[Hg] manual University of pressure 19:00:00 [facility] Branch Diastolic blood 2022-10-23 62 mm[Hg] manual University o f pressure 19:00:00 [facility] Heart rate 2022-10-23 77 /min University of 19:00:00 [facility] Respiratory rate 2022-10-23 20 /min University of 19:00:00 [facility] Body weight 2022-10-23 82.192 kg University of 19:00:00 [facility] Oxygen saturation 2022-10-23 97 /min arrived on RA; Universi ty of in Arterial blood 19:00:00 [facility] Systolic blood 2022-10-18 136 mm[Hg] manual; right arm Universi ty of pressure 19:30:00 138/70 manual [facility] Diastolic blood 2022-10-18 70 mm[Hg] manual; right arm Univers ity of pressure 19:30:00 138/70 manual [facility] Heart rate 2022-10-18 65 /min University of 19:30:00 [facility] Respiratory rate 2022-10-18 22 /min University of 19:30:00 [facility] Body weight 2022-10-18 82.464 kg University of 19:30:00 [facility] Oxygen saturation 2022-10-18 96 /min arrived on RA; 6MW Univ ersity of in Arterial blood 19:30:00 on RA [facility] by Pulse oximetry Branch Height 2022-06-13 67 [in_i] [facility] 00:00:00 [facility] BMI (Body Mass 2022-06-13 28.2 kg/m2 Alicia Index) 00:00:00 [facility] Body Weight 2022-06-13 180 [lb_av] [facility]ia 00:00:00 [facility] Height 2022-05-11 67 [in_i] [facility]ia 00:00:00 [facility] BMI (Body Mass 2022-05-11 28.5 kg/m2 [facility]ia Index) 00:00:00 [facility] Body Weight 2022-05-11 182 [lb_av] [facility]ia 00:00:00 [facility] WEIGHT 2021-03-20 82 kg 11:23:15 HEIGHT 2020-12-26 168 cm 07:45:00 WEIGHT 2020-12-26 79 kg 07:45:00 WEIGHT 2020-12-12 79 kg 09:25:40 HEIGHT 2020-06-21 168 cm 11:47:00 WEIGHT 2020-06-21 81 kg 11:47:00 WEIGHT 2020-05-24 81 kg 10:19:22 Procedures Procedure Date / Time Performed Performing Clinician [facility] e PULMONARY REHAB [facility] 2023-01-04 20:38:00 Doctor Unassigned, No [facility] [place] REPORT Name Medical Branch PULMONARY REHAB 2022-12-11 06:00:00 Doctor Unassigned, No [facility] [place] SESSION REPORT Name Medical Branch PULMONARY REHAB 2022-11-29 06:00:00 Doctor Unassigned, No [facility] [place] SESSION REPORT Name Medical Branch PULMONARY REHAB [facility] 2022-11-21 03:25:00 Doctor Unassigned, No [facility] [place] REPORT Name Medical Branch PULMONARY REHAB 2022-11-02 06:00:00 Doctor Unassigned, No [facility] [place] SESSION REPORT Name Medical Branch PULMONARY REHAB 2022-10-25 06:00:00 Doctor Unassigned, No [facility] [place] SESSION REPORT Name Medical Branch Plan of Care Planned Activity Planned Date Details Comments Source Instructions [facility] Encounters Start End Encounter Admission Attending Care Care Encounter Source Date/Time Date/Time Type Type Clinicians Facility Department ID 2022-09-19 Outpatient [facility] [id number] [place] 13:39:20 [id number] [facility] 2022-09-13 Outpatient [facility] [id number] [place] 11:52:17 [id number] [facility] 2022-08-07 Outpatient [facility] [id number] [place] 11:27:12 [id number] [facility] 2022-08-01 Outpatient [facility] [id number] [place] 13:51:48 [id number] [facility] 2022-07-30 Outpatient [facility] [id number] [place] 15:15:30 [id number] [facility] 2021-09-05 Outpatient SYSTEM, MDA MDA [id number] 12:42:25 PROVIDER Vaughn billings 2021-05-19 Outpatient GORDON-AVENDA [facility] [id number] [place] 17:11:58 NO, WARREN [facility] 2021-05-19 Outpatient SYSTEM, MDA MDA [id number] 13:16:01 PROVIDER Vaughn billings 2020-12-30 Outpatient SYSTEM, MDA MDA [id number] 16:03:31 PROVIDER Vaughn billings 2020-05-25 Outpatient IVAN LUCRETIA MDA MDA [id number] 13:03:32 Karli billings 2023-01-23 2023-01-23 Outpatient CHRIS DOVER, MDA MDA [id number] 09:35:29 23:59:00 SILVA billings 2023-01-11 2023-01-11 Letter [facility] 1.2.840.114 [id number] Univers 00:00:00 00:00:00 (Out) Grazyna C YOLI 350.1.13.10 i ty [place] [id number] Wa dical NAL [address] [place] [address] 2023-01-11 2023-01-11 Telephone [facility] [id number] Univers 00:00:00 00:00:00 Grazyna C [place] 350.1.13.10 i ty [place] [id number] Wa dical NAL [address] [place] [address] 2023-01-04 2023-01-04 Orders Doctor ESTEVEZ 1.2.840.114 [id number] Univers 00:00:00 00:00:00 Only Unassigned, SHARLENE 350.1.13.10 ity of [place] [facility] 4.2.7.2.686 [place] [id number] [address] 2022-12-18 2022-12-18 Outpatient R GINA [facility] [id number] Univers 11:00:00 12:57:08 STONE ity of [facility] 2022-12-18 2022-12-18 Ancillary Therapist, [facility] 1.2.840.114 [id number] Univers 11:00:00 12:57:08 Visit Stone Fuentes 350.1.13. 10 ity of [facility] [place] [id number] [address] 2022-12-13 2022-12-13 Ancillary Therapist, [facility] 1.2.840.114 [id number] Univers 11:00:00 11:51:19 Visit Stone Fuentes 350.1.13. 10 ity [facility] 4[place]2.[place].2.[place] [id number] Wa dic[address] 2022-12-11 2022-12-11 Ancillary Therapist, [facility] 1.2.840.114 [id number] Univers 11:00:00 11:55:46 Visit Stone Fuentes 350.1.13. 10 [place]y of [place] 4[place] [id number] [address] 2022-12-11 2022-12-11 Orders Doctor HERB 1.2.840.114 [id number] Univers 00:00:00 00:00:00 Only Unassigned, SHARLENE 350.1.13.10 ity of [place] [facility] 4.2.7.2.686 [place] [id number] [address] 2022-12-06 2022-12-06 Telephone Mariusz [facility] [id number] Univers 00:00:00 00:00:00 Grazyna KENT 350.1.13.10 i ty [facility] 4[place]2.[place] [id number] Wa dic[address] 2022-12-04 2022-12-04 Outpatient R GINA [facility] [id number] Univers 11:00:00 11:56:33 STONE ity of [facility] 2022-12-04 2022-12-04 Ancillary Therapist, [facility] Pulmonary [facility] 1.2.840.114 [id number] [facility] 11:00:00 11:56:33 Visit Stone Fuentes 350.1.13. 10 ity of [facility] 4.2.7.2.[place] [id number] [address] 2022-11-29 2022-11-29 Ancillary Therapist, [facility] 1.2.840.114 [id number] [facility] 11:00:00 11:59:35 Visit Stone Fuentes 350.1.13. 10 [place]y of [place] 4[place]2.[place] [id number] [address] 2022-11-29 2022-11-29 Telephone [facility] [id number] Univers 00:00:00 00:00:00 Grazyna C [place] 350.1.13.10 i ty [place] 4[place] [id number] [address] 2022-11-29 2022-11-29 Orders Doctor HERB 1.2.840.114 [id number] Univers 00:00:00 00:00:00 Only Unassigned, SHARLENE 350.1.13.10 ity of [place] [facility] 4.2.7.2.686 [place] [id number] [address] 2022-11-27 2022-11-27 Telephone [facility] [id number] Univers 00:00:00 00:00:00 Grazyna C [place] 350.1.13.10 i ty of [facility] 4.2.7.2.[place] [id number] [address] 2022-11-27 2022-11-27 [facility] [id number] Univers 00:00:00 00:00:00 Grazyna C [place] 350.1.13.10 i ty [place] 4[place].2.[place] [id number] Wa dical [address] 2022-11-22 2022-11-22 Ancillary Therapist, [facility] Pulmonary [facility] 1.2.840.114 [id number] Univers 14:00:00 14:30:00 Visit Stone Fuentes 350.1.13. 10 [place]y of [place] [id number] Wa dic[address] 2022-11-22 2022-11-22 [facility] [id number] Univers 00:00:00 00:00:00 Grazyna C [place] 350.1.13.10 i ty of [facility] 4.2.7.2.[place] [id number] [place] dicms NAL [address] [place] [address] 2022-11-20 2022-11-20 Ancillary Therapist, [facility] 1.2.840.114 [id number] Univers 11:00:00 12:07:55 Visit Stone Fuentes 350.1.13. 10 [place]y of [place] 4[place] [id number] [address] 2022-11-20 2022-11-20 Orders Doctor HERB 1.2.840.114 [id number] Univers 00:00:00 00:00:00 Only Unassigned, SHARLENE 350.1.13.10 ity of [place] [facility] 4.2.7.2.686 [place] [id number] [address] 2022-11-12 2022-11-12 [facility]phone [facility] 1.2.130.007 [id number] Univers 00:00:00 00:00:00 Grazyna C [place] 350.1.13.10 i ty [place] 4[place] [id number] Wa dical [address] 2022-11-08 2022-11-08 Ancillary Therapist, [facility] 1.2.840.114 [id number] Univers 11:00:00 11:53:50 Visit Stone Fuentes 350.1.13. 10 ity [facility] 4.2.[place] [id number] [address] 2022-11-06 2022-11-06 Telephone Mariusz [facility] [id number] Univers 00:00:00 00:00:00 Grazyna KENT 350.1.13.10 i ty [place] 4[place] [id number] [address] 2022-11-02 2022-11-02 Outpatient R GINA [facility] [id number] Univers 11:00:00 12:59:18 STONE itnilda [facility] 2022-11-02 2022-11-02 Ancillary Therapist, [facility] 1.2.840.114 [id number] Univers 11:00:00 12:59:18 Visit Stone Fuentes 350.1.13. 10 [place]y of [place] [id number] [address] 2022-11-02 2022-11-02 Orders Doctor ESTEVEZ 1.2.840.114 [id number] Univers 00:00:00 00:00:00 Only Unassigned, SHARLENE 350.1.13.10 [facility] 4.2.7.2.686 [place] [id number] [address] 2022-11-01 2022-11-01 Ancillary Therapist, [facility] 1.2.840.114 [id number] Univers 11:00:00 11:51:38 Visit Stone Fuentes 350.1.13. 10 [facility] [place] [phone] [place] dical [address] 2022-10-302022-10-30 Ancillary Therapist, [facility] 1.2.840.114 [id number] Univers 11:00:00 11:58:50 Visit Stone Fuentes 350.1.13. 10 [place] [phone] [place]ical NAL [address] [place] [address] 2022-10-26 2022-10-26 Ancillary Therapist, [facility] 1.2.840.114 [id number] Univers 11:00:00 11:45:04 Visit Stone Fuentes 350.1.13. 10 it[place] of [place] [phone] [place]ical NAL [address] [place] [address] 2022-10-25 2022-10-25 Ancillary Therapist, [facility] 1.2.840.114 [id number] [facility] 11:00:00 12:59:06 Visit Stone Fuentes 350.1.13. 10 [facility] [place] [phone] [place]ical NAL [address] [place] [address] 2022-10-25 2022-10-25 Orders Doctor HERB 1.2.840.114 [id number] Univers 00:00:00 00:00:00 Only Unassigned, SHARLENE 350.1.13.10 ity of [place] [facility] 4.2.7.2.686 [place] as [phone] [address] 2022-10-23 2022-10-23 Ancillary Therapist, [facility] 1.2.840.114 [id number] Univers 13:00:00 14:27:20 Visit Stone Fuentes 350.1.13. 10 ity of [place] [phone] [place]ical NAL [address] [place] [address] 2022-10-18 2022-10-18 Ancillary Therapist, [facility] 1.2.840.114 [id number] [facility] 13:30:00 15:21:55 Visit Stone Fuentes 350.1.13. 10 ity of [place] 4.2.7.2.686 Josse FUCHS [phone] Wa dical NAL [address] [facility] 2022-10-09 2022-10-09 Outpatient CHRIS WHITNEY MDA MDA [id number] 10:48:01 10:48:01 ARABELLA billings 2022-09-13 2022-09-13 Outpatient [facility] [id number] ID 15:40:00 15:40:00 NO, WARREN Jason [facility] 2022-07-20 2022-07-20 Outpatient CHRIS MESSINA, MDA MDA [id number] 09:37:54 23:59:00 ROOSEVELT billings 2022-07-20 2022-07-20 Outpatient CHRIS MESSINA MDA MDA [id number] 09:37:06 23:59:00 ROOSEVELT billings 2022-07-20 2022-07-20 Outpatient CHRIS WHITNEY MDA MDA [id number] 12:33:48 14:05:20 ARABELLA billings 2022-07-12 2022-07-13 Inpatient UR VOGEL [facility] [id number] 16:51:00 16:51:00 Javier GAMEZ 2022-07-13 2022-07-13 Inpatient CHRIS LOVE, MDA MDA [id number] 02:04:44 02:43:18 JULIANA field n 2022-06-22 2022-06-22 Outpatient CHRIS ESPINOSA, MDA MDA [id number] 08:56:19 23:59:00 FAUSTINO billings 2022-06-22 2022-06-22 Outpatient CHRIS ESPINOSA, MDA MDA [id number] 12:49:33 14:55:23 FAUSTINO billings 2022-06-22 2022-06-22 Outpatient CHRIS ESPINOSA, MDA MDA [id number] 09:18:08 09:18:08 FAUSTINO billings 2022-06-13 2022-06-13 Outpatient FOG_Torres_ AOSM AOSM [id number] Alicia 00:00:00 00:00:00 Cheyanne_NP [id number] Orth ope dic [facility] 2022-06-13 2022-06-13 Sagrario MOJICASM [place] - Ortho 2021 809 Alicia 00:00:00 00:00:00 Avalos, Shelbiana - Or thope MULTIMEDIA ENGINEER: 7401 [facility] [facility] [place] [address] , Ph. [id number] 2022-06-13 2022-06-13 Outpatient LISSA Avalos AOSM [id number] 00:00:00 00:00:00 Sagrario Trejo [id number] 2022-05-21 2022-05-21 Outpatient CHRIS DOVER MDA MDA [id number] 12:45:00 23:59:00 SILVA billings 2022-05-21 2022-05-21 Outpatient CHRIS DOVER MDA MDA [id number] 12:20:45 12:44:00 SILVA billings 2022-05-21 2022-05-21 Outpatient CHRIS DOVER MDA MDA [id number] 10:59:15 12:36:40 SILVA billings 2022-05-11 2022-05-11 Outpatient FOG_Torres_ AOSM AOSM [id number] Alicia 00:00:00 00:00:00 Diandrani_NP [id number] Orth ope dic Sports Medicin e 2022-05-11 2022-05-11 Sagrario MOJICASM [place] - Ortho 2021 707 Alicia 00:00:00 00:00:00 Avalos, Shelbiana - Or thope 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 [id number] 2022-05-11 2022-05-11 Outpatient Robbie AOSM AOSM [id number] 00:00:00 00:00:00 Sagrario Trejo foot [id number] 2022-01-05 2022-01-05 Outpatient CHRIS ROCK MDA MDA [id number] 11:14:13 23:59:00 ANJELICA billings 2022-01-05 2022-01-05 Outpatient EL PRANAV, MDA MDA [id number] MD 09:00:00 11:13:00 ANJELICA Herrera rso n 2022-01-05 2022-01-05 Outpatient CHRIS ROCK, MDA MDA [id number] MD 08:50:00 08:59:00 ANJELICA Herrera rso n 2022-01-05 2022-01-05 Outpatient CHRIS ROCK, MDA MDA [id number] MD 08:49:57 08:49:57 ANJELICA Herrera rso n 2022-01-05 2022-01-05 Outpatient CHRIS ROCK, MDA MDA [id number] MD 08:09:45 08:48:00 ANJELICA Herrera rso n 2022-01-05 2022-01-05 Outpatient CHRIS ROCK, MDA MDA [id number] MD 07:15:39 08:08:00 ANJELICA Herrera rso n 2021-12-29 2021-12-29 Outpatient CHRIS DIAS, MDA MDA [id number] MD 12:46:56 12:46:56 JANA billings 2021-12-25 2021-12-25 Outpatient CHRIS ROCK, MDA MDA [id number] MD 15:22:30 23:59:00 ANJELICA Herrera rso n 2021-12-25 2021-12-25 Outpatient CHRIS ROCK, MDA MDA [id number] MD 14:41:42 15:21:00 ANJELICA Herrera rso n 2021-12-25 2021-12-25 Outpatient CHRIS DOVER, MDA MDA [id number] MD 14:00:02 15:15:53 SILVA billings 2021-12-25 2021-12-25 Outpatient CHRIS DIAS, MDA MDA [id number] MD 11:09:16 11:52:34 JANA billings 2021-09-25 2021-09-25 Outpatient CHRIS DIAS, MDA MDA [id number] MD 08:08:58 10:04:23 JANA billings 2021-09-15 2021-09-16 Outpatient ER LULU, DEMIS MDA Emergency 1 [id number] 12:03:00 13:25:00 Vaughn billings 2021-09-02 2021-09-02 Outpatient EL MDA MDA [id number] MD 12:36:38 12:36:38 Vaughn billings 2021-08-18 2021-08-18 Outpatient EL WHITNEY, MDA MDA [id number] MD 10:02:16 10:02:16 ARABELLA billings 2021-06-26 2021-06-26 Outpatient EL WHITNEY, MDA MDA [id number] 10:50:15 11:13:08 ARABELLA billings 2021-06-23 2021-06-23 Outpatient EL TALI, MDA MDA [id number] MD 14:06:56 15:58:36 CLAUDIA billings 2021-06-08 2021-06-08 Outpatient EL DEVONTE, MDA MDA [id number] MD 13:51:51 23:59:00 ARABELLA billings 2021-06-08 2021-06-08 Outpatient EL DEVONTE, MDA MDA [id number] 12:47:17 12:47:17 ARABELLA billings 2021-05-26 2021-05-26 Outpatient EL TALI, MDA MDA [id number] MD 08:35:17 23:59:00 CLAUDIA billings 2021-05-26 2021-05-26 Outpatient EL TALI, MDA MDA [id number] MD 08:47:32 08:47:32 CLAUDIA billings 2021-05-02 2021-05-02 Outpatient EL KENYATTA, MDA MDA [id number] 09:10:58 09:10:58 ADONIS billings 2021-03-20 2021-03-20 Outpatient EL DOVER, MDA MDA [id number] 12:11:06 15:58:51 SILVA billings 2021-03-20 2021-03-20 Outpatient EL DEVONTE, MDA MDA [id number] 10:23:01 12:28:40 ARABELLA billings 2021-03-20 2021-03-20 Outpatient EL WHITNEY, MDA MDA [id number] MD 09:59:56 09:59:56 ARABELLA billings 2020-12-31 2020-12-31 Outpatient EL WHITNEY, MDA MDA [id number] 10:08:40 11:59:17 ARABELLA billings 2020-12-26 2020-12-26 Outpatient CHRIS DOVER, MDA MDA [id number] MD 09:25:14 23:59:00 SILVA billings 2020-12-26 2020-12-26 Outpatient CHRIS DOVER, MDA MDA [id number] MD 07:33:15 09:24:00 SILVA billings 2020-12-26 2020-12-26 Outpatient CHRIS DOVER, MDA MDA [id number] MD 07:33:00 07:33:00 SILVA billings 2020-12-26 2020-12-26 Outpatient CHRIS DOVER, MDA MDA [id number] 07:08:19 07:32:00 SILVA billings 2020-12-12 2020-12-12 Outpatient CHRIS DOVER, MDA MDA [id number] MD 08:59:11 23:59:00 SILVA billings 2020-12-12 2020-12-12 Outpatient DEVONTE, MDA MDA [id number] MD 11:22:35 11:22:35 ARABELLA billings 2020-12-12 2020-12-12 Outpatient PUSHPA, MDA MDA [id number] MD 08:33:58 11:00:10 JEANNE billings 2020-12-12 2020-12-12 Outpatient DEVONTE, MDA MDA [id number] MD 07:42:51 08:58:00 ARABELLA billings 2020-12-10 2020-12-10 [facility] MDA MDA [id number] MD 10:14:40 10:33:36 TENA billings 2020-11-16 2020-11-16 Outpatient DEVONTE, MDA MDA [id number] MD 11:20:08 14:51:10 ARABELLA billings 2020-09-02 2020-09-02 Outpatient YOU, MDA MDA [id number] MD 13:40:49 13:40:49 ADONIS billings 2020-08-02 2020-08-02 Outpatient [facility] MDA MDA [id number] 08:09:05 09:39:30 Jasmyn Billings 2020-08-02 2020-08-02 Outpatient EL TALI, MDA MDA [id number] MD 06:12:36 06:12:36 CLAUDIA billings 2020-07-25 2020-07-25 Outpatient EL TALI, MDA MDA [id number] MD 00:00:00 00:00:00 CLAUDIA billings 2020-06-21 2020-06-21 Outpatient EL WHITNEY, MDA MDA [id number] MD 07:40:19 23:59:00 ARABELLA billings 2020-06-21 2020-06-21 Outpatient EL WHITNEY, MDA MDA [id number] MD 07:40:01 23:59:00 ARABELLA billings 2020-06-21 2020-06-21 [facility] [id number] MD 10:01:04 13:05:13 Jasmyn Billings 2020-06-21 2020-06-21 Outpatient EL MAYURI, MDA MDA [id number] MD 07:39:23 07:39:23 ROOSEVELT billings 2020-05-26 2020-05-26 Outpatient EL TALI, MDA MDA [id number] MD 12:36:31 12:36:31 CLAUDIA billings 2020-05-24 2020-05-24 Outpatient EL TALI, MDA MDA [id number] MD 12:36:47 12:50:04 CLAUDIA billings 2020-05-24 2020-05-24 Outpatient EL TALI, MDA MDA [id number] MD 09:50:14 12:16:05 CLAUDIA billings 2020-05-24 2020-05-24 Outpatient EL TALI, MDA MDA [id number] MD 08:26:51 08:26:51 CLAUDIA billings 2020-05-24 2020-05-24 Outpatient EL TALI, MDA MDA [id number] MD 08:00:39 08:00:39 CLAUDIA billings 2020-05-24 2020-05-24 Outpatient EL BREONNA, MDA MDA [id number] MD 07:06:16 07:06:16 UNIQUE billings 2020-05-24 2020-05-24 Outpatient EL TALI, MDA MDA [id number] MD 00:00:00 00:00:00 CLAUDIA billings 2016-04-13 2016-04-13 Outpatient [facility] [id number] 00:00:00 00:00:00 Vaughn billings Results This patient has no known results.
[2023-02-27 03:39] LABS: Absolute Lymphocytes (CBC) 2.1 K/uL (0.7-4.9); Hematocrit 39.2 % (39.6-49.0); Lymphocytes % 24.2 % (15.3-44.8); MCV 86.8 fL (80-100); MPV 8.1 fL (7.6-11.3); RBC Red Blood Cell Count 4.51 M/uL (4.33-5.43)
[2023-02-27 04:02] LABS: Albumin 3.5 g/dL (3.4-5.0); Bilirubin Direct 0.2 mg/dL (0-0.2); Bilirubin Total 0.8 mg/dL (0.2-1.0); Potassium 3.5 mEq/L (3.5-5.1); Protein, Total 7.4 g/dL (6.4-8.2); Troponin High Sensitivity 8.5 pg/mL (<58.9)
--- NOTE | 2023-02-27 06:51 | EDPHYS ---
Physician Documentation [facility] Name: Clinton Arnold Age: 68 yrs Sex: Male : 1955 Arrival Date: 02/27/2023 Time: 02:11 Bed 18 Private MD: ED Physician Norris Zarco HPI: 02/27 05:58 This 68 yrs old Male presents to ER via Ambulatory with complaints of kdr Dizziness, Ear Pain, Shortness Of Breath, Chest Pain. 05:58 Patient reports that he has been dizzy for the last few days but particularly this kdr morning when he got up he said he stated the whole world was spinning. He also has had some discomfort in his left ear that is radiated into the back of his neck. Additionally he has a finger pulse oximeter and noted that his saturation was in the high 80s to low 90s. Finally, complains of some pain in his left rib cage. Patient does not appear uncomfortable and is otherwise stable and not requiring acute intervention. Onset: The symptoms/episode began/occurred gradually, 3 day(s) ago. Severity of symptoms: At their worst the symptoms were mild in the emergency department the symptoms are unchanged. The patient has not experienced similar symptoms in the past. The patient has not recently seen a physician. Patient states that his friends commented that he had yet to experience vertigo like they had. Historical: - Allergies: 02:39 Prednisone; kd3 - PMHx: 02:39 Back pain; High Cholesterol; Hypertension; pulmonary fibrosis; Hodgkin's Lymphoma; kd3 - Immunization history:: Adult Immunizations up to date. - Social history:: Smoking status: Patient denies any tobacco usage or history of. ROS: 05:58 Constitutional: Negative for fever, chills, and weight loss, Eyes: Negative for injury, kdr pain, redness, and discharge, Neck: Negative for injury, pain, and swelling, Cardiovascular: Negative for chest pain, palpitations, and edema, Respiratory: Negative for shortness of breath, cough, wheezing, and pleuritic chest pain, Abdomen/GI: Negative for abdominal pain, nausea, vomiting, diarrhea, and constipation, Back: Negative for injury and pain, : Negative for injury, bleeding, discharge, and swelling, MS/Extremity: Negative for injury and deformity, Skin: Negative for injury, rash, and discoloration, Psych: Negative for depression, anxiety, suicide ideation, homicidal ideation, and hallucinations, Allergy/Immunology: Negative for hives, rash, and allergies, Endocrine: Negative for neck swelling, polydipsia, polyuria, polyphagia, and marked weight changes, Hematologic/Lymphatic: Negative for swollen nodes, abnormal bleeding, and unusual bruising. 05:58 ENT: Positive for ear pain, Left ear pain. 05:58 Neuro: Positive for dizziness, weakness, Negative for altered mental status, gait disturbance, headache, hearing loss, loss of consciousness, numbness, seizure activity, speech changes, syncope, near syncope, tingling, tinnitus, tremor, visual changes, acute changes. Exam: 05:58 Constitutional: This is a well developed, well nourished patient who is awake, alert, kdr and in no acute distress. Head/Face: Normocephalic, atraumatic. Eyes: Pupils equal round and reactive to light, extra-ocular motions intact. Lids and lashes normal. Conjunctiva and sclera are non-icteric and not injected. Cornea within normal limits. Periorbital areas with no swelling, redness, or edema. ENT: Nares patent. No nasal discharge, no septal abnormalities noted. Tympanic membranes are normal and external auditory canals are clear. Oropharynx with no redness, swelling, or masses, exudates, or evidence of obstruction, uvula midline. Mucous membranes moist. Neck: Trachea midline, no thyromegaly or masses palpated, and no cervical lymphadenopathy. Supple, full range of motion without nuchal rigidity, or vertebral point tenderness. No Meningismus. Chest/axilla: Normal chest wall appearance and motion. Nontender with no deformity. No lesions are appreciated. Cardiovascular: Regular rate and rhythm with a normal S1 and S2. No gallops, murmurs, or rubs. Normal PMI, no JVD. No pulse deficits. Respiratory: Lungs have equal breath sounds bilaterally, clear to auscultation and percussion. No rales, rhonchi or wheezes noted. No increased work of breathing, no retractions or nasal flaring. Abdomen/GI: Soft, non-tender, with normal bowel sounds. No distension or tympany. No guarding or rebound. No evidence of tenderness throughout. Back: No spinal tenderness. No costovertebral tenderness. Full range of motion. Skin: Warm, dry with normal turgor. Normal color with no rashes, no lesions, and no evidence of cellulitis. MS/ Extremity: Pulses equal, no cyanosis. Neurovascular intact. Full, normal range of motion. Neuro: Awake and alert, GCS 15, oriented to person, place, time, and situation. Cranial nerves II-XII grossly intact. Motor strength 5/5 in all extremities. Sensory grossly intact. Cerebellar exam normal. Normal gait. Psych: Awake, alert, with orientation to person, place and time. Behavior, mood, and affect are within normal limits. Vital Signs: 02:34 BP 155 / 82; Pulse 72; Resp 18; Temp 98.2(O); Pulse Ox 95% on R/A; Weight 83.01 kg; kd3 Height 5 ft. 7 in. ; 03:30 BP 141 / 73; Pulse 16; Resp 68; Pulse Ox 98% ; jj7 04:30 BP 120 / 59; Pulse 55; Resp 18; Pulse Ox 98% ; Pain 0/10; jj7 05:30 BP 115 / 68; Pulse 58; Resp 18; Pulse Ox 98% ; Pain 0/10; jj7 06:30 BP 118 / 69; Pulse 56; Resp 17; Pulse Ox 96% ; Pain 0/10; jj7 02:34 Body Mass Index 28.66 (83.01 kg, 170.18 cm) kd3 04:30 Pain Scale: Adult jj7 05:30 Pain Scale: Adult jj7 06:30 Pain Scale: Adult jj7 MDM: 05:58 Data reviewed: vital signs, nurses notes, lab test result(s), radiologic studies. kdr 06:50 Patient medically screened. [facility] 02/27 03:01 Order name: Basic Metabolic Panel; Complete Time: 06:44 [facility] 02/27 03:01 Order name: CBC with Diff; Complete Time: 06:44 [facility] 02/27 03:01 Order name: LFT's; Complete Time: 06:44 [facility] 02/27 03:01 Order name: NT PRO-BNP; Complete Time: 06:44 [facility] 02/27 03:01 Order name: Troponin HS; Complete Time: 06:44 [facility] 02/27 03:01 Order name: XRAY Chest (1 view) [facility] 02/27 03:01 Order name: CT Head Brain wo Cont [facility] 02/27 03:01 Order name: EKG; Complete Time: 03:01 kdr 02/27 03:01 Order name: Cardiac monitoring; Complete Time: 04:04 kdr 02/27 03:01 Order name: EKG - Nurse/Tech; Complete Time: 03:39 kdr 02/27 03:01 Order name: IV Saline Lock; Complete Time: 03:40 kdr 02/27 03:01 Order name: Labs collected and sent; Complete Time: 03:40 kdr 02/27 03:01 Order name: O2 Per Protocol; Complete Time: 03:40 kdr 02/27 03:01 Order name: O2 Sat Monitoring; Complete Time: 03:40 kdr Administered Medications: No medications were administered Disposition Summary: 02/27/23 06:50 Discharge Ordered Location: Home kdr Problem: new kdr Symptoms: have improved kdr Condition: Stable kdr Diagnosis - Dizziness and giddiness kdr - Left Ear Pain kdr Followup: kdr - With: Private Physician - When: 2 - 3 days - Reason: If symptoms return, Further diagnostic work-up, Recheck today's complaints, Continuance of care, Re-evaluation by your physician Discharge Instructions: - Discharge Summary Sheet kdr - Dizziness kdr Forms: - Medication Reconciliation Form kdr - Thank You Letter kdr Prescriptions: - Meclizine 25 mg Oral Tablet - take 1 tablet by ORAL route every 8 hours As needed; 15 tablet; Refills: 0, kdr Product Selection Permitted Signatures: Dispatcher [employer] Norris Hutton MD MD kdr Mike Hannah MD MD rn3 Carly Head RN RN kd3
--- NOTE | 2023-02-27 06:51 | ER ---
Nurse's Notes [facility] Name: Clinton Arnold Age: 68 yrs Sex: Male : 1955 Arrival Date: 02/27/2023 Time: 02:11 Bed 18 Private MD: Diagnosis: Dizziness and giddiness;Left Ear Pain Presentation: 02/27 02:36 Chief complaint: Patient states: The last couple of morning I have been dizzy when I kd3 get up but this morning I got up and my whole world was spinning. I have also had a pain near my left ear that's kind of going down the back of my neck. I have also been monitoring my oxygen level and it is fluctuating. I also have a pain in my left ribs. back in january they did a carotid ultrasound and it showed some calcification. Coronavirus screen: Vaccine status: Patient reports receiving the 2nd dose of the covid vaccine. Ebola Screen: No symptoms or risks identified at this time. Initial Sepsis Screen: Does the patient meet any 2 criteria? No. Patient's initial sepsis screen is negative. Does the patient have a suspected source of infection? No. Patient's initial sepsis screen is negative. Risk Assessment: Do you want to hurt yourself or someone else? Patient reports no desire to harm self or others. Onset of symptoms was February 27, 2023. 02:36 Method Of Arrival: Ambulatory kd3 02:36 Acuity: [place] 3 kd3 Triage Assessment: 02:39 General: Appears in no apparent distress. Behavior is calm, cooperative. Pain: kd3 Complains of pain in chest, left posterior aspect of neck and left lateral aspect of neck. EENT:. Neuro: Level of Consciousness is awake, alert, obeys commands, Oriented to person, place, time, situation. Historical: - Allergies: 02:39 Prednisone; kd3 - PMHx: 02:39 Back pain; High Cholesterol; Hypertension; pulmonary fibrosis; Hodgkin's Lymphoma; kd3 - Immunization history:: Adult Immunizations up to date. - Social history:: Smoking status: Patient denies any tobacco usage or history of. Screenin:40 [facility] ED Fall Risk Assessment (Adult) History of falling in the last 3 months, jj7 including since admission No falls in past 3 months (0 pts) Confusion or Disorientation No (0 pts) Intoxicated or Sedated No (0 pts) Impaired Gait No (0 pts) Mobility Assist Device Used No (0 pt) Altered Elimination No (0 pt) Score/Fall Risk Level 0 - 2 = Low Risk Oriented to surroundings, Maintained a safe environment. Abuse screen: Denies threats or abuse. Nutritional screening: No deficits noted. Tuberculosis screening: No symptoms or risk factors identified. Assessment: 02:40 General: Appears in no apparent distress. comfortable, Behavior is calm, cooperative, jj7 appropriate for age. Cardiovascular: Reports chest pain. Vital Signs: 02:34 BP 155 / 82; Pulse 72; Resp 18; Temp 98.2(O); Pulse Ox 95% on R/A; Weight 83.01 kg; kd3 Height 5 ft. 7 in. ; 03:30 BP 141 / 73; Pulse 16; Resp 68; Pulse Ox 98% ; jj7 04:30 BP 120 / 59; Pulse 55; Resp 18; Pulse Ox 98% ; Pain 0/10; jj7 05:30 BP 115 / 68; Pulse 58; Resp 18; Pulse Ox 98% ; Pain 0/10; jj7 06:30 BP 118 / 69; Pulse 56; Resp 17; Pulse Ox 96% ; Pain 0/10; jj7 02:34 Body Mass Index 28.66 (83.01 kg, 170.18 cm) kd3 04:30 Pain Scale: Adult jj7 05:30 Pain Scale: Adult jj7 06:30 Pain Scale: Adult jj7 ED Course: 02:17 Patient arrived in ED. ja2 02:23 Norris Zaroc MD is Attending Physician. kdr 02:39 Triage completed. kd3 02:39 Arm band placed on right wrist. kd3 02:40 Patient has correct armband on for positive identification. Placed in gown. Bed in low jj7 position. Call light in reach. Side rails up X 1. Warm blanket given. 02:40 No provider procedures requiring assistance completed. jj7 03:18 Amie Brewer, ELIJAH is Primary Nurse. jj7 03:20 XRAY Chest (1 view) In Process Unspecified. EDMS 03:40 Inserted saline lock: 20 gauge in right antecubital area, using aseptic technique. ds4 Blood collected. 03:42 CT Head Brain wo Cont In Process Unspecified. EDMS 07:02 IV discontinued, intact, bleeding controlled, No redness/swelling at site. Pressure jj7 dressing applied. Administered Medications: No medications were administered Medication: 02:40 VIS not applicable for this client. jj7 Outcome: 06:50 Discharge ordered by . kdr 07:02 Discharged to home ambulatory. jj7 07:02 Condition: good 07:02 Discharge instructions given to patient, Instructed on discharge instructions, follow up and referral plans. 07:02 Prescriptions given X 1. jj7 07:08 Patient left the ED. jj7 Signatures: Dispatcher [employer] EDCA Norris Zarco MD MD kdr Swanson, Donovan ds4 Lucretia Ritter Kyli RN RN kd3 Amie Brewer RN RN jj7
[2023-02-27 07:23] VITALS: TEMP 98.2
[2023-02-27 07:41] VITALS: BP 118/69; O2SAT 96
--- NOTE | 2023-02-27 16:46 | EKG ---
Test Date: 2023-02-27 Test Time: 02:47:56 Death Claim Examiner: NEHEMIAH MEASUREMENT RESULTS: Intervals: Rate: 68 OK: 144 QRSD: 94 QT: 404 QTc: 429 [place]: P: 26 OK: 144 QRS: -10 T: 8 INTERPRETIVE STATEMENTS: Normal sinus rhythm Normal ECG Compared to ECG 09/24/2022 17:34:31 Left ventricular hypertrophy no longer present Electronically Signed On 02-27-23 16:45:39 CDT by Jimmy Streeter
--- NOTE | 2023-02-27 16:46 | EKG ---
Test Date: 2023-02-27 Test Time: 02:48:53 Welding Equipment Repairer: NEHEMIAH MEASUREMENT RESULTS: Intervals: Rate: 66 ND: 152 QRSD: 92 QT: 422 QTc: 442 [place]: P: 28 ND: 152 QRS: -9 T: 12 INTERPRETIVE STATEMENTS: Sinus rhythm with frequent premature ventricular complexes Otherwise normal ECG Compared to ECG 02/27/2023 02:47:56 Ventricular premature complex(es) now present Electronically Signed On 02-27-23 16:45:37 CDT by Jimmy Streeter
--- NOTE | 2023-02-28 10:19 | RAD REPORT ---
EXAM DESCRIPTION: CT - Head Brain Wo Cont - 02/28/2023 1:37 am CLINICAL HISTORY: Dizziness. TECHNIQUE: 5 mm axial images of the intracranial structures were obtained without intravenous contra st. Coronal and sagittal reformatted images were obtained. COMPARISON: None. DOSE OPTIMIZATION: This facility uses dose optimization techniques as appropriate to perform exams, i ncluding at least one of the following techniques: 1. Automated exposure control. 2. Adjustment of the mA and/or kV according to patient size (this includes techniques or standardized protocols for targeted exams where dose is matched to the indication/reason for exam, i.e. extremiti es or head). 3. Use of iterative reconstructive technique. FINDINGS: No abnormal acute extracerebral fluid collections are demonstrated. The cortical sulci, ventricles, and cisterns are within normal limits. There are no areas of altered attenuation to suggest acute hemorrhage, acute infarct, or mass lesio n. The visualized portions of the paranasal sinuses and mastoid air cells are remarkable for moderately severe chronic left x-ray sinusitis.. IMPRESSION: 1. No acute intracranial abnormalities. 2. Moderately severe chronic left maxillary sinusitis. Electronically signed by: Mikael Ho MD 02/27/2023 9:12 PM CDT Due to temporary technical issues with the PACS/Fluency reporting system, reports are being signed by the in house radiologist without review as a courtesy to ensure prompt reporting. The interpreting r adiologist is fully responsible for the content of the report.
--- NOTE | 2023-02-28 10:25 | RAD REPORT ---
EXAM DESCRIPTION: RAD - Chest Single View - 02/27/2023 3:18 am CLINICAL HISTORY: Chest pain. TECHNIQUE: AP portable chest x-ray upright on 02/27/2023, at 15: 14. COMPARISON: None. FINDINGS: Heart: Normal size and configuration. Mediastinal Structures: Normal and midline.. Lung Hutchinson: No active disease. Pulmonary Vascularity: Normal. Pleural Space: No active disease. Bony Structures: Normal. IMPRESSION: Normal study. Electronically signed by: Mikael Ho MD 02/27/2023 9:10 PM CDT Due to temporary technical issues with the PACS/Fluency reporting system, reports are being signed by the in house radiologist without review as a courtesy to ensure prompt reporting. The interpreting r adiologist is fully responsible for the content of the report.
== END 2023-02-27 07:08 | disposition home or self-care (01) ==
LOC: ER 02:11
DX: R42 Dizziness and giddiness (principal); H92.02 Otalgia, left ear; R07.9 Chest pain, unspecified; I10 Essential (primary) hypertension; Z88.8 Allergy status to other drugs, medicaments and biological substances
CPT/HCPCS: 36415; 70450; 71045; 80048; 80076; 83880; 84484; 85025; 93005; 99284

== ENCOUNTER 2023-03-15 02:23 | Emergency (ER) | payer OTHER ==
--- OUTSIDE RECORDS SUMMARY | 2023-03-15 02:31 | XMS REPORT | Continuity of Care Document ---
:1955 Author Organization [facility] t Address [address] [facility] [address] [place] [address] Care Team Providers Name Role Phone [phone] Primary Care Physician Unavailable SYSTEM, PROVIDER NOT IN Attending Clinician Unavailable WARREN CASTRO Attending Clinician Unavailable LUCRETIA LOVE Attending Clinician Unavailable SILVA DOVER Attending Clinician Unavailable Grazyna Hairston Attending Clinician Unavailable Doctor Unassigned, Export Attending Clinician Unavailable STONE FUENTES Attending Clinician Unavailable Therapist, [facility] Attending Clinician Unavailable Stone Fuentes MD Attending Clinician ARABELLA WHITNEY Attending Clinician Unavailable ROOSEVELT MESSINA Attending Clinician Unavailable NIKITA WILSON Attending Clinician Unavailable JULIANA LOVE Attending Clinician Unavailable FAUSTINO ESPINOSA Attending Clinician Unavailable [email or web address] Attending Clinician Unavailable Sagrario Avalos Attending Clinician [phone] ANJELICA ROCK Attending Clinician Unavailable JANA DIAS [...] Expiration Date Yisel coy [employer] PPO [id number] 2020 00:00:00 MEDICARE PART A [id number] 2016 AND B 00:00:00 [employer] MED[employer] PPO [id number] 2020 00:00:00 Problems Condition Condition Condition Status [...] rs active active ity of problems problems [facility] Allergies, Adverse Reactions, Alerts Allergy Allergy Status [...] DA Active U 2018-0 [facility] All[facility]ie 3-26 [place] [facility] 00:[facility]: [facility] NO KNOWN Drug Active Univers ALLERGIE Class ity of S [facility] Social History Social Habit Start Date Stop Date Quantity Comments Source History of Snuff User University of tobacco use [facility] Exposure to 2022-12-08 2022-12-18 Not sure [facility] SARS-CoV-2 00:00:00 11:57:00 [facility] (event) Branch Tobacco use and 2022-10-18 2022-10-18 Former smokeless Uni versity of exposure 00:00:00 00:00:00 tobacco user [facility] Alcohol intake 2022-10-18 2022-10-18 .29 /d University of 00:00:00 00:00:00 [facility] Tobacco Comment 2022-10-18 2022-10-18 Quit 30 yrs ago Univ ersity of 00:00:00 00:00:00 [facility] Alcohol Comment 2022-10-18 2022-10-18 reports drinks 1 Uni versity of 00:00:00 00:00:00 beer q2wks; 1 [place] [facility] bottle 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 Clinician (SIG) Name Name sodium Yes 1{ampul Inhale 1 Univ ers chloride 2-07 e} Ampule 2 ity of 3.5 % Nebu 12:02: (two) [place] 54 times Medical daily. Branch Indication s: help clear secretions , per pt & MD Chou; reports takes separately from Albuterol. sodium Yes 1{ampul Inhale 1 Univ ers chloride 2-07 e} Ampule 2 ity of 3.5 % Nebu 12:02: (two) [place] 54 times Medical daily. Branch Indication s: [...] mouth ity of tablet 14:38: in the [place] [address] morning. Medical Indication Branch s: per pt [...] by mouth ity of 14:38: in the [place] [address] morning. Medical Indication Branch s: taking 50 mg daily per MD Chou atorvastati 2021-11 Yes 80mg Take 80 mg Univers n 80 mg 2-15 by mouth ity of tablet 14:38: at [place] [address] bedtime. Medical Indication Branch s: per MD Chou tadalafiL 5 2021-11 Yes 5mg Take 5 mg U nivers mg tablet 2-15 by mouth ity of 14:38: in the [place] [address] morning. Medical Indication Branch s: per MD Chou gabapentin 2021-11 Yes 300mg Take 300 Un valeriy 300 mg 2-15 mg by ity of capsule 14:38: mouth in [place] [address] the Medical morning Branch and 300 mg [...] by mouth ity of tablet 14:38: at [place] 04 bedtime. Medical Indication Branch s: per MD Chou tadalafiL 5 2021-11 Yes 5mg Take 5 mg U nivers mg tablet 2-15 by mouth ity of 14:38: in the [place] 04 morning. Medical Indication Branch s: per [...] mouth ity of tablet 14:38: in the [place] 04 morning. Medical Indication Branch s: per [...] by mouth ity of 14:38: in the [place] 04 morning. Medical Indication Branch s: taking 50 mg daily per MD Chou atorvastati 2021-11 Yes 80mg Take 80 mg Univers n 80 mg 2-15 by mouth ity of tablet 14:38: at [place] [address] bedtime. Medical Indication Branch s: per MD Chou tadalafiL 5 2021-11 Yes 5mg Take 5 mg U nivers mg tablet 2-15 by mouth ity of 14:38: in the [place] 04 morning. Medical Indication Branch s: per [...] mouth ity of tablet 14:38: in the [place] 04 morning. Medical Indication Branch s: per [...] by mouth ity of 14:38: in the [place] 04 morning. Medical Indication Branch s: taking 50 mg daily per MD hCou atorvastati 2021-11 Yes 80mg Take 80 mg Univers n 80 mg 2-15 by mouth ity of tablet 14:38: at [place] [address] bedtime. Medical Indication Branch s: per MD Chou tadalafiL 5 2021-11 Yes 5mg Take 5 mg U nivers mg tablet 2-15 by mouth ity of 14:38: in the [place] 04 morning. Medical Indication Branch s: per MD Chou gabapentin 2021-11 Yes 300mg Take 300 Un valeriy 300 mg 2-15 mg by ity of capsule 14:38: mouth in [place] 04 the Medical morning Branch and 300 mg in the evening. Indication s: per MD Cohu traMADoL 50 2021-11 Yes 50mg Take 50 mg Univers mg tablet 2-15 by mouth ity of 14:38: every 6 [place] 04 (six) Medical hours as Branch needed [...] mouth ity of tablet 14:38: in the [place] 04 morning. Medical Indication Branch s: per [...] Ampule as ity of mL 14:38: directed [place] nebulizer 04 in the Medical solution morning Branch and 1 Ampule in the evening. Indication s: from MD Chou losartan 25 2021-11 Yes 25mg Take 25 mg Univers mg tablet 2-15 by mouth ity of 14:38: in the [place] [address] morning. Medical Indication Branch s: taking 50 mg daily per MD Chou atorvastati 2021-11 Yes 80mg Take 80 mg Univers n 80 mg 2-15 by mouth ity of tablet 14:38: at [place] [address] bedtime. Medical Indication Branch s: per MD Chou tadalafiL 5 2021-11 Yes 5mg Take 5 mg U nivers mg tablet 2-15 by mouth ity of 14:38: in the [place] [address] morning. Medical Indication Branch s: per MD Chou gabapentin 2021-11 Yes 300mg Take 300 Un valeriy 300 mg 2-15 mg by ity of capsule 14:38: mouth in [place] [address] the Medical morning Branch and 300 mg in the evening. Indication s: per MD Chou traMADoL 50 2021-11 Yes 50mg Take 50 mg Univers mg tablet 2-15 by mouth ity of 14:38: every 6 [place] 04 (six) Medical hours as Branch needed (usually takes at least daily, depending on level pain; per patient). magnesium 2021-11 Yes 200mg Take 200 Uni vers gluconate 2-15 mg by ity of 200 mg 14:38: mouth in [place] tablet 04 the Medical morning. Branch Indication [...] mouth ity of tablet 14:38: in the [place] [address] morning. Medical Indication Branch s: per pt [...] by mouth ity of 14:38: in the [place] [address] morning. Medical Indication Branch s: taking 50 mg daily per MD Chou atorvastati 2021-11 Yes 80mg Take 80 mg Univers n 80 mg 2-15 by mouth ity of tablet 14:38: at [place] [address] bedtime. Medical Indication Branch s: per MD Chou tadalafiL 5 2021-11 Yes 5mg Take 5 mg U nivers mg tablet 2-15 by mouth ity of 14:38: in the [place] [address] morning. Medical Indication Branch s: per MD Chou gabapentin 2021-11 Yes 300mg Take 300 Un valeriy 300 mg 2-15 mg by ity of capsule 14:38: mouth in [place] 04 the Medical morning Branch and 300 [...] by mouth ity of 14:38: in the [place] 04 morning. Medical Indication Branch s: taking 50 mg daily per MD Chou atorvastati 2021-11 Yes 80mg Take 80 mg Univers n 80 mg 2-15 by mouth ity of tablet 14:38: at [place] 04 bedtime. Medical Indication Branch s: per MD Chou tadalafiL 5 2021-11 Yes 5mg Take 5 mg U nivers mg tablet 2-15 by mouth ity of 14:38: in the [place] 04 morning. Medical Indication Branch s: per [...] mouth ity of tablet 14:38: in the [place] 04 morning. Medical Indication Branch s: per pt from [facility]ologi [facility] Chou albuterol 2021-11 Yes 2{puff} Inhale 2 U nivers 90 2-15 Puffs ity of mcg/actuati 14:38: every 6 [place] as on inhaler 04 (six) Medical hours as Branch needed for Wheezing or Shortness of Breath. Indication s: per [facility] losartan 25 2021-11 Yes 25mg Take 25 mg Univers mg tablet 2-15 by mouth ity of 14:38: in the [place] [address] morning. Medical Indication Branch s: taking 50 mg daily per [facility] fluticasone 2021-11 Yes 2{puff} Inhale 2 Univers propionate 2-15 Puffs ity of (FLOVENT 14:38: every 6 [place] HF) [facility] 04 (six) Medical mcg/actuati hours. Branch on inhaler Indication s: PRN from [facility] albuterol 2021-11 Yes 1{ampul Use 1 Univ ers 2.5 mg/0.5 2-15 e} Ampule as ity of mL 14:38: directed [place] nebulizer 04 in the Medical solution morning Branch and 1 Ampule in the evening. Indication s: from [facility] losartan 25 2021-11 Yes 25mg Take 25 mg Univers mg tablet 2-15 by mouth ity of 14:38: in the [place] [address] morning. Medical Indication Branch s: taking 50 mg daily per [facility] atorvastati 2021-11 Yes 80mg Take 80 mg Univers n 80 mg 2-15 by mouth ity of tablet 14:38: at [place] [address] bedtime. Medical Indication Branch s: per [facility] tadalafiL 5 2021-11 Yes 5mg Take 5 mg U nivers mg tablet 2-15 by mouth ity of 14:38: in the [place] [address] morning. Medical Indication Branch s: per [facility] gabapentin 2021-11 Yes 300mg Take 300 Un valeriy 300 mg 2-15 mg by ity of capsule 14:38: mouth in [place] [address] the Medical morning Branch and 300 mg in the evening. Indication s: per [facility] traMADoL 50 2021-11 Yes 50mg Take 50 mg Univers mg tablet 2-15 by mouth ity of 14:38: every 6 [place] 04 (six) Medical hours as Branch needed (usually takes at least daily, depending on level pain; per patient). magnesium 2021-11 Yes 200mg Take 200 Uni vers gluconate 2-15 mg by ity of 200 mg 14:38: mouth in [facility] [place] 04 the Medical morning. Branch Indication s: [...] mouth ity of tablet 14:38: in the [place] 04 morning. Medical Indication Branch s: per pt from Cardiologi st, MD Chou atorvastati 2021-11 Yes 80mg Take 80 mg Univers n 80 mg 2-15 by mouth ity of tablet 14:38: at [place] [address] bedtime. Medical Indication Branch s: per MD [...] by mouth ity of 14:38: in the [place] 04 morning. Medical Indication Branch s: per [...] by mouth ity of 14:38: in the [place] [address] morning. Medical Indication Branch s: taking 50 mg daily per MD Chou atorvastati 2021-11 Yes 80mg Take 80 mg Univers n 80 mg 2-15 by mouth ity of tablet 14:38: at [place] [address] bedtime. Medical Indication Branch s: per MD Chou tadalafiL 5 2021-11 Yes 5mg Take 5 mg U nivers mg tablet 2-15 by mouth ity of 14:38: in the [place] 04 morning. Medical Indication Branch s: per [...] by mouth ity of 14:38: every 6 [place] 04 (six) Medical hours as Branch needed [...] mouth ity of tablet 14:38: in the [place] 04 morning. Medical Indication Branch s: per [...] by mouth ity of 14:38: in the [place] [address] morning. Medical Indication Branch s: taking 50 mg daily per MD Chou atorvastati 2021-11 Yes 80mg Take 80 mg Univers n 80 mg 2-15 by mouth ity of tablet 14:38: at [place] [address] bedtime. Medical Indication Branch s: per MD Chou tadalafiL 5 2021-11 Yes 5mg Take 5 mg U nivers mg tablet 2-15 by mouth ity of 14:38: in the [place] [address] morning. Medical Indication Branch s: per MD Chou gabapentin 2021-11 Yes 300mg Take 300 Un valeriy 300 mg 2-15 mg by ity of capsule 14:38: mouth in [place] 04 the Medical morning Branch and 300 mg in the evening. Indication s: per MD Chou traMADoL 50 2021-11 Yes 50mg Take 50 mg Univers mg tablet 2-15 by mouth ity of 14:38: every 6 [place] [address] (six) Medical hours as Branch needed (usually takes at least daily, depending on level pain; per patient). traMADoL 50 2021-11 Yes 50mg Take 50 mg Univers mg tablet 2-15 by mouth ity of 14:38: every 6 [place] [address] (six) Medical hours as Branch needed (usually [...] mouth ity of tablet 14:38: in the [place] [address] morning. Medical Indication Branch s: per pt [...] by mouth ity of 14:38: in the [place] [address] morning. Medical Indication Branch s: taking 50 mg daily per MD Chou atorvastati 2021-11 Yes 80mg Take 80 mg Univers n 80 mg 2-15 by mouth ity of tablet 14:38: at [place] [address] bedtime. Medical Indication Branch s: per MD Chou tadalafiL 5 2021-11 Yes 5mg Take 5 mg U nivers mg tablet 2-15 by mouth ity of 14:38: in the [place] [address] morning. Medical Indication Branch s: per MD [...] mouth ity of tablet 14:38: in the [place] 04 morning. Medical Indication Branch s: per [...] by mouth ity of 14:38: in the [place] [address] morning. Medical Indication Branch s: taking 50 mg daily per MD Chou atorvastati 2021-11 Yes 80mg Take 80 mg Univers n 80 mg 2-15 by mouth ity of tablet 14:38: at [place] [address] bedtime. Medical Indication Branch s: per MD [...] mouth ity of tablet 14:38: in the [place] 04 morning. [facility] Indication [facility] 2021-11 Yes 200mg Take 200 Uni vers gluconate 2-15 mg by ity of 200 mg 14:38: mouth in [facility] 04 the Medical morning. Branch Indication s: [...] mouth ity of tablet 14:38: in the [place] 04 morning. Medical Indication Branch [facility] albuterol 2021-11 Yes 2{puff} Inhale [...] by mouth ity of 14:38: in the [place] 04 morning. Medical Indication Branch s: taking 50 mg daily per MD Chou atorvastati 2021-11 Yes 80mg Take 80 mg Univers n 80 mg 2-15 by mouth ity of tablet 14:38: at [place] [address] bedtime. Medical Indication Branch s: per MD Chou tadalafiL 5 2021-11 Yes 5mg Take 5 mg U nivers mg tablet 2-15 by mouth ity of 14:38: in the [place] 04 morning. Medical Indication Branch s: per MD Chou gabapentin 2021-11 Yes 300mg Take 300 Un valeriy 300 mg 2-15 mg by ity of capsule 14:38: mouth in [place] 04 the Medical morning Branch and 300 mg in the evening. Indication s: per MD Chou traMADoL 50 2021-11 Yes 50mg Take 50 mg Univers mg tablet 2-15 by mouth ity of 14:38: every 6 [place] 04 (six) Medical hours as Branch needed [...] mouth ity of tablet 14:38: in the [place] [address] morning. Medical Indication Branch s: per pt [...] Puffs ity of (FLOVENT 14:38: every 6 [place] HFA) 110 04 (six) Medical mcg/actuati hours. Branch on inhaler Indication s: PRN from MD Chou albuterol 2021-11 Yes 1{ampul Use 1 Univ ers 2.5 mg/0.5 2-15 e} Ampule as ity of mL 14:38: directed [place] nebulizer 04 in the Medical solution morning Branch and 1 Ampule in the evening. Indication s: from MD Chou losartan 25 2021-11 Yes 25mg Take 25 mg Univers mg tablet 2-15 by mouth ity of 14:38: in the [place] [address] morning. Medical Indication Branch s: taking 50 mg daily per José Antonio atorvastati 2021-11 Yes 80mg Take 80 mg Univers n 80 mg 2-15 by mouth ity of tablet 14:38: at [place] [address] bedtime. Medical Indication Branch s: per MD Chou tadalafiL 5 2021-11 Yes 5mg Take 5 mg U nivers mg tablet 2-15 by mouth ity of 14:38: in the [place] [address] morning. Medical Indication Branch s: per MD Chou gabapentin 2021-11 Yes 300mg Take 300 Un valeriy 300 mg 2-15 mg by ity of capsule 14:38: mouth in [place] [address] the Medical morning Branch and 300 mg in the evening. Indication s: per [facility] traMADoL 50 2021-11 Yes 50mg Take 50 mg Univers mg tablet 2-15 by mouth ity of 14:38: every 6 [place] 04 (six) Medical hours as Branch needed (usually takes at least daily, depending on level pain; per patient). magnesium 2021-11 Yes 200mg Take 200 Uni vers gluconate 2-15 mg by ity of 200 mg 14:38: mouth in [place] tablet 04 the Medical morning. Branch Indication [...] mouth ity of tablet 14:38: in the [place] [address] morning. Medical Indication Branch s: per pt [...] by mouth ity of 14:38: in the [place] [address] morning. Medical Indication Branch s: taking 50 mg daily per MD Chou atorvastati 2021-11 Yes 80mg Take 80 mg Univers n 80 mg 2-15 by mouth ity of tablet 14:38: at [place] [address] bedtime. Medical Indication Branch s: per MD Chou tadalafiL 5 2021-11 Yes 5mg Take 5 mg U nivers mg tablet 2-15 by mouth ity of 14:38: in the [place] [address] morning. Medical Indication Branch s: per MD Chou gabapentin 2021-11 Yes 300mg Take 300 Un valeriy 300 mg 2-15 mg by ity of capsule 14:38: mouth in [place] 04 the Medical morning Branch and 300 [...] by mouth ity of tablet 14:38: at [place] 04 bedtime. Medical Indication Branch s: per MD Chou tadalafiL 5 2021-11 Yes 5mg Take 5 mg U nivers mg tablet 2-15 by mouth ity of 14:38: in the [place] 04 morning. Medical Indication Branch s: per [...] mouth ity of tablet 14:38: in the [place] [address] morning. Medical Indication Branch s: per pt [...] by mouth ity of 14:38: in the [place] 04 morning. Medical Indication Branch s: taking 50 mg daily per MD Chou atorvastati 2021-11 Yes 80mg Take 80 mg Univers n 80 mg 2-15 by mouth ity of tablet 14:38: at [place] [address] bedtime. Medical Indication Branch s: per MD Chou tadalafiL 5 2021-11 Yes 5mg Take 5 mg U nivers mg tablet 2-15 by mouth ity of 14:38: in the [place] 04 morning. Medical Indication Branch s: per [...] by mouth ity of 14:38: every 6 [place] 04 (six) Medical hours as Branch needed [...] mouth ity of tablet 14:38: in the [place] 04 morning. Medical Indication Branch s: per [...] by mouth ity of 14:38: in the [place] 04 morning. Medical Indication Branch s: taking 50 mg daily per MD Chou atorvastati 2021-11 Yes 80mg Take 80 mg Univers n 80 mg 2-15 by mouth ity of tablet 14:38: at [place] [address] bedtime. Medical Indication Branch s: per MD Chou tadalafiL 5 2021-11 Yes 5mg Take 5 mg U nivers mg tablet 2-15 by mouth ity of 14:38: in the [place] 04 morning. Medical Indication Branch s: per MD Chou gabapentin 2021-11 Yes 300mg Take 300 Un valeriy 300 mg 2-15 mg by ity of capsule 14:38: mouth in [place] 04 the Medical morning Branch and 300 mg in the evening. Indication s: per MD Chou traMADoL 50 2021-11 Yes 50mg Take 50 mg Univers mg tablet 2-15 by mouth ity of 14:38: every 6 [place] 04 (six) Medical hours as Branch needed [...] mouth ity of tablet 14:38: in the [place] [address] morning. Medical Indication Branch s: per pt [...] Ampule as ity of mL 14:38: directed [place] nebulizer 04 in the Medical solution morning Branch and 1 Ampule in the evening. Indication s: from MD Chou losartan 25 2021-11 Yes 25mg Take 25 mg Univers mg tablet 2-15 by mouth ity of 14:38: in the [place] [address] morning. Medical Indication Branch s: taking 50 mg daily per MD Chou atorvastati 2021-11 Yes 80mg Take 80 mg Univers n 80 mg 2-15 by mouth ity of tablet 14:38: at [place] [address] bedtime. Medical Indication Branch s: per MD Chou tadalafiL 5 2021-11 Yes 5mg Take 5 mg U nivers mg tablet 2-15 by mouth ity of 14:38: in the [place] [address] morning. Medical Indication Branch s: per MD Chou gabapentin 2021-11 Yes 300mg Take 300 Un valeriy 300 mg 2-15 mg by ity of capsule 14:38: mouth in [place] 04 the Medical morning Branch and 300 mg in the evening. Indication s: per MD Chou traMADoL 50 2021-11 Yes 50mg Take 50 mg Univers mg tablet 2-15 by mouth ity of 14:38: every 6 [place] 04 (six) Medical hours as Branch needed [...] mouth ity of tablet 14:38: in the [place] [address] morning. Medical Indication Branch s: per pt [...] by mouth ity of 14:38: in the [place] [address] morning. Medical Indication Branch s: taking 50 mg daily per MD Chou atorvastati 2021-11 Yes 80mg Take 80 mg Univers n 80 mg 2-15 by mouth ity of tablet 14:38: at [place] [address] bedtime. Medical Indication Branch s: per MD Chou tadalafiL 5 2021-11 Yes 5mg Take 5 mg U nivers mg tablet 2-15 by mouth ity of 14:38: in the [place] [address] morning. Medical Indication Branch s: per MD Chou gabapentin 2021-11 Yes 300mg Take 300 Un valeriy 300 mg 2-15 mg by ity of capsule 14:38: mouth in [place] 04 the Medical morning Branch and 300 [...] by mouth ity of tablet 14:38: at [place] 04 bedtime. Medical Indication Branch s: per MD Chou tadalafiL 5 2021-11 Yes 5mg Take 5 mg U nivers mg tablet 2-15 by mouth ity of 14:38: in the [place] 04 morning. Medical Indication Branch s: per [...] mouth ity of tablet 14:38: in the [place] [address] morning. Medical Indication Branch s: per pt from Cardiologi st, MD Chou fluticasone 2021-11 Yes 2{puff} Inhale 2 Univers propionate 2-15 Puffs ity of (FLOVENT 14:38: every 6 [place] HFA) 110 04 (six) Medical mcg/actuati hours. [...] Ampule as ity of mL 14:38: directed [place] nebulizer 04 in the Medical solution morning Branch and 1 Ampule in the evening. Indication s: from [facility] losartan 25 2021-11 Yes 25mg Take 25 mg Univers mg tablet 2-15 by mouth ity of 14:38: in the [place] [address] morning. Medical Indication Branch s: taking 50 mg daily per [facility] atorvastati 2021-11 Yes 80mg Take 80 mg Univers n 80 mg 2-15 by mouth ity of tablet 14:38: at [place] [address] bedtime. Medical Indication Branch s: per [facility] tadalafiL 5 2021-11 Yes 5mg Take 5 mg U nivers mg tablet 2-15 by mouth ity of 14:38: in the [place] [address] morning. Medical Indication Branch s: per [facility] gabapentin 2021-11 Yes 300mg Take 300 Un valeriy 300 mg 2-15 mg by ity of capsule 14:38: mouth in [place] [address] the Medical morning Branch and 300 mg in the evening. Indication s: per [facility] albuterol 2021-11 Yes 1{ampul Use 1 Univ ers 2.5 mg/0.5 2-15 e} Ampule as ity of mL 14:38: directed [place] nebulizer 04 in the Medical solution morning Branch and 1 Ampule in the evening. Indication s: from [facility] traMADoL 50 2021-11 Yes 50mg Take 50 mg Univers mg tablet 2-15 by mouth ity of 14:38: every 6 [place] [address] (six) Medical hours as Branch needed (usually [...] mouth ity of tablet 14:38: in the [place] 04 morning. Medical Indication Branch s: per pt from Cardiologi st, MD Chou losartan 25 2021-11 Yes 25mg Take 25 mg Univers mg tablet 2-15 by mouth ity of 14:38: in the [place] [address] morning. Medical Indication Branch s: taking 50 [...] by mouth ity of 14:38: in the [place] [address] morning. Medical Indication Branch s: taking 50 mg daily per MD Chou atorvastati 2021-11 Yes 80mg Take 80 mg Univers n 80 mg 2-15 by mouth ity of tablet 14:38: at [place] [address] bedtime. Medical Indication Branch s: per MD Chou tadalafiL 5 2021-11 Yes 5mg Take 5 mg U nivers mg tablet 2-15 by mouth ity of 14:38: in the [place] [address] morning. Medical Indication Branch s: per MD Chou gabapentin 2021-11 Yes 300mg Take 300 Un valeriy 300 mg 2-15 mg by ity of capsule 14:38: mouth in [place] 04 the Medical morning Branch and 300 [...] by mouth ity of tablet 14:38: at [place] 04 bedtime. Medical Indication Branch s: per [...] by mouth ity of 14:38: in the [place] 04 morning. Medical Indication Branch s: taking 50 mg daily per MD Chou atorvastati 2021-11 Yes 80mg Take 80 mg Univers n 80 mg 2-15 by mouth ity of tablet 14:38: at [place] [address] bedtime. Medical Indication Branch s: per MD Chou tadalafiL 5 2021-11 Yes 5mg Take 5 mg U nivers mg tablet 2-15 by mouth ity of 14:38: in the [place] [address] morning. Medical Indication Branch s: per MD Chou tadalafiL 5 2021-11 Yes 5mg Take 5 mg U nivers mg tablet 2-15 by mouth ity of 14:38: in the [place] [address] morning. Medical Indication Branch s: per MD Chou gabapentin 2021-11 Yes 300mg Take 300 Un valeriy 300 mg 2-15 mg by ity of capsule 14:38: mouth in [place] 04 the Medical morning Branch and 300 mg in the evening. Indication s: per MD Chou traMADoL 50 2021-11 Yes 50mg Take 50 mg Univers mg tablet 2-15 by mouth ity of 14:38: every 6 [place] 04 (six) Medical hours as Branch needed (usually takes at least daily, depending on level pain; per patient). magnesium 2021-11 Yes 200mg Take 200 Uni vers gluconate 2-15 mg by ity of 200 mg 14:38: mouth in [facility] [place], [place] 04 the Medical morning. Branch Indication s: [...] mouth ity of tablet 14:38: in the [place] [address] morning. Medical Indication Branch s: per pt from Cardiologi MD José Antonio sandoval gabapentin 2021-11 Yes 300mg Take 300 Un valeriy 300 mg 2-15 mg by ity of capsule 14:38: mouth in [place] 04 the Medical morning Branch and 300 [...] by mouth ity of 14:38: in the [place] [address] morning. Medical Indication Branch s: taking 50 mg daily per MD Chou atorvastati 2021-11 Yes 80mg Take 80 mg Univers n 80 mg 2-15 by mouth ity of tablet 14:38: at [place] [address] bedtime. Medical Indication Branch s: per MD Chou tadalafiL 5 2021-11 Yes 5mg Take 5 mg U nivers mg tablet 2-15 by mouth ity of 14:38: in the [place] [address] morning. Medical Indication Branch s: per MD Chou gabapentin 2021-11 Yes 300mg Take 300 Un valeriy 300 mg 2-15 mg by ity of capsule 14:38: mouth in [place] 04 the Medical morning Branch and 300 mg in the evening. Indication s: per MD Chou traMADoL 50 2021-11 Yes 50mg Take 50 mg Univers mg tablet 2-15 by mouth ity of 14:38: every 6 [place] 04 (six) Medical hours as Branch needed (usually takes at least daily, depending on level pain; per patient). traMADoL 50 2021-11 Yes 50mg Take 50 mg Univers mg tablet 2-15 by mouth ity of 14:38: every 6 [place] 04 (six) Medical hours as Branch needed [...] mouth ity of tablet 14:38: in the [place] 04 morning. Medical Indication Branch s: per [...] by mouth ity of 14:38: in the [place] 04 morning. Medical Indication Branch s: taking 50 mg daily per MD Chou atorvastati 2021-11 Yes 80mg Take 80 mg Univers n 80 mg 2-15 by mouth ity of tablet 14:38: at [place] [address] bedtime. Medical Indication Branch s: per MD Chou tadalafiL 5 2021-11 Yes 5mg Take 5 mg U nivers mg tablet 2-15 by mouth ity of 14:38: in the [place] [address] morning. Medical Indication Branch s: per MD [...] [facility] Ind[facility]: [facility] Yes 1000U Take [...] Medical Indication Branch s: [facility] MD José Antonio sandoval albuterol 2021-11 Yes [...] by mouth ity of 14:38: in the [place] [address] morning. Medical Indication Branch s: taking 50 mg daily per MD Chou atorvastati 2021-11 Yes 80mg Take 80 mg Univers n 80 mg 2-15 by mouth ity of tablet 14:38: at [place] [address] bedtime. Medical Indication Branch s: per MD Chou tadalafiL 5 2021-11 Yes 5mg Take 5 mg U nivers mg tablet 2-15 by mouth ity of 14:38: in the [place] [address] morning. Medical Indication Branch s: per MD Chou gabapentin 2021-11 Yes 300mg Take 300 Un valeriy 300 mg 2-15 mg by ity of capsule 14:38: mouth in [place] 04 the Medical morning Branch and 300 mg in the evening. Indication s: per MD Chou traMADoL 50 2021-11 Yes 50mg Take 50 mg Univers mg tablet 2-15 by mouth ity of 14:38: every 6 [place] 04 (six) Medical hours as Branch needed [...] mouth ity of tablet 14:38: in the [place] [address] morning. Medical Indication Branch s: per pt [...] by mouth ity of 14:38: in the [place] [address] morning. Medical Indication Branch s: taking 50 mg daily per José Antonio atorvastati 2021-11 Yes 80mg Take 80 mg Univers n 80 mg 2-15 by mouth ity of tablet 14:38: at [place] [address] bedtime. Medical Indication Branch s: per [facility] tadalafiL 5 2021-11 Yes 5mg Take 5 mg U nivers mg tablet 2-15 by mouth ity of 14:38: in the [place] [address] morning. Medical Indication Branch s: per [facility] gabapentin 2021-11 Yes 300mg Take 300 Un valeriy 300 mg 2-15 mg by ity of capsule 14:38: mouth in [place] [address] the Medical morning Branch and 300 mg in the evening. Indication s: per [facility] traMADoL 50 2021-11 Yes 50mg Take 50 mg Univers mg tablet 2-15 by mouth ity of 14:38: every 6 [place] 04 (six) Medical hours as Branch needed [...] by mouth ity of 14:38: in the [place] [address] morning. Medical Indication Branch s: taking 50 mg daily per MD Chou atorvastati 2021-11 Yes 80mg Take 80 mg Univers n 80 mg 2-15 by mouth ity of tablet 14:38: at [place] [address] bedtime. Medical Indication Branch s: per MD Chou tadalafiL 5 2021-11 Yes 5mg Take 5 mg U nivers mg tablet 2-15 by mouth ity of 14:38: in the [place] [address] morning. Medical Indication Branch s: per MD [...] mouth ity of tablet 14:38: in the [place] 04 morning. Medical Indication Branch s: per [...] by mouth ity of 14:38: in the [place] 04 morning. Medical Indication Branch s: taking 50 mg daily per MD Chou atorvastati 2021-11 Yes 80mg Take 80 mg Univers n 80 mg 2-15 by mouth ity of tablet 14:38: at [place] [address] bedtime. Medical Indication Branch s: per MD Chou tadalafiL 5 2021-11 Yes 5mg Take 5 mg U nivers mg tablet 2-15 by mouth ity of 14:38: in the [place] [address] morning. Medical Indication Branch s: per MD [...] by mouth ity of 14:38: in the [place] 04 morning. Medical Indication Branch s: per [...] by mouth ity of 14:38: every 6 [place] 04 (six) Medical hours as Branch needed [...] mouth ity of tablet 14:38: in the [place] 04 morning. Medical Indication Branch s: per [...] by mouth ity of 14:38: in the [place] [address] morning. Medical Indication Branch s: taking 50 mg daily per MD Chou atorvastati 2021-11 Yes 80mg Take 80 mg Univers n 80 mg 2-15 by mouth ity of tablet 14:38: at [place] [address] bedtime. Medical Indication Branch s: per MD Chou tadalafiL 5 2021-11 Yes 5mg Take 5 mg U nivers mg tablet 2-15 by mouth ity of 14:38: in the [place] [address] morning. Medical Indication Branch s: per MD Chou gabapentin 2021-11 Yes 300mg Take 300 Un valeriy 300 mg 2-15 mg by ity of capsule 14:38: mouth in [place] 04 the Medical morning Branch and 300 [...] Ampule as ity of mL 14:38: directed [place] nebulizer 04 in the Medical solution morning Branch and 1 Ampule in the evening. Indication s: from MD Chou magnesium 2021-11 Yes 200mg Take 200 Uni vers gluconate 2-15 mg by ity of 200 mg 14:38: mouth in [facility] [place] [place] 04 the Medical morning. Branch Indication s: [...] mouth ity of tablet 14:38: in the [place] 04 morning. Medical Indication Branch s: per pt from Cardiologi st, MD Chou losartan 25 2021-11 Yes 25mg Take 25 mg Univers mg tablet 2-15 by mouth ity of 14:38: in the [place] 04 morning. Medical Indication Branch s: taking [...] by mouth ity of 14:38: in the [place] 04 morning. Medical Indication Branch s: taking 50 mg daily per MD Chou atorvastati 2021-11 Yes 80mg Take 80 mg Univers n 80 mg 2-15 by mouth ity of tablet 14:38: at [place] 04 bedtime. Medical Indication Branch s: per MD Chou tadalafiL 5 2021-11 Yes 5mg Take 5 mg U nivers mg tablet 2-15 by mouth ity of 14:38: in the [place] [address] morning. Medical Indication Branch s: per MD Chou gabapentin 2021-11 Yes 300mg Take 300 Un valeriy 300 mg 2-15 mg by ity of capsule 14:38: mouth in [place] 04 the Medical morning Branch and 300 [...] by mouth ity of tablet 14:38: at [place] [address] bedtime. Medical Indication Branch s: per MD [...] mouth ity of tablet 14:38: in the [place] 04 morning. Medical Indication Branch s: per [...] by mouth ity of 14:38: in the [place] 04 morning. Medical Indication Branch s: per [...] by mouth ity of 14:38: in the [place] 04 morning. Medical Indication Branch s: taking 50 mg daily per MD Chou atorvastati 2021-11 Yes 80mg Take 80 mg Univers n 80 mg 2-15 by mouth ity of tablet 14:38: at [place] [address] bedtime. Medical Indication Branch s: per MD Chou tadalafiL 5 2021-11 Yes 5mg Take 5 mg U nivers mg tablet 2-15 by mouth ity of 14:38: in the [place] 04 morning. Medical Indication Branch s: per MD Chou gabapentin 2021-11 Yes 300mg Take 300 Un valeriy 300 mg 2-15 mg by ity of capsule 14:38: mouth in [place] [address] the Medical morning Branch and 300 mg in the evening. Indication s: per MD Chou traMADoL 50 2021-11 Yes 50mg Take 50 mg Univers mg tablet 2-15 by mouth ity of 14:38: every 6 [place] [address] (six) Medical hours as Branch needed (usually [...] mouth ity of tablet 14:38: in the [place] 04 morning. Medical Indication Branch s: per [...] Branch on inhaler Indication s: PRN from [facility] albuterol 2021-11 Yes 1{ampul Use 1 Univ ers 2.5 mg/0.5 2-15 e} Ampule as ity of mL 14:38: directed [place] nebulizer 04 in the Medical solution morning Branch and 1 Ampule in the evening. Indication s: from MD Chou losartan 25 2021-11 Yes 25mg Take 25 mg Univers mg tablet 2-15 by mouth ity of 14:38: in the [place] [address] morning. Medical Indication Branch s: taking 50 mg daily per MD Chou atorvastati 2021-11 Yes 80mg Take 80 mg Univers n 80 mg 2-15 by mouth ity of tablet 14:38: at [place] [address] bedtime. Medical Indication Branch s: per [facility] tadalafiL 5 2021-11 Yes 5mg Take 5 mg U nivers mg tablet 2-15 by mouth ity of 14:38: in the [place] [address] morning. Medical Indication Branch s: per MD Chou gabapentin 2021-11 Yes 300mg Take 300 Un valeriy 300 mg 2-15 mg by ity of capsule 14:38: mouth in [place] [address] the Medical morning Branch and 300 mg in the evening. Indication s: per [facility] traMADoL 50 2021-11 Yes 50mg Take 50 mg Univers mg tablet 2-15 by mouth ity of 14:38: every 6 [place] 04 (six) Medical hours as Branch needed (usually takes at least daily, depending on level pain; per patient). traMADoL 50 2021-11 Yes 50mg Take 50 mg Univers mg tablet 2-15 by mouth ity of 14:38: every 6 [place] 04 (six) Medical hours as Branch needed [...] mouth ity of tablet 14:38: in the [place] 04 morning. Medical Indication Branch s: per [...] by mouth ity of 14:38: in the [place] [address] morning. Medical Indication Branch s: taking 50 mg daily per MD Chou atorvastati 2021-11 Yes 80mg Take 80 mg Univers n 80 mg 2-15 by mouth ity of tablet 14:38: at [place] [address] bedtime. Medical Indication Branch s: per MD [...] mouth ity of tablet 14:38: in the [place] 04 morning. Medical Indication Branch s: per [...] by mouth ity of 14:38: in the [place] 04 morning. Medical Indication Branch s: taking 50 mg daily per MD Chou atorvastati 2021-11 Yes 80mg Take 80 mg Univers n 80 mg 2-15 by mouth ity of tablet 14:38: at [place] [address] bedtime. Medical Indication Branch s: per MD Chou aspirin 81 2021-11 Yes 81mg Take 81 mg U nivers mg EC 2-15 by mouth ity of tablet 14:38: in the [place] [address] morning. Medical Indication Branch s: per pt from Cardiologi , MD Chou tadalafiL 5 2021-11 Yes 5mg Take 5 mg U nivers mg tablet 2-15 by mouth ity of 14:38: in the [place] [address] morning. Medical Indication Branch s: per MD Chou gabapentin 2021-11 Yes 300mg Take 300 Un valeriy 300 mg 2-15 mg by ity of capsule 14:38: mouth in [place] 04 the Medical morning Branch and 300 mg in the evening. Indication s: per MD Chou traMADoL 50 2021-11 Yes 50mg Take 50 mg Univers mg tablet 2-15 by mouth ity of 14:38: every 6 [place] [address] (six) Medical hours as Branch needed (usually [...] mouth ity of tablet 14:38: in the [place] [address] morning. Medical Indication Branch s: per pt [...] by mouth ity of 14:38: in the [place] [address] morning. Medical Indication Branch s: taking 50 mg daily per MD Chou atorvastati 2021-11 Yes 80mg Take 80 mg Univers n 80 mg 2-15 by mouth ity of tablet 14:38: at [place] [address] bedtime. Medical Indication Branch s: per MD Chou tadalafiL 5 2021-11 Yes 5mg Take 5 mg U nivers mg tablet 2-15 by mouth ity of 14:38: in the [place] [address] morning. Medical Indication Branch s: per MD Chou gabapentin 2021-11 Yes 300mg Take 300 Un valeriy 300 mg 2-15 mg by ity of capsule 14:38: mouth in [place] 04 the Medical morning Branch and 300 [...] ity of 200 mg 14:38: mouth in [place] tablet 04 the Medical morning. Branch Indication [...] mouth ity of tablet 14:38: in the [place] 04 morning. Medical Indication Branch s: per [...] by mouth ity of 14:38: in the [place] [address] morning. Medical Indication Branch s: taking 50 mg daily per MD Chou atorvastati 2021-11 Yes 80mg Take 80 mg Univers n 80 mg 2-15 by mouth ity of tablet 14:38: at [place] [address] bedtime. Medical Indication Branch s: per MD Chou tadalafiL 5 2021-11 Yes 5mg Take 5 mg U nivers mg tablet 2-15 by mouth ity of 14:38: in the [place] [address] morning. Medical Indication Branch s: per MD [...] mouth ity of tablet 14:38: in the [place] 04 morning. Medical Indication Branch s: per [...] by mouth ity of tablet 14:38: at [place] [address] bedtime. Medical Indication Branch s: per MD Chou tadalafiL 5 2021-11 Yes 5mg Take 5 mg U nivers mg tablet 2-15 by mouth ity of 14:38: in the [place] 04 morning. Medical Indication Branch s: per [...] by mouth ity of 14:38: every 6 [place] 04 (six) Medical hours as Branch needed [...] mouth ity of tablet 14:38: in the [place] [address] morning. Medical Indication Branch s: per pt from Cardiologi [facility] MD Chou albuterol 2021-11 Yes 2{puff} [...] by mouth ity of 14:38: in the [place] [address] morning. Medical Indication Branch s: taking 50 mg daily per MD Chou atorvastati 2021-11 Yes 80mg Take 80 mg Univers n 80 mg 2-15 by mouth ity of tablet 14:38: at [place] [address] bedtime. Medical Indication Branch s: per MD Chou tadalafiL 5 2021-11 Yes 5mg Take 5 mg U nivers mg tablet 2-15 by mouth ity of 14:38: in the [place] [address] morning. Medical Indication Branch s: per MD Chou gabapentin 2021-11 Yes 300mg Take 300 Un valeriy 300 mg 2-15 mg by ity of capsule 14:38: mouth in [place] [address] the Medical morning Branch and 300 mg in the evening. Indication s: per MD Chou traMADoL 50 2021-11 Yes 50mg Take 50 mg Univers mg tablet 2-15 by mouth ity of 14:38: every 6 [place] [address] (six) Medical hours as Branch needed (usually takes at least daily, depending on level pain; per patient). magnesium 2021-11 Yes 200mg Take 200 Uni vers gluconate 2-15 mg by ity of 200 mg 14:38: mouth in [facility] [place] [place] 04 the Medical morning. Branch Indication s: [...] before 6MW Univers ity of pressure 19:31:00 [facility] Diastolic blood 2022-12-18 60 mm[Hg] manual; before 6MW Univer sity of pressure 19:31:00 [facility] Heart rate 2022-12-18 60 /min University of 19:31:00 [facility] Respiratory rate 2022-12-18 22 /min University of 19:31:00 [facility] Body weight 2022-12-18 82.918 kg University of 19:31:00 [facility] Oxygen saturation 2022-12-18 97 /min arrived on ; 6MW Univ ersity of in Arterial blood 19:31:00 done on [facility] by Pulse oximetry Branch Systolic blood 2022-12-13 122 mm[Hg] manual University of pressure 17:00:00 [facility] Diastolic blood 2022-12-13 58 mm[Hg] manual University o f pressure 17:00:00 [facility] Heart rate 2022-12-13 82 /min University of 17:00:00 [facility] Respiratory rate 2022-12-13 22 /min University of 17:00:00 [facility] Body weight 2022-12-13 83.28 kg University of 17:00:00 [facility] Oxygen saturation 2022-12-13 97 /min arrived on ; Universi ty of in Arterial blood 17:00:00 exercised on [facility] edical by Pulse oximetry Branch Systolic blood 2022-12-11 120 mm[Hg] manual University of pressure 17:00:00 [place] [facility] Diastolic blood 2022-12-11 56 mm[Hg] manual University o f pressure 17:00:00 [place] [facility] Heart rate 2022-12-11 77 /min University of 17:00:00 [place] [facility] Respiratory rate 2022-12-11 22 /min University of 17:00:00 [place] [facility] Body weight 2022-12-11 83.643 kg University of 17:00:00 [place] [facility] Oxygen saturation 2022-12-11 98 /min arrived on RA; Universi ty of in Arterial blood 17:00:00 exercised on RA [facility] edical by Pulse oximetry Branch Systolic blood 2022-12-04 124 mm[Hg] manual University of pressure 17:00:00 [place] [facility] Diastolic blood 2022-12-04 58 mm[Hg] manual University o f pressure 17:00:00 [place] [facility] Heart rate 2022-12-04 84 /min University of 17:00:00 [place] [facility] Respiratory rate 2022-12-04 22 /min University of 17:00:00 [facility] Body weight 2022-12-04 83.19 kg University of 17:00:00 [place] [facility] Oxygen saturation 2022-12-04 98 /min arrived on RA; Universi ty of in Arterial blood 17:00:00 exercised on RA [facility] edical by Pulse oximetry Branch Systolic blood 2022-11-29 124 mm[Hg] manual University of pressure 17:00:00 [place] [facility] Diastolic blood 2022-11-29 50 mm[Hg] manual University o f pressure 17:00:00 [place] [facility] Heart rate 2022-11-29 83 /min University of 17:00:00 [place] [facility] Respiratory rate 2022-11-29 24 /min University of 17:00:00 [place] [facility] Body weight 2022-11-29 83.008 kg University of 17:00:00 [place] [facility] Oxygen saturation 2022-11-29 98 /min arrived on RA; Universi ty of in Arterial blood 17:00:00 exercised on RA [facility] edical by Pulse oximetry Branch Systolic blood 2022-11-22 134 mm[Hg] manual University of pressure 21:00:00 [place] [facility] Diastolic blood 2022-11-22 60 mm[Hg] manual University o f pressure 21:00:00 [facility] Heart rate 2022-11-22 89 /min University of 21:00:00 [facility] Respiratory rate 2022-11-22 22 /min University of 21:00:00 [facility] Body weight 2022-11-22 83.371 kg University of 21:00:00 [facility] Branch Oxygen saturation 2022-11-22 97 /min arrived on RA; Universi ty of in Arterial blood 21:00:00 exercised on RA [facility] edical by Pulse oximetry Branch Systolic blood 2022-11-20 124 mm[Hg] manual University of pressure 17:00:00 [place] [facility] Diastolic blood 2022-11-20 52 mm[Hg] manual University o f pressure 17:00:00 [facility] Branch Heart rate 2022-11-20 62 /min University of 17:00:00 [facility] Respiratory rate 2022-11-20 22 /min University of 17:00:00 [facility] Body weight 2022-11-20 83.643 kg University of 17:00:00 [facility] Oxygen saturation 2022-11-20 97 /min arrived on RA; Universi ty of in Arterial blood 17:00:00 reassessment done [facility] by Pulse oximetry on RA, with Branch frequent coughs Systolic blood 2022-11-08 138 mm[Hg] manual University of pressure 17:00:00 [place] [facility] Diastolic blood 2022-11-08 50 mm[Hg] manual University o f pressure 17:00:00 [facility] Heart rate 2022-11-08 76 /min University of 17:00:00 [facility] Branch Respiratory rate 2022-11-08 22 /min University of 17:00:00 [facility] Body weight 2022-11-08 82.192 kg University of 17:00:00 [facility] Oxygen saturation 2022-11-08 98 /min arrived on RA; Universi ty of in Arterial blood 17:00:00 exercised on RA [facility] edical by Pulse oximetry Branch Systolic blood 2022-11-02 120 mm[Hg] manual University of pressure 17:00:00 [facility] Branch Diastolic blood 2022-11-02 50 mm[Hg] manual University o f pressure 17:00:00 [facility] Heart rate 2022-11-02 66 /min University of 17:00:00 [place] [facility] Respiratory rate 2022-11-02 20 /min University of 17:00:00 [facility] Branch Body weight 2022-11-02 83.689 kg University of 17:00:00 [facility] Branch Oxygen saturation 2022-11-02 99 /min arrived on RA; Universi ty of in Arterial blood 17:00:00 exercised on RA [facility] edical by Pulse oximetry Branch Systolic blood 2022-11-01 116 mm[Hg] University of pressure 17:01:00 [facility] Branch Diastolic blood 2022-11-01 62 mm[Hg] University o f pressure 17:01:00 [facility] Branch Heart rate 2022-11-01 67 /min University of 17:01:00 [facility] Branch Body weight 2022-11-01 82.645 kg University of 17:01:00 [facility] Branch Oxygen saturation 2022-11-01 98 /min University of in Arterial blood 17:01:00 [facility] by Pulse oximetry Branch Systolic blood 2022-10-30 118 mm[Hg] University of pressure 17:01:00 [facility] Branch Diastolic blood 2022-10-30 64 mm[Hg] University o f pressure 17:01:00 [place] [facility] Heart rate 2022-10-30 71 /min University of 17:01:00 [facility] Branch Body weight 2022-10-30 82.827 kg University of 17:01:00 [facility] Branch Oxygen saturation 2022-10-30 97 /min University of in Arterial blood 17:01:00 [facility] by Pulse oximetry Branch Systolic blood 2022-10-26 114 mm[Hg] manual University of pressure 17:00:00 [place] [facility] Diastolic blood 2022-10-26 56 mm[Hg] manual University o f pressure 17:00:00 [place] [facility] Heart rate 2022-10-26 82 /min University of 17:00:00 [place] [facility] Respiratory rate 2022-10-26 20 /min University of 17:00:00 [facility] Branch Body weight 2022-10-26 82.373 kg University of 17:00:00 [facility] Branch Oxygen saturation 2022-10-26 97 /min arrived on RA; Universi ty of in Arterial blood 17:00:00 exercised on RA [facility] edical by Pulse oximetry Branch Systolic blood 2022-10-25 130 mm[Hg] [facility] University of pressure 17:00:00 [facility] Diastolic blood 2022-10-25 66 mm[Hg] manl University o f pressure 17:00:00 [facility] Heart rate 2022-10-25 64 /min University of 17:00:00 [facility] Branch Respiratory rate 2022-10-25 20 /min University of 17:00:00 [facility] Body weight 2022-10-25 82.192 kg University of 17:00:00 [facility] Oxygen saturation 2022-10-25 94 /min arrived on RA; Universi ty of in Arterial blood 17:00:00 [facility] Systolic blood 2022-10-23 128 mm[Hg] manual University of pressure 19:00:00 [facility] Branch Diastolic blood 2022-10-23 62 mm[Hg] manual University o f pressure 19:00:00 [facility] Heart rate 2022-10-23 77 /min University of 19:00:00 [facility] Respiratory rate 2022-10-23 20 /min University of 19:00:00 [facility] Body weight 2022-10-23 82.192 kg University of 19:00:00 [facility] Oxygen saturation 2022-10-23 97 /min arrived on RA; Universi ty of in Arterial blood 19:00:00 exercised on [facility] Branch Systolic blood 2022-10-18 136 mm[Hg] manual; right arm Universi ty of pressure 19:30:00 138/70 manual [facility] Diastolic blood 2022-10-18 70 mm[Hg] manual; right arm Univers ity of pressure 19:30:00 138/70 manual [facility] Heart rate 2022-10-18 65 /min University of 19:30:00 [facility] Respiratory rate 2022-10-18 22 /min University of 19:30:00 [facility] Body weight 2022-10-18 82.464 kg University of 19:30:00 [facility] Oxygen saturation 2022-10-18 96 /min arrived on RA; 6MW Univ ersity of in Arterial blood 19:30:00 on RA [facility] by Pulse oximetry Branch Height 2022-06-13 67 [...] / Time Performed Performing Clinician [facility] e PULMONARY REHAB [facility] 2023-01-04 20:38:00 Doctor Unassigned, No [facility] [place] REPORT Name [facility] PULMONARY REHAB 2022-12-11 06:00:00 Doctor Unassigned, No [facility] [place] SESSION REPORT Name [facility] PULMONARY REHAB 2022-11-29 06:00:00 Doctor Unassigned, No [facility] [place] SESSION REPORT Name [facility] PULMONARY REHAB [facility] 2022-11-21 03:25:00 Doctor Unassigned, No Un iversity [...] Type Clinicians Facility Department ID 2022-09-19 Outpatient [facility] [id number] [place] 13:39:20 [id number] [facility] 2022-09-13 Outpatient [facility] [id number] [place] 11:52:17 [id number] [facility] 2022-08-07 Outpatient [facility] [id number] [place] 11:27:12 [id number] [facility] 2022-08-01 Outpatient [facility] [id number] [place] 13:51:48 [id number] [facility] 2022-07-30 Outpatient [facility] [id number] [place] 15:15:30 [id number] [facility] 2021-09-05 Outpatient SYSTEM, MDA MDA [id number] 12:42:25 PROVIDER Vaughn billings 2021-05-19 Outpatient GORDON-AVENDA [facility] [id number] [place] 17:11:58 NO, WARREN Heal 2021-05-19 Outpatient SYSTEM, MDA MDA [id number] 13:16:01 PROVIDER Vaughn billings 2020-12-30 Outpatient SYSTEM, MDA MDA [id number] 16:03:31 PROVIDER Vaughn billings 2020-05-25 Outpatient IVAN LUCRETIA MDA MDA [id number] 13:03:32 Karli billings 2023-01-23 2023-01-23 Outpatient CHRIS DOVER, MDA MDA [id number] 09:35:29 23:59:00 SILVA billings 2023-01-11 2023-01-[address] [facility] 1.2.840.114 [id number] Univers 00:00:00 00:00:00 (Out) Grazyna C YOLI 350.1.13.10 i ty [place] [phone] Id dical NAL [address] [place] [address] 2023-01-11 2023-01-[address] [facility] 1.2.067.373 [id number] Univers 00:00:00 00:00:00 Grazyna C [place] 350.1.13.10 i ty [place] [phone] Id dical NAL [address] [place] [address] 2023-01-04 2023-01-04 Orders Doctor ESTEVEZ 1.2.840.114 [id number] Univers 00:00:00 00:00:00 Only Unassigned, SHARLENE 350.1.13.10 ity of [facility] 4.2.7.2.686 Eliot as [phone] [address] 2022-12-18 2022-12-18 Outpatient R GINA [facility] [id number] Univers 11:00:00 12:57:08 STONE ity of [facility] 2022-12-18 2022-12-18 Ancillary Therapist, [facility] Pulmonary [facility] 1.2.840.114 [id number] Univers 11:00:00 12:57:08 Visit Stone Fuentes 350.1.13. 10 ity of [facility] [place] [id number] [address] 2022-12-13 2022-12-13 Ancillary Therapist, [facility] Pulmonary [facility] 1.2.840.114 [id number] Univers 11:00:00 11:51:19 Visit tSone Fuentes 350.1.13. 10 ity of [facility] [place] [phone] Id dic[address] 2022-12-11 2022-12-11 Ancillary Therapist, [facility] Pulmonary [facility] 1.2.840.114 [id number] Univers 11:00:00 11:55:46 Visit Stone Fuentes 350.1.13. 10 ity of [place] [id number] [address] 2022-12-11 2022-12-11 Orders Doctor HERB 1.2.840.114 [id number] Univers 00:00:00 00:00:00 Only Unassigned, SHARLENE 350.1.13.10 ity of [place] [facility] 4.2.7.2.686 Eliot as [phone] [address] 2022-12-06 2022-12-06 Telephone Mariusz [facility] 1.2.302.882 [id number] Univers 00:00:00 00:00:00 Grazyna KENT 350.1.13.10 i ty of [facility] 4[place] [id number] Id dic[address] 2022-12-04 2022-12-04 Outpatient R GINA [facility] [id number] Univers 11:00:00 11:56:33 STONE ity of [facility] 2022-12-04 2022-12-04 Ancillary Therapist, [facility] Pulmonary [facility] 1.2.840.114 [id number] [facility] 11:00:00 11:56:33 Visit Stone Fuentes 350.1.13. 10 ity of [facility] [place] [id number] [address] 2022-11-29 2022-11-29 Ancillary Therapist, [facility] Pulmonary [facility] 1.2.840.114 [id number] [facility] 11:00:00 11:59:35 Visit Stone Fuentes 350.1.13. 10 ity of [place] [id number] [address] 2022-11-29 2022-11-[address] [facility] [place] 1.2.654.505 [id number] Univers 00:00:00 00:00:00 Grazyna C [place] 350.1.13.10 i ty [place] [id number] [address] 2022-11-29 2022-11-29 Orders Doctor HERB 1.2.840.114 [id number] Univers 00:00:00 00:00:00 Only Unassigned, SHARLENE 350.1.13.10 ity of [place] [facility] 4.2.7.2.686 [place] as [phone] [address] 2022-11-27 2022-11-[address] [facility] [place] 1.2.960.203 [id number] Univers 00:00:00 00:00:00 Grazyna C [place] 350.1.13.10 i ty of [facility] 4[place] [id number] [address] 2022-11-27 2022-11-27 [facility] 1.2.156.065 [id number] Univers 00:00:00 00:00:00 Grazyna C [place] 350.1.13.10 i ty of [place] [phone] Id dical [address] 2022-11-22 2022-11-22 Ancillary Therapist, Ad[facility] Pulmonary [facility] 1.2.840.114 [id number] Univers 14:00:00 14:30:00 Visit Stone Fuentes 350.1.13. 10 ity of [place] [id number] Id dic[address] 2022-11-22 2022-11-22 Telephone [facility] 1.2.111.429 [id number] Univers 00:00:00 00:00:00 Grazyna C [place] 350.1.13.10 i ty of [facility] 4.2.7.[place] [id number] Id dicmd NAL [address] [place] [address] 2022-11-20 2022-11-20 Ancillary Therapist, [facility] Pulmonary [facility] 1.2.840.114 [id number] Univers 11:00:00 12:07:55 Visit Stone Fuentes 350.1.13. 10 ity of [place] [phone] [address] 2022-11-20 2022-11-20 Orders Doctor HEBR 1.2.840.114 [id number] Univers 00:00:00 00:00:00 Only Unassigned, SHARLENE 350.1.13.10 [place] of [place] [facility] 4.2.7.2.686 [place] as [id number] [address] 2022-11-12 2022-11-12 Telephone [facility] 1.2.281.295 [id number] Univers 00:00:00 00:00:00 Grazyna C [place] 350.1.13.10 i ty [place] [id number] Id dical [address] 2022-11-08 2022-11-08 Ancillary Therapist, [facility] Pulmonary [facility] 1.2.840.114 [id number] Univers 11:00:00 11:53:50 Visit Stone Fuentes 350.1.13. 10 ity of [facility] 4.2.7.[place] [id number] [address] 2022-11-06 2022-11-06 Telephone Mariusz [facility] 1.2.138.360 [id number] Univers 00:00:00 00:00:00 Grazyna KENT 350.1.13.10 i ty [place] [id number] [address] 2022-11-02 2022-11-02 Outpatient R GINA [facility] [id number] Univers 11:00:00 12:59:18 STONE itnilda [facility] 2022-11-02 2022-11-02 Ancillary Therapist, [facility] Pulmonary [facility] 1.2.840.114 [id number] Univers 11:00:00 12:59:18 Visit Stone Fuentes 350.1.13. 10 ity [place] [id number] [address] 2022-11-02 2022-11-02 Orders Doctor ESTEVEZ 1.2.840.114 [id number] Univers 00:00:00 00:00:00 Only Unassigned, SHARLENE 350.1.13.10 [facility] 4.2.7.2.686 [place] as [phone] [address] 2022-11-01 2022-11-01 Ancillary Therapist, [facility] Pulmonary [facility] 1.2.840.114 [id number] Univers 11:00:00 11:51:38 Visit Stone Fuentes 350.1.13. 10 ity of [facility] 4.2.7.2.[place] [id number] Id dical [address] 2022-10-302022-10-30 Ancillary Therapist, [facility] Pulmonary [facility] 1.2.840.114 [id number] Univers 11:00:00 11:58:50 Visit Stone Fuentes 350.1.13. 10 ity of [place] [id number] Id dical NAL [address] [place] [address] 2022-10-26 2022-10-26 Ancillary Therapist, [facility] Pul[facility] 1.2.840.114 [id number] Univers 11:00:00 11:45:04 Visit Stone Fuentes 350.1.13. 10 ity of [place] [phone] Id dical NAL [address] [place] [address] 2022-10-25 2022-10-25 Ancillary Therapist, [facility] 1.2.840.114 [id number] [facility] 11:00:00 12:59:06 Visit Stone Fuentes 350.1.13. 10 ity of [facility] 4.2.7.2.[place] [phone] Id dical NAL [address] [place] [address] 2022-10-25 2022-10-25 Orders Doctor HERB 1.2.840.114 [id number] Univers 00:00:00 00:00:00 Only Unassigned, SHARLENE 350.1.13.10 ity of [place] [facility] 4.2.7.2.686 Eliot as [phone] [address] 2022-10-23 2022-10-23 Ancillary Therapist, [facility] Pulmonary [facility] 1.2.840.114 [id number] Univers 13:00:00 14:27:20 Visit Stone Fuentes 350.1.13. 10 ity of [place] [id number] Id dical NAL [address] [place] [address] 2022-10-18 2022-10-18 Ancillary Therapist, [facility] 1.2.840.114 [id number] [facility] 13:30:00 15:21:55 Visit Stone Fuentes 350.1.13. 10 ity of [place] 4.2.7.2.686 Josse FUCHS [id number] Id dical NAL [address] [facility] 2022-10-09 2022-10-09 Outpatient CHRIS WHITNEY MDA MDA [id number] 10:48:01 10:48:01 ARABELLA billings 2022-09-13 2022-09-13 Outpatient GORDON-AVENDA [facility] [id number] 15:40:00 15:40:00 NO, WARREN Jason [facility] 2022-07-20 2022-07-20 Outpatient CHRIS MESSINA, MDA MDA [id number] 09:37:54 23:59:00 ROOSEVELT billings 2022-07-20 2022-07-20 Outpatient CHRIS MESSINA MDA MDA [id number] 09:37:06 23:59:00 ROOSEVELT billings 2022-07-20 2022-07-20 Outpatient CHRIS WHITNEY MDA MDA [id number] 12:33:48 14:05:20 ARABELLA billings 2022-07-12 2022-07-13 Inpatient UR VOGEL [facility] [id number] 16:51:00 16:51:00 Javier GAMEZ 2022-07-13 2022-07-13 Inpatient CHRIS LOVE, MDA MDA [id number] 02:04:44 02:43:18 JULIANA field n 2022-06-22 2022-06-22 Outpatient CHRIS ESPINOSA, MDA MDA [id number] 08:56:19 23:59:00 FAUSTINO billings 2022-06-22 2022-06-22 Outpatient CHRIS ESPINOSA, MDA MDA [id number] 12:49:33 14:55:23 FAUSTINO billings 2022-06-22 2022-06-22 Outpatient CHRIS ESPINOSA, MDA MDA [id number] 09:18:08 09:18:08 FAUSTINO billings 2022-06-13 2022-06-13 Outpatient FOG_Torres_ AOSM AOSM [id number] Alicia 00:00:00 00:00:00 Cheyanne_NP [id number] Orth ope dic [facility] 2022-06-13 2022-06-13 Sagrario MOJICASM [place] - Ortho 2021 809 Alicia 00:00:00 00:00:00 Avalos, [place] - Or thope 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 [phone] 2022-06-13 2022-06-13 Outpatient LISSA Avalos AOSM [id number] [id number] 00:00:00 00:00:00 Sagrario Trejo [id number] 9194ed 2022-05-21 2022-05-21 Outpatient CHRIS DOVER MDA MDA [id number] 12:45:00 23:59:00 SILVA billings 2022-05-21 2022-05-21 Outpatient CHRIS DOVER MDA MDA [id number] 12:20:45 12:44:00 SILVA billings 2022-05-21 2022-05-21 Outpatient CHRIS DOVER MDA MDA [id number] 10:59:15 12:36:40 SILVA billings 2022-05-11 2022-05-11 Outpatient FOG_Torres_ AOSM AOSM [id number] Alicia 00:00:00 00:00:00 Diandrani_NP [id number] Orth ope dic Sports Medicin e 2022-05-11 2022-05-11 Sagrario MOJICASM [place] - Ortho 2021 707 Alicia 00:00:00 00:00:00 Avalos, [place] - Or thope 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 2022-01-05 2022-01-05 Outpatient CHRIS ROCK MDA MDA [id number] 11:14:13 23:59:00 ANJELICA billings 2022-01-05 2022-01-05 Outpatient EL PRANAV, MDA MDA [id number] MD 09:00:00 11:13:00 ANJELICA Herrera rso n 2022-01-05 2022-01-05 Outpatient CHRIS ROCK, MDA MDA [id number] MD 08:50:00 08:59:00 ANJELICA Herrera rso n 2022-01-05 2022-01-05 Outpatient CHRIS ROCK, MDA MDA [id number] MD 08:49:57 08:49:57 ANJELICA Herrera rso n 2022-01-05 2022-01-05 Outpatient CHRIS ROCK, MDA MDA [id number] MD 08:09:45 08:48:00 ANJELICA Herrera rso n 2022-01-05 2022-01-05 Outpatient CHRIS ROCK, MDA MDA [id number] MD 07:15:39 08:08:00 ANJELICA Herrera rso n 2021-12-29 2021-12-29 Outpatient CHRIS DIAS, MDA MDA [id number] MD 12:46:56 12:46:56 JANA billings 2021-12-25 2021-12-25 Outpatient CHRIS ROCK, MDA MDA [id number] MD 15:22:30 23:59:00 ANJELICA Herrera rso n 2021-12-25 2021-12-25 Outpatient CHRIS ROCK, MDA MDA [id number] MD 14:41:42 15:21:00 ANJELICA Herrera rso n 2021-12-25 2021-12-25 Outpatient CHRIS DOVER, MDA MDA [id number] MD 14:00:02 15:15:53 SILVA billings 2021-12-25 2021-12-25 Outpatient CHRIS DIAS, MDA MDA [id number] MD 11:09:16 11:52:34 JANA billings 2021-09-25 2021-09-25 Outpatient CHRIS DIAS, MDA MDA [id number] MD 08:08:58 10:04:23 JANA billings 2021-09-15 2021-09-16 Outpatient ER LULU, DEMIS MDA Emergency 1 [id number] 12:03:00 13:25:00 Vaughn billings 2021-09-02 2021-09-02 Outpatient EL MDA MDA [id number] MD 12:36:38 12:36:38 Vaughn billings 2021-08-18 2021-08-18 Outpatient EL WHITNEY, MDA MDA [id number] MD 10:02:16 10:02:16 ARABELLA billings 2021-06-26 2021-06-26 Outpatient EL WHITNEY, MDA MDA [id number] 10:50:15 11:13:08 ARABELLA billings 2021-06-23 2021-06-23 Outpatient EL TALI, MDA MDA [id number] MD 14:06:56 15:58:36 CLAUDIA billings 2021-06-08 2021-06-08 Outpatient EL DEVONTE, MDA MDA [id number] MD 13:51:51 23:59:00 ARABELLA billings 2021-06-08 2021-06-08 Outpatient EL DEVONTE, MDA MDA [id number] 12:47:17 12:47:17 ARABELLA billings 2021-05-26 2021-05-26 Outpatient EL TALI, MDA MDA [id number] MD 08:35:17 23:59:00 CLAUDIA billings 2021-05-26 2021-05-26 Outpatient EL TALI, MDA MDA [id number] MD 08:47:32 08:47:32 CLAUDIA billings 2021-05-02 2021-05-02 Outpatient EL KENYATTA, MDA MDA [id number] 09:10:58 09:10:58 ADONIS billings 2021-03-20 2021-03-20 Outpatient EL DOVER, MDA MDA [id number] 12:11:06 15:58:51 SILVA billings 2021-03-20 2021-03-20 Outpatient EL DEVONTE, MDA MDA [id number] 10:23:01 12:28:40 ARABELLA billings 2021-03-20 2021-03-20 Outpatient EL WHITNEY, MDA MDA [id number] MD 09:59:56 09:59:56 ARABELLA billings 2020-12-31 2020-12-31 Outpatient EL WHITNEY, MDA MDA [id number] 10:08:40 11:59:17 ARABELLA billings 2020-12-26 2020-12-26 Outpatient CHRIS DOVER, MDA MDA [id number] MD 09:25:14 23:59:00 SILVA billings 2020-12-26 2020-12-26 Outpatient CHRIS DOVER, MDA MDA [id number] MD 07:33:15 09:24:00 SILVA billings 2020-12-26 2020-12-26 Outpatient CHRIS DOVER, MDA MDA [id number] MD 07:33:00 07:33:00 SILVA billings 2020-12-26 2020-12-26 Outpatient CHRIS DOVER, MDA MDA [id number] 07:08:19 07:32:00 SILVA billings 2020-12-12 2020-12-12 Outpatient CHRIS DOVER, MDA MDA [id number] MD 08:59:11 23:59:00 SILVA billings 2020-12-12 2020-12-12 Outpatient DEVONTE, MDA MDA [id number] MD 11:22:35 11:22:35 ARABELLA billings 2020-12-12 2020-12-12 Outpatient PUSHPA, MDA MDA [id number] MD 08:33:58 11:00:10 JEANNE billings 2020-12-12 2020-12-12 Outpatient DEVONTE, MDA MDA [id number] MD 07:42:51 08:58:00 ARABELLA billings 2020-12-10 2020-12-10 Outpatient [facility], MDA MDA [id number] MD 10:14:40 10:33:36 TENA billings 2020-11-16 2020-11-16 Outpatient DEVONTE, MDA MDA [id number] MD 11:20:08 14:51:10 ARABELLA billings 2020-09-02 2020-09-02 Outpatient YOU, MDA MDA [id number] MD 13:40:49 13:40:49 ADONIS billings 2020-08-02 2020-08-02 [facility]patient [facility] MDA MDA [id number] 08:09:05 09:39:30 Jasmyn Billings 2020-08-02 2020-08-02 Outpatient EL TALI, MDA MDA [id number] MD 06:12:36 06:12:36 CLAUDIA billings 2020-07-25 2020-07-25 Outpatient EL TALI, MDA MDA [id number] MD 00:00:00 00:00:00 CLAUDIA billings 2020-06-21 2020-06-21 Outpatient EL WHITNEY, MDA MDA [id number] MD 07:40:19 23:59:00 ARABELLA billings 2020-06-21 2020-06-21 Outpatient EL WHITNEY, MDA MDA [id number] MD 07:40:01 23:59:00 ARABELLA billings 2020-06-21 2020-06-21 [facility] MDA [id number] MD 10:01:04 13:05:13 Jasmyn Billings 2020-06-21 2020-06-21 Outpatient EL MAYURI, MDA MDA [id number] MD 07:39:23 07:39:23 ROOSEVELT billings 2020-05-26 2020-05-26 Outpatient EL TALI, MDA MDA [id number] MD 12:36:31 12:36:31 CLAUDIA billings 2020-05-24 2020-05-24 Outpatient EL TALI, MDA MDA [id number] MD 12:36:47 12:50:04 CLAUDIA billings 2020-05-24 2020-05-24 Outpatient EL TALI, MDA MDA [id number] MD 09:50:14 12:16:05 CLAUDIA billings 2020-05-24 2020-05-24 Outpatient EL TALI, MDA MDA [id number] MD 08:26:51 08:26:51 CLAUDIA billings 2020-05-24 2020-05-24 Outpatient EL TALI, MDA MDA [id number] MD 08:00:39 08:00:39 CLAUDIA billings 2020-05-24 2020-05-24 Outpatient EL BREONNA, MDA MDA [id number] MD 07:06:16 07:06:16 UNIQUE billings 2020-05-24 2020-05-24 Outpatient EL TALI, MDA MDA [id number] MD 00:00:00 00:00:00 CLAUDIA billings 2016-04-13 2016-04-13 Outpatient [facility] [id number] 00:00:00 00:00:00 Vaughn billings Results This patient has no known results.
[2023-03-15] MEDS ORDERED: METHYLPREDNISOLONE 125 MG INJ ONE (03:01)
[2023-03-15] MEDS ORDERED: LEVALBUTEROL 1.25 MG/3 ML NEB ONE (03:02)
[2023-03-15 03:09] LABS: Absolute Lymphocytes (CBC) 2.4 K/uL (0.7-4.9); Hematocrit 40.7 % (39.6-49.0); MCV 87.2 fL (80-100); MPV 8.1 fL (7.6-11.3); RBC Red Blood Cell Count 4.67 M/uL (4.33-5.43)
[2023-03-15 03:25] LABS: Potassium 3.6 mEq/L (3.5-5.1); Troponin High Sensitivity 6.5 pg/mL (<58.9)
--- NOTE | 2023-03-15 06:19 | ER ---
Nurse's Notes [facility] Name: Clinton Arnold Age: 68 yrs Sex: Male : 1955 Arrival Date: 03/15/2023 Time: 02:23 Bed 19 Private MD: Diagnosis: Dyspnea, unspecified Presentation: 03/15 02:30 Chief complaint: Patient states: "I've been sick for a few weeks but for the last three vc1 days I've been really short of breath.". Coronavirus screen: Vaccine status: Patient reports receiving the 2nd dose of the covid vaccine. plus boosters; [employer] Client denies travel out of the [place] in the last 14 days. cough unrelated to allergies, muscle pain, shortness of breath, Client presents with at least one sign or symptom that may indicate coronavirus-19. Ebola Screen: Patient negative for fever greater than or equal to 101.5 degrees Fahrenheit, and additional compatible Ebola Virus Disease symptoms Patient denies exposure to infectious person. Patient denies travel to an Ebola-affected area in the 21 days before illness onset. No symptoms or risks identified at this time. 02:30 Method Of Arrival: Ambulatory vc1 02:30 Initial Sepsis Screen: Does the patient meet any 2 criteria? No. Patient's initial vc1 sepsis screen is negative. Does the patient have a suspected source of infection? No. Patient's initial sepsis screen is negative. Risk Assessment: Do you want to hurt yourself or someone else? Patient reports no desire to harm self or others. Onset of symptoms is unknown. 02:30 Acuity: [place] 3 vc1 Triage Assessment: 02:30 General: Appears in no apparent distress. uncomfortable, ill, Behavior is calm, vc1 cooperative, appropriate for age. Pain: Complains of pain in chest. EENT: No deficits noted. No signs and/or symptoms were reported regarding the EENT system. Neuro: Level of Consciousness is awake, alert, obeys commands, Oriented to person, place, time, situation, Appropriate for age. 02:30 Cardiovascular: Reports chest pain, shortness of breath, Chest pain is described as vc1 mild, quality is pressure, sharp, is located in chest wall is aggravated by coughing. Respiratory: Onset: The symptoms/episode began/occurred 3 weeks, the patient has mild shortness of breath. Respiratory: Reports shortness of breath at rest cough that is productive, pain with cough. GI: No deficits noted. No signs and/or symptoms were reported involving the gastrointestinal system. : No deficits noted. No signs and/or symptoms were reported regarding the genitourinary system. Derm: No deficits noted. No signs and/or symptoms reported regarding the dermatologic system. Musculoskeletal: No deficits noted. No signs and/or symptoms reported regarding the musculoskeletal system. Historical: - Allergies: 03:19 Prednisone; ha1 - PMHx: 03:19 Back pain; High Cholesterol; Hodgkin's Lymphoma; Hypertension; pulmonary fibrosis; ha1 - Immunization history:: Adult Immunizations up to date. - Social history:: Smoking status: Patient denies any tobacco usage or history of. - Family history:: not pertinent. - Hospitalizations: : No recent hospitalization is reported. Screenin:30 [facility] ED Fall Risk Assessment (Adult) History of falling in the last 3 months, vc1 including since admission No falls in past 3 months (0 pts) Confusion or Disorientation No (0 pts) Intoxicated or Sedated No (0 pts) Impaired Gait No (0 pts) Mobility Assist Device Used No (0 pt) Altered Elimination No (0 pt) Score/Fall Risk Level 0 - 2 = Low Risk Oriented to surroundings, Maintained a safe environment, Educated pt \\T\\ family on fall prevention, incl call for assistance when getting out of bed. 03:19 Abuse screen: Denies threats or abuse. Denies injuries from another. Nutritional ha1 screening: No deficits noted. Tuberculosis screening: No symptoms or risk factors identified. Assessment: 02:29 General: Appears comfortable, Behavior is calm, cooperative. Pain: Complains of pain in ha1 chest Pain does not radiate. Pain at worst was 8 out of 10 on a pain scale. Quality of pain is described as pressure, Aggravated by increased activity. Neuro: Level of Consciousness is awake, alert, obeys commands, Oriented to person, place, time, situation. Cardiovascular: Capillary refill < 3 seconds Patient's skin is warm and dry. Rhythm is sinus rhythm. Respiratory: Airway is patent Respiratory effort is even, unlabored, Respiratory pattern is regular, symmetrical, Breath sounds are clear bilaterally. Respiratory: Reports shortness of breath at rest. GI: No signs and/or symptoms were reported involving the gastrointestinal system. : No signs and/or symptoms were reported regarding the genitourinary system. Musculoskeletal: Circulation, motion, and sensation intact. Range of motion: intact in all extremities. 03:30 Reassessment: Patient and/or family updated on plan of care and expected duration. Pain ha1 level reassessed. Patient is alert, oriented x 3, equal unlabored respirations, skin warm/dry/pink. 04:30 Reassessment: Patient and/or family updated on plan of care and expected duration. Pain ha1 level reassessed. Patient is alert, oriented x 3, equal unlabored respirations, skin warm/dry/pink. 05:30 Reassessment: Patient and/or family updated on plan of care and expected duration. Pain ha1 level reassessed. Patient is alert, oriented x 3, equal unlabored respirations, skin warm/dry/pink. 06:14 Reassessment: Patient and/or family updated on plan of care and expected duration. Pain ha1 level reassessed. Patient is alert, oriented x 3, equal unlabored respirations, skin warm/dry/pink. Vital Signs: 02:30 BP 152 / 78; Pulse 70; Resp 22; Temp 98.5; Pulse Ox 98% on R/A; Weight 83.01 kg; Height vc1 5 ft. 7 in. ; 03:09 BP 127 / 69; Pulse 57; Resp 19; Pulse Ox 94% on R/A; kd3 03:21 BP 117 / 68; Pulse 61; Resp 20 S; Pulse Ox 97% on R/A; ha1 04:30 BP 126 / 66; Pulse 64; Resp 18 S; Pulse Ox 95% on R/A; ha1 05:30 BP 122 / 70; Pulse 64; Resp 17 S; Pulse Ox 98% on 2 lpm NC; ha1 06:00 BP 125 / 70; Pulse 54; Resp 16 S; Pulse Ox 94% on R/A; ha1 02:30 Body Mass Index 28.66 (83.01 kg, 170.18 cm) vc1 ED Course: 02:28 Patient arrived in ED. ja2 02:29 Jace Hannah MD is Attending Physician. rn 02:30 Inserted saline lock: 22 gauge in right antecubital area, using aseptic technique. ha1 Blood collected. 02:30 Arm band placed on left wrist. vc1 02:30 Patient has correct armband on for positive identification. Bed in low position. Call vc1 light in reach. Client placed on continuous cardiac and pulse oximetry monitoring. NIBP monitoring applied. 02:36 Bhakti Jarrett, RN is Primary Nurse. ha1 03:01 XRAY Chest (1 view) In Process Unspecified. EDMS 03:12 CBC with Diff Sent. kd3 03:12 Basic Metabolic Panel Sent. kd3 03:12 COVID-19 SARS RT PCR Sent. kd3 03:12 Flu Sent. kd3 03:12 BNP Sent. kd3 03:12 Troponin High Sensitivity Sent. kd3 03:37 Triage completed. vc1 04:37 CT Chest For PE Angio In Process Unspecified. EDMS 06:39 No provider procedures requiring assistance completed. IV discontinued, intact, ha1 bleeding controlled, No redness/swelling at site. Pressure dressing applied. Administered Medications: 03:17 Drug: Levalbuterol Inhalation 1.25 mg Route: Inhalation; ha1 03:30 Follow up: Response: No adverse reaction ha1 03:18 Not Given (Physician Discretion): MethylPrednisoLONE IVP 125 mg IVP once ha1 Medication: 03:42 VIS not applicable for this client. vc1 Outcome: 06:19 Discharge ordered by . rn 06:39 Discharged to home ambulatory. ha1 06:39 Condition: stable 06:39 Discharge instructions given to patient, Instructed on discharge instructions, follow up and referral plans. medication usage, Demonstrated understanding of instructions, follow-up care, medications, Prescriptions given X 1. 06:40 Patient left the ED. ha1 Signatures: Dispatcher [employer] EDAK Jace Hannah MD MD rn Alexander, Jessica ja2 Doucette, Kyli, RN RN kd3 Wilda Storey RN RN vc1 Bhakti Jarrett, RN RN ha1
--- NOTE | 2023-03-15 06:19 | EDPHYS ---
Physician Documentation [facility] Name: Clinton Arnold Age: 68 yrs Sex: Male : 1955 Arrival Date: 03/15/2023 Time: 02:23 Bed 19 Private MD: ED Physician Jace Hannah HPI: 03/15 04:23 This 68 yrs old Male presents to ER via Ambulatory with complaints of rn Breathing Difficulty, cough. 04:23 The patient has shortness of breath at rest, with light activity. Onset: The rn symptoms/episode began/occurred 3 week(s) ago. Duration: The symptoms are intermittent. The patient's shortness of breath is aggravated by coughing, light activity, is alleviated by nothing. Associated signs and symptoms: Pertinent positives: productive cough, Pertinent negatives: fever, hemoptysis. Severity of symptoms: At their worst the symptoms were mild in the emergency department the symptoms are unchanged. The patient has experienced similar episodes in the past. The patient has not recently seen a physician. Pt reports 3 weeks of cough and intermittent sob. Seen here with neg workup, f/u with pcp who prescribed augmentin, doesn't feel better. No fever. No hemoptysis. Reports recurrent respiratory infections annually. . Historical: - Allergies: 03:19 Prednisone; ha1 - PMHx: 03:19 Back pain; High Cholesterol; Hodgkin's Lymphoma; Hypertension; pulmonary fibrosis; ha1 - Immunization history:: Adult Immunizations up to date. - Social history:: Smoking status: Patient denies any tobacco usage or history of. - Family history:: not pertinent. - Hospitalizations: : No recent hospitalization is reported. ROS: 04:23 Constitutional: Negative for fever, chills, and weight loss, Cardiovascular: Negative rn for palpitations, and edema, Respiratory: Negative for wheezing Abdomen/GI: Negative for abdominal pain, nausea, vomiting, diarrhea, and constipation, MS/Extremity: Negative for injury and deformity, Skin: Negative for injury, rash, and discoloration, Neuro: Negative for headache, weakness, numbness, tingling, and seizure. Exam: 04:23 ECG was reviewed by the Attending Physician. rn 04:23 Constitutional: This is a well developed, well nourished patient who is awake, alert, rn and in no acute distress. Head/Face: Normocephalic, atraumatic. Cardiovascular: Regular rate and rhythm. No pulse deficits. Respiratory: No increased work of breathing, no retractions or nasal flaring. Abdomen/GI: Soft, non-tender Skin: Warm, dry MS/ Extremity: Pulses equal, no cyanosis. Neurovascular intact. Full, normal range of motion. Equal circumference. Neuro: Awake and alert, GCS 15 Vital Signs: 02:30 BP 152 / 78; Pulse 70; Resp 22; Temp 98.5; Pulse Ox 98% on R/A; Weight 83.01 kg; Height vc1 5 ft. 7 in. ; 03:09 BP 127 / 69; Pulse 57; Resp 19; Pulse Ox 94% on R/A; kd3 03:21 BP 117 / 68; Pulse 61; Resp 20 S; Pulse Ox 97% on R/A; ha1 04:30 BP 126 / 66; Pulse 64; Resp 18 S; Pulse Ox 95% on R/A; ha1 05:30 BP 122 / 70; Pulse 64; Resp 17 S; Pulse Ox 98% on 2 lpm NC; ha1 06:00 BP 125 / 70; Pulse 54; Resp 16 S; Pulse Ox 94% on R/A; ha1 02:30 Body Mass Index 28.66 (83.01 kg, 170.18 cm) vc1 MDM: 02:29 Patient medically screened. rn 06:17 Differential diagnosis: Anemia Anxiety Reaction Bronchitis CHF exacerbation, Chronic rn Obstructive Pulmonary Disease Myocardial Infarction pneumonia, Pneumothorax pulmonary edema, Pulmonary Embolism. Data reviewed: vital signs, nurses notes, lab test result(s), EKG, radiologic studies, CT scan, plain films, and as a result, I will discharge patient. Counseling: I had a detailed discussion with the patient and/or guardian regarding: the historical points, exam findings, and any diagnostic results supporting the discharge/admit diagnosis, lab results, radiology results, the need for outpatient follow up, to return to the emergency department if symptoms worsen or persist or if there are any questions or concerns that arise at home. Response to treatment: the patient's symptoms have markedly improved after treatment. Special discussion: I discussed with the patient/guardian in detail that at this point there is no indication for admission to the hospital. It is understood, however, that if the symptoms persist or worsen the patient needs to return immediately for re-evaluation. 03/15 02:40 Order name: CBC with Diff; Complete Time: 04:02 rn 03/15 02:40 Order name: Basic Metabolic Panel; Complete Time: 04:02 rn 03/15 02:40 Order name: COVID-19 SARS RT PCR; Complete Time: 04:02 rn 03/15 02:40 Order name: Flu; Complete Time: 04:02 rn 03/15 02:40 Order name: BNP; Complete Time: 04:02 rn 03/15 02:40 Order name: Troponin High Sensitivity; Complete Time: 04:02 rn 03/15 02:40 Order name: XRAY Chest (1 view) rn 03/15 02:40 Order name: CT Chest For PE Angio rn 03/15 02:40 Order name: EKG; Complete Time: 02:41 rn 03/15 02:40 Order name: IV Start; Complete Time: 03:12 rn 03/15 02:40 Order name: EKG - Nurse/Tech; Complete Time: 03:09 rn EC:23 Rate is 59 beats/min. Rhythm is regular. QRS [place] is Normal. CA interval is normal. QRS rn interval is normal. QT interval is normal. No Q waves. T waves are Normal. No ST changes noted. Clinical impression: Sinus bradycardia. Interpreted by me. Reviewed by me. Administered Medications: 03:17 Drug: Levalbuterol Inhalation 1.25 mg Route: Inhalation; ha1 03:30 Follow up: Response: No adverse reaction ha1 03:18 Not Given (Physician Discretion): MethylPrednisoLONE IVP 125 mg IVP once ha1 Disposition Summary: 03/15/23 06:19 Discharge Ordered Location: Home rn Problem: new rn Symptoms: have improved rn Condition: Stable rn Diagnosis - Dyspnea, unspecified rn Followup: rn - With: Private Physician - When: As needed - Reason: Recheck today's complaints, Re-evaluation by your physician Discharge Instructions: - Discharge Summary Sheet rn - Shortness of Breath, Adult rn Forms: - Medication Reconciliation Form rn - Thank You Letter rn - 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
[2023-03-15 07:02] VITALS: TEMP 98.5
[2023-03-15 07:09] VITALS: BP 125/70; O2SAT 94
--- NOTE | 2023-03-17 14:48 | EKG ---
Test Date: 2023-03-15 Test Time: 03:06:40 [employer]: [place] MEASUREMENT RESULTS: Intervals: Rate: 59 PA: 162 QRSD: 98 QT: 458 QTc: 453 [place]: P: 19 PA: 162 QRS: -16 T: 27 INTERPRETIVE STATEMENTS: Sinus bradycardia Minimal voltage criteria for LVH, may be normal variant Borderline ECG Compared to ECG 02/27/2023 02:48:53 Left ventricular hypertrophy now present Sinus rhythm no longer present Ventricular premature complex(es) no longer present Electronically Signed On 03-17-23 14:45:01 CDT by Jimmy Streeter
--- NOTE | 2023-03-19 10:07 | RAD REPORT ---
EXAM DESCRIPTION: RAD - Chest Single View - 03/15/2023 2:59 am CLINICAL HISTORY: The patient is 68 years old and is Male; Cough;Dyspnea [facility] MAIN TECHNIQUE: Frontal view of the chest. COMPARISON: 02/27/2023 chest radiograph FINDINGS: LUNGS: Expiratory lung volumes with exaggerated prominence of the bilateral pulmonary va sculature and interstitia. No focal consolidation. PLEURAL SPACE: No pleural effusion. No pneumothorax. HEART: Stable. MEDIASTINUM: Stable prominence of the cardiomediastinal silhouette, likely exaggerated secondary to portable technique, lordotic positioning, and patient body habitus. BONES/JOINTS: Unremarkable. IMPRESSION: Allowing for suboptimal technique and positioning, no acute findings in the chest. Electronically signed by: Forrest Kelly MD 03/15/2023 3:09 AM CDT Due to temporary technical issues with the PACS/Fluency reporting system, reports are being signed by the in house radiologist without review as a courtesy to ensure prompt reporting. The interpreting r adiologist is fully responsible for the content of the report.
--- NOTE | 2023-03-19 11:40 | RAD REPORT ---
EXAM DESCRIPTION: CT - Chest For Pe Angio - 03/15/2023 5:20 am CLINICAL HISTORY: Cough;Dyspnea COMPARISON: None. TECHNIQUE: CT CHEST ANGIOGRAPHY WITH IV CONTRAST on 03/15/2023 2:40 AM CDT. MIPS reconstructions were generated. This exam was performed according to our departmental dose-optimization program, which includes autom ated exposure control, adjustment of the mA and/or kV according to patient size and/or use of iterati ve reconstruction technique. MIP images were generated. FINDINGS: Thoracic aorta is normal in course and caliber without aneurysm or dissection. Pulmonary a rteries are adequately opacified without acute or chronic filling defects. The heart is moderately enlarged. There is no pericardial effusion. Intrathoracic lymph nodes are not enlarged. There is no pleural effusion, pleural thickening or pneumothorax. Central airways are patent. There i s extensive scarring, atelectasis and bronchiectasis in the lower lungs. There is mosaic attenuation of the lower lungs. There are no acute abnormalities within the limited images of the upper abdomen. There are no acute osseous findings. No suspicious bony lesions. IMPRESSION: Cardiomegaly with no aortic dissection or aneurysm. No pulmonary embolus. Bibasilar chronic changes with mosaic attenuation. Electronically signed by: Artemio Pardo MD 03/15/2023 5:02 AM CDT Due to temporary technical issues with the PACS/Fluency reporting system, reports are being signed by the in house radiologist without review as a courtesy to ensure prompt reporting. The interpreting r adiologist is fully responsible for the content of the report.
== END 2023-03-15 06:40 | disposition home or self-care (01) ==
LOC: ER 02:23
DX: R06.00 Dyspnea, unspecified (principal); R05.9 Cough, unspecified; I10 Essential (primary) hypertension; Z20.822 Contact with and (suspected) exposure to COVID-19; Z88.8 Allergy status to other drugs, medicaments and biological substances
CPT/HCPCS: 93005; 85025; 80048; 36415; 84484; 83880; 87804 ×2; 71275; 71045; 99284; U0003; Q9967; J7614; J2930

== ENCOUNTER 2024-08-26 03:29 | Emergency (ER) | payer OTHER ==
--- OUTSIDE RECORDS SUMMARY | 2024-08-26 03:34 | XMS REPORT | Continuity of Care Document ---
Author Name Unknown Address [address] [facility] [address] [place] [address] [facility] Address [address] [facility] [address] [place] [address] Care Team Providers Care Oil Well Shooter Name Role Phone Zora Whitney NP Primary Care Physician [phone] SYSTEM, PROVIDER NOT IN Attending Clinician Unav ailable WARREN CASTRO Attending Clinician UnaLUCRETIA Costello Attending Clinician Unavailable GERALD MENDEZ Attending Clinician Unavailable KATARZYNA LOVETT Attending Clinician Unavailable CONTRERAS NUNEZ Attending Clinician Unavailabl e Utp, Pft Pulm Attending Clinician Unavailable JO_Robbie_Cheyanne_NP Attending Clinician Unavail able Doctor Unassigned, [place] Attending Clinician U SILVA Garcia Attending Clinician Unavailable FAUSTINO ESPINOSA Attending Clinician Unavailable ZORA WHITNEY Attending Clinician Unavailable Grazyna Hairston Attending Clinician Unavailab STONE De Oliveira Attending Clinician Unavaila ble Therapist, [facility]monary Attending Clinician Nancy Stone Church MD Attending Clinician ROOSEVELT MESSINA Attending Clinician Unavailable NIKITA WILSON Attending Clinician JULIANA Villanueva Attending Clinician Unavailable Sagrario Avalos Attending Clinician [phone] ANJELICA ROCK Attending Clinician UnavailJANA Dtoson Attending Clinician Unavailable ANDREY LAWSON Attending Clinician Unavailable CLAUDIA CESAR Attending Clinician Unavailable ADONIS YOU Attending Clinician Unavailable ASHUTOSH BARROW Attending Clinician Unavail able TENA BHAKTA Attending Clinician Unavailable FUENTES DOLAN Attending Clinician UNIQUE Kenyon Attending Clinician Unavail able JO_Robbie_Cheyanne_NP Admitting Clinician Unavail able JULIANA LOVE Admitting Clinician Unavailable SILVIA LAW Admitting Clinician Unavailable Payers Payer Name Policy Type Policy Number Effective Date Expirati on Date Source [employer] MED[employer]ARE PPO [id number] 1 00:00:00 MEDICARE PART A AND B [id number] 2016 00:00:00 [employer] MED[employer]ARE PPO [id number] 1 00:00:00 Problems Condition Name Condition Details Condition Category Status Onset Date Resolution Date Last Treatment Date Treating Clinician Comments Source Lumbar radiculopa thy Lumbar Radiculopa thy Problem Active 7-08 00:00: 00 [facility] Pain in left knee Pain in Left Knee Problem Active 2019-11 0-01 00:00: 00 [facility] Lumbar spine ankylosis Lumbar Spine Ankylosis Problem Active 8-05 00:00: 00 [facility] Lumbosacra l spondylosi s Lumbosacra l Spondylosi s Problem Active -20 00:00: 00 [facility] Lumbar disc prolapse with radiculopa thy Lumbar Disc Prolapse with Radiculopa thy Problem Active 20 00:00: 00 [facility] Degenerati on of lumbar interverte bral disc Degenerati on of Lumbar Interverte bral Disc Problem Active 320 00:00: 00 [facility] 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 Problem Active 01-21 00:00: 00 [facility] Lumbosacra l spondylosi s with radiculopa thy Lumbosacra l Spondylosi s with Radiculopa thy Problem Active 01-23 00:00: 00 [facility] 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 Displaceme nt of Lumbar Interverte bral Disc without Myelopathy Problem Active 01-23 00:00: 00 [facility] Prepatella r bursitis Prepatella r Bursitis Problem Active 06-28 00:00: 00 [facility] 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 Problem Active 05-20 00:00: 00 [facility] Hypertensi ve disorder Hypertensi ve Disorder Problem Active 06-30 00:00: 00 [facility] Degenerati on of cervicotho racic interverte bral disc Degenerati on of Cervicotho racic Interverte bral Disc Problem Active 06-30 00:00: 00 [facility] Radiculiti s due to displaceme nt of lumbar interverte bral disc Radiculiti s Due to Displaceme nt of Lumbar Interverte bral Disc Problem Active 06-30 00:00: 00 [facility] No known active problems No known active problems Disease [facility] Allergies, Adverse Reactions, Alerts Allergy Name Allergy Type Status Severity Reaction(s) Onset Date Inactive Date Treating Clinician Comments Source Levoflox acin Propensi ty to adverse reaction s Active Other - See comments 2021-11 00:00: 00 Weakened muscles everywher e [facility] Methylpr ednisolo ne Propensi ty to adverse reaction s Active Hives 2021-11 00:00: 00 [facility] LEVOFLOX ACIN DRUG INGREDI Active High Other-Cmnt 2021-11 00:00: 00 [facility] METHYLPR EDNISOLO NE DRUG INGREDI Active High Hives 2-1 2-15 00:00: 00 [facility] PREDNISO LONE DRUG INGREDI Active Other 2020-0 2-24 00:00: 00 MD Karli billings PREDNISO LONE DRUG INGREDI Active Other 2020-0 2-24 00:00: 00 MD Karli billings PREDNISO LONE DRUG INGREDI Active Other 2020-0 2-24 00:00: 00 MD Karli billings PREDNISO LONE DRUG INGREDI Active Other 2020-0 2-24 00:00: 00 MD Karli billings PREDNISO LONE DRUG INGREDI Active Other 2020-0 2-24 00:00: 00 MD Karli billings PREDNISO LONE DRUG INGREDI Active Other 2020-0 2-24 00:00: 00 MD Karli billings PREDNISO LONE DRUG INGREDI Active Other 2020-0 2-24 00:00: 00 MD Karli billings PREDNISO LONE DRUG INGREDI Active Other 2020-0 2-24 00:00: 00 MD Karli billings PREDNISO LONE DRUG INGREDI Active Other 2020-0 2-24 00:00: 00 MD Karli billings PREDNISO LONE DRUG INGREDI Active Other 2020-0 2-24 00:00: 00 MD Karli billings PREDNISO LONE DRUG INGREDI Active Other 2020-0 2-24 00:00: 00 MD Karli billings PREDNISO LONE DRUG INGREDI Active Other 2020-0 2-24 00:00: 00 MD Karli billings PREDNISO LONE DRUG INGREDI Active Other 2020-0 2-24 00:00: 00 MD Karli billings PREDNISO LONE DRUG INGREDI Active Other 2020-0 2-24 00:00: 00 MD Karli billings PREDNISO LONE DRUG INGREDI Active Other 2020-0 2-24 00:00: 00 MD Karli billings PREDNISO LONE DRUG INGREDI Active Other 2020-0 2-24 00:00: 00 MD Karli billings PREDNISO LONE DRUG INGREDI Active Other 2020-0 2-24 00:00: 00 MD Karli billings PREDNISO LONE DRUG INGREDI Active Other 2020-0 2-24 00:00: 00 MD Karli billings PREDNISO LONE DRUG INGREDI Active Other 2020-0 2-24 00:00: 00 MD Karli billings PREDNISO LONE DRUG INGREDI Active Other 2020-0 2-24 00:00: 00 MD Karli billings PREDNISO LONE DRUG INGREDI Active Other 2020-0 2-24 00:00: 00 MD Karli billings PREDNISO LONE DRUG INGREDI Active Other 2020-0 2-24 00:00: 00 MD Karli billings PREDNISO LONE DRUG INGREDI Active Other 2020-0 2-24 00:00: 00 MD Karli billings PREDNISO LONE DRUG INGREDI Active Other 2020-0 2-24 00:00: 00 MD Karli billings PREDNISO LONE DRUG INGREDI Active Other 2020-0 2-24 00:00: 00 MD Karli billings PREDNISO LONE DRUG INGREDI Active Other 2020-0 2-24 00:00: 00 MD Karli billings PREDNISO LONE DRUG INGREDI Active Other 2020-0 2-24 00:00: 00 MD Karli billings PREDNISO LONE DRUG INGREDI Active Other 2020-0 2-24 00:00: 00 MD Karli billings PREDNISO LONE DRUG INGREDI Active Other 2020-0 2-24 00:00: 00 MD Karli billings PREDNISO LONE DRUG INGREDI Active Other 2020-0 2-24 00:00: 00 MD Karli billings PREDNISO LONE DRUG INGREDI Active Other 2020-0 2-24 00:00: 00 MD Karli billings PREDNISO LONE DRUG INGREDI Active Other 2020-0 2-24 00:00: 00 MD Karli billings PREDNISO LONE DRUG INGREDI Active Other 2020-0 2-24 00:00: 00 MD Karli billings PREDNISO LONE DRUG INGREDI Active Other 2020-0 2-24 00:00: 00 MD Karli billings PREDNISO LONE DRUG INGREDI Active Other 2020-0 2-24 00:00: 00 MD Karli billings PREDNISO LONE DRUG INGREDI Active Other 2020-0 2-24 00:00: 00 MD Karli billings PREDNISO LONE DRUG INGREDI Active Other 2020-0 2-24 00:00: 00 MD Karli billings PREDNISO LONE DRUG INGREDI Active Other 2020-0 2-24 00:00: 00 MD Karli billings PREDNISO LONE DRUG INGREDI Active Other 2020-0 2-24 00:00: 00 MD Karli billings PREDNISO LONE DRUG INGREDI Active Other 2020-0 2-24 00:00: 00 MD Karli billings PREDNISO LONE DRUG INGREDI Active Other 2020-0 2-24 00:00: 00 MD Karli billings PREDNISO LONE DRUG INGREDI Active Other 2020-0 2-24 00:00: 00 MD Karli billings PREDNISO LONE DRUG INGREDI Active Other 2020-0 2-24 00:00: 00 MD Karli billings PREDNISO LONE DRUG INGREDI Active Other 2020-0 2-24 00:00: 00 MD Karli billings PREDNISO LONE DRUG INGREDI Active Other 2020-0 2-24 00:00: 00 MD Karli billings PREDNISO LONE DRUG INGREDI Active Other 2020-0 2-24 00:00: 00 MD Karli billings PREDNISO LONE DRUG INGREDI Active Other 2020-0 2-24 00:00: 00 MD Karli billings PREDNISO LONE DRUG INGREDI Active Other 2020-0 2-24 00:00: 00 MD Karli ibllings PREDNISO LONE DRUG INGREDI Active Other 2020-0 2-24 00:00: 00 MD Karli billings PREDNISO LONE DRUG INGREDI Active Other 2020-0 2-24 00:00: 00 MD Karli billings PREDNISO LONE DRUG INGREDI Active Other 2020-0 2-24 00:00: 00 MD Karli billings PREDNISO LONE DRUG INGREDI Active Other 2020-0 2-24 00:00: 00 MD Karli billings PREDNISO LONE DRUG INGREDI Active Other 2020-0 2-24 00:00: 00 MD Karli billings PREDNISO LONE DRUG INGREDI Active Other 2020-0 2-24 00:00: 00 MD Karli billings PREDNISO LONE DRUG INGREDI Active Other 2020-0 2-24 00:00: 00 MD Karli billings PREDNISO LONE DRUG INGREDI Active Other 2020-0 2-24 00:00: 00 MD Karli billings PREDNISO LONE DRUG INGREDI Active Other 2020-0 2-24 00:00: 00 MD Karli billings PREDNISO LONE DRUG INGREDI Active Other 2020-0 2-24 00:00: 00 MD Karli billings PREDNISO LONE DRUG INGREDI Active Other 2020-0 2-24 00:00: 00 MD Karli billings PREDNISO LONE DRUG INGREDI Active Other 2020-0 2-24 00:00: 00 MD Karli billings PREDNISO LONE DRUG INGREDI Active Other 2020-0 2-24 00:00: 00 MD Karli billings PREDNISO LONE DRUG INGREDI Active Other 2020-0 2-24 00:00: 00 MD Karli billings PREDNISO LONE DRUG INGREDI Active Other 2020-0 2-24 00:00: 00 MD Karli billings PREDNISO LONE DRUG INGREDI Active Other 2020-0 2-24 00:00: 00 MD Karli billings PREDNISO LONE DRUG INGREDI Active Other 2020-0 2-24 00:00: 00 MD Karli billings PREDNISO LONE DRUG INGREDI Active Other 2020-0 2-24 00:00: 00 MD Karli billings PREDNISO LONE DRUG INGREDI Active Other 2020-0 2-24 00:00: 00 MD Karli billings PREDNISO LONE DRUG INGREDI Active Other 2020-0 2-24 00:00: 00 MD Karli billings PREDNISO LONE DRUG INGREDI Active Other 2020-0 2-24 00:00: 00 MD Karli billings PREDNISO LONE DRUG INGREDI Active Other 2020-0 2-24 00:00: 00 MD Karli billings PREDNISO LONE DRUG INGREDI Active Other 2020-0 2-24 00:00: 00 MD Karli billings PREDNISO LONE DRUG INGREDI Active Other 2020-0 2-24 00:00: 00 MD Karli billings PREDNISO LONE DRUG INGREDI Active Other 2020-0 2-24 00:00: 00 MD Karli billings PREDNISO LONE DRUG INGREDI Active Other 2020-0 2-24 00:00: 00 MD Karli billings PREDNISO LONE DRUG INGREDI Active Other 2020-0 2-24 00:00: 00 MD Karli billings PREDNISO LONE DRUG INGREDI Active Other 2020-0 2-24 00:00: 00 MD Karli billings PREDNISO LONE DRUG INGREDI Active Other 2020-0 2-24 00:00: 00 MD Karli billings PREDNISO LONE DRUG INGREDI Active Other 2020-0 2-24 00:00: 00 MD Karli billings PREDNISO LONE DRUG INGREDI Active Other 2020-0 2-24 00:00: 00 MD Karli billings PREDNISO LONE DRUG INGREDI Active Other 2020-0 2-24 00:00: 00 MD Karli billings PREDNISO LONE DRUG INGREDI Active Other 2020-0 2-24 00:00: 00 MD Karli billings PREDNISO LONE DRUG INGREDI Active Other 2020-0 2-24 00:00: 00 MD Karli billings PREDNISO LONE DRUG INGREDI Active Other 2020-0 2-24 00:00: 00 MD Karli billings PREDNISO LONE DRUG INGREDI Active Other 2020-0 2-24 00:00: 00 MD Karli billings PREDNISO LONE DRUG INGREDI Active Other 2020-0 2-24 00:00: 00 MD Karli billings PREDNISO LONE DRUG INGREDI Active Other 2020-0 2-24 00:00: 00 MD Karli billings PREDNISO LONE DRUG INGREDI Active Other 2020-0 2-24 00:00: 00 MD Karli billings PREDNISO LONE DRUG INGREDI Active Other 2020-0 2-24 00:00: 00 MD Karli billings PREDNISO LONE DRUG INGREDI Active Other 2020-0 2-24 00:00: 00 MD Karli billings PREDNISO LONE DRUG INGREDI Active Other 2020-0 2-24 00:00: 00 MD Karli billings PREDNISO LONE DRUG INGREDI Active Other 2020-0 2-24 00:00: 00 MD Karli billings PREDNISO LONE DRUG INGREDI Active Other 2020-0 2-24 00:00: 00 MD Karli billings PREDNISO LONE DRUG INGREDI Active Other 2020-0 2-24 00:00: 00 MD Karli billings PREDNISO LONE DRUG INGREDI Active Other 2020-0 2-24 00:00: 00 MD Karli billings PREDNISO LONE DRUG INGREDI Active Other 2020-0 2-24 00:00: 00 MD Karli billings PREDNISO LONE DRUG INGREDI Active Other 2020-0 2-24 00:00: 00 MD Karli billings PREDNISO LONE DRUG INGREDI Active Other 2020-0 2-24 00:00: 00 MD Karli billings PREDNISO LONE DRUG INGREDI Active Other 2020-0 2-24 00:00: 00 MD Karli billings PREDNISO LONE DRUG INGREDI Active Other 2020-0 2-24 00:00: 00 MD Karli billings PREDNISO LONE DRUG INGREDI Active Other 2020-0 2-24 00:00: 00 MD Karli billings PREDNISO LONE DRUG INGREDI Active Other 2020-0 2-24 00:00: 00 MD Karli billings PREDNISO LONE DRUG INGREDI Active Other 2020-0 2-24 00:00: 00 MD Karli billings PREDNISO LONE DRUG INGREDI Active Other 2020-0 2-24 00:00: 00 MD Karli billings PREDNISO LONE DRUG INGREDI Active Other 2020-0 2-24 00:00: 00 MD Karli billings PREDNISO LONE DRUG INGREDI Active Other 2020-0 2-24 00:00: 00 MD Karli billings PREDNISO LONE DRUG INGREDI Active Other 2020-0 2-24 00:00: 00 MD Karli billings PREDNISO LONE DRUG INGREDI Active Other 2020-0 2-24 00:00: 00 MD Karli billings PREDNISO LONE DRUG INGREDI Active Other 2020-0 2-24 00:00: 00 MD Karli billings PREDNISO LONE DRUG INGREDI Active Other 2020-0 2-24 00:00: 00 MD Karli billings PREDNISO LONE DRUG INGREDI Active Other 2020-0 2-24 00:00: 00 MD Karli billings PREDNISO LONE DRUG INGREDI Active Other 2020-0 2-24 00:00: 00 MD Karli billings PREDNISO LONE DRUG INGREDI Active Other 2020-0 2-24 00:00: 00 MD Karli billings PREDNISO LONE DRUG INGREDI Active Other 2020-0 2-24 00:00: 00 MD Karli billings PREDNISO LONE DRUG INGREDI Active Other 2020-0 2-24 00:00: 00 MD Karli billings PREDNISO LONE DRUG INGREDI Active Other 2020-0 2-24 00:00: 00 MD Karli billings PREDNISO LONE DRUG INGREDI Active Other 2020-0 2-24 00:00: 00 MD Karli billings PREDNISO LONE DRUG INGREDI Active Other 2020-0 2-24 00:00: 00 MD Karli billings PREDNISO LONE DRUG INGREDI Active Other 2020-0 2-24 00:00: 00 MD Karli billings PREDNISO LONE DRUG INGREDI Active Other 2020-0 2-24 00:00: 00 MD Karli billings PREDNISO LONE DRUG INGREDI Active Other 0 2-24 00:00: 00 MD Karli billings PREDNISO LONE DRUG INGREDI Active Other 0 2-24 00:00: 00 MD Karli billings PREDNISO LONE DRUG INGREDI Active Other 0 2-24 00:00: 00 MD Karli billings PREDNISO LONE DRUG INGREDI Active Other 0 224 00:00: 00 MD Karli billings Predniso lone Propensi ty to adverse reaction s Active 0 2-24 00:00: 00 Other reaction( s): Other (See Comments) Nausea, disorient ion [facility] LEVOFLOX ACIN DRUG INGREDI Active Other 0 816 00:00: 00 MD Karli billings LEVOFLOX ACIN DRUG INGREDI Active Other 20190 8-16 00:00: 00 MD Karli billings LEVOFLOX ACIN DRUG INGREDI Active Other 20190 816 00:00: 00 MD Karli billings LEVOFLOX ACIN DRUG INGREDI Active Other 2019-0 8-16 00:00: 00 MD Karli billings LEVOFLOX ACIN DRUG INGREDI Active Other 2019-0 8-16 00:00: 00 MD Karli billings LEVOFLOX ACIN DRUG INGREDI Active Other 2019-0 8-16 00:00: 00 MD Karli billings LEVOFLOX ACIN DRUG INGREDI Active Other 2019-0 8-16 00:00: 00 MD Karli billings LEVOFLOX ACIN DRUG INGREDI Active Other 20190 8-16 00:00: 00 MD Karli billings LEVOFLOX ACIN DRUG INGREDI Active Other 2019-0 8-16 00:00: 00 MD Karli billings LEVOFLOX ACIN DRUG INGREDI Active Other 2019-0 8-16 00:00: 00 MD Karli billings LEVOFLOX ACIN DRUG INGREDI Active Other 2019-0 8-16 00:00: 00 MD Karli billings LEVOFLOX ACIN DRUG INGREDI Active Other 2019-0 8-16 00:00: 00 MD Karli billings LEVOFLOX ACIN DRUG INGREDI Active Other 2019-0 8-16 00:00: 00 MD Karli billings LEVOFLOX ACIN DRUG INGREDI Active Other 2019-0 8-16 00:00: 00 MD Karil billings LEVOFLOX ACIN DRUG INGREDI Active Other 2019-0 8-16 00:00: 00 MD Karli billings LEVOFLOX ACIN DRUG INGREDI Active Other 2019-0 8-16 00:00: 00 MD Karli billings LEVOFLOX ACIN DRUG INGREDI Active Other 2019-0 8-16 00:00: 00 MD Karli billings LEVOFLOX ACIN DRUG INGREDI Active Other 2019-0 8-16 00:00: 00 MD Karli billings LEVOFLOX ACIN DRUG INGREDI Active Other 2019-0 8-16 00:00: 00 MD Karli billings LEVOFLOX ACIN DRUG INGREDI Active Other 2019-0 8-16 00:00: 00 MD Karli billings LEVOFLOX ACIN DRUG INGREDI Active Other 2019-0 8-16 00:00: 00 MD Karli billings LEVOFLOX ACIN DRUG INGREDI Active Other 2019-0 8-16 00:00: 00 MD Karli billings LEVOFLOX ACIN DRUG INGREDI Active Other 2019-0 8-16 00:00: 00 MD Karli billings LEVOFLOX ACIN DRUG INGREDI Active Other 2019-0 8-16 00:00: 00 MD Karli billings LEVOFLOX ACIN DRUG INGREDI Active Other 2019-0 8-16 00:00: 00 MD Karli billings LEVOFLOX ACIN DRUG INGREDI Active Other 2019-0 8-16 00:00: 00 MD Karli billings LEVOFLOX ACIN DRUG INGREDI Active Other 2019-0 8-16 00:00: 00 MD Karli billings LEVOFLOX ACIN DRUG INGREDI Active Other 2019-0 8-16 00:00: 00 MD Karli billings LEVOFLOX ACIN DRUG INGREDI Active Other 2019-0 8-16 00:00: 00 MD Karli billings LEVOFLOX ACIN DRUG INGREDI Active Other 2019-0 8-16 00:00: 00 MD Karli billings LEVOFLOX ACIN DRUG INGREDI Active Other 2019-0 8-16 00:00: 00 MD Karli billings LEVOFLOX ACIN DRUG INGREDI Active Other 2019-0 8-16 00:00: 00 MD Karli billings LEVOFLOX ACIN DRUG INGREDI Active Other 2019-0 8-16 00:00: 00 MD Karli billings LEVOFLOX ACIN DRUG INGREDI Active Other 2019-0 8-16 00:00: 00 MD Karli billings LEVOFLOX ACIN DRUG INGREDI Active Other 2019-0 8-16 00:00: 00 MD Karli billings LEVOFLOX ACIN DRUG INGREDI Active Other 2019-0 8-16 00:00: 00 MD Karli billings LEVOFLOX ACIN DRUG INGREDI Active Other 2019-0 8-16 00:00: 00 MD Karli billings LEVOFLOX ACIN DRUG INGREDI Active Other 2019-0 8-16 00:00: 00 MD Karli billings LEVOFLOX ACIN DRUG INGREDI Active Other 2019-0 8-16 00:00: 00 MD Karli billings LEVOFLOX ACIN DRUG INGREDI Active Other 2019-0 8-16 00:00: 00 MD Karli billings LEVOFLOX ACIN DRUG INGREDI Active Other 2019-0 8-16 00:00: 00 MD Karli billings LEVOFLOX ACIN DRUG INGREDI Active Other 2019-0 8-16 00:00: 00 MD Karli billings LEVOFLOX ACIN DRUG INGREDI Active Other 2019-0 8-16 00:00: 00 MD Karli billings LEVOFLOX ACIN DRUG INGREDI Active Other 2019-0 8-16 00:00: 00 MD Karli billings LEVOFLOX ACIN DRUG INGREDI Active Other 2019-0 8-16 00:00: 00 MD Karli billings LEVOFLOX ACIN DRUG INGREDI Active Other 2019-0 8-16 00:00: 00 MD Karli billings LEVOFLOX ACIN DRUG INGREDI Active Other 2019-0 8-16 00:00: 00 MD Karli billings LEVOFLOX ACIN DRUG INGREDI Active Other 2019-0 8-16 00:00: 00 MD Karli billings LEVOFLOX ACIN DRUG INGREDI Active Other 2019-0 8-16 00:00: 00 MD Karli billings LEVOFLOX ACIN DRUG INGREDI Active Other 2019-0 8-16 00:00: 00 MD Karli billings LEVOFLOX ACIN DRUG INGREDI Active Other 2019-0 8-16 00:00: 00 MD Karli billings LEVOFLOX ACIN DRUG INGREDI Active Other 2019-0 8-16 00:00: 00 MD Karli billings LEVOFLOX ACIN DRUG INGREDI Active Other 2019-0 8-16 00:00: 00 MD Karli billings LEVOFLOX ACIN DRUG INGREDI Active Other 2019-0 8-16 00:00: 00 MD Karli billings LEVOFLOX ACIN DRUG INGREDI Active Other 2019-0 8-16 00:00: 00 MD Karli billings LEVOFLOX ACIN DRUG INGREDI Active Other 2019-0 8-16 00:00: 00 MD Karli billings LEVOFLOX ACIN DRUG INGREDI Active Other 2019-0 8-16 00:00: 00 MD Karli billings LEVOFLOX ACIN DRUG INGREDI Active Other 2019-0 8-16 00:00: 00 MD Karli billings LEVOFLOX ACIN DRUG INGREDI Active Other 2019-0 8-16 00:00: 00 MD Karli billings LEVOFLOX ACIN DRUG INGREDI Active Other 2019-0 8-16 00:00: 00 MD Karli billings LEVOFLOX ACIN DRUG INGREDI Active Other 2019-0 8-16 00:00: 00 MD Karli billings LEVOFLOX ACIN DRUG INGREDI Active Other 2019-0 8-16 00:00: 00 MD Karli billings LEVOFLOX ACIN DRUG INGREDI Active Other 2019-0 8-16 00:00: 00 MD Karli billings LEVOFLOX ACIN DRUG INGREDI Active Other 2019-0 8-16 00:00: 00 MD Karli billings LEVOFLOX ACIN DRUG INGREDI Active Other 2019-0 8-16 00:00: 00 MD Karli billings LEVOFLOX ACIN DRUG INGREDI Active Other 2019-0 8-16 00:00: 00 MD Karli billings LEVOFLOX ACIN DRUG INGREDI Active Other 2019-0 8-16 00:00: 00 MD Karli billings LEVOFLOX ACIN DRUG INGREDI Active Other 2019-0 8-16 00:00: 00 MD Karli billings LEVOFLOX ACIN DRUG INGREDI Active Other 2019-0 8-16 00:00: 00 MD Karli billings LEVOFLOX ACIN DRUG INGREDI Active Other 2019-0 8-16 00:00: 00 MD Karli billings LEVOFLOX ACIN DRUG INGREDI Active Other 2019-0 8-16 00:00: 00 MD Karli billings LEVOFLOX ACIN DRUG INGREDI Active Other 2019-0 8-16 00:00: 00 MD Karli billings LEVOFLOX ACIN DRUG INGREDI Active Other 2019-0 8-16 00:00: 00 MD Karli billings LEVOFLOX ACIN DRUG INGREDI Active Other 2019-0 8-16 00:00: 00 MD Karli billings LEVOFLOX ACIN DRUG INGREDI Active Other 2019-0 8-16 00:00: 00 MD Krali billings LEVOFLOX ACIN DRUG INGREDI Active Other 2019-0 8-16 00:00: 00 MD Karli billings LEVOFLOX ACIN DRUG INGREDI Active Other 2019-0 8-16 00:00: 00 MD Anderso n LEVOFLOX ACIN DRUG INGREDI Active Other 2019-0 8-16 00:00: 00 MD Karli billings LEVOFLOX ACIN DRUG INGREDI Active Other 2019-0 8-16 00:00: 00 MD Karli billings LEVOFLOX ACIN DRUG INGREDI Active Other 2019-0 8-16 00:00: 00 MD Karli billings LEVOFLOX ACIN DRUG INGREDI Active Other 2019-0 8-16 00:00: 00 MD Karli billings LEVOFLOX ACIN DRUG INGREDI Active Other 2019-0 8-16 00:00: 00 MD Karli billings LEVOFLOX ACIN DRUG INGREDI Active Other 2019-0 8-16 00:00: 00 MD Karli billings LEVOFLOX ACIN DRUG INGREDI Active Other 2019-0 8-16 00:00: 00 MD Karli billings LEVOFLOX ACIN DRUG INGREDI Active Other 2019-0 8-16 00:00: 00 MD Karli billings LEVOFLOX ACIN DRUG INGREDI Active Other 2019-0 8-16 00:00: 00 MD Karli billings LEVOFLOX ACIN DRUG INGREDI Active Other 2019-0 8-16 00:00: 00 MD Karli billings LEVOFLOX ACIN DRUG INGREDI Active Other 2019-0 8-16 00:00: 00 MD Karli billings LEVOFLOX ACIN DRUG INGREDI Active Other 2019-0 8-16 00:00: 00 MD Karli billings LEVOFLOX ACIN DRUG INGREDI Active Other 2019-0 8-16 00:00: 00 MD Karli billings LEVOFLOX ACIN DRUG INGREDI Active Other 2019-0 8-16 00:00: 00 MD Karli billings LEVOFLOX ACIN DRUG INGREDI Active Other 2019-0 8-16 00:00: 00 MD Karli billings LEVOFLOX ACIN DRUG INGREDI Active Other 2019-0 8-16 00:00: 00 MD Karli billings LEVOFLOX ACIN DRUG INGREDI Active Other 2019-0 8-16 00:00: 00 MD Karli billings LEVOFLOX ACIN DRUG INGREDI Active Other 2019-0 8-16 00:00: 00 MD Karli billings LEVOFLOX ACIN DRUG INGREDI Active Other 2019-0 8-16 00:00: 00 MD Karli billings LEVOFLOX ACIN DRUG INGREDI Active Other 2019-0 8-16 00:00: 00 MD Karli billings LEVOFLOX ACIN DRUG INGREDI Active Other 2019-0 8-16 00:00: 00 MD Karli billings LEVOFLOX ACIN DRUG INGREDI Active Other 2019-0 8-16 00:00: 00 MD Karli billings LEVOFLOX ACIN DRUG INGREDI Active Other 2019-0 8-16 00:00: 00 MD Karli billings LEVOFLOX ACIN DRUG INGREDI Active Other 20190 816 00:00: 00 MD Karli billings LEVOFLOX ACIN DRUG INGREDI Active Other 20190 816 00:00: 00 MD Karli billings Levoflox acin Propensi ty to adverse reaction s Active 20190 816 00:00: 00 Other reaction( s): Other (See Comments) Tendon rupture 2018 (Biceps). [facility] LEVOFLOX ACIN DRUG INGREDI Active Other 20190 816 00:00: 00 MD Karli billings LEVOFLOX ACIN DRUG INGREDI Active Other 20190 816 00:00: 00 MD Karli billings LEVOFLOX ACIN DRUG INGREDI Active Other 2019-0 816 00:00: 00 MD Karli billings LEVOFLOX ACIN DRUG INGREDI Active Other 2019-0 816 00:00: 00 MD Karli billings LEVOFLOX ACIN DRUG INGREDI Active Other 2019-0 816 00:00: 00 MD Karli billings LEVOFLOX ACIN DRUG INGREDI Active Other 2019-0 816 00:00: 00 MD Karli billings LEVOFLOX ACIN DRUG INGREDI Active Other 2019-0 816 00:00: 00 MD Karli billings LEVOFLOX ACIN DRUG INGREDI Active Other 2019-0 816 00:00: 00 MD Karli billings LEVOFLOX ACIN DRUG INGREDI Active Other 2019-0 816 00:00: 00 MD Karli billings LEVOFLOX ACIN DRUG INGREDI Active Other 2019-0 8-16 00:00: 00 MD Karli [facility] Active Other 2019-0 8-16 00:00: 00 MD Karli billings [facility] Active Other 20190 8-16 00:00: 00 MD Karli billings [facility] Active Other 2019-0 816 00:00: 00 MD Karli billings [facility] Active Other 20190 816 00:00: 00 MD Karli billings [facility] Active Other 20190 8-16 00:00: 00 MD Karli billings [facility] Active Other 0 8-16 00:00: 00 MD Karli billings [facility] Active Other 20190 8-16 00:00: 00 MD Karli billings [facility] Active Other 0 8-16 00:00: 00 MD Karli billings [facility] Active Other 0 8-16 00:00: 00 MD Karli billings [facility] Active Other 0 8-16 00:00: 00 MD Karli billings [facility] Active Other 0 8-16 00:00: 00 MD Karli billings No Known Allergie s DA Active U 0 3 00:00: 00 [facility] No Known Allergie s DA Active U 0 01-27 00:00: 00 [facility] Neuronti n Allergy to substanc e Active 04-26 00:00: 00 [facility] Gabapent in Allergy to substanc e Active 04-26 00:00: 00 Other Reaction( s): Not available [facility] GABAPENT IN DRUG INGREDI Active Other 04-26 00:00: 00 MD Karli billings GABAPENT IN DRUG INGREDI Active Other 04-26 00:00: 00 MD Karli billings GABAPENT IN DRUG INGREDI Active Other 04-26 00:00: 00 MD Karli billings GABAPENT IN DRUG INGREDI Active Other 04-26 00:00: 00 MD Karli billings GABAPENT IN DRUG INGREDI Active Other 04-26 00:00: 00 MD Karli billings NO KNOWN ALLERGIE S Drug Class Active [facility] Social History Social Habit Start Date Stop Date Quantity Comments Source History of tobacco use Snuff User [facility] Exposure to SARS-CoV-2 (event) 2022-12-08 00:00:00 2022-12-18 11:57:00 Not sure [facility] Tobacco use and exposure 2022-10-18 00:00:00 2022-10-18 00:00:00 Former smokeless tobacco user [facility] Alcohol intake 2022-10-18 00:00:00 2022-10-18 00:00:00 .29 /d [facility] Tobacco Comment 2022-10-18 00:00:00 2022-10-18 00:00:00 Quit 30 yrs ago [facility] Alcohol Comment 2022-10-18 00:00:00 2022-10-18 00:00:00 reports drinks 1 beer q2wks; 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 Ordering Clinician Indication Dosage Frequency Signature (SIG) Comments Components Source predniSONE (Deltasone) 20 MG tablet 07-14 00:00: 00 Yes [id number] Take two tablets for 7 days. Then take one tablet for 7 days. [facility] pantoprazol e (Protonix) 40 MG EC tablet 07-14 00:00: 00 07-15 04:59 :00 Yes [id number] 40mg Q.5D Take 1 tablet (40 mg total) by mouth in the morning and 1 tablet (40 mg total) in the evening. Do not crush, chew, or split.. [facility] olopatadine (Patanol) 0.1 % ophthalmic solution 02-05 14:14: 55 Yes INSTILL ONE (1) DROP INTO AFFECTED EYE 2 TIMES PER DAY NEEDED. [facility] tamsulosin (Flomax) 0.4 MG 24 hr capsule 02-05 14:14: 55 Yes 1{capsu le} Take 1 capsule by mouth 1 (one) time each day in the evening. [facility] tadalafil (Cialis) 5 MG tablet 02-05 14:14: 55 Yes Cialis 5 mg tablet RX by other MD [facility] Multiple Vitamin (multivitam in) capsule 02-05 14:14: 55 Yes 1{capsu le} QD Take 1 capsule by mouth 1 (one) time each day. [facility] gabapentin (Neurontin) 300 MG capsule 02-05 14:14: 55 Yes 300mg Take 300 mg by mouth. [facility] aspirin 81 MG EC tablet 02-05 14:14: 55 Yes 81mg Take 81 mg by mouth. [facility] losartan (Cozaar) 50 MG tablet 02-05 14:14: 55 Yes 50mg QD Take 50 mg by mouth 1 (one) time each day. [facility] fluticasone (Flovent) 110 MCG/ACT inhaler 02-05 14:14: 55 Yes 1{puff} Q.5D Inhale 1 puff in the morning and 1 puff before bedtime. Rinse mouth with water after use to reduce aftertaste and incidence of candidiasi s. Do not swallow.. [facility] acetaminoph en-codeine (Tylenol w/ Codeine #3) 300-30 MG tablet 02-05 14:14: 55 Yes TAKE ONE (1) TABLET(S) BY MOUTH TWICE A DAY FOR COUGH AND CONGESTION . [facility] amoxicillin -clavulanat e (Augmentin) 875-125 MG tablet 02-05 14:14: 55 Yes 1{tbl} Q.5D Take 1 tablet by mouth in the morning and 1 tablet in the evening. [facility] cetirizine (ZyrTEC) 10 MG tablet 02-05 14:14: 55 Yes TAKE ONE (1) TABLET(S) BY MOUTH ONCE A DAY NEEDED FOR ALLERGY CONTROL. [facility] doxycycline (Vibra-Tabs ) 100 MG tablet 02-05 14:14: 55 Yes 1{tbl} Take 1 tablet by mouth in the morning and 1 tablet in the evening. Take with meals. [facility] famotidine (Pepcid) 20 MG tablet 02-05 14:14: 55 Yes 1{tbl} QD Take 1 tablet by mouth 1 (one) time each day. [facility] pantoprazol e (ProtoNix) 40 MG EC tablet 13:45: 12 00:00 :00 No QD 1 (one) time each day. [facility] tadalafil (Cialis) 5 MG tablet 12:58: 33 Yes Cialis 5 mg tablet RX by other MD [facility] Multiple Vitamin (multivitam in) capsule 12:58: 33 Yes 1{capsu le} QD Take 1 capsule by mouth 1 (one) time each day. [facility] gabapentin (Neurontin) 300 MG capsule 12:58: 33 Yes 300mg Take 300 mg by mouth. [facility] aspirin 81 MG EC tablet 12:58: 33 Yes 81mg Take 81 mg by mouth. [facility] losartan (Cozaar) 50 MG tablet 12:58: 33 Yes 50mg QD Take 50 mg by mouth 1 (one) time each day. [facility] acetaminoph en-codeine (Tylenol w/ Codeine #3) 300-30 MG tablet 12:58: 33 Yes TAKE ONE (1) TABLET(S) BY MOUTH TWICE A DAY FOR COUGH AND CONGESTION . [facility] cetirizine (ZyrTEC) 10 MG tablet 12:58: 33 Yes TAKE ONE (1) TABLET(S) BY MOUTH ONCE A DAY NEEDED FOR ALLERGY CONTROL. [facility] doxycycline (Vibra-Tabs ) 100 MG tablet 12:58: 33 Yes 1{tbl} Take 1 tablet by mouth in the morning and 1 tablet in the evening. Take with meals. [facility] olopatadine (Patanol) 0.1 % ophthalmic solution 12:58: 33 Yes INSTILL ONE (1) DROP INTO AFFECTED EYE 2 TIMES PER DAY NEEDED. [facility] tamsulosin (Flomax) 0.4 MG 24 hr capsule 12:58: 33 Yes 1{capsu le} Take 1 capsule by mouth 1 (one) time each day in the evening. [facility] fluticasone (Flovent) 110 MCG/ACT inhaler 12:58: 33 07-14 00:00 :00 No 1{puff} Q.5D Inhale 1 puff in the morning and 1 puff before bedtime. Rinse mouth with water after use to reduce aftertaste and incidence of candidiasi s. Do not swallow.. [facility] famotidine (Pepcid) 20 MG tablet 12:58: 33 07-14 00:00 :00 No 1{tbl} QD Take 1 tablet by mouth 1 (one) time each day. [facility] amoxicillin -clavulanat e (Augmentin) 875-125 MG tablet 12:58: 33 04-23 00:00 :00 No 1{tbl} Q.5D Take 1 tablet by mouth in the morning and 1 tablet in the evening. [facility] albuterol 108 (90 Base) MCG/ACT inhaler 00:00: 00 Yes [id number] INHALE ONE (1) TO TWO (2) PUFF(S) EVERY SIX HOURS NEEDED FOR WHEEZING OR SHORTNESS OF BREATH. [facility] pantoprazol e (Protonix) 40 MG EC tablet 00:00: 00 07-14 00:00 :00 No [id number] 40mg Take 1 tablet (40 mg total) by mouth 1 (one) time each day before breakfast. Do not crush, chew, or split. [facility] cholecalcif marleen (Vitamin D-3) 1.25 MG (69317 LA) capsule 07-26 00:00: 00 Yes 1{capsu le} Take 1 capsule by mouth 1 (one) time per week. [facility] sodium chloride 3.5 % Nebu 12-11 12:02: 54 Yes 1{ampul e} Inhale 1 Ampule 2 (two) times daily. Indication s: help clear secretions , per pt & MD Chou; reports takes separately from Albuterol. [facility] albuterol 90 mcg/actuati on inhaler 2021-11 14:38: 04 Yes 2{puff} Inhale 2 Puffs every 6 (six) hours as needed for Wheezing or Shortness of Breath. Indication s: per MD Chou [facility] fluticasone propionate (FLOVENT HFA) 110 mcg/actuati on inhaler 2021-11 14:38: 04 Yes 2{puff} Inhale 2 Puffs every 6 (six) hours. Indication s: PRN from MD Chou [facility] albuterol 2.5 mg/0.5 mL nebulizer solution 2021-11 14:38: 04 Yes 1{ampul e} Use 1 Ampule as directed in the morning and 1 Ampule in the evening. Indication s: from [facility] losartan 25 mg tablet 2021-11 14:38: 04 Yes 25mg Take 25 mg by mouth in the morning. Indication s: taking 50 mg daily per [facility] atorvastati n 80 mg tablet 2021-11 14:38: 04 Yes 80mg Take 80 mg by mouth at bedtime. Indication s: per [facility] tadalafiL 5 mg tablet 2021-11 14:38: 04 Yes 5mg Take 5 mg by mouth in the morning. Indication s: per [facility] gabapentin 300 mg capsule 2021-11 14:38: 04 Yes 300mg Take 300 mg by mouth in the morning and 300 mg in the evening. Indication s: per [facility] traMADoL 50 mg tablet 2021-11 14:38: 04 Yes 50mg Take 50 mg by mouth every 6 (six) hours as needed (usually takes at least daily, depending on level pain; per patient). [facility] magnesium gluconate 200 mg tablet 2021-11 14:38: 04 Yes 200mg Take 200 mg by mouth in the morning. Indication s: per patient; PCP ordered [facility] cholecalcif marleen, vitamin D3, (VITAMIN D3) 25 mcg (1,000 unit) tablet 2021-11 14:38: 04 Yes 1000U Take 1,000 Units by mouth in the morning. Indication s: per pt, PCP ordered [facility] aspirin 81 mg EC tablet 2021-11 14:38: 04 Yes 81mg Take 81 mg by mouth in the morning. Indication s: per pt from Cardiolog[facility], [facility] magnesium gluconate 200 mg tablet 2021-11 14:38: 04 Yes 200mg Take 200 mg by mouth in the morning. Indication s: per patient; PCP ordered [facility] fluticasone -vilanterol (BREO ELIPTA) 100-25 MCG/INH inhaler 07-23 00:00: 00 07-14 00:00 :00 No 1{inhal ation} QD Inhale 1 Inhalation 1 (one) time each day. [facility] senna-docus ate (Jackelin-Colac e) 8.6-50 MG tablet 07-13 00:00: 00 Yes 2{tbl} Q.5D Take 2 tablets by mouth in the morning and 2 tablets before bedtime. [facility] albuterol 108 (90 Base) MCG/ACT inhaler 07-12 00:00: 00 00:00 :00 No INHALE ONE (1) TO TWO (2) PUFF(S) EVERY SIX HOURS NEEDED FOR WHEEZING OR SHORTNESS OF BREATH. [facility] atorvastati n (Lipitor) 80 MG tablet 05-21 00:00: 00 Yes 80mg Take 80 mg by mouth. [facility] gabapentin 300 mg tablet gabapentin 300 mg tablet 05-16 00:00: 00 No gabapentin 300 mg tablet [facility] sodium chloride 3.5 % nebulizer solution nebulizer solution 05-11 00:00: 00 Yes 1{vial} Inhale 1 vial. [facility] triamcinolo ne (Kenalog) 0.1 % ointment 05-04 00:00: 00 Yes APPLY TOPICALLY TO ITCHY AREAS ON THE LEGS TWICE DAILY NEEDED FOR ITCHING [facility] Valium 5 mg tablet Take one tablet one hour before the MRI and 2nd one right before the study if still needed Valium 5 mg tablet Take one tablet one hour before the MRI and 2nd one right before the study if still needed 2019-11 00:00: 00 No Valium 5 mg tablet Take one tablet one hour before the MRI and 2nd one right before the study if still needed [facility] Lyrica 75 mg capsule Lyrica 75 mg capsule 01-22 00:00: 00 No Lyrica 75 mg capsule [facility] Multiple Vitamin Multiple Vitamin 05-06 00:00: 00 No Multiple Vitamin [facility] pantoprazol e 40 mg intravenous solution pantoprazol e 40 mg intravenous solution 05-06 00:00: 00 No pantoprazo le 40 mg intravenou s solution [facility] Symbicort 80 mcg-4.5 mcg/actuati on HFA aerosol inhaler Symbicort 80 mcg-4.5 mcg/actuati on HFA aerosol inhaler 05-06 00:00: 00 No Symbicort 80 mcg-4.5 mcg/actuat ion HFA aerosol inhaler [facility] Vickie Low Dose Aspirin 81 mg tablet,mike yed release Vickie Low Dose Aspirin 81 mg tablet,mike yed release 05-06 00:00: 00 No Vickie Low Dose Aspirin 81 mg tablet,del ayed release [facility] Flonase 50 mcg/actuati on nasal spray,suspe nsion Flonase 50 mcg/actuati on nasal spray,suspe nsion 05-06 00:00: 00 No Flonase 50 mcg/actuat ion nasal spray,susp ension [facility] Celebrex 200 mg capsule Celebrex 200 mg capsule 04-09 00:00: 00 No Celebrex 200 mg capsule [facility] Naprelan CR 500 mg tab,extende d release 24 hr mphase Naprelan CR 500 mg tab,extende d release 24 hr mphase 05-12 00:00: 00 No Naprelan CR 500 mg tab,extend ed release 24 hr mphase [facility] pravastatin 40 mg tablet pravastatin 40 mg tablet 05-12 00:00: 00 No pravastati n 40 mg tablet [facility] Valium 10 mg tablet TAKE 1 PO 15 MINUTES PRIOR TO PROCEDURE THEN 1 IMMEDIATELY PRIOR TO PROCEDURE Valium 10 mg tablet TAKE 1 PO 15 MINUTES PRIOR TO PROCEDURE THEN 1 IMMEDIATELY PRIOR TO PROCEDURE 2012-11 00:00: 00 No Valium 10 mg tablet TAKE 1 PO 15 MINUTES PRIOR TO PROCEDURE THEN 1 IMMEDIATEL Y PRIOR TO PROCEDURE [facility] cyclobenzap rine 10 mg tablet Take 1 tablet twice a day by oral route for 30 days. cyclobenzap rine 10 mg tablet Take 1 tablet twice a day by oral route for 30 days. No 1 BID cyclobenza janell 10 mg tablet Take 1 tablet twice a day by oral route for 30 days. [facility] losartan 25 mg tablet Take 1 tablet every day by oral route as directed. losartan 25 mg tablet Take 1 tablet every day by oral route as directed. No 1 Q1D losartan 25 mg tablet Take 1 tablet every day by oral route as directed. [facility] Plavix 75 mg tablet Take 1 tablet every day by oral route as directed. Plavix 75 mg tablet Take 1 tablet every day by oral route as directed. No 1 Q1D Plavix 75 mg tablet Take 1 tablet every day by oral route as directed. [facility] SB Low Dose ASA EC 81 mg tablet,mike yed release Take 1 tablet every day by oral route as directed. SB Low Dose ASA EC 81 mg tablet,mike yed release Take 1 tablet every day by oral route as directed. No 1 Q1D SB Low Dose ASA EC 81 mg tablet,del ayed release Take 1 tablet every day by oral route as directed. [facility] Singulair 10 mg tablet Take 1 tablet every day by oral route as directed. Singulair 10 mg tablet Take 1 tablet every day by oral route as directed. No 1 Q1D Singulair 10 mg tablet Take 1 tablet every day by oral route as directed. [facility] Symbicort 160 mcg-4.5 mcg/actuati on HFA aerosol inhaler Inhale 2 puffs twice a day by inhalation route as directed. Symbicort 160 mcg-4.5 mcg/actuati on HFA aerosol inhaler Inhale 2 puffs twice a day by inhalation route as directed. No 2puff(s ) BID Symbicort 160 mcg-4.5 mcg/actuat ion HFA aerosol inhaler Inhale 2 puffs twice a day by inhalation route as directed. [facility] tramadol 50 mg tablet Take 1 tablet 3 times a day by oral route as needed for 30 days. tramadol 50 mg tablet Take 1 tablet 3 times a day by oral route as needed for 30 days. No 1 TID tramadol 50 mg tablet Take 1 tablet 3 times a day by oral route as needed for 30 days. [facility] atorvastati n 40 mg tablet Take 1 tablet every day by oral route as directed. atorvastati n 40 mg tablet Take 1 tablet every day by oral route as directed. No 1 Q1D atorvastat in 40 mg tablet Take 1 tablet every day by oral route as directed. [facility] Cialis 5 mg tablet RX by other Cialis 5 mg tablet RX by other MD Schafer Cialis 5 mg tablet RX by other MD [facility] cyclobenzap rine 10 mg tablet Take 1 tablet twice a day by oral route for 30 days. cyclobenzap rine 10 mg tablet Take 1 tablet twice a day by oral route for 30 days. No 1 BID cyclobenza janell 10 mg tablet Take 1 tablet twice a day by oral route for 30 days. [facility] gabapentin 300 mg capsule Take 1 capsule 3 times a day by oral route for 30 days. gabapentin 300 mg capsule Take 1 capsule 3 times a day by oral route for 30 days. No 1capsul e(s) TID gabapentin 300 mg capsule Take 1 capsule 3 times a day by oral route for 30 days. [facility] losartan 25 mg tablet Take 1 tablet every day by oral route as directed. losartan 25 mg tablet Take 1 tablet every day by oral route as directed. No 1 Q1D losartan 25 mg tablet Take 1 tablet every day by oral route as directed. [facility] pantoprazol e 40 mg tablet,mike yed release Take 1 tablet every day by oral route as directed. pantoprazol e 40 mg tablet,mike yed release Take 1 tablet every day by oral route as directed. No 1 Q1D pantoprazo le 40 mg tablet,del ayed release Take 1 tablet every day by oral route as directed. [facility] Plavix 75 mg tablet Take 1 tablet every day by oral route as directed. Plavix 75 mg tablet Take 1 tablet every day by oral route as directed. No 1 Q1D Plavix 75 mg tablet Take 1 tablet every day by oral route as directed. [facility] SB Low Dose ASA EC 81 mg tablet,mike yed release Take 1 tablet every day by oral route as directed. SB Low Dose ASA EC 81 mg tablet,mike yed release Take 1 tablet every day by oral route as directed. No 1 Q1D SB Low Dose ASA EC 81 mg tablet,del ayed release Take 1 tablet every day by oral route as directed. [facility] Singulair 10 mg tablet Take 1 tablet every day by oral route as directed. Singulair 10 mg tablet Take 1 tablet every day by oral route as directed. No 1 Q1D Singulair 10 mg tablet Take 1 tablet every day by oral route as directed. [facility] Symbicort 160 mcg-4.5 mcg/actuati on HFA aerosol inhaler Inhale 2 puffs twice a day by inhalation route as directed. Symbicort 160 mcg-4.5 mcg/actuati on HFA aerosol inhaler Inhale 2 puffs twice a day by inhalation route as directed. No 2puff(s ) BID Symbicort 160 mcg-4.5 mcg/actuat ion HFA aerosol inhaler Inhale 2 puffs twice a day by inhalation route as directed. [facility] tramadol 50 mg tablet Take 1 tablet 3 times a day by oral route as needed for 30 days. tramadol 50 mg tablet Take 1 tablet 3 times a day by oral route as needed for 30 days. No 1 TID tramadol 50 mg tablet Take 1 tablet 3 times a day by oral route as needed for 30 days. [facility] albuterol sulfate HFA 90 mcg/actuati on aerosol inhaler INHALE ONE (1) TO TWO (2) PUFF(S) EVERY SIX HOURS NEEDED FOR WHEEZING OR SHORTNESS OF BREATH. albuterol sulfate HFA 90 mcg/actuati on aerosol inhaler INHALE ONE (1) TO TWO (2) PUFF(S) EVERY SIX HOURS NEEDED FOR WHEEZING OR SHORTNESS OF BREATH. No albuterol sulfate HFA 90 mcg/actuat ion aerosol inhaler INHALE ONE (1) TO TWO (2) PUFF(S) EVERY SIX HOURS NEEDED FOR WHEEZING OR SHORTNESS OF BREATH. [facility] atorvastati n 40 mg tablet Take 1 tablet every day by oral route as directed. atorvastati n 40 mg tablet Take 1 tablet every day by oral route as directed. No 1 Q1D atorvastat in 40 mg tablet Take 1 tablet every day by oral route as directed. [facility] dexamethaso ne 1 mg tablet TAKE ONE (1) TABLET BY MOUTH THREE TIMES A DAY. dexamethaso ne 1 mg tablet TAKE ONE (1) TABLET BY MOUTH THREE TIMES A DAY. No dexamethas one 1 mg tablet TAKE ONE (1) TABLET BY MOUTH THREE TIMES A DAY. [facility] losartan 25 mg tablet Take 1 tablet every day by oral route as directed. losartan 25 mg tablet Take 1 tablet every day by oral route as directed. No 1 Q1D losartan 25 mg tablet Take 1 tablet every day by oral route as directed. [facility] meclizine 25 mg tablet TAKE ONE (1) TABLET(S) BY MOUTH EVERY EIGHT HOURS NEEDED. meclizine 25 mg tablet TAKE ONE (1) TABLET(S) BY MOUTH EVERY EIGHT HOURS NEEDED. No meclizine 25 mg tablet TAKE ONE (1) TABLET(S) BY MOUTH EVERY EIGHT HOURS NEEDED. [facility] pantoprazol e 40 mg tablet,mike yed release Take 1 tablet every day by oral route as directed. pantoprazol e 40 mg tablet,mike yed release Take 1 tablet every day by oral route as directed. No 1 Q1D pantoprazo le 40 mg tablet,del ayed release Take 1 tablet every day by oral route as directed. [facility] Plavix 75 mg tablet Take 1 tablet every day by oral route as directed. Plavix 75 mg tablet Take 1 tablet every day by oral route as directed. No 1 Q1D Plavix 75 mg tablet Take 1 tablet every day by oral route as directed. [facility] promethazin e-DM 6.25 mg-15 mg/5 mL oral syrup TAKE 5-10 MLS BY MOUTH THREE TIMES A DAY NEEDED. promethazin e-DM 6.25 mg-15 mg/5 mL oral syrup TAKE 5-10 MLS BY MOUTH THREE TIMES A DAY NEEDED. No promethazi ne-DM 6.25 mg-15 mg/5 mL oral syrup TAKE 5-10 MLS BY MOUTH THREE TIMES A DAY NEEDED. [facility] SB Low Dose ASA EC 81 mg tablet,mike yed release Take 1 tablet every day by oral route as directed. SB Low Dose ASA EC 81 mg tablet,mike yed release Take 1 tablet every day by oral route as directed. No 1 Q1D SB Low Dose ASA EC 81 mg tablet,del ayed release Take 1 tablet every day by oral route as directed. [facility] Singulair 10 mg tablet Take 1 tablet every day by oral route as directed. Singulair 10 mg tablet Take 1 tablet every day by oral route as directed. No 1 Q1D Singulair 10 mg tablet Take 1 tablet every day by oral route as directed. [facility] Symbicort 160 mcg-4.5 mcg/actuati on HFA aerosol inhaler Inhale 2 puffs twice a day by inhalation route as directed. Symbicort 160 mcg-4.5 mcg/actuati on HFA aerosol inhaler Inhale 2 puffs twice a day by inhalation route as directed. No 2puff(s ) BID Symbicort 160 mcg-4.5 mcg/actuat ion HFA aerosol inhaler Inhale 2 puffs twice a day by inhalation route as directed. [facility] atorvastati n 40 mg tablet Take 1 tablet every day by oral route as directed. atorvastati n 40 mg tablet Take 1 tablet every day by oral route as directed. No 1 Q1D atorvastat in 40 mg tablet Take 1 tablet every day by oral route as directed. [facility] Cialis 5 mg tablet RX by other MD Cruzs 5 mg tablet RX by other No Cialis 5 mg tablet RX by other MD [facility] Immunizations Ordered Immunization Name Filled Immunization Name Date Status Comments Jackelyn rce Pneumococcal Conjugate PCV 13 Unknown Completed [facility] Respiratory syncytial virus (RSV), adult Unknown Completed [facility] Pneumococcal Conjugate PCV 13 Unknown Completed [facility] Respiratory syncytial virus (RSV), adult Unknown Completed [facility] Pneumococcal Conjugate PCV 13 Unknown Completed [facility] Respiratory syncytial virus (RSV), adult Unknown Completed [facility] Pneumococcal Conjugate PCV 13 Unknown Completed [facility] Respiratory syncytial virus (RSV), adult Unknown Completed [facility] Vital Signs Vital Name Observation Time Observation Value Comments S ource Systolic blood pressure 2024-07-14 18:31:00 129 mm[Hg] [facility] Diastolic blood pressure 2024-07-14 18:31:00 71 mm[Hg] [facility] Heart rate 2024-07-14 18:31:00 74 /min [facility] Respiratory rate 2024-07-14 18:31:00 18 /min [facility] Body height 2024-07-14 18:31:00 170.2 cm [facility] Body weight 2024-07-14 18:31:00 84.278 kg [facility] BMI 2024-07-14 18:31:00 29.10 kg/m2 [facility] Oxygen saturation in Arterial blood by Pulse oximetry 2024-07-14 18:31:00 96 /min [facility] Systolic blood pressure 2024-02-06 19:14:00 153 mm[Hg] [facility] Diastolic blood pressure 2024-02-06 19:14:00 74 mm[Hg] [facility] Heart rate 2024-02-06 19:14:00 79 /min [facility] Respiratory rate 2024-02-06 19:14:00 18 /min [facility] Body height 2024-02-06 19:14:00 170.2 cm [facility] Body weight 2024-02-06 19:14:00 82.101 kg [facility] BMI 2024-02-06 19:14:00 28.35 kg/m2 [facility] Oxygen saturation in Arterial blood by Pulse oximetry 2024-02-06 19:14:00 95 /min [facility] Systolic blood pressure 2024-01-02 18:55:00 161 mm[Hg] patient states it is high due to white coat syndrome [facility] Diastolic blood pressure 2024-01-02 18:55:00 88 mm[Hg] patient states it is high due to white coat syndrome [facility] Heart rate 2024-01-02 18:55:00 80 /min [facility] Respiratory rate 2024-01-02 18:55:00 16 /min [facility] Body height 2024-01-02 18:55:00 167.6 cm [facility] Body weight 2024-01-02 18:55:00 84.369 kg [facility] BMI 2024-01-02 18:55:00 30.02 kg/m2 [facility] Oxygen saturation in Arterial blood by Pulse oximetry 2024-01-02 18:55:00 95 /min [facility] Systolic blood pressure 2022-12-18 19:31:00 122 mm[Hg] manual; before 6MW [facility] Diastolic blood pressure 2022-12-18 19:31:00 60 mm[Hg] manual; before 6MW [facility] Heart rate 2022-12-18 19:31:00 60 /min [facility] Respiratory rate 2022-12-18 19:31:00 22 /min [facility] Body weight 2022-12-18 19:31:00 82.918 kg [facility] Oxygen saturation in Arterial blood by Pulse oximetry 2022-12-18 19:31:00 97 /min arrived on RA; 6MW done on RA [facility] Systolic blood pressure 2022-12-13 17:00:00 122 mm[Hg] manual [facility] Diastolic blood pressure 2022-12-13 17:00:00 58 mm[Hg] manual [facility] Heart rate 2022-12-13 17:00:00 82 /min [facility] Respiratory rate 2022-12-13 17:00:00 22 /min [facility] Body weight 2022-12-13 17:00:00 83.28 kg [facility] Oxygen saturation in Arterial blood by Pulse oximetry 2022-12-13 17:00:00 97 /min arrived on RA; exercised on RA [facility] Systolic blood pressure 2022-12-11 17:00:00 120 mm[Hg] manual [facility] Diastolic blood pressure 2022-12-11 17:00:00 56 mm[Hg] manual [facility] Heart rate 2022-12-11 17:00:00 77 /min [facility] Respiratory rate 2022-12-11 17:00:00 22 /min [facility] Body weight 2022-12-11 17:00:00 83.643 kg [facility] Oxygen saturation in Arterial blood by Pulse oximetry 2022-12-11 17:00:00 98 /min arrived on RA; exercised on RA [facility] Systolic blood pressure 2022-12-04 17:00:00 124 mm[Hg] manual [facility] Diastolic blood pressure 2022-12-04 17:00:00 58 mm[Hg] manual [facility] Heart rate 2022-12-04 17:00:00 84 /min [facility] Respiratory rate 2022-12-04 17:00:00 22 /min [facility] Body weight 2022-12-04 17:00:00 83.19 kg [facility] Oxygen saturation in Arterial blood by Pulse oximetry 2022-12-04 17:00:00 98 /min arrived on RA; exercised on RA [facility] Systolic blood pressure 2022-11-29 17:00:00 124 mm[Hg] manual [facility] Diastolic blood pressure 2022-11-29 17:00:00 50 mm[Hg] manual [facility] Heart rate 2022-11-29 17:00:00 83 /min [facility] Respiratory rate 2022-11-29 17:00:00 24 /min [facility] Body weight 2022-11-29 17:00:00 83.008 kg [facility] Oxygen saturation in Arterial blood by Pulse oximetry 2022-11-29 17:00:00 98 /min arrived on RA; exercised on RA [facility] Systolic blood pressure 2022-11-22 21:00:00 134 mm[Hg] manual [facility] Diastolic blood pressure 2022-11-22 21:00:00 60 mm[Hg] manual [facility] Heart rate 2022-11-22 21:00:00 89 /min [facility] Respiratory rate 2022-11-22 21:00:00 22 /min [facility] Body weight 2022-11-22 21:00:00 83.371 kg [facility] Oxygen saturation in Arterial blood by Pulse oximetry 2022-11-22 21:00:00 97 /min arrived on RA; exercised on RA [facility] Systolic blood pressure 2022-11-20 17:00:00 124 mm[Hg] manual [facility] Diastolic blood pressure 2022-11-20 17:00:00 52 mm[Hg] manual [facility] Heart rate 2022-11-20 17:00:00 62 /min [facility] Respiratory rate 2022-11-20 17:00:00 22 /min [facility] Body weight 2022-11-20 17:00:00 83.643 kg [facility] Oxygen saturation in Arterial blood by Pulse oximetry 2022-11-20 17:00:00 97 /min arrived on RA; reassessment done on RA, with frequent coughs [facility] Systolic blood pressure 2022-11-08 17:00:00 138 mm[Hg] manual [facility] Diastolic blood pressure 2022-11-08 17:00:00 50 mm[Hg] manual [facility] Heart rate 2022-11-08 17:00:00 76 /min [facility] Respiratory rate 2022-11-08 17:00:00 22 /min [facility] Body weight 2022-11-08 17:00:00 82.192 kg [facility] Oxygen saturation in Arterial blood by Pulse oximetry 2022-11-08 17:00:00 98 /min arrived on RA; exercised on RA [facility] Systolic blood pressure 2022-11-02 17:00:00 120 mm[Hg] manual [facility] Diastolic blood pressure 2022-11-02 17:00:00 50 mm[Hg] manual [facility] Heart rate 2022-11-02 17:00:00 66 /min [facility] Respiratory rate 2022-11-02 17:00:00 20 /min [facility] Body weight 2022-11-02 17:00:00 83.689 kg [facility] Oxygen saturation in Arterial blood by Pulse oximetry 2022-11-02 17:00:00 99 /min arrived on RA; exercised on RA [facility] Systolic blood pressure 2022-11-01 17:01:00 116 mm[Hg] [facility] Diastolic blood pressure 2022-11-01 17:01:00 62 mm[Hg] [facility] Heart rate 2022-11-01 17:01:00 67 /min [facility] Body weight 2022-11-01 17:01:00 82.645 kg [facility] Oxygen saturation in Arterial blood by Pulse oximetry 2022-11-01 17:01:00 98 /min [facility] Systolic blood pressure 2022-10-30 17:01:00 118 mm[Hg] [facility] Diastolic blood pressure 2022-10-30 17:01:00 64 mm[Hg] [facility] Heart rate 2022-10-30 17:01:00 71 /min [facility] Body weight 2022-10-30 17:01:00 82.827 kg [facility] Oxygen saturation in Arterial blood by Pulse oximetry 2022-10-30 17:01:00 97 /min [facility] Systolic blood pressure 2022-10-26 17:00:00 114 mm[Hg] manual [facility] Diastolic blood pressure 2022-10-26 17:00:00 56 mm[Hg] manual [facility] Heart rate 2022-10-26 17:00:00 82 /min [facility] Respiratory rate 2022-10-26 17:00:00 20 /min [facility] Body weight 2022-10-26 17:00:00 82.373 kg [facility] Oxygen saturation in Arterial blood by Pulse oximetry 2022-10-26 17:00:00 97 /min arrived on RA; exercised on RA [facility] Systolic blood pressure 2022-10-25 17:00:00 130 mm[Hg] [facility] Diastolic blood pressure 2022-10-25 17:00:00 66 mm[Hg] [facility] Heart rate 2022-10-25 17:00:00 64 /min [facility] Respiratory rate 2022-10-25 17:00:00 20 /min [facility] Body weight 2022-10-25 17:00:00 82.192 kg [facility] Oxygen saturation in Arterial blood by Pulse oximetry 2022-10-25 17:00:00 94 /min arrived on RA; exercised on RA [facility] Systolic blood pressure 2022-10-23 19:00:00 128 mm[Hg] manual [facility] Diastolic blood pressure 2022-10-23 19:00:00 62 mm[Hg] manual [facility] Heart rate 2022-10-23 19:00:00 77 /min [facility] Respiratory rate 2022-10-23 19:00:00 20 /min [facility] Body weight 2022-10-23 19:00:00 82.192 kg [facility] Oxygen saturation in Arterial blood by Pulse oximetry 2022-10-23 19:00:00 97 /min arrived on RA; exercised on RA [facility] Systolic blood pressure 2022-10-18 19:30:00 136 mm[Hg] manual; right arm 138/70 manual [facility] Diastolic blood pressure 2022-10-18 19:30:00 70 mm[Hg] manual; right arm 138/70 manual [facility] Heart rate 2022-10-18 19:30:00 65 /min [facility] Respiratory rate 2022-10-18 19:30:00 22 /min [facility] Body weight 2022-10-18 19:30:00 82.464 kg [facility] Oxygen saturation in Arterial blood by Pulse oximetry 2022-10-18 19:30:00 96 /min arrived on RA; 6MW on RA [facility] Height 2022-06-13 00:00:00 67 [in_i] [facility] BMI (Body Mass Index) 2022-06-13 00:00:00 28.2 kg/m2 [facility] Body Weight 2022-06-13 00:00:00 180 [lb_av] [facility] Height 2022-05-11 00:00:00 67 [in_i] [facility] BMI (Body Mass Index) 2022-05-11 00:00:00 28.5 kg/m2 [facility] Body Weight 2022-05-11 00:00:00 182 [lb_av] [facility] WEIGHT 2021-03-20 11:23:15 82 kg HEIGHT 2020-12-26 07:45:00 168 cm WEIGHT 2020-12-26 07:45:00 79 kg WEIGHT 2020-12-12 09:25:40 79 kg HEIGHT 2020-06-21 11:47:00 168 cm WEIGHT 2020-06-21 11:47:00 81 kg WEIGHT 2020-05-24 10:19:22 81 kg Procedures Procedure Date / Time Performed Performing Clinician Source RESPIRATORY ALLERGY PROFILE REGION X 2024-07-14 20:43:00 [facility] INTERPRETATION 2024-07-14 20:43:00 [facility] 6 MIN WALK TEST 2024-02-12 19:59:41 Salamo-Colle tti, [facility] PULMONARY FUNCTION TESTING 2024-02-11 13:35:37 Salamo-Betsy, [facility] CHANDLER TITER 2024-02-06 20:50:00 Salamo-Colle tti, [facility] MYOSITIS SPECIFIC 11 AB PANEL 2024-02-06 20:50:00 Salamo-Betsy, [facility] ANTINUCLEAR ANTIBODIES TITER AND PATTERN 2024-02-06 20:50:00 Gordon-Franki, [facility] RHEUMATOID FACTOR 2024-02-06 20:50:00 Salamo-Col irena, [facility] CYCLIC CITRUL PEPTIDE ANTIBODY, IGG 2024-02-06 20:50:00 Gordon-Franki, [facility] SJOGREN'S ANTIBODIES (SS-A,SS-B) 2024-02-06 20:50:00 Salamo-Betsy, [facility] AUTHORIZATION FOR RELEASE OF PHI 2023-09-11 06:01:00 Doctor Unassigned, [place] [facility] PULMONARY REHAB ITP REPORT 2023-01-04 20:38:00 Doctor Unassigned, [place] [facility] PULMONARY REHAB SESSION REPORT 2022-12-11 06:00:00 Doctor Unassigned, [place] [facility] PULMONARY REHAB SESSION REPORT 2022-11-29 06:00:00 Doctor Unassigned, [place] [facility] PULMONARY REHAB ITP REPORT 2022-11-21 03:25:00 Doctor Unassigned, [place] [facility] PULMONARY REHAB SESSION REPORT 2022-11-02 06:00:00 Doctor Unassigned, [place] [facility] PULMONARY REHAB SESSION REPORT 2022-10-25 06:00:00 Doctor Unassigned, [place] [facility] Plan of Care Planned Activity Planned Date Details Comments Source Instructions [facility] Encounters Start Date/Time End Date/Time Encounter Type Admission Type Attending Clinicians Care Facility Care Department Encounter ID Source 2023-05-04 10:49:52 Outpatient [facility] [id number] [facility] 2022-09-19 13:39:20 Outpatient [facility] [id number] [facility] 2022-09-13 11:52:17 Outpatient [facility] [id number] [facility] 2022-08-07 11:27:12 Outpatient [facility] [id number] [facility] 2022-08-01 13:51:48 Outpatient [facility] [id number] [facility] 2022-07-30 15:15:30 Outpatient [facility] [id number] [facility] 2021-09-05 12:42:25 Outpatient SYSTEM, PROVIDER MDA RAY [id number] MD Karli billings 2021-05-19 17:11:58 Outpatient GORDON-AVENDA NOWARREN [facility] [id number] [facility] 2021-05-19 13:16:01 Outpatient SYSTEM, PROVIDER RAY BELL [id number] MD Karli billings 2020-12-30 16:03:31 Outpatient SYSTEM, PROVIDER RAY BELL [id number] MD Karli billings 2020-05-25 13:03:32 Outpatient LUCRETIA LOVE MDA MDA [id number] MD Karli billings 2024-11-23 10:00:00 2024-11-23 10:00:00 Outpatient GERALD MENDEZ [facility] [id number] [facility] 2024-09-15 15:30:00 2024-09-15 15:30:00 Outpatient KATARZYNA LOVETT [facility] [id number] [facility] 2024-09-09 11:00:00 2024-09-09 11:00:00 Outpatient [facility] [id number] [facility] 2024-08-27 10:00:00 2024-08-27 10:00:00 Outpatient [facility] [id number] [facility] 2024-08-27 09:00:00 2024-08-27 09:00:00 Outpatient [facility] [id number] [facility] 2024-08-24 11:00:00 2024-08-24 12:01:39 Outpatient GERALD MENDEZ [facility] [id number] [facility] 2024-08-07 10:21:09 2024-08-07 23:59:00 Outpatient EL NUNEZ, CONTRERAS [id number] 2024-08-07 13:04:36 2024-08-07 13:59:11 Outpatient EL NUNEZ, CONTRERAS [facility] [id number] [facility] 2024-08-07 12:19:36 2024-08-07 12:19:36 Outpatient EL NUNEZ, CONTRERAS MDA [facility] [id number] [facility] 2024-08-07 10:21:09 2024-08-07 10:21:09 Outpatient EL NUNEZ, CONTRERAS MDA MDA [id number] [facility] 2024-08-07 09:31:33 2024-08-07 10:20:00 Outpatient EL NUNEZ, CONTRERAS MDA [facility] [id number] [facility] 2024-07-14 14:00:00 2024-07-14 15:36:47 Office Visit Taiwo Katarzyna [facility] [address] 1.2.840.114 350.1.13.58 9.2.7.2.686 [id number] [facility] 2024-05-12 14:30:00 2024-05-12 14:30:00 Outpatient KATARZYNA LOVETT [facility] [id number] [facility] 2024-04-23 15:00:00 2024-04-23 15:00:00 Outpatient GORDON-AVENDA NO, WARREN [facility] [id number] [facility] 2024-02-06 14:40:00 2024-02-06 15:00:00 Office Visit Gordon-Avenda no Warren [facility] [address] 1.2.840.114 350.1.13.58 9.2.7.2.686 [id number] [facility] 2024-02-06 11:00:00 2024-02-06 12:00:00 Procedure Visit Utp, Pft Pulm [facility] [address] 1.2840.114 350.1.13.58 9.2.7.2.686 [id number] [facility] 2024-01-02 13:00:00 2024-01-02 13:00:00 Office Visit GORDON-AVENDA NOJESSICAWARREN [facility] [address] 1.2840.114 350.1.13.58 9.2.7.2.686 [id number] [facility] 2023-09-18 00:00:00 2023-09-18 00:00:00 Outpatient FOG_Robbie_ Diandrani_NP AOSM AO [id number] [facility] 2023-09-18 00:00:00 2023-09-18 00:00:00 Sagrario Avalos, ESTIMATION MANAGER: [id number] [place] [address] , Ph. [phone] [facility] [place] [facility] [place] - FOG_[facility] [id number] [facility] 2023-09-16 00:00:00 2023-09-16 00:00:00 Outpatient FOG_Robbie_ Diandrani_NP AOSM AO [id number] [facility] 2023-09-11 00:00:00 2023-09-11 00:00:00 Orders Only Doctor Unassigned, [place] [facility] 1..840.114 350.1.13.10 4.2.7.2.686 [id number] [facility] 2023-07-29 14:10:46 2023-07-29 14:10:46 Outpatient SILVA PEREZ MDA, MDA [id number] MD Karli billings 2023-07-26 09:58:59 2023-07-26 23:59:00 Outpatient FAUSTINO VIVAR MDA, MDA [id number] MD Karli billings 2023-07-26 13:01:03 2023-07-26 14:05:49 Outpatient FAUSTINO VIVAR MDA MDA [id number] MD Karli billings 2023-07-26 10:56:56 2023-07-26 10:56:56 Outpatient FAUSTINO VIVAR MDA MDA [id number] MD Karli billings 2023-07-26 10:16:29 2023-07-26 10:16:29 Outpatient FAUSTINO VIVAR MDA MDA [id number] MD Karli billings 2023-06-18 11:55:58 2023-06-18 13:06:08 Outpatient ZORA MCDONALD MDA MDA [id number] MD Karli billings 2023-01-23 09:35:29 2023-01-23 23:59:00 Outpatient CHRIS SILVA DOVER MDA MDA [id number] MD Karli billings 2023-01-11 00:00:00 2023-01-11 00:00:00 Letter (Out) Grazyna Vee [facility] 1..840.114 350.1.13.10 4.2.7.2.686 [id number] [facility] 2023-01-11 00:00:00 2023-01-11 00:00:00 Telephone Grazyna Vee [facility] 1.2.840.114 350.1.13.10 4.2.7.2.686 [id number] [facility] 2023-01-07 00:00:00 2023-01-07 00:00:00 Outpatient FOG_Torres_ Veroni_NP AOSM AOSM [id number] [facility] 2023-01-04 00:00:00 2023-01-04 00:00:00 Orders Only Doctor Unassigned, [place] [facility] 1..840.114 350.1.13.10 4.2.7.2.686 [id number] [facility] 2022-12-18 11:00:00 2022-12-18 12:57:08 Outpatient STONE [facility]BASTIAN [facility] [id number] [facility] 2022-12-18 11:00:00 2022-12-18 12:57:08 Ancillary Visit Therapist, [facility] Pulmonary RoblesStone whitfield [facility] 1.2840.114 350.1.13.10 4.2.7.2.686 [id number] [facility] 2022-12-13 11:00:00 2022-12-13 11:51:19 Ancillary Visit Therapist, [facility] Yury RoblesStone [facility] 1.2.114 350.1.13.10 4.2.7.2.686 [id number] [facility] 2022-12-11 11:00:00 2022-12-11 11:55:46 Ancillary Visit Therapist, [facility] Pulmonary TravisStone [facility] 1.20.114 350.1.13.10 4.2.7.2.686 [id number] [facility] 2022-12-11 00:00:00 2022-12-11 00:00:00 Orders Only Doctor Unassigned, [place] [facility] 1.0.114 350.1.13.10 4.2.7.2.686 [id number] [facility] 2022-12-06 00:00:00 2022-12-06 00:00:00 Telephone Grazyna Vee [facility] 1.2.114 350.1.13.10 4.2.7.2.686 [id number] [facility] 2022-12-04 11:00:00 2022-12-04 11:56:33 Outpatient STONE [facility]IAN [facility] [id number] [facility] 2022-12-04 11:00:00 2022-12-04 11:56:33 Ancillary Visit Therapist, [facility] Pulmonary Stone Robles [facility] 1.2.840.114 350.1.13.10 4.2.7.2.686 [id number] [facility] 2022-11-29 11:00:00 2022-11-29 11:59:35 Ancillary Visit Therapist, [facility] Pulmonary Stone Robles [facility] 1.2.840.114 350.1.13.10 4.2.7.2.686 [id number] [facility] 2022-11-29 00:00:00 2022-11-29 00:00:00 Telephone Grazyna Vee [facility] 1.2.840.114 350.1.13.10 4.2.7.2.686 [id number] [facility] 2022-11-29 00:00:00 2022-11-29 00:00:00 Orders Only Doctor Unassigned, [place] [facility] 1.2.840.114 350.1.13.10 4.2.7.2.686 [id number] [facility] 2022-11-27 00:00:00 2022-11-27 00:00:00 Telephone Grazyna Vee [facility] 1.2.840.114 350.1.13.10 4.2.7.2.686 [id number] [facility] 2022-11-27 00:00:00 2022-11-27 00:00:00 Telephone Grazyna Vee [facility] 1.2.840.114 350.1.13.10 4.2.7.2.686 [id number] 296 [id number] [facility] 2022-11-22 14:00:00 2022-11-22 14:30:00 Ancillary Visit Therapist, Stone Villagomez [facility] 1.2.840.114 350.1.13.10 4.2.7.2.686 [id number] [facility] 2022-11-22 00:00:00 2022-11-22 00:00:00 Telephone Grazyna Vee [facility] 1.2.840.114 350.1.13.10 4.2.7.2.686 [id number] [facility] 2022-11-20 11:00:00 2022-11-20 12:07:55 Ancillary Visit Therapist, Stone Villagomez [facility] 1.2.840.114 350.1.13.10 4.2.7.2.686 [id number] [facility] 2022-11-20 00:00:00 2022-11-20 00:00:00 Orders Only Doctor Unassigned, [place] [facility] 1.2.840.114 350.1.13.10 4.2.7.2.686 [id number] [facility] 2022-11-12 00:00:00 2022-11-12 00:00:00 Telephone Grazyna Vee [facility] 1.2.840.114 350.1.13.10 4.2.7.2.686 [id number] [facility] 2022-11-08 11:00:00 2022-11-08 11:53:50 Ancillary Visit Therapist, Stone Villagomez [facility] 1.2.840.114 350.1.13.10 4.2.7.2.686 [id number] 296 [id number] [facility] 2022-11-06 00:00:00 2022-11-06 00:00:00 Telephone Grazyna Vee [facility] 1.2.840.114 350.1.13.10 4.2.7.2.686 [id number] [facility] 2022-11-02 11:00:00 2022-11-02 12:59:18 Outpatient STONE SEBASTIAN [facility] [id number] [facility] 2022-11-02 11:00:00 2022-11-02 12:59:18 Ancillary Visit Therapist, Stone Villagomez [facility] 1.2.840.114 350.1.13.10 4.2.7.2.686 [id number] 296 [id number] [facility] 2022-11-02 00:00:00 2022-11-02 00:00:00 Orders Only Doctor Unassigned, [place] [facility] 1.2840.114 350.1.13.10 4.2.7.2.686 [id number] [facility] 2022-11-01 11:00:00 2022-11-01 11:51:38 Ancillary Visit Therapist, Stone Villagomez [facility] 1.2.840.114 350.1.13.10 4.2.7.2.686 [id number] 296 [id number] [facility] 2022-10-30 11:00:00 2022-10-30 11:58:50 Ancillary Visit Therapist, Stone Villagomez [facility] 1.2.84.114 350.1.13.10 4.2.7.2.686 [id number] 296 [id number] [facility] 2022-10-26 11:00:00 2022-10-26 11:45:04 Ancillary Visit Therapist, Stone Villagomez [facility] 1.2840.114 350.1.13.10 4.2.7.2.686 [id number] 296 [id number] [facility] 2022-10-25 11:00:00 2022-10-25 12:59:06 Ancillary Visit Therapist, Ashley Pulmonary Stone Robles [facility] 1.2840.114 350.1.13.10 4.2.7.2.686 [id number] [facility] 2022-10-25 00:00:00 2022-10-25 00:00:00 Orders Only Doctor Unassigned, [place] [facility] 1.2.840.114 350.1.13.10 4.2.7.2.686 [id number] [id number] [facility] 2022-10-23 13:00:00 2022-10-23 14:27:20 Ancillary Visit Therapist, Ashley Pulmonary Stone Robles [facility] 1.2840.114 350.1.13.10 4.2.7.2.686 [id number] 296 [id number] [facility] 2022-10-18 13:30:00 2022-10-18 15:21:55 Ancillary Visit Therapist, Ashley Pulmonary Stone Robles [facility] 1.2.840.114 350.1.13.10 4.2.7.2.686 [id number] 296 [id number] [facility] 2022-10-09 10:48:01 2022-10-09 10:48:01 Outpatient ZORA MCDONALD MDA, MDA [id number] MD Karli billings 2022-09-13 15:40:00 2022-09-13 15:40:00 Outpatient GORDON-AVENDA WARREN [facility] [id number] [facility] 2022-07-20 09:37:54 2022-07-20 23:59:00 Outpatient NABILA KOROMAEN MDA MDA [id number] MD Karli billings 2022-07-20 09:37:06 2022-07-20 23:59:00 Outpatient CHRIS ROOSEVELT MESSINA MDA MDA [id number] MD Karli billings 2022-07-20 12:33:48 2022-07-20 14:05:20 Outpatient CHRIS WHITNEY ZORARONALDO BELL MDA [id number] MD Karli billings 2022-07-12 16:51:00 2022-07-13 16:51:00 Inpatient UR NIKITA WILSON [facility] Hosp [facility] [id number] MD Karli billings 2022-07-13 02:04:44 2022-07-13 02:43:18 Inpatient CHRIS JULINAA LOVE MDA MDA [id number] MD Karli billings 2022-06-22 08:56:19 2022-06-22 23:59:00 Outpatient FAUSTINO VIVAR MDA MDA [id number] MD Karli billings 2022-06-22 12:49:33 2022-06-22 14:55:23 Outpatient FAUSTINO VIVAR MDA MDA [id number] MD Karli billings 2022-06-22 09:18:08 2022-06-22 09:18:08 Outpatient FAUSTINO VIVAR MDA MDA [id number] MD Karli billings 2022-06-13 00:00:00 2022-06-13 00:00:00 Outpatient FOG_Robbie_ Cheyanne_NP AO AO [id number] [facility] 2022-06-13 00:00:00 2022-06-13 00:00:00 Sagrario Avalos, ESTIMATION MANAGER: [address] [place] [address] , Ph. [phone] [facility] [place] [facility] [place] - F[facility] [id number] [facility] 2022-06-13 00:00:00 2022-06-13 00:00:00 Outpatient Sagrario Avalos AO [id number] 2022-05-21 12:45:00 2022-05-21 23:59:00 Outpatient CHRIS JAZZMINE SILVA MDA MDA [id number] MD Karli billings 2022-05-21 12:20:45 2022-05-21 12:44:00 Outpatient SILVA PEREZ MDA MDA [id number] MD Karli billings 2022-05-21 10:59:15 2022-05-21 12:36:40 Outpatient CHRIS JAZZMINE SILVA MDA MDA [id number] MD Karli billings 2022-05-11 00:00:00 2022-05-11 00:00:00 Outpatient FOG_Robbie_ Diandrani_NP AOS[facility] AO [id number] [facility] 2022-05-11 00:00:00 2022-05-11 00:00:00 Sagrario Avalos, ESTIMATION MANAGER: [address] [place] [address] , Ph. [phone] [facility] [place] [facility] [place] - [facility] [id number] [facility] 2022-05-11 00:00:00 2022-05-11 00:00:00 Outpatient Sagrario [place] [id number] 2022-01-05 11:14:13 2022-01-05 23:59:00 Outpatient ANJELICA ROWLAND MDA MDA [id number] MD Karli billings 2022-01-05 09:00:00 2022-01-05 11:13:00 Outpatient ANJELICA ROWLAND MDA MDA [id number] MD Karli billings 2022-01-05 08:50:00 2022-01-05 08:59:00 Outpatient ANJELICA ROWLAND MDA MDA [id number] MD Karli billings 2022-01-05 08:49:57 2022-01-05 08:49:57 Outpatient ANJELICA ROWLAND MDA MDA [id number] MD Karli billings 2022-01-05 08:09:45 2022-01-05 08:48:00 Outpatient ANJELICA ROWLAND MDA MDA [id number] MD Karli billings 2022-01-05 07:15:39 2022-01-05 08:08:00 Outpatient ANJELICA ROWLAND MDA MDA [id number] MD Karli billings 2021-12-29 12:46:56 2021-12-29 12:46:56 Outpatient JANA CARR MDA MDA [id number] MD Karli billings 2021-12-25 15:22:30 2021-12-25 23:59:00 Outpatient CHRIS ANJELICA ROCK MDA MDA [id number] MD Karli billings 2021-12-25 14:41:42 2021-12-25 15:21:00 Outpatient ANJELICA ROWLAND MDA MDA [id number] MD Karli billings 2021-12-25 14:00:02 2021-12-25 15:15:53 Outpatient CHRIS DOVER SILVA MDA MDA [id number] MD Karli billings 2021-12-25 11:09:16 2021-12-25 11:52:34 Outpatient CHRIS DIASJANA MDA MDA [id number] MD Karli billings 2021-09-25 08:08:58 2021-09-25 10:04:23 Outpatient CHRIS HOWARDJANA SALDAÑA MDA MDA [id number] MD Karli billings 2021-09-15 12:03:00 2021-09-16 13:25:00 Outpatient ER LULUDANGJESSICA MDA Emergency [id number] MD Karli billings 2021-09-02 12:36:38 2021-09-02 12:36:38 Outpatient MDA MDA [id number] MD Karli billings 2021-08-18 10:02:16 2021-08-18 10:02:16 Outpatient ZORA MCDONALD MDA MDA [id number] MD Karli billings 2021-06-26 10:50:15 2021-06-26 11:13:08 Outpatient ZORA MCDONALD MDA MDA [id number] MD Karli billings 2021-06-23 14:06:56 2021-06-23 15:58:36 Outpatient CLAUDIA PAN MDA MDA [id number] MD Karli billings 2021-06-08 13:51:51 2021-06-08 23:59:00 [facility]NEY [id number]-08 12:47:17 2021-06-08 12:47:17 Outpatient CHRIS DEVONTE ZORA MDA MDA [id number] MD Karli billings 2021-05-26 08:35:17 2021-05-26 23:59:00 Outpatient EL CLAUDIA CESAR MDA MDA [id number] [facility] manuelito 2021-05-26 08:47:32 2021-05-26 08:47:32 Outpatient CLAUDIA CESAR [facility] [id number] [facility] 2021-05-02 09:10:58 2021-05-02 09:10:58 Outpatient EL ADONIS YOU MDA MDA [id number] [facility] manuelito 2021-03-20 12:11:06 2021-03-20 15:58:51 Outpatient SILVA PEREZ MDA MDA [id number] [facility]uel[facility] 2021-03-20 10:23:01 2021-03-20 12:28:40 Outpatient ZORA MCDONALD MDA MDA [id number] [facility] manuelito 2021-03-20 09:59:56 2021-03-20 09:59:56 Outpatient ZORA MCDONALD MDA [facility] [id number] [facility] 2020-12-31 10:08:40 2020-12-31 11:59:17 Outpatient [facility]CDONALD MDA [id number] [facility] 2020-12-26 09:25:14 2020-12-26 23:59:00 Outpatient SILVA PEREZ MDA MDA [id number] MD Karli billings 2020-12-26 07:33:15 2020-12-26 09:24:00 Outpatient SILVA PEREZ MDA MDA [id number] MD Karli billings 2020-12-26 07:33:00 2020-12-26 07:33:00 Outpatient SILVA PEREZ MDA MDA [id number] MD Karli billings 2020-12-26 07:08:19 2020-12-26 07:32:00 Outpatient SILVA PEREZ MDA, MDA [id number] MD Karli billings 2020-12-12 08:59:11 2020-12-12 23:59:00 Outpatient SILVA PEREZ MDA MDA [id number] MD Karli billings 2020-12-12 11:22:35 2020-12-12 11:22:35 Outpatient ZORA MCDONALD MDA MDA [id number] MD Karli billings 2020-12-12 08:33:58 2020-12-12 11:00:10 Outpatient EL PUSHPAJEANNE MDA MDA [id number] MD Karli billings 2020-12-12 07:42:51 2020-12-12 08:58:00 Outpatient ZORA MCDONALD MDA MDA [id number] MD Karli billings 2020-12-10 10:14:40 2020-12-10 10:33:36 Outpatient EL CORTESTENA CORTEZ MDA MDA [id number] MD Karli billings 2020-11-16 11:20:08 2020-11-16 14:51:10 Outpatient ZORA MCDONALD MDA MDA [id number] MD Karli billings 2020-09-02 13:40:49 2020-09-02 13:40:49 Outpatient EL ADONIS YOU MDA MDA [id number] MD Karli billings 2020-08-02 08:09:05 2020-08-02 09:39:30 Outpatient FUENTES VANCE MDA MDA [id number] MD Karli billings 2020-08-02 06:12:36 2020-08-02 06:12:36 Outpatient EL CLAUDIA CESAR MDA MDA [id number] MD Karli billings 2020-07-25 00:00:00 2020-07-25 00:00:00 Outpatient CLAUDIA PAN MDA MDA [id number] MD Karli billings 2020-06-21 07:40:19 2020-06-21 23:59:00 Outpatient ZORA MCDONALD MDA MDA [id number] MD Karli billings 2020-06-21 07:40:01 2020-06-21 23:59:00 Outpatient ZORA MCDONALD MDA MDA [id number] MD Karli billings 2020-06-21 10:01:04 2020-06-21 13:05:13 Outpatient EL NEL ManuelitoFUENTES MDA MDA [id number] MD Karli billings 2020-06-21 07:39:23 2020-06-21 07:39:23 Outpatient EL ROOSEVELT MESSINA MDA MDA [id number] MD Karli billings 2020-05-26 12:36:31 2020-05-26 12:36:31 Outpatient EL TALICLAUDIA MDA MDA [id number] MD Karli billings 2020-05-24 12:36:47 2020-05-24 12:50:04 Outpatient EL CLAUDIA CESAR MDA MDA [id number] MD Karli billings 2020-05-24 09:50:14 2020-05-24 12:16:05 Outpatient EL CLAUDIA CESAR MDA MDA [id number] MD Karli billings 2020-05-24 08:26:51 2020-05-24 08:26:51 Outpatient EL CLAUDIA CESAR MDA MDA [id number] MD Karli billings 2020-05-24 08:00:39 2020-05-24 08:00:39 Outpatient EL CLAUDIA CESAR MDA MDA [id number] MD Karli billings 2020-05-24 07:06:16 2020-05-24 07:06:16 Outpatient EL UNIQUE RAVI MDA MDA [id number] MD Karli billings 2020-05-24 00:00:00 2020-05-24 00:00:00 Outpatient EL TALICLAUDIA MDA MDA [id number] MD Karli billings 2016-04-13 00:00:00 2016-04-13 00:00:00 Outpatient EL MDA MDA [id number] MD Karli billings Results Test Description Test Time Test Comments Results Result Co [id number] 04:55:00* Test Item Value Reference Range Interpretation Comments INTERPRETATION (test code = 19686-4) See Below Specific ?Level of AllergenIGE Class ? ? ?kU/L ? Specific IGE Antibody ----- ? --------- ?0 ?<0.10 ? Absent/Undetectable ?0/1 ?0.10-0.34 ? Very Low Level ?1 ?0.35-0.69 ? Low Level ?2 ?0.70-3.49 ? Moderate Level ?3 ?3.50-17.4 ? High Level ?4 ?17.5-49.9 ? Very High Level ?5 ?50-100 ?Very High Level ?6 ?>100 ?Very High Level The clinical relevance of allergen results of0.10-0.34 kU/L are undetermined and intended for specialist use. Allergens denoted with a "" include results usingone or more analyte specific reagents. In thosecases, the test was developed and its analyticalperformance characteristics have been determined by[employer]. It has not been cleared or approvedby the U.S. Food and Drug Administration. This assay has been validated pursuant to the CLIA regulations and is used for clinical purposes. JACY (test code = RAC) Performing Organization Information: ? ?Site ID: IG ? ?Name: [facility] ? ?Address: [address] [place] [address] ? ?Director: LARA DORSEY MD PHD [facility] SPECIFIC 11 AB [id number] 19:06:00* Test Item Value Reference Range Interpretation Comme nts KYMBERLY-1 AB (test code = 75659-4) <11 See_Comment [Automated messa ge] The system which generated this result transmitted reference range: <11 SI. The reference range was not used to interpret this result as normal/abnormal. PL-7 AB (test code = 14191-8) <11 See_Comment [Automated messa ge] The system which generated this result transmitted reference range: <11 SI. The reference range was not used to interpret this result as normal/abnormal. PL-12 AB (test code = 36682-3) <11 See_Comment [Automated messa ge] The system which generated this result transmitted reference range: <11 SI. The reference range was not used to interpret this result as normal/abnormal. EJ AB (test code = 74668-1) <11 See_Comment [Automated messa ge] The system which generated this result transmitted reference range: <11 SI. The reference range was not used to interpret this result as normal/abnormal. OJ AB (test code = 98154-9) <11 See_Comment [Automated messa ge] The system which generated this result transmitted reference range: <11 SI. The reference range was not used to interpret this result as normal/abnormal. SRP AB (test code = 14627-8) <11 See_Comment [Automated messa ge] The system which generated this result transmitted reference range: <11 SI. The reference range was not used to interpret this result as normal/abnormal. IA-2 ALPHA AB (test code = 93098-4) <11 See_Comment [Automated messa ge] The system which generated this result transmitted reference range: <11 SI. The reference range was not used to interpret this result as normal/abnormal. IA-2 BETA AB (test code = 18584-1) <11 See_Comment [Automated messa ge] The system which generated this result transmitted reference range: <11 SI. The reference range was not used to interpret this result as normal/abnormal. MDA-5 AB (test code = 78181-2) <11 See_Comment [Automated messa ge] The system which generated this result transmitted reference range: <11 SI. The reference range was not used to interpret this result as normal/abnormal. TIF-1y AB (test code = 90297-5) <11 See_Comment [Automated messa ge] The system which generated this result transmitted reference range: <11 SI. The reference range was not used to interpret this result as normal/abnormal. NXP-2 AB (test code = 66096-1) <11 See_Comment Myositis-specifi c autoantibodies (MSAs) are highlyselective, generally mutually exclusive, and areassociated with a particular clinical phenotypewithin the myositis spectrum. Anti-synthetase syndrome is associated with MSAs tocytoplasmic enzymes and tRNAs involved with thesynthesis of proteins. Target antigens include Kymberly-1,PL-7, PL-12, EJ, and OJ. Clinically, anti-synthetasesyndrome is primarily characterized by myositis andlung inflammation. Dermatomyositis is associated with MSAs to SRP, Mi-2A,Mi-2B, and clinically this disease is characterized bymyositis in association with a rash. Additionally, MSAsto MDA5 ([id number]) have been identified in patients withclinically amyopathic dermatomyositis and rapidlyprogressive lung disease. MSAs to TIF1-y and NXP-2,collectively, are seen in >40% of children withdermatomyositis and appear to identify those with moresevere disease. Finally, TIF1-y Ab has been reportedin adults with dermatomyositis and is associated withmalignancy, but not in children. SRP Ab has also been associated with necrotizingmyopathy, a disease with unique histological featuresand an aggressive clinical course. This test was developed and its analytical performancecharacteristic s have been determined by [employer]. It has not been cleared or approved bythe FDA. This assay has been validated pursuant to theIA regulations and is used for clinical purposes. [Automated message] The system which generated this result transmitted reference range: <11 SI. The reference range was not used to interpret this result as normal/abnormal. JACY (test code = JACY) Performing Organization Information: ? ?Site ID: [id number] ? ?Name: [facility] ? ?Address: [address] [place] [address] ? ?Director: RAJ CLEMONS MD,PHD,MB A [facility] Screen, IFA w Reflex to [id number] 00:01:00* Test Item Value Reference Range Interpretation Comments CHANDLER SCREEN, IFA (test code = 68457-9) POSITIVE NEGATIVE A CHANDLER IFA is a fir st line screen for detecting thepresence of up to approximately 150 autoantibodies invarious autoimmune diseases. A positive CHANDLER IFA resultis suggestive of autoimmune disease and reflexes totiter and pattern. Further laboratory testing may beconsidered if clinically indicated. For additional information, please refer tohttp://education. [employer].co m/faq/RFX220(This link is being provided for informational/educa tional purposes only.) ? JACY (test code = RAC) Performing Organization Information: ? ?Site ID: IG ? ?Name: [facility] ? ?Address: [address] [place] [phone] ? ?Director: MARTHA KELLY MD Lab Interpretation (test code = 75647-7) Abnormal [facility]INUCLEAR ANTIBODIES TITER AND [id number] 00:01:00* Test Item Value Reference Range Interpretation Comments CHANDLER TITER (test code = 5048-4) 1:160 titer H ?Reference Range ?<1:40 ?Negative ?1:40-1:80 ? ?Low Antibody Level ?>1:80 ?Elevated Antibody Level CHANDLER PATTERN (test code = 03832-5) Cytoplasmic A The presence of cytoplasmic fluorescence was noted onthe HEp-2 slide. Other reactivities (e.g., anti-mitochondrial antibodies or anti-smooth muscleantibodies) may be responsible for this fluorescence.The clinical significance of this finding is uncertain.Clinical correlation is recommended. AC-15 to AC-23: Cytoplasmic International Consensus on CHANDLER Patterns(https://d oi.org/10.1515/ccl m-7757-3737) JACY (test code = JACY) Performing Organization Information: ? ?Site ID: IG ? ?Name: [facility] ? ?Address: [address] [place] [address] ? ?Director: MARTHA KELLY MD Lab Interpretation (test code = 42091-0) Abnormal [facility] HealthRheumatoid [id number] 19:37:00* Test Item Value Reference Range Interpretation Comme nts RHEUMATOID FACTOR (test code = 98124-1) <14 See_Comment [Automated message] The system which generated this result transmitted reference range: <14 IU/mL. The reference range was not used to interpret this result as normal/abnormal. JACY (test code = JCAY) Performing Organization Information: ? ?Site ID: RGA ? ?Name: [facility] ? ?Address: [address] [place] [phone] ? ?Director: TOSHA GRIGGS MD,PHD. [facility] HealthSJOGREN'S ANTIBODIES (SS-A,SS-B)2024-02-07 19:12:00* Test Item Value Reference Range Interpretation Comme nts SJOGREN'S ANTIBODY (SS-A) (test code = 78707-0) <1.0 NEG See_Comment [Automated message] The system which generated this result transmitted reference range: <1.0 NEG AI. The reference range was not used to interpret this result as normal/abnormal. SJOGREN'S ANTIBODY (SS-B) (test code = 41482-4) <1.0 NEG See_Comment [Automated message] The system which generated this result transmitted reference range: <1.0 NEG AI. The reference range was not used to interpret this result as normal/abnormal. RAC (test code = RAC) Performing Organization Information: ? ?Site ID: IG ? ?Name: [employer] ? ?Address: [address] [place] [address] ? ?Director: MARTHA KELLY MD [facility] AllianceCyclic citrul peptide antibody, [id number] 16:10:00* Test Item Value Reference Range Interpretation Comme nts CYCLIC CITRULLINATED PEPTIDE (CCP) AB (IGG) (test code = 84318-3) <16 UNITS Reference RangeNegative: ?<20Weak Positive: ? ? ? 20-39Moderate Positive: ? 40-59Strong Positive: ? ? >59 RAC (test code = RAC) Performing Organization Information: ? ?Site ID: IG ? ?Name: [employer] ? ?Address: [address] [place] [address] ? ?Director: MARTHA KELLY MD [facility]
[2024-08-26] MEDS ORDERED: ONDANSETRON 4 MG/2 ML VIAL ONE (03:56)
[2024-08-26] MEDS ORDERED: ASPIRIN 81 MG CHEWABLE TABLET ONE (03:56)
[2024-08-26] MEDS ORDERED: MORPHINE 4 MG/ML SYR ONE (03:57)
[2024-08-26] MEDS ORDERED: AZITHROMYCIN 250 MG TAB ONE (04:12)
[2024-08-26 04:17] LABS: Absolute Basophils 0.1 K/uL (0-0.5); Absolute Eosinophils 0.3 K/uL (0-0.5); Absolute Lymphocytes (CBC) 2.5 K/uL (0.7-4.9); Absolute Monocytes 1.1 K/uL (0.1-1.3); Absolute Neutrophil 4.5 K/uL (1.8-8.0); Basophils % 0.6 % (0-1.3); Eosinophils % 3.7 % (0-4.4); Hematocrit 39.1 % (39.6-49.0); Hemoglobin 12.7 g/dL (13.6-17.9); Lymphocytes % 29.6 % (15.3-44.8); MCH 28.7 pg (27.0-35.0); MCHC 32.3 g/dL (32.0-36.0); MCV 88.8 fL (80-100); MPV 8.3 fL (7.6-11.3); Monocytes % 12.9 % (3.3-12.3); Neutrophils % 53.2 % (41.7-73.7); Platelets 225 thou/uL (152-406); RBC Red Blood Cell Count 4.41 M/uL (4.33-5.43); Red Cell Distribution Width 14.7 % (12.1-15.2)
[2024-08-26 04:18] LABS: PT Prothrombin Time 10.4 SECONDS (9.4-12.5); Protime INR 0.93
[2024-08-26 04:31] LABS: Albumin 3.3 g/dL (3.4-5.0); Albumin/Globulin Ratio 0.8 (1.1-1.8); Anion Gap 9.4 mEq/L (5.0-15.0); Bilirubin Direct 0.2 mg/dL (0-0.2); Bilirubin Indirect, Calculated 0.4 mg/dL (0.2-0.8); Bilirubin Total 0.6 mg/dL (0.2-1.0); Globulin 4.2 g/dL (2.3-3.5); Magnesium 2.1 mg/dL (1.6-2.4); Potassium 3.4 mEq/L (3.5-5.1); Protein, Total 7.5 g/dL (6.4-8.2); Troponin High Sensitivity 11.1 pg/mL (<58.9)
[2024-08-26 04:32] LABS: SARS-CoV-2 Antigen CONTROL BLUE LINE VIS/BG OK; SARS-CoV-2 Antigen Rapid Res Negative (Negative)
--- NOTE | 2024-08-26 05:59 | ER ---
Nurse's Notes [facility] Name: Clinton Arnold Age: 69 yrs Sex: Male : 1955 Arrival Date: 08/26/2024 Time: 03:29 Bed 17 Private MD: Diagnosis: Pulmonary fibrosis, acute pharyngitis, chronic cough, exacerbation of chronic cough Presentation: 08/26 03:35 Chief complaint: Patient states: I started having shortness of breath last night and rg5 chest pain when I cough. 03:35 Coronavirus screen: Vaccine status: Patient reports receiving the 2nd dose of the covid rg5 vaccine. Client denies travel out of the [place] in the last 14 days. Ebola Screen: Patient negative for fever greater than or equal to 101.5 degrees Fahrenheit, and additional compatible Ebola Virus Disease symptoms. Initial Sepsis Screen: Does the patient meet any 2 criteria? No. Patient's initial sepsis screen is negative. Does the patient have a suspected source of infection? No. Patient's initial sepsis screen is negative. Risk Assessment: Do you want to hurt yourself or someone else? Patient reports no desire to harm self or others. Onset of symptoms was August 25, 2024. 03:35 Method Of Arrival: Ambulatory rg5 03:35 Acuity: [place] 3 rg5 Triage Assessment: 03:44 General: Appears in no apparent distress. comfortable, Behavior is calm, cooperative, rg5 appropriate for age. Pain: Complains of pain in chest. EENT: No deficits noted. Neuro: Level of Consciousness is awake, alert, obeys commands, Oriented to person, place, time. Cardiovascular: Reports chest pain, shortness of breath. Respiratory: Airway is patent Trachea midline Respiratory effort is even, Respiratory pattern is. GI: Abdomen is round Abd is soft and non tender. : No signs and/or symptoms were reported regarding the genitourinary system. Derm: Skin is intact, Skin is dry, Skin is normal, Skin temperature is warm. Musculoskeletal: Circulation, motion, and sensation intact. Range of motion: intact in all extremities. Historical: - Allergies: 03:44 Prednisone; rg5 - PMHx: 03:44 Back pain; High Cholesterol; Hodgkin's Lymphoma; Hypertension; pulmonary fibrosis; rg5 - PSHx: 03:44 eye and knee SX (ar); heart stent (ar); rg5 - Immunization history:: Adult Immunizations up to date. - Infectious Disease History:: Denies. - Social history:: Smoking status: Patient denies any tobacco usage or history of. - Family history:: not pertinent. Screenin:48 [facility] ED Fall Risk Assessment (Adult) History of falling in the last 3 months, rg5 including since admission No falls in past 3 months (0 pts) Confusion or Disorientation No (0 pts) Intoxicated or Sedated No (0 pts) Impaired Gait No (0 pts) Mobility Assist Device Used No (0 pt) Altered Elimination No (0 pt) Score/Fall Risk Level 0 - 2 = Low Risk Oriented to surroundings, Maintained a safe environment, Hourly rounding (assess needs \T\ fall precautionary measures) done. Abuse screen: Denies threats or abuse. Nutritional screening: No deficits noted. Tuberculosis screening: No symptoms or risk factors identified. Assessment: 03:48 Reassessment: see triage assessment. rg5 04:30 Reassessment: Patient and/or family updated on plan of care and expected duration. Pain rg5 level reassessed. Patient is alert, oriented x 3, equal unlabored respirations, skin warm/dry/pink. 05:53 Reassessment: No changes from previously documented assessment. Patient and/or family rg5 updated on plan of care and expected duration. Pain level reassessed. Patient is alert, oriented x 3, equal unlabored respirations, skin warm/dry/pink. 06:10 Pain: Pain began. rg5 Vital Signs: 03:35 BP 160 / 65; Pulse 77; Resp 18; Temp 97.8(O); Pulse Ox 96% on R/A; Weight 81.65 kg; rg5 Height 5 ft. 7 in. ; 03:47 BP 160 / 65; Pulse 77; Resp 18; Temp 97.8(O); Pulse Ox 96% on R/A; rg5 04:55 BP 132 / 63; Pulse 64; Resp 17; Pulse Ox 97% on R/A; rg5 05:52 BP 140 / 67; Pulse 64; Resp 18; Pulse Ox 97% on R/A; rg5 03:35 Body Mass Index 28.19 (81.65 kg, 170.18 cm) rg5 Burak Coma Score: 05:49 Eye Response: spontaneous(4). Motor Response: obeys commands(6). Verbal Response: sp4 oriented(5). Total: 15. ED Course: 03:30 Patient arrived in ED. lg3 03:32 Dawood Crenshaw, RN is Primary Nurse. rg5 03:34 Shelton Summers MD is Attending Physician. sp4 03:44 Triage completed. rg5 03:44 Arm band placed on right wrist. EKG completed in triage. Results shown to MD. rg5 Antipyretics given from triage as ordered by an ER provider. Antipyretics given from triage as ordered by an ER provider. Antipyretics given from triage as ordered by an ER provider. 03:48 Patient has correct armband on for positive identification. Bed in low position. Call rg5 light in reach. Side rails up X 1. Client placed on continuous cardiac and pulse oximetry monitoring. NIBP monitoring applied. threat monitoring analyst on. Pulse ox on. 03:48 No provider procedures requiring assistance completed. Patient maintains SpO2 rg5 saturation greater than 95% on room air. 03:52 XRAY Chest (1 view) In Process Unspecified. EDMS 04:00 EKG done, by ED staff, reviewed by Shelton Summers MD. oe 04:12 Inserted saline lock: 20 gauge in right antecubital area, using aseptic technique. oe Blood collected. Flushed with 10 mL NS. 06:09 Provided Education on: POST ER CARE. rg5 06:09 IV discontinued, bleeding controlled, No redness/swelling at site. Pressure dressing rg5 applied. Administered Medications: 04:08 Drug: Aspirin PO Chewable Tablet 324 mg PO once; 81 mg tablets x 4 Route: PO; rg5 05:29 Follow up: Response: No adverse reaction rg5 04:12 Drug: AZITHromycin PO 500 mg PO once Route: PO; rg5 05:29 Follow up: Response: No adverse reaction rg5 04:16 Not Given (Patient Refused): ondansetron 4 mg IVP once; over 2 minutes rg5 04:17 Not Given (Patient Refused): morphineor iv 4 mg IVP once over 4 mins rg5 Medication: 03:48 VIS not applicable for this client. rg5 Outcome: 05:59 Discharge ordered by . sp4 06:09 Discharged to home ambulatory, rg5 06:09 Condition: stable 06:09 Discharge instructions given to patient, Instructed on discharge instructions, follow up and referral plans. Demonstrated understanding of instructions, follow-up care, medications, Prescriptions given X 1, 06:10 Patient left the ED. rg5 Signatures: Dispatcher [employer] EDMS Matthew Holley Lacie, RN RN lg3 Shelton Summers MD MD sp4 Dawood Crenshaw RN RN rg5 Corrections: (The following items were deleted from the chart) 04:16 04:08 Ondansetron IVP 4 mg IVP in right antecubital rg5 rg5 04:16 04:08 morphine IVP or IV 4 mg IVP in right antecubital over 4 mins rg5 rg5
--- NOTE | 2024-08-26 06:00 | EDPHYS ---
Physician Documentation [facility] Name: Clinton Arnold Age: 69 yrs Sex: Male : 1955 Arrival Date: 08/26/2024 Time: 03:29 Bed 17 Private MD: ED Physician Shelton Summers HPI: 08/26 03:35 This 69 yrs old Male presents to ER via Unassigned with complaints of Chest sp4 Pain, Shortness Of Breath. 05:54 69-year-old male with past medical history of chronic back pain, Hodgkin's lymphoma, sp4 hypertension, pulmonary fibrosis presents with acute onset of chest discomfort shortness of breath and anxiety. Historical: - Allergies: 03:44 Prednisone; rg5 - PMHx: 03:44 Back pain; High Cholesterol; Hodgkin's Lymphoma; Hypertension; pulmonary fibrosis; rg5 - PSHx: 03:44 eye and knee SX (ar); heart stent (ar); rg5 - Immunization history:: Adult Immunizations up to date. - Infectious Disease History:: Denies. - Social history:: Smoking status: Patient denies any tobacco usage or history of. - Family history:: not pertinent. ROS: 05:54 Constitutional: Negative for fever, chills, and weight loss, sp4 05:54 All other systems are negative, 05:54 Constitutional: Negative for fever, chills, and weight loss, positive shortness of sp4 breath and anxiety. Exam: 05:49 Constitutional: This is a well developed, well nourished patient who is awake, alert, sp4 and in no acute distress. Head/Face: Normocephalic, atraumatic. Eyes: Pupils equal round and reactive to light, extra-ocular motions intact. Lids and lashes normal. Conjunctiva and sclera are not injected. Cornea within normal limits. Periorbital areas with no swelling, redness, or edema. ENT: Nares patent. No nasal discharge, no septal abnormalities noted. Tympanic membranes are normal and external auditory canals are clear. Oropharynx with no redness, swelling, or masses, exudates, or evidence of obstruction, uvula midline. Mucous membranes moist. Neck: Trachea midline, no thyromegaly or masses palpated, and no cervical lymphadenopathy. Supple, full range of motion without nuchal rigidity, or vertebral point tenderness. Chest/axilla: Normal chest wall appearance and motion. Nontender with no deformity. No lesions are appreciated. Cardiovascular: Regular rate and rhythm with a normal S1 and S2. No gallops, murmurs, or rubs. Normal PMI, no JVD. No pulse deficits. Respiratory: Lungs have equal breath sounds bilaterally, clear to auscultation and percussion. No rales, rhonchi or wheezes noted. No increased work of breathing, no retractions or nasal flaring. Abdomen/GI: Soft, with normal bowel sounds. No distension or tympany. No guarding or rebound. No evidence of tenderness throughout. Back: No spinal tenderness. No costovertebral tenderness. Skin: Warm, dry with normal turgor. Normal color with no rashes, no lesions, and no evidence of cellulitis. MS/ Extremity: Pulses equal, no cyanosis. Neurovascular intact. Full, normal range of motion. Neuro: Awake and alert, GCS 15, oriented to person, place, time, and situation. Cranial nerves II-XII grossly intact. Motor strength 5/5 in all extremities. Sensory grossly intact. Psych: Awake, alert, with orientation to person, place and time. Behavior, mood, and affect are within normal limits 05:49 ECG was reviewed by the Attending Physician. NSR Vital Signs: 03:35 BP 160 / 65; Pulse 77; Resp 18; Temp 97.8(O); Pulse Ox 96% on R/A; Weight 81.65 kg; rg5 Height 5 ft. 7 in. ; 03:47 BP 160 / 65; Pulse 77; Resp 18; Temp 97.8(O); Pulse Ox 96% on R/A; rg5 04:55 BP 132 / 63; Pulse 64; Resp 17; Pulse Ox 97% on R/A; rg5 05:52 BP 140 / 67; Pulse 64; Resp 18; Pulse Ox 97% on R/A; rg5 03:35 Body Mass Index 28.19 (81.65 kg, 170.18 cm) rg5 Burak Coma Score: 05:49 Eye Response: spontaneous(4). Motor Response: obeys commands(6). Verbal Response: sp4 oriented(5). Total: 15. MDM: 03:35 Medical Screening Exam initiated sp4 05:49 ED course: XR CHEST 1 VIEW CLINICAL INDICATION: Chest pain COMPARISON: No prior images sp4 are available for comparison at time of interpretation FINDINGS: SUPPORT DEVICES: None LUNGS/PLEURAL SPACES: Bilateral interstitial opacities with central distribution could represent vascular congestion, interstitial edema or pneumonitis. No pleural effusion. No pneumothorax. HEART/MEDIASTINUM: Heart is mildly prominent in size. BONES/UPPER ABDOMEN/SOFT TISSUES: No acute findings. IMPRESSION: Bilateral interstitial opacities with central distribution could represent vascular congestion, interstitial edema or pneumonitis.. 05:54 Differential diagnosis: acute pericarditis, anxiety, chest wall pain, cholecystitis, sp4 Cholelithiasis esophagitis, gastritis. HEART Score: History: Slightly Suspicious (0), ECG: Normal (0), Age: > or = 65 years (2), Risk Factors: 1 or 2 risk factors (1), Troponin: < or = 1 x Normal Limit (0), Total Score = 3. Data reviewed: vital signs, nurses notes, lab test result(s), EKG, radiologic studies, plain films. 05:58 The patient was given aspirin in the Emergency Department. ED course: Also reported sp4 coughing up yellow phlegm. Will prescribe Zithromax.. 08/26 03:35 Order name: Basic Metabolic Panel; Complete Time: 05:48 sp4 08/26 03:35 Order name: CBC with Diff; Complete Time: 05:48 sp4 08/26 03:35 Order name: LFT's; Complete Time: 05:48 sp4 08/26 03:35 Order name: Magnesium; Complete Time: 05:48 sp4 08/26 03:35 Order name: NT PRO-BNP; Complete Time: 05:48 sp4 08/26 03:35 Order name: PT-INR; Complete Time: 05:48 sp4 08/26 03:35 Order name: Troponin HS; Complete Time: 05:48 sp4 08/26 03:56 Order name: SARS RAPID; Complete Time: 05:48 sp4 08/26 03:56 Order name: Influenza Screen (a \T\ B); Complete Time: 05:48 sp4 08/26 03:35 Order name: XRAY Chest (1 view) sp4 08/26 03:35 Order name: Cardiac monitoring; Complete Time: 04:08 sp4 08/26 03:35 Order name: EKG - Nurse/Tech; Complete Time: 04:09 sp4 08/26 03:35 Order name: IV Saline Lock; Complete Time: 04:09 sp4 08/26 03:35 Order name: Labs collected and sent; Complete Time: 04:09 sp4 08/26 03:35 Order name: O2 Per Protocol; Complete Time: 04:09 sp4 08/26 03:35 Order name: O2 Sat Monitoring; Complete Time: 04:09 sp4 EC:41 Rate is 73 beats/min. Rhythm is regular, Normal Sinus Rhythm. QRS [place] is Normal. IN sp4 interval is normal. QRS interval is normal. QT interval is normal. No Q waves. T waves are Normal. No ST changes noted. Clinical impression: No evidence of ischemia. Interpreted by me. Reviewed by me. Administered Medications: 04:08 Drug: Aspirin PO Chewable Tablet 324 mg PO once; 81 mg tablets x 4 Route: PO; rg5 05:29 Follow up: Response: No adverse reaction rg5 04:12 Drug: AZITHromycin PO 500 mg PO once Route: PO; rg5 05:29 Follow up: Response: No adverse reaction rg5 04:16 Not Given (Patient Refused): ondansetron 4 mg IVP once; over 2 minutes rg5 04:17 Not Given (Patient Refused): morphineor iv 4 mg IVP once over 4 mins rg5 Disposition Summary: 08/26/24 05:59 Discharge Ordered Notes: Location: Home sp4 Problem: new sp4 Symptoms: have improved sp4 Condition: Stable sp4 Diagnosis - Pulmonary fibrosis, acute pharyngitis, chronic cough, exacerbation of chronic cough sp4 Followup: sp4 - With: Private Physician - When: 7 - 10 days - Reason: Recheck today's complaints Discharge Instructions: - Discharge Summary Sheet sp4 - Pulmonary Fibrosis sp4 Forms: - Patient Portal Instructions sp4 Prescriptions: - Zithromax Z-Liang 250 mg Oral Tablet - take 1 tablet ORAL route as directed for 5 days Day 1 - take two (2) tablets sp4 one time. Day 2, 3, 4 , 5 take one (1) tablet once daily.; 6 tablet; Refills: 0, Product Selection Permitted Signatures: Dispatcher [facility] Shelton Dupree MD MD sp4 Dawood Crenshaw RN RN rg5 Corrections: (The following items were deleted from the chart) 03:36 03:35 BASIC METABOLIC PANEL+C.LAB.BRZ ordered. EDMS EDMS 03:36 03:35 CBC+H.LAB.BRZ ordered. EDMS EDMS 03:36 03:35 HEPATIC FUNCTION+C.LAB.BRZ ordered. EDMS EDMS 03:36 03:36 MAGNESIUM+C.LAB.BRZ ordered. EDMS EDMS 03:36 03:36 PROBNP+C.LAB.BRZ ordered. EDMS EDMS 03:36 03:36 PROTIME (+INR)+COAG.LAB.BRZ ordered. EDMS EDMS 03:36 03:36 Troponin High Sensitivity+C.LAB.BRZ ordered. EDMS EDMS 03:36 03:36 Chest Single View+RAD.RAD.BRZ ordered. EDMS EDMS
--- NOTE | 2024-08-26 06:09 | RAD REPORT ---
XR CHEST 1 VIEW CLINICAL INDICATION: Chest pain COMPARISON: No prior images are available for comparison at time of interpretation FINDINGS: SUPPORT DEVICES: None LUNGS/PLEURAL SPACES: Bilateral interstitial opacities with central distribution could represent vasc ular congestion, interstitial edema or pneumonitis. No pleural effusion. No pneumothorax. HEART/MEDIASTINUM: Heart is mildly prominent in size. BONES/UPPER ABDOMEN/SOFT TISSUES: No acute findings. IMPRESSION: Bilateral interstitial opacities with central distribution could represent vascular congestion, inter stitial edema or pneumonitis. Electronically signed by: Leidy Mills MD 08/26/2024 05:13 AM CDT RP Due to temporary technical issues with the PACS/[employer]isc[employer] reporting system, reports are being christopher d by the in-house radiologist without review as a courtesy to ensure prompt reporting the interpreting radiologist is fully responsible for the content of the report. Transcribed Date/Time: 08/26/2024 6:09 AM
[2024-08-26 12:51] VITALS: TEMP 97.8
[2024-08-26 13:07] VITALS: O2SAT 97
[2024-08-26 13:08] VITALS: BP 140/67
--- NOTE | 2024-08-27 12:19 | EKG ---
Test Date: 2024-08-26 Test Time: 03:41:22 Template Inspector: LANA MEASUREMENT RESULTS: Intervals: Rate: 73 DE: 154 QRSD: 100 QT: 412 QTc: 453 [place]: P: 30 DE: 154 QRS: -5 T: 18 INTERPRETIVE STATEMENTS: Normal sinus rhythm Minimal voltage criteria for LVH, may be normal variant Borderline ECG Compared to ECG 05/28/2024 12:16:33 Left ventricular hypertrophy now present T-wave abnormality no longer present Possible ischemia no longer present Electronically Signed On 08-27-24 12:15:37 CDT by Velasquez Grady
== END 2024-08-26 06:10 | disposition home or self-care (01) ==
LOC: ER 03:29
DX: J84.10 Pulmonary fibrosis, unspecified (principal); R05.9 Cough, unspecified; J02.9 Acute pharyngitis, unspecified; Z11.52 Encounter for screening for COVID-19; E78.00 Pure hypercholesterolemia, unspecified; I10 Essential (primary) hypertension; Z95.818 Presence of other cardiac implants and grafts; Z85.71 Personal history of Hodgkin lymphoma
CPT/HCPCS: 36415; 71045; 80048; 80076; 83735; 83880; 84484; 85025; 85610; 87804; 87811; 93005; J2405

== ENCOUNTER 2024-10-03 11:38 | Emergency (ER) | payer OTHER ==
--- OUTSIDE RECORDS SUMMARY | 2024-10-03 11:44 | XMS REPORT | Continuity of Care Document ---
Author Name Unknown Address [address] [facility] [address] [place] [address] [facility] thconnect Address [address] [facility] [address] [place] [address] Care Team Providers Care Tomography Technologist Name Role Phone Warren Castro MD Primary Care P hysician SYSTEM, PROVIDER NOT IN Attending Clinician Unav ailable WARREN CASTRO Attending Clinician LUCRETIA Jacob Attending Clinician Unavailable KATARZYNA MARAVILLA Attending Clinician Unavailable DALLIN MENDEZ Attending Clinician Unavailable JACKELYN LUKE Attending Clinician Unavailable PRANAV SHAVER Attending Clinician Unavailable 1, [facility] Attending Clinician Unavailable JAE MORELAND Attending Clinician Unavailabl e 1, [facility] Clinician Unavailable CONTRERAS NUNEZ Attending Clinician Unavailabl e Utp, Pft Pulm Attending Clinician Unavailable JO_Robbie_Cheyanne_JOSE Attending Clinician Unavail able Doctor Unassigned, [place] Attending Clinician U navailable SILVA DOVER Attending Clinician Unavailable FAUSTINO ESPINOSA Attending Clinician Unavailable ARABELLA WHITNEY Attending Clinician Unavailable Grazyna Hairston Attending Clinician Unavailab STONE De Oliveira Attending Clinician Unavaila dayan Therapist, [facility] Attending Clinician Nancy Stone Church MD Attending Clinician ROOSEVELT MESSINA Attending Clinician Unavailable NIKITA WILSON Attending Clinician Unav ailable JULIANA LOVE Attending Clinician Unavailable Sagrario Avalos Attending Clinician [phone] ANJELICA ROCK Attending Clinician Unavaila JANA Bah Attending Clinician Unavailable ANDREY LAWSON Attending Clinician Unavailable CLAUDIA CESAR Attending Clinician Unavailable ADONIS YOU Attending Clinician Unavailable ASHUTOSH BARROW Attending Clinician Unavail able TENA BHAKTA Attending Clinician Unavailable FUENTES DOLAN Attending Clinician UnaUNIQUE [place]cedo Attending Clinician Unavail able JO_Robbie_Cheyanne_NP Admitting Clinician Unavail able JULIANA LOVE Admitting Clinician Unavailable SILVIA LAW Admitting Clinician Unavailable Payers Payer Name Policy Type Policy Number Effective Date Expirati on Date Source [employer] MEDICARE O [id number] 1 00:00:00 MEDICARE PART A AND B [id number] 2016 00:00:00 [employer] MEDICARE ADVANTAGE Medicare [id number] 2022 00:00:00 [employer] MEDICARE PPO [id number] 1 00:00:00 Problems Condition Name Condition Details Condition Category Status Onset Date Resolution Date Last Treatment Date Treating Clinician Comments Source Lumbar radiculopa thy Lumbar Radiculopa thy Problem Active 05-11 00:00: 00 [facility] Pain in left knee Pain in Left Knee Problem Active 2019-11 0 00:00: 00 [facility] Lumbar spine ankylosis Lumbar Spine Ankylosis Problem Active 805 00:00: 00 [facility] Lumbosacra l spondylosi s Lumbosacra l Spondylosi s Problem Active 320 00:00: 00 [facility] Lumbar disc prolapse with radiculopa thy Lumbar Disc Prolapse with Radiculopa thy Problem Active 01-21 00:00: 00 [facility] Degenerati on of lumbar interverte bral disc Degenerati on of Lumbar Interverte bral Disc Problem Active 01-21 00:00: 00 [facility] [...] active problems No known active problems Disease [facility] Allergies, Adverse Reactions, Alerts Allergy Name Allergy Type Status Severity Reaction(s) Onset Date Inactive Date Treating Clinician Comments Source Levoflox acin Propensi ty to adverse reaction s Active Other - See comments 2021-11 2-15 00:00: 00 Weakened muscles everywher e [facility] Methylpr ednisolo ne Propensi ty to adverse reaction s Active Hives 2021-11 2-15 00:00: 00 [facility] LEVOFLOX ACIN DRUG INGREDI Active High Other-Cmnt 2021-11 215 00:00: 00 [facility] METHYLPR EDNISOLO NE DRUG INGREDI Active High Hives 2021-11 215 00:00: 00 [facility] Predniso lone Propensi ty to adverse reaction s Active 2019-0 2-24 00:00: 00 Other reaction( s): Other (See Comments) Nausea, disorient ion [facility] PREDNISO LONE DRUG INGREDI Active Other 2020-0 [...] Active Other 2020-0 2-24 00:00: 00 MD Karil billings PREDNISO LONE DRUG INGREDI Active Other [...] 0 2-24 00:00: 00 MD Karli billings LEVOFLOX ACIN [...] 0 816 00:00: 00 MD Karli billings Levoflox acin Propensi ty to adverse reaction s Active 0 816 00:00: 00 Other reaction( s): Other (See Comments) Tendon rupture 2018 (Biceps). [facility] LEVOFLOX ACIN DRUG INGREDI Active Other 0 [...] 2019-0 8-16 00:00: 00 MD Karli billings No Known Allergie s DA Active U 2018-0 3-26 00:00: 00 [facility] No Known Allergie s DA Active U 2018-0 3-26 00:00: 00 [facility] GABAPENT IN DRUG INGREDI Active Other 0 04-26 00:00: 00 MD Karli billings GABAPENT IN DRUG INGREDI Active Other 0 04-26 00:00: 00 MD Karli billings GABAPENT IN DRUG INGREDI Active Other 0 04-26 00:00: 00 MD Karli billings GABAPENT IN DRUG INGREDI Active Other 0 04-26 00:00: 00 MD Karli billings GABAPENT IN DRUG INGREDI Active Other 0 04-26 00:00: 00 MD Karli billings GABAPENT [...] Other 04-26 00:00: 00 MD Karli billings Gabaptisha in Allergy to substanc e Active 04-26 00:00: 00 Other Reaction( s): Not available [facility] Neuronti n Allergy to substanc e Active 04-26 00:00: 00 [facility] NO KNOWN ALLERGIE S Drug Class Active [facility] Social History Social Habit Start Date Stop Date Quantity Comments Source Gender identity 2024-01-25 11:00:11 Identifies as male gender (finding) [facility] Sexual orientation [facility] History of tobacco use Snuff User [facility] Tobacco use and exposure 2024-08-24 00:00:00 2024-08-24 00:00:00 Smokeless tobacco non-user [facility] History of Social function 2024-02-10 00:00:00 2024-02-10 00:00:00 [facility] Exposure to SARS-CoV-2 (event) 2022-12-08 00:00:00 2022-12-18 11:57:00 Not sure [facility] Alcohol intake 2022-10-18 00:00:00 2022-10-18 00:00:00 .29 /d [facility] Tobacco Comment 2022-10-18 00:00:00 2022-10-18 00:00:00 Quit 30 yrs ago [facility] Alcohol Comment 2022-10-18 00:00:00 2022-10-18 00:00:00 reports drinks 1 beer q2wks; 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 Ordering Clinician Indication Dosage Frequency Signature (SIG) Comments Components Source ondansetron (Zofran) tablet 4 mg 2023-11 22:29: 03 Yes 105 4mg [facility] Nintedanib Esylate (Ofev) 150 MG capsule 2023-11 00:00: 00 Yes [id number] 150mg Take 150 mg by mouth in the morning and 150 mg in the evening. Take with meals. [facility] fluticasone (Flonase) 50 MCG/ACT nasal spray 2023-11 00:00: 00 09-16 05:59 :00 Yes [id number] 2{spray } QD Administer 2 sprays into each nostril 1 (one) time each day. Shake gently. Before first use, prime pump. After use, clean tip and replace cap. [facility] loperamide (Imodium A-D) 2 MG tablet 2023-11 00:00: 00 10-16 05:59 :00 Yes [id number] 2mg Q.[id number] 3D Take 1 tablet (2 mg total) by mouth 3 (three) times a day if needed for diarrhea. [facility] furosemide (Lasix) 20 MG tablet 2023-11 00:00: 00 09-02 04:59 :00 Yes [id number] 20mg Take 1 tablet (20 mg total) by mouth 1 (one) time each day if needed (lower extremity swelling). [facility] predniSONE (Deltasone) 20 MG tablet 07-14 00:00: 00 Yes [id number] Take two tablets for 7 days. Then take one tablet for 7 days. [facility] pantoprazol e (Protonix) 40 MG EC tablet 07-14 00:00: 00 07-15 04:59 :00 Yes [id number] 40mg Q.5D Take 1 tablet (40 mg total) by mouth in the morning and 1 tablet (40 mg total) in the evening. Do not crush, chew, or split.. [facility] tadalafil (Cialis) 5 MG tablet 02-05 14:14: 55 Yes Cialis 5 mg tablet RX by other MD [facility] Multiple Vitamin (multivitam in) capsule 02-05 14:14: 55 Yes 1{capsu le} QD Take 1 capsule by mouth 1 (one) time each day. [facility] gabapentin (Neurontin) 300 MG capsule 02-05 14:14: 55 Yes 300mg Take 300 mg by mouth. [facility] aspirin 81 MG EC tablet 02-05 14:14: 55 Yes 81mg Take 81 mg by mouth. [facility] losartan (Cozaar) 50 MG tablet 02-05 14:14: 55 Yes 50mg QD Take 50 mg by mouth 1 (one) time each day. [facility] fluticasone (Flovent) 110 MCG/ACT inhaler 02-05 14:14: 55 Yes 1{puff} Q.5D Inhale 1 puff in the morning and 1 puff before bedtime. Rinse mouth with water after use to reduce aftertaste and incidence of candidiasi s. Do not swallow.. [facility] acetaminoph en-codeine (Tylenol w/ Codeine #3) 300-30 MG tablet 02-05 14:14: 55 Yes TAKE ONE (1) TABLET(S) BY MOUTH TWICE A DAY FOR COUGH AND CONGESTION . [facility] amoxicillin -clavulanat e (Augmentin) 875-125 MG tablet 02-05 14:14: 55 Yes 1{tbl} Q.5D Take 1 tablet by mouth in the morning and 1 tablet in the evening. [facility] cetirizine (ZyrTEC) 10 MG tablet 02-05 14:14: 55 Yes TAKE ONE (1) TABLET(S) BY MOUTH ONCE A DAY NEEDED FOR ALLERGY CONTROL. [facility] doxycycline (Vibra-Tabs ) 100 MG tablet 02-05 14:14: 55 Yes 1{tbl} Take 1 tablet by mouth in the morning and 1 tablet in the evening. Take with meals. [facility] famotidine (Pepcid) 20 MG tablet 02-05 14:14: 55 Yes 1{tbl} QD Take 1 tablet by mouth 1 (one) time each day. [facility] olopatadine (Patanol) 0.1 % ophthalmic solution 02-05 14:14: 55 08-24 00:00 :00 No INSTILL ONE (1) DROP INTO AFFECTED EYE 2 TIMES PER DAY NEEDED. [facility] tamsulosin (Flomax) 0.4 MG 24 hr capsule 02-05 14:14: 08-24 00:00 :00 No 1{capsu le} Take 1 capsule by mouth 1 (one) time each day in the evening. [facility] pantoprazol e (ProtoNix) 40 MG EC tablet 13:45: 12 00:00 :00 No QD 1 (one) time each day. [facility] tadalafil (Cialis) 5 MG tablet 12:58: 33 Yes Cialis 5 mg tablet RX by other MD [facility] Multiple Vitamin (multivitam in) capsule 12:58: 33 Yes 1{capsu le} QD Take 1 capsule by mouth 1 (one) time each day. [facility] gabapentin (Neurontin) 300 MG capsule 12:58: 33 Yes 300mg Take 300 mg by mouth. [facility] aspirin 81 MG EC tablet 12:58: 33 Yes 81mg Take 81 mg by mouth. [facility] losartan (Cozaar) 50 MG tablet 12:58: 33 Yes 50mg QD Take 50 mg by mouth 1 (one) time each day. [facility] cetirizine (ZyrTEC) 10 MG tablet 12:58: 33 Yes TAKE ONE (1) TABLET(S) BY MOUTH ONCE A DAY NEEDED FOR ALLERGY CONTROL. [facility] olopatadine (Patanol) 0.1 % ophthalmic solution 12:58: 33 Yes INSTILL ONE (1) DROP INTO AFFECTED EYE 2 TIMES PER DAY NEEDED. [facility] tamsulosin (Flomax) 0.4 MG 24 hr capsule 12:58: 33 Yes 1{capsu le} Take 1 capsule by mouth 1 (one) time each day in the evening. [facility] acetaminoph en-codeine (Tylenol w/ Codeine #3) 300-30 MG tablet 12:58: 08-24 00:00 :00 No TAKE ONE (1) TABLET(S) BY MOUTH TWICE A DAY FOR COUGH AND CONGESTION . [facility] doxycycline (Vibra-Tabs ) 100 MG tablet 12:58: 08-24 00:00 :00 No 1{tbl} Take 1 tablet by mouth in the morning and 1 tablet in the evening. Take with meals. [facility] fluticasone (Flovent) 110 MCG/ACT inhaler 12:58: 07-14 00:00 :00 No 1{puff} Q.5D Inhale 1 puff in the morning and 1 puff before bedtime. Rinse mouth with water after use to reduce aftertaste and incidence of candidiasi s. Do not swallow.. [facility] famotidine (Pepcid) 20 MG tablet 12:58: 07-14 00:00 :00 No 1{tbl} QD Take 1 tablet by mouth 1 (one) time each day. [facility] amoxicillin -clavulanat e (Augmentin) 875-125 MG tablet 12:58: 33 04-23 00:00 :00 No 1{tbl} Q.5D Take 1 tablet by mouth in the morning and 1 tablet in the evening. [facility] albuterol 108 (90 Base) MCG/ACT inhaler 00:00: 00 Yes [id number] INHALE ONE (1) TO TWO (2) PUFF(S) EVERY SIX HOURS NEEDED FOR WHEEZING OR SHORTNESS OF BREATH. [facility] pantoprazol e (Protonix) 40 MG EC tablet 00:00: 00 07-14 00:00 :00 No [id number] 40mg Take 1 tablet (40 mg total) by mouth 1 (one) time each day before breakfast. Do not crush, chew, or split. [facility] cholecalcif marleen (Vitamin D-3) 1.25 MG ([address] [place]) capsule 07-26 00:00: 00 Yes 1{capsu le} Take 1 capsule by mouth 1 (one) time per week. [facility] sodium chloride 3.5 % Nebu 12-11 12:02: [...] the evening. Indication s: from MD Chou [facility] losartan 25 mg tablet 2021-11 14:38: 04 Yes 25mg Take 25 mg by mouth in the morning. Indication s: taking 50 mg daily per MD Chou [facility] atorvastati n 80 mg tablet 2021-11 14:38: 04 Yes 80mg Take 80 mg by mouth at bedtime. Indication s: per MD Chou [facility] tadalafiL 5 mg tablet 2021-11 14:38: 04 Yes 5mg Take 5 mg by mouth in the morning. Indication s: per [facility] gabapentin 300 mg capsule 2021-11 14:38: 04 Yes 300mg Take 300 mg by mouth in the morning and 300 mg in the evening. Indication s: per MD Chou [facility] traMADoL 50 mg tablet 2021-11 14:38: 04 [...] morning. Indication s: per pt from Cardiologi , [facility] magnesium gluconate 200 mg tablet 2021-11 14:38: 04 Yes 200mg Take 200 mg by mouth in the morning. Indication s: per patient; PCP ordered [facility] fluticasone -vilanterol (BREO ELIPTA) 100-25 MCG/INH inhaler 07-23 00:00: 00 07-14 00:00 :00 No 1{inhal ation} QD Inhale 1 Inhalation 1 (one) time each day. [facility] adriana-docus ate (Jackelin-Colac e) 8.6-50 MG tablet 07-13 00:00: 00 08-24 00:00 :00 No 2{tbl} Q.5D Take 2 tablets by mouth in the morning and 2 tablets before bedtime. [facility] albuterol 108 (90 Base) MCG/ACT inhaler 07-12 00:00: 00 00:00 :00 No INHALE ONE (1) TO TWO (2) PUFF(S) EVERY SIX HOURS NEEDED FOR WHEEZING OR SHORTNESS OF BREATH. [facility] atorvastati n (Lipitor) 80 MG tablet 05-21 00:00: 00 Yes 80mg Take 80 mg by mouth. [facility] gabapentin 300 mg tablet gabapentin 300 mg tablet 05-16 00:00: 00 No gabapentin 300 mg tablet [facility] sodium chloride 3.5 % nebulizer solution nebulizer solution 05-11 00:00: 00 Yes 1{vial} Inhale 1 vial. [facility] triamcinolo ne (Kenalog) 0.1 % ointment 05-04 00:00: 00 Yes APPLY TOPICALLY TO ITCHY AREAS ON THE LEGS TWICE DAILY NEEDED FOR ITCHING [facility] Valium 5 mg tablet Take one tablet [...] THEN 1 IMMEDIATELY PRIOR TO PROCEDURE 2012-11 0 00:00: 00 No Valium 10 mg tablet TAKE 1 PO 15 MINUTES PRIOR TO PROCEDURE THEN 1 IMMEDIATEL Y PRIOR TO PROCEDURE [facility] losartan [...] MD [facility] cyclobenzap rine [...] Cialis 5 mg tablet RX by other No Cialis 5 mg tablet RX by other MD [facility] cyclobenzap rine [...] days. [facility] Immunizations Ordered Immunization Name Filled Immunization Name Date Status Comments Source Respiratory syncytial virus (RSV), adult 2023-10-07 00:00:00 Completed [facility] Respiratory syncytial virus (RSV), adult 2023-10-07 00:00:00 Completed [facility] Respiratory syncytial virus (RSV), adult 2023-10-07 00:00:00 Completed [facility] Pneumococcal Conjugate PCV 13 2019-06-19 00:00:00 Completed Pneumococcal Conjugate PCV 13 2019-06-19 00:00:00 Completed Pneumococcal Conjugate PCV 13 2019-06-19 00:00:00 Completed Pneumococcal Conjugate PCV 13 Unknown Completed [facility] Respiratory syncytial virus (RSV), adult Unknown Completed [facility] Pneumococcal Conjugate PCV 13 Unknown Completed [facility] Respiratory syncytial virus (RSV), adult Unknown Completed [facility] Pneumococcal Conjugate PCV 13 Unknown Completed [facility] Respiratory syncytial virus (RSV), adult Unknown Completed [facility] Pneumococcal Conjugate PCV 13 Unknown Completed [facility] Respiratory syncytial virus (RSV), adult Unknown Completed [facility] Vital Signs Vital Name Observation Time Observation Value Comments S ource Systolic blood pressure 2024-09-15 20:27:00 137 mm[Hg] [facility] Diastolic blood pressure 2024-09-15 20:27:00 75 mm[Hg] [facility] Heart rate 2024-09-15 20:27:00 74 /min [facility] Body temperature 2024-09-15 20:27:00 36.94 Jaleesa [facility] Respiratory rate 2024-09-15 20:27:00 18 /min [facility] Body height 2024-09-15 20:27:00 167.6 cm [facility] Body weight 2024-09-15 20:27:00 84.278 kg [facility] BMI 2024-09-15 20:27:00 29.99 kg/m2 [facility] Oxygen saturation in Arterial blood by Pulse oximetry 2024-09-15 20:27:00 98 /min [facility] Systolic blood pressure 2024-09-09 16:50:00 164 mm[Hg] [facility] Diastolic blood pressure 2024-09-09 16:50:00 82 mm[Hg] [facility] Heart rate 2024-09-09 16:50:00 80 /min [facility] Body weight 2024-09-09 16:50:00 85.276 kg [facility] BMI 2024-09-09 16:50:00 29.89 kg/m2 [facility] Systolic blood pressure 2024-08-24 16:03:00 163 mm[Hg] [facility] Diastolic blood pressure 2024-08-24 16:03:00 72 mm[Hg] [facility] Heart rate 2024-08-24 16:03:00 67 /min [facility] Body temperature 2024-08-24 16:03:00 36.44 Jaleesa [facility] Body height 2024-08-24 16:03:00 168.9 cm [facility] Body weight 2024-08-24 16:03:00 85.186 kg [facility] BMI 2024-08-24 16:03:00 29.86 kg/m2 [facility] Systolic blood pressure 2024-07-14 18:31:00 129 mm[Hg] [facility] Diastolic blood pressure 2024-07-14 18:31:00 71 mm[Hg] [facility] Heart rate 2024-07-14 18:31:00 74 /min [facility] Respiratory rate 2024-07-14 18:31:00 18 /min [facility] Body height 2024-07-14 18:31:00 170.2 cm [facility] Body weight 2024-07-14 18:31:00 84.278 kg [facility] BMI 2024-07-14 18:31:00 29.10 kg/m2 [facility] Oxygen saturation in Arterial blood by Pulse oximetry 2024-07-14 18:31:00 96 /min [facility] Systolic blood pressure 2024-02-06 19:14:00 153 mm[Hg] [facility] Diastolic blood pressure 2024-02-06 19:14:00 74 mm[Hg] [facility] Heart rate 2024-02-06 19:14:00 79 /min [facility] Respiratory rate 2024-02-06 19:14:00 18 /min [facility] Body height 2024-02-06 19:14:00 170.2 cm [facility] Body weight 2024-02-06 19:14:00 82.101 kg [facility] BMI 2024-02-06 19:14:00 28.35 kg/m2 [facility] Oxygen saturation in Arterial blood by Pulse oximetry 2024-02-06 19:14:00 95 /min [facility] Systolic blood pressure 2024-01-02 18:55:00 161 mm[Hg] patient states it is high due to white coat syndrome [facility] Diastolic blood pressure 2024-01-02 18:55:00 88 mm[Hg] patient states it is high due to white coat syndrome [facility] Heart rate 2024-01-02 18:55:00 80 /min [facility] Respiratory rate 2024-01-02 18:55:00 16 /min [facility] Body height 2024-01-02 18:55:00 167.6 cm [facility] Body weight 2024-01-02 18:55:00 84.369 kg [facility] BMI 2024-01-02 18:55:00 30.02 kg/m2 [facility] Oxygen saturation in Arterial blood by Pulse oximetry 2024-01-02 18:55:00 95 /min [facility] Systolic blood pressure 2022-12-18 19:31:00 122 mm[Hg] manual; before 6MW [facility] Diastolic blood pressure 2022-12-18 19:31:00 60 mm[Hg] manual; before W [facility] Heart rate 2022-12-18 19:31:00 60 /min [facility] Respiratory rate 2022-12-18 19:31:00 22 /min [facility] Body weight 2022-12-18 19:31:00 82.918 kg [facility] Oxygen saturation in Arterial blood by Pulse oximetry 2022-12-18 19:31:00 97 /min arrived on RA; 6MW done on RA [facility] Systolic blood pressure 2022-12-13 17:00:00 122 mm[Hg] manual [facility] Diastolic blood pressure 2022-12-13 17:00:00 58 mm[Hg] manual [facility] Heart rate 2022-12-13 17:00:00 82 /min [facility] Respiratory rate 2022-12-13 17:00:00 22 /min [facility] Body weight 2022-12-13 17:00:00 83.28 kg [facility] Oxygen saturation in Arterial blood by Pulse oximetry 2022-12-13 17:00:00 97 /min arrived on RA; exercised on RA [facility] Systolic blood pressure 2022-12-11 17:00:00 120 mm[Hg] manual [facility] Diastolic blood pressure 2022-12-11 17:00:00 56 mm[Hg] manual [facility] Heart rate 2022-12-11 17:00:00 77 /min [facility] Respiratory rate 2022-12-11 17:00:00 22 /min [facility] Body weight 2022-12-11 17:00:00 83.643 kg [facility] Oxygen saturation in Arterial blood by Pulse oximetry 2022-12-11 17:00:00 98 /min arrived on RA; exercised on RA [facility] Systolic blood pressure 2022-12-04 17:00:00 124 mm[Hg] manual [facility] Diastolic blood pressure 2022-12-04 17:00:00 58 mm[Hg] manual [facility] Heart rate 2022-12-04 17:00:00 84 /min [facility] Respiratory rate 2022-12-04 17:00:00 22 /min [facility] Body weight 2022-12-04 17:00:00 83.19 kg [facility] Oxygen saturation in Arterial blood by Pulse oximetry 2022-12-04 17:00:00 98 /min arrived on RA; exercised on RA [facility] Systolic blood pressure 2022-11-29 17:00:00 124 mm[Hg] manual [facility] Diastolic blood pressure 2022-11-29 17:00:00 50 mm[Hg] manual [facility] Heart rate 2022-11-29 17:00:00 83 /min [facility] Respiratory rate 2022-11-29 17:00:00 24 /min [facility] Body weight 2022-11-29 17:00:00 83.008 kg [facility] Oxygen saturation in Arterial blood by Pulse oximetry 2022-11-29 17:00:00 98 /min arrived on RA; exercised on RA [facility] Systolic blood pressure 2022-11-22 21:00:00 134 mm[Hg] manual [facility] Diastolic blood pressure 2022-11-22 21:00:00 60 mm[Hg] manual [facility] Heart rate 2022-11-22 21:00:00 89 /min [facility] Respiratory rate 2022-11-22 21:00:00 22 /min [facility] Body weight 2022-11-22 21:00:00 83.371 kg [facility] Oxygen saturation in Arterial blood by Pulse oximetry 2022-11-22 21:00:00 97 /min arrived on RA; exercised on RA [facility] Systolic blood pressure 2022-11-20 17:00:00 124 mm[Hg] manual [facility] Diastolic blood pressure 2022-11-20 17:00:00 52 mm[Hg] manual [facility] Heart rate 2022-11-20 17:00:00 62 /min [facility] Respiratory rate 2022-11-20 17:00:00 22 /min [facility] Body weight 2022-11-20 17:00:00 83.643 kg [facility] [facility] Oxygen saturation in Arterial blood by Pulse oximetry 2022-11-20 17:00:00 97 /min arrived on RA; reassessment done on RA, with frequent coughs [facility] Systolic blood pressure 2022-11-08 17:00:00 138 mm[Hg] manual [facility] Diastolic blood pressure 2022-11-08 17:00:00 50 mm[Hg] manual [facility] Heart rate 2022-11-08 17:00:00 76 /min [facility] Respiratory rate 2022-11-08 17:00:00 22 /min [facility] Body weight 2022-11-08 17:00:00 82.192 kg [facility] Oxygen saturation in Arterial blood by Pulse oximetry 2022-11-08 17:00:00 98 /min arrived on RA; exercised on RA [facility] Systolic blood pressure 2022-11-02 17:00:00 120 mm[Hg] manual [facility] Diastolic blood pressure 2022-11-02 17:00:00 50 mm[Hg] manual [facility] Heart rate 2022-11-02 17:00:00 66 /min [facility] Respiratory rate 2022-11-02 17:00:00 20 /min [facility] Body weight 2022-11-02 17:00:00 83.689 kg [facility] Oxygen saturation in Arterial blood by Pulse oximetry 2022-11-02 17:00:00 99 /min arrived on RA; exercised on RA [facility] Systolic blood pressure 2022-11-01 17:01:00 116 mm[Hg] [facility] Diastolic blood pressure 2022-11-01 17:01:00 62 mm[Hg] [facility] Heart rate 2022-11-01 17:01:00 67 /min [facility] Body weight 2022-11-01 17:01:00 82.645 kg [facility] Oxygen saturation in Arterial blood by Pulse oximetry 2022-11-01 17:01:00 98 /min [facility] Systolic blood pressure 2022-10-30 17:01:00 118 mm[Hg] [facility] Diastolic blood pressure 2022-10-30 17:01:00 64 mm[Hg] [facility] Heart rate 2022-10-30 17:01:00 71 /min [facility] Body weight 2022-10-30 17:01:00 82.827 kg [facility] Oxygen saturation in Arterial blood by Pulse oximetry 2022-10-30 17:01:00 97 /min [facility] Systolic blood pressure 2022-10-26 17:00:00 114 mm[Hg] manual [facility] Diastolic blood pressure 2022-10-26 17:00:00 56 mm[Hg] manual [facility] Heart rate 2022-10-26 17:00:00 82 /min [facility] Respiratory rate 2022-10-26 17:00:00 20 /min [facility] Body weight 2022-10-26 17:00:00 82.373 kg [facility] Oxygen saturation in Arterial blood by Pulse oximetry 2022-10-26 17:00:00 97 /min arrived on RA; exercised on RA [facility] Systolic blood pressure 2022-10-25 17:00:00 130 mm[Hg] [facility] Diastolic blood pressure 2022-10-25 17:00:00 66 mm[Hg] [facility] Heart rate 2022-10-25 17:00:00 64 /min [facility] Respiratory rate 2022-10-25 17:00:00 20 /min [facility] Body weight 2022-10-25 17:00:00 82.192 kg [facility] Oxygen saturation in Arterial blood by Pulse oximetry 2022-10-25 17:00:00 94 /min arrived on RA; exercised on RA [facility] Systolic blood pressure 2022-10-23 19:00:00 128 mm[Hg] manual [facility] Diastolic blood pressure 2022-10-23 19:00:00 62 mm[Hg] manual [facility] Heart rate 2022-10-23 19:00:00 77 /min [facility] Respiratory rate 2022-10-23 19:00:00 20 /min [facility] Body weight 2022-10-23 19:00:00 82.192 kg [facility] Oxygen saturation in Arterial blood by Pulse oximetry 2022-10-23 19:00:00 97 /min arrived on RA; exercised on RA [facility] Systolic blood pressure 2022-10-18 19:30:00 136 mm[Hg] manual; right arm 138/70 manual [facility] Diastolic blood pressure 2022-10-18 19:30:00 70 mm[Hg] manual; right arm 138/70 manual [facility] Heart rate 2022-10-18 19:30:00 65 /min [facility] Respiratory rate 2022-10-18 19:30:00 22 /min [facility] Body weight 2022-10-18 19:30:00 82.464 kg [facility] Oxygen saturation in Arterial blood by Pulse oximetry 2022-10-18 19:30:00 96 /min arrived on RA; 6MW on RA [facility] Height 2022-06-13 00:00:00 67 [in_i] [facility] BMI (Body Mass Index) 2022-06-13 00:00:00 28.2 kg/m2 [facility] Body Weight 2022-06-13 00:00:00 [...] Date / Time Performed Performing Clinician Source XR SACROILIAC JOINTS BILATERAL 2024-08-27 17:30:00 Dallin Mendez [facility] XR HAND 3+ VIEWS BILATERAL 2024-08-27 17:30:00 Dallin Mendez [facility] RESPIRATORY ALLERGY PROFILE REGION X 2024-07-14 20:43:00 Katarzyna Maravilla [facility] INTERPRETATION 2024-07-14 20:43:00 Katarzyna Maravilla [facility] 6 MIN WALK TEST 2024-02-12 19:59:41 Salamo-Colle ttfrancisca, [facility] PULMONARY FUNCTION TESTING 2024-02-11 13:35:37 Salamo-Betsy, [facility] CHANDLER TITER 2024-02-06 20:50:00 Salamo-Colle tti, [facility] MYOSITIS SPECIFIC 11 AB PANEL 2024-02-06 20:50:00 Salamo-Betsy, [facility] ANTINUCLEAR ANTIBODIES TITER AND PATTERN 2024-02-06 20:50:00 Gordon-Franki, [facility] RHEUMATOID FACTOR 2024-02-06 20:50:00 [facility] CYCLIC CITRUL PEPTIDE ANTIBODY, IGG 2024-02-06 20:50:00 Gordon-Franki, [facility] SJOGREN'S ANTIBODIES (SS-A,SS-B) 2024-02-06 20:50:00 Salamo-Betsy, [facility] AUTHORIZATION FOR RELEASE OF PHI 2023-09-11 06:01:00 Doctor Unassigned, [place] [facility] PULMONARY REHAB ITP REPORT 2023-01-04 20:38:00 Doctor Unassigned, [place] [facility] PULMONARY REHAB SESSION REPORT 2022-12-11 06:00:00 Doctor Unassigned, [place] [facility] PULMONARY REHAB SESSION REPORT 2022-11-29 06:00:00 Doctor Unassigned, [place] [facility] PULMONARY REHAB ITP REPORT 2022-11-21 03:25:00 Doctor Unassigned, [place] [facility] PULMONARY REHAB SESSION REPORT 2022-11-02 06:00:00 Doctor Unassigned, [place] [facility] PULMONARY REHAB SESSION REPORT 2022-10-25 06:00:00 Doctor Unassigned, [place] [facility] Pulmonary function test Kirit Preston [facility] Plan of Care Planned Activity Planned Date Details Comments Source Instructions [facility] Encounters Start Date/Time End Date/Time Encounter Type Admission Type Attending Clinicians Care Facility Care Department Encounter ID Source 2023-05-04 10:49:52 Outpatient [facility] [id number] [facility] 2022-09-19 13:39:20 Outpatient [facility] [id number] [facility] 2022-09-13 11:52:17 Outpatient [facility] [id number] [facility] 2022-08-07 11:27:12 Outpatient [facility] [id number] [facility] 2022-08-01 13:51:48 Outpatient [facility] [id number] [facility] 2022-07-30 15:15:30 Outpatient [facility] [id number] [facility] 2021-09-05 12:42:25 Outpatient SYSTEM, PROVIDER MDA MDA [id number] MD Karli billings 2021-05-19 17:11:58 Outpatient GORDON-AVENDA NOWARREN [facility] [id number] [facility] 2021-05-19 13:16:01 Outpatient SYSTEM, PROVIDER MDA MDA [id number] MD Karli billings 2020-12-30 16:03:31 Outpatient SYSTEM, PROVIDER MDA MDA [id number] MD Karli billings 2020-05-25 13:03:32 Outpatient IAVNLUCRETIA MDA MDA [id number] MD Karli billings 2025-01-12 13:00:00 2025-01-12 13:00:00 Outpatient TAIWO KATARZYNA [facility] [id number] [facility] 2024-11-23 10:00:00 2024-11-23 10:00:00 Outpatient DALLIN MENDEZ [facility] [id number] [facility] 2024-10-07 08:00:00 2024-10-07 08:00:00 Outpatient MARLYCHAS DiazNANCY [facility] [id number] [facility] 2024-10-06 09:00:00 2024-10-06 09:00:00 Outpatient PRANAV SHAVER [facility] [id number] [facility] 2024-09-23 16:00:00 2024-09-23 16:00:00 Outpatient [facility] [id number] [facility] 2024-09-15 13:05:49 2024-09-15 23:59:00 Outpatient Elective [facility] [id number] [facility] 2024-09-15 13:05:49 2024-09-15 23:59:00 Hospital Encounter 1, Hh Pft Room [facility] 1.2.840.114 350.1.13.70 8.2.7.2.686 [id number] [facility] 2024-09-15 15:30:00 2024-09-15 16:01:48 Office Visit Katarzyna Maravilla [facility] [address] 1.2.840.114 350.1.13.58 9.2.7.2.686 [id number] [facility] 2024-09-11 09:19:28 2024-09-11 23:59:00 Outpatient JAE VILLAVICENCIO MDA, MDA [id number] MD Karli billings 2024-09-11 08:53:26 2024-09-11 10:06:45 Outpatient JAE VILLAVICENCIO MDA, MDA [id number] MD Karli billings 2024-09-09 11:00:00 2024-09-09 11:36:12 Ancillary Procedure 1, [facility] [address] 1.2.840.114 350.1.13.58 9.2.7.2.686 [id number] [facility] 2024-08-27 12:00:36 2024-08-27 19:01:53 Outpatient Elective [facility] M[facility] [id number] [facility] 2024-08-27 12:02:05 2024-08-27 18:47:58 Outpatient Elective [facility] [id number] [facility] 2024-08-27 10:00:00 2024-08-27 10:43:09 Outpatient [facility] [id number] [facility] 2024-08-27 09:00:00 2024-08-27 09:00:00 Outpatient [facility] [id number] [facility] 2024-08-24 11:00:00 2024-08-24 12:01:39 Office Visit Dallin Mendez [facility] [address] 1.2.840.114 350.1.13.58 9.2.7.2.686 [id number] [facility] 2024-08-07 10:21:09 2024-08-07 23:59:00 Outpatient EL NUNEZ, CONTRERAS MDA MDA [id number] [facility] 2024-08-07 13:04:36 2024-08-07 13:59:11 Outpatient EL NUNEZ, CONTRERAS MDA MDA [id number] [facility] 2024-08-07 12:19:36 2024-08-07 12:19:36 Outpatient EL NUNEZ, CONTRERAS MDA MDA [id number] [facility] 2024-08-07 10:21:09 2024-08-07 10:21:09 Outpatient EL NUNEZ, CONTRERAS MDA MDA [id number] [facility] 2024-08-07 09:31:33 2024-08-07 10:20:00 Outpatient EL NUNEZ, CONTRERAS MDA MDA [id number] [facility] 2024-07-14 14:00:00 2024-07-14 15:36:47 Office Visit Taiwo Katarzyna [facility] [address] 1.2.840.114 350.1.13.58 9.2.7.2.686 [id number] [facility] 2024-05-12 14:30:00 2024-05-12 14:30:00 Outpatient TAIWO KATARZYNA [facility] [id number] [facility] 2024-04-23 15:00:00 2024-04-23 15:00:00 Outpatient GORDON-AVENDA NOJESSICAWARREN [facility] [id number] [facility] 2024-02-06 14:40:00 2024-02-06 15:00:00 Office Visit Gordon-Avenda Warren schafer [facility] [address] [facility] 1.2.840.114 350.1.13.58 9.2.7.2.686 [id number] [facility] 2024-02-06 11:00:2024-02-06 12:00:00 Procedure Visit Utp, Pft Pulm [facility] [address] 1.2.840.114 350.1.13.58 9.2.7.2.686 [id number] [facility] 2024-01-02 13:00:00 2024-01-02 13:00:00 Office Visit GORDON-AVENDA NOJESSICAWARREN [facility] [address] 1.2.840.114 350.1.13.58 9.2.7.2.686 [id number] [facility] 2023-09-18 00:00:00 2023-09-18 00:00:00 Outpatient FOG_Robbie_ Cheyanne_NP AOSM AO [id number] [facility] 2023-09-18 00:00:00 2023-09-18 00:00:00 Sagrario Avalos, GUEST SERVICE REPRESENTATIVE: [address] [place] [address] , Ph. [phone] [facility] [place] - [facility] [place] [facility] [id number] [facility] 2023-09-16 00:00:00 2023-09-16 00:00:00 Outpatient FOG_Torres_ Diandrani_NP AOSM AO [id number] [facility] 2023-09-11 00:00:00 2023-09-11 00:00:00 Orders Only Doctor Unassigned, [place] [facility] 1.2.840.114 350.1.13.10 4.2.7.2.686 [id number] [facility] 2023-07-29 14:10:46 2023-07-29 14:10:46 Outpatient SILVA PEREZ MDA, MDA [id number] MD Karli billings 2023-07-26 09:58:59 2023-07-26 23:59:00 Outpatient FAUSTINO VIVAR MDA, MDA [id number] MD Karli billings 2023-07-26 13:01:03 2023-07-26 14:05:49 Outpatient EL FAUSTINO ESPINOSA MDA MDA [id number] MD Karli billings 2023-07-26 10:56:56 2023-07-26 10:56:56 Outpatient CHRIS FAUSTINO ESPINOSA MDA MDA [id number] MD Karli billings 2023-07-26 10:16:29 2023-07-26 10:16:29 Outpatient FAUSTINO VIVAR MDA MDA [id number] MD Karli billings 2023-06-18 11:55:58 2023-06-18 13:06:08 Outpatient CHRIS ARABELLA WHITNEY MDA MDA [id number] MD Karli billings 2023-01-23 09:35:29 2023-01-23 23:59:00 Outpatient CHRIS SILVA DOVER MDA MDA [id number] MD Karli billings 2023-01-11 00:00:00 2023-01-11 00:00:00 Letter (Out) Grazyna Vee [facility] 1.2.840.114 350.1.13.10 4.2.7.2.686 [id number] [facility] 2023-01-11 00:00:00 2023-01-11 00:00:00 Telephone Grazyna Vee [facility] 1.2.840.114 350.1.13.10 4.2.7.2.686 [id number] [facility] 2023-01-07 00:00:00 2023-01-07 00:00:00 Outpatient JO_Robbie_ Cheyanne_NP AOSM AOSM [id number] [facility] 2023-01-04 00:00:00 2023-01-04 00:00:00 Orders Only Doctor Unassigned, [place] [facility] 1.2.840.114 350.1.13.10 4.2.7.2.686 [id number] [facility] 2022-12-18 11:00:00 2022-12-18 12:57:08 Outpatient [facility] [id number] [facility] 2022-12-18 11:00:00 2022-12-18 12:57:08 Ancillary Visit Therapist, [facility] Stone Cotter [facility] 1.2840.114 350.1.13.10 4.2.7.2.686 [id number] [facility] 2022-12-13 11:00:00 2022-12-13 11:51:19 Ancillary Visit Therapist, [facility] Yury Stone Robles [facility] 1.2840.114 350.1.13.10 4.2.7.2.686 [id number] [facility] 2022-12-11 11:00:00 2022-12-11 11:55:46 Ancillary Visit Therapist, [facility] Pulmonary Stone Robles [facility] 1.2840.114 350.1.13.10 4.2.7.2.686 [id number] [facility] 2022-12-11 00:00:00 2022-12-11 00:00:00 Orders Only Doctor Unassigned, [place] [facility] 1.2.840.114 350.1.13.10 4.2.7.2.686 [id number] [facility] 2022-12-06 00:00:00 2022-12-06 00:00:00 Telephone Grazyna Vee [facility] 1.2840.114 350.1.13.10 4.2.7.2.686 [id number] [facility] 2022-12-04 11:00:00 2022-12-04 11:56:33 Outpatient [facility] [id number] [facility] 2022-12-04 11:00:00 2022-12-04 11:56:33 Ancillary Visit Therapist, [facility] Pulmonary RoblesStone whitfield [facility] 1.2.840.114 350.1.13.10 4.2.7.2.686 [id number] [facility] 2022-11-29 11:00:00 2022-11-29 11:59:35 Ancillary Visit Therapist, [facility] Pulmonary RoblesStone whitfield [facility] 1.2.840.114 350.1.13.10 4.2.7.2.686 [id number] [facility] 2022-11-29 00:00:00 2022-11-29 00:00:00 Telephone Grazyna Vee [facility] 1.2.840.114 350.1.13.10 4.2.7.2.686 [id number] [facility] 2022-11-29 00:00:00 2022-11-29 00:00:00 Orders Only Doctor Unassigned, [place] [facility] 1.2.840.114 350.1.13.10 4.2.7.2.686 [id number] [facility] 2022-11-27 00:00:00 2022-11-27 00:00:00 Telephone Grazyna Vee [facility] 1.2.840.114 350.1.13.10 4.2.7.2.686 [id number] [facility] 2022-11-27 00:00:00 2022-11-27 00:00:00 Telephone Grazyna Vee [facility] 1.2.840.114 350.1.13.10 4.2.7.2.686 [id number] [facility] 2022-11-22 14:00:00 2022-11-22 14:30:00 Ancillary Visit Therapist, [facility] Travis Stone Kuo [facility] 1.2.840.114 350.1.13.10 4.2.7.2.686 [id number] [facility] 2022-11-22 00:00:00 2022-11-22 00:00:00 Telephone Grazyna Vee [facility] 1.2.840.114 350.1.13.10 4.2.7.2.686 [id number] [facility] 2022-11-20 11:00:00 2022-11-20 12:07:55 Ancillary Visit Therapist, [facility] Pulmonary Travis Stone Kuo [facility] 1.2.840.114 350.1.13.10 4.2.7.2.686 [id number] [facility] 2022-11-20 00:00:00 2022-11-20 00:00:00 Orders Only Doctor Unassigned, [place] [facility] 1.2.840.114 350.1.13.10 4.2.7.2.686 [id number] [facility] 2022-11-12 00:00:00 2022-11-12 00:00:00 Telephone Grazyna Vee [facility] 1.2.840.114 350.1.13.10 4.2.7.2.686 [id number] [facility] 2022-11-08 11:00:00 2022-11-08 11:53:50 Ancillary Visit Therapist, [facility] Yury Robles Stone Kuo [facility] 1.2.840.114 350.1.13.10 4.2.7.2.686 [id number] [facility] 2022-11-06 00:00:00 2022-11-06 00:00:00 Telephone Grazyna Vee [facility] 1.20.114 350.1.13.10 4.2.7.2.686 [id number] [facility] 2022-11-02 11:00:00 2022-11-02 12:59:18 Outpatient [facility] [id number] [facility] 2022-11-02 11:00:00 2022-11-02 12:59:18 Ancillary Visit Therapist, [facility] Travis Stone Kuo [facility] 1.2840.114 350.1.13.10 4.2.7.2.686 [id number] [facility] 2022-11-02 00:00:00 2022-11-02 00:00:00 Orders Only Doctor Unassigned, [place] [facility] 1.2840.114 350.1.13.10 4.2.7.2.686 [id number] [facility] 2022-11-01 11:00:00 2022-11-01 11:51:38 Ancillary Visit Therapist, [facility]monary Travis Stone Kuo [facility] 1..114 350.1.13.10 4.2.7.2.686 [id number] [facility] 2022-10-30 11:00:00 2022-10-30 11:58:50 Ancillary Visit Therapist, Ashley Robles Stone Kuo [facility] 1.20.114 350.1.13.10 4.2.7.2.686 [id number] [facility] 2022-10-26 11:00:00 2022-10-26 11:45:04 Ancillary Visit Therapist, [facility] Pulmonary Travis Stone Kuo [facility] 1.2840.114 350.1.13.10 4.2.7.2.686 [id number] [facility] 2022-10-25 11:00:00 2022-10-25 12:59:06 Ancillary Visit Therapist, Ashley WellsStone whitfield [facility] 1.2.840.114 350.1.13.10 4.2.7.2.686 [id number] [facility] 2022-10-25 00:00:00 2022-10-25 00:00:00 Orders Only Doctor Unassigned, [place] [facility] 1.2.840.114 350.1.13.10 4.2.7.2.686 [id number] [facility] 2022-10-23 13:00:00 2022-10-23 14:27:20 Ancillary Visit Therapist, Ashley WellsStone whitfield [facility] 1.2.840.114 350.1.13.10 4.2.7.2.686 [id number] [facility] 2022-10-18 13:30:00 2022-10-18 15:21:55 Ancillary Visit Therapist, Ashley WellsStone whitfield [facility] 1.2.840.114 350.1.13.10 4.2.7.2.686 [id number] [facility] 2022-10-09 10:48:01 2022-10-09 10:48:01 Outpatient ARABELLA MCDONALD MDA, MDA [id number] MD Karli billings 2022-09-13 15:40:00 2022-09-13 15:40:00 Outpatient GORDON-AVENDA WARREN SCHAFER [facility] [id number] [facility] 2022-07-20 09:37:54 2022-07-20 23:59:00 Outpatient ROOSEVELT KOROMA MDA, MDA [id number] MD Karli billings 2022-07-20 09:37:06 2022-07-20 23:59:00 Outpatient CHRIS ROOSEVELT MESSINA MDA MDA [id number] MD Karli billings 2022-07-20 12:33:48 2022-07-20 14:05:20 Outpatient CHRIS WHITNEYARABELLA MDA MDA [id number] MD Karli billings 2022-07-12 16:51:00 2022-07-13 16:51:00 Inpatient UR NIKITA WILSON [facility] [id number] MD Karli billings 2022-07-13 02:04:44 2022-07-13 02:43:18 Inpatient CHRIS JULIANA LOVE MDA MDA [id number] MD Karli billings 2022-06-22 08:56:19 2022-06-22 23:59:00 Outpatient FAUSTINO VIVAR MDA MDA [id number] MD Karli billings 2022-06-22 12:49:33 2022-06-22 14:55:23 Outpatient FAUSTINO VIVAR MDA MDA [id number] MD Karli billings 2022-06-22 09:18:08 2022-06-22 09:18:08 Outpatient FAUSTINO VIVAR MDA MDA [id number] MD Karli billings 2022-06-13 00:00:00 2022-06-13 00:00:00 Outpatient FOG_Robbie_ Cheyanne_NP AO AO [id number] [facility] 2022-06-13 00:00:00 2022-06-13 00:00:00 Sagrario Avalos, GUEST SERVICE REPRESENTATIVE: [address] [place] [address] , Ph. [phone] [facility] [place] [facility] [place] - FOG_[facility] [id number] [facility] 2022-06-13 00:00:00 2022-06-13 00:00:00 Outpatient Sagrario Avalos AO [id number] 2022-05-21 12:45:00 2022-05-21 23:59:00 Outpatient SILVA PEREZ MDA MDA [id number] MD Karli billings 2022-05-21 12:20:45 2022-05-21 12:44:00 Outpatient SILVA PEREZ RAY MDA [id number] MD Karli billings 2022-05-21 10:59:15 2022-05-21 12:36:40 Outpatient CHRIS SILVA DOVER MDA MDA [id number] MD Karli billings 2022-05-11 00:00:00 2022-05-11 00:00:00 Outpatient FOG_Robbie_ Diandrani_NP [facility] [id number] [facility] 2022-05-11 00:00:00 2022-05-11 00:00:00 Sagrario Avalos, GUEST SERVICE REPRESENTATIVE: [address] [place] [address] , Ph. 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 2022-01-05 11:14:13 2022-01-05 23:59:00 Outpatient ANJELICA ROWLAND MDA MDA [id number] MD Karli billings 2022-01-05 09:00:00 2022-01-05 11:13:00 Outpatient ANJELICA ROWLAND MDA MDA [id number] MD Karli billings 2022-01-05 08:50:00 2022-01-05 08:59:00 Outpatient ANJELICA ROWLAND MDA MDA [id number] MD Karli billings 2022-01-05 08:49:57 2022-01-05 08:49:57 Outpatient ANJELICA ROWLAND MDA MDA [id number] MD Karli billings 2022-01-05 08:09:45 2022-01-05 08:48:00 Outpatient ANJELICA ROWLAND MDA MDA [id number] MD Karli billings 2022-01-05 07:15:39 2022-01-05 08:08:00 Outpatient [facility]OCKANJELICA [id number] [facility] 2021-12-29 12:46:56 2021-12-29 12:46:56 Outpatient JANA CARR [facility] [id number] [facility] 2021-12-25 15:22:30 2021-12-25 23:59:00 Outpatient CHRIS ROCK ANJELICA MDA [facility] [id number] [facility] 2021-12-25 14:41:42 2021-12-25 15:21:00 Outpatient CHRIS ROCK ANJELICA MDA [facility] [id number] [facility] 2021-12-25 14:00:02 2021-12-25 15:15:53 Outpatient [facility]IL[facility]EREZ [facility] [id number] [facility] 2021-12-25 11:09:16 2021-12-25 11:52:34 Outpatient CHRIS LARISSAJANA MDA MDA [id number] [facility] 2021-09-25 08:08:58 2021-09-25 10:04:23 Outpatient JANA CARR MDA [facility] [id number] [facility] 2021-09-15 12:03:00 2021-09-16 13:25:00 Outpatient ANDREY TUCKER MDA Emergency [id number] [facility] 2021-09-02 12:36:38 2021-09-02 12:36:38 Outpatient MDA MDA [id number] [facility] 2021-08-18 10:02:16 2021-08-18 10:02:16 Outpatient ARABELLA MCDONALD MDA MDA [id number] MD Karli billings 2021-06-26 10:50:15 2021-06-26 11:13:08 Outpatient ARABELLA MCDONALD MDA MDA [id number] MD Karli billings 2021-06-23 14:06:56 2021-06-23 15:58:36 Outpatient CLAUDIA PAN MDA MDA [id number] MD Karli billings 2021-06-08 13:51:51 2021-06-08 23:59:00 Outpatient ARABELLA MCDONALD MDA MDA [id number] [facility] 2021-06-08 12:47:17 2021-06-08 12:47:17 Outpatient CHRIS DEVONTE ARABELLA MDA MDA [id number] [facility] 2021-05-26 08:35:17 2021-05-26 23:59:00 Outpatient CLAUDIA PAN MDA MDA [id number] [facility] 2021-05-26 08:47:32 2021-05-26 08:47:32 Outpatient CLAUDIA PAN MDA MDA [id number] [facility] 2021-05-02 09:10:58 2021-05-02 09:10:58 Outpatient ADONIS RUTHERFORD MDA MDA [id number] [facility] 2021-03-20 12:11:06 2021-03-20 15:58:51 Outpatient SILVA PEREZ MDA MDA [id number] [facility] 2021-03-20 10:23:01 2021-03-20 12:28:40 Outpatient ARABELLA MCDONALD MDA MDA [id number] [facility] 2021-03-20 09:59:56 2021-03-20 09:59:56 Outpatient ARABELLA MCDONALD MDA MDA [id number] [facility] 2020-12-31 10:08:40 2020-12-31 11:59:17 Outpatient ARABELLA MCDONALD MDA MDA [id number] [facility] 2020-12-26 09:25:14 2020-12-26 23:59:00 Outpatient SILVA PEREZ MDA MDA [id number] MD Karli billings 2020-12-26 07:33:15 2020-12-26 09:24:00 Outpatient SILVA PEREZ MDA MDA [id number] MD Karli billings 2020-12-26 07:33:00 2020-12-26 07:33:00 Outpatient SILVA PEREZ MDA MDA [id number] MD Karli billings 2020-12-26 07:08:19 2020-12-26 07:32:00 Outpatient SILVA PEREZ MDA MDA [id number] MD Karli billings 2020-12-12 08:59:11 2020-12-12 23:59:00 Outpatient EL SILVA DOVER MDA MDA [id number] MD Karli billings 2020-12-12 11:22:35 2020-12-12 11:22:35 Outpatient EL ARABELLA WHITNEY MDA MDA [id number] MD Karli billings 2020-12-12 08:33:58 2020-12-12 11:00:10 Outpatient EL JEANNE BARROW MDA MDA [id number] MD Karli billings 2020-12-12 07:42:51 2020-12-12 08:58:00 Outpatient EL ARABELLA WHITNEY MDA MDA [id number] MD Karli billings 2020-12-10 10:14:40 2020-12-10 10:33:36 Outpatient EL CORTESFELICIANO CORTEZMALIKA MDA MDA [id number] MD Karli billings 2020-11-16 11:20:08 2020-11-16 14:51:10 Outpatient ARABELLA MCDONALD MDA MDA [id number] MD Karli billings 2020-09-02 13:40:49 2020-09-02 13:40:49 Outpatient EL ADONIS YOU MDA MDA [id number] MD Karli billings 2020-08-02 08:09:05 2020-08-02 09:39:30 Outpatient FUENTES VANCE MDA MDA [id number] MD Karli billings 2020-08-02 06:12:36 2020-08-02 06:12:36 Outpatient EL CLAUDIA CESAR MDA MDA [id number] MD Karli billings 2020-07-25 00:00:00 2020-07-25 00:00:00 Outpatient EL CLAUDIA CESAR MDA MDA [id number] MD Karli billings 2020-06-21 07:40:19 2020-06-21 23:59:00 Outpatient EL ARABELLA WHITNEY MDA MDA [id number] MD Karli billings 2020-06-21 07:40:01 2020-06-21 23:59:00 Outpatient ARABELLA MCDONALD MDA MDA [id number] MD Karli billings 2020-06-21 10:01:04 2020-06-21 13:05:13 Outpatient FUENTES VANCE MDA MDA [id number] MD Karli billings 2020-06-21 07:39:23 2020-06-21 07:39:23 Outpatient EL ROOSEVELT MESSINA MDA MDA [id number] MD Karli billings 2020-05-26 12:36:31 2020-05-26 12:36:31 Outpatient CHRIS TALIDARYJABIER MDA MDA [id number] MD Karli billings 2020-05-24 12:36:47 2020-05-24 12:50:04 Outpatient EL TALICLAUDIA MDA MDA [id number] MD Karli billings 2020-05-24 09:50:14 2020-05-24 12:16:05 Outpatient EL TALI GABRIELADENIS MDA MDA [id number] MD Karli billings 2020-05-24 08:26:51 2020-05-24 08:26:51 Outpatient CHRIS CESAR GABRIELADENIS MDA MDA [id number] MD Karli billings 2020-05-24 08:00:39 2020-05-24 08:00:39 Outpatient EL TALIDARYJABIER MDA MDA [id number] MD Karli billings 2020-05-24 07:06:16 2020-05-24 07:06:16 Outpatient EL UNIQUE RAVI MDA MDA [id number] MD Karli billings 2020-05-24 00:00:00 2020-05-24 00:00:00 Outpatient CHRIS TALIDARYJABIER MDA MDA [id number] MD Karli billings 2016-04-13 00:00:00 2016-04-13 00:00:00 Outpatient MDA MDA [id number] MD Karli billings Results Test Description Test Time Test Comments Results Resul t Comments Source XR sacroiliac joints bilateral 2024-08-28 01:28:55 EXAM: XR SACROILIAC JOINT 3 VIEWS DATE: 08/27/2024 12:00 INDICATION: ARTHRALGIA COMPARISON: None. TECHNIQUE: ? AP, RPO and LPO radiographs of the sacroiliac joints FINDINGS: The sacroiliac joint widths are well preserved. No sclerosis orosseous erosion is seen on either side. Grade 1 retrolisthesis of L1.Osteophytosis of the vertebra and facet joint arthropathy. Postsurgical changesfrom from vertebral body augmentation at T12. No soft tissue abnormality is identified. [facility] XR hand 3+ views bilateral 2024-08-27 23:22:28 EXAM: XR BILATERAL HAND 3+ VIEWS DATE: 08/27/2024 12:00 INDICATION: ARTHRALGIA COMPARISON: None. TECHNIQUE: ?4 views of the bilateral hands. FINDINGS: No acute fracture or malalignment is identified. Joint spaces and bonemineral density are preserved. ? Extensive vascular calcifications. [facility] [id number] 04:55:00* Test Item Value Reference Range Interpretation Comments INTERPRETATION (test code = 10130-8) See Below Specific ?Level of AllergenIGE Class [...] and its analyticalperformance characteristics have been determined by[employer]. It has not been cleared or approvedby the U.S. Food and Drug Administration. This assay has been validated pursuant to the CLIA regulations and is used for clinical purposes. JACY (test code = RAC) Performing Organization Information: ? ?Site ID: IG ? ?Name: [employer] [facility] ? ?Address: [facility] [place], [place] [address] ? ?Director: LARA DORSEY MD PHD [facility]IFIC 11 AB [id number] 19:06:00* Test Item Value Reference Range Interpretation Comme nts KYMBERLY-1 AB (test code = 88840-0) <11 See_Comment [Automated messa ge] The system which generated this result transmitted reference range: <11 SI. The reference range was not used to interpret this result as normal/abnormal. PL-7 AB (test code = 51002-0) <11 See_Comment [Automated messa ge] The system which generated this result transmitted reference range: <11 SI. The reference range was not used to interpret this result as normal/abnormal. PL-12 AB (test code = 46337-8) <11 See_Comment [Automated messa ge] The system which generated this result transmitted reference range: <11 SI. The reference range was not used to interpret this result as normal/abnormal. EJ AB (test code = 28850-0) <11 See_Comment [Automated messa ge] The system which generated this result transmitted reference range: <11 SI. The reference range was not used to interpret this result as normal/abnormal. OJ AB (test code = 61836-1) <11 See_Comment [Automated messa ge] The system which generated this result transmitted reference range: <11 SI. The reference range was not used to interpret this result as normal/abnormal. SRP AB (test code = 80050-8) <11 See_Comment [Automated messa ge] The system which generated this result transmitted reference range: <11 SI. The reference range was not used to interpret this result as normal/abnormal. WI-2 ALPHA AB (test code = 79641-5) <11 See_Comment [Automated messa ge] The system which generated this result transmitted reference range: <11 SI. The reference range was not used to interpret this result as normal/abnormal. WI-2 BETA AB (test code = 20101-8) <11 See_Comment [Automated messa ge] The system which generated this result transmitted reference range: <11 SI. The reference range was not used to interpret this result as normal/abnormal. MDA-5 AB (test code = 93425-6) <11 See_Comment [Automated messa ge] The system which generated this result transmitted reference range: <11 SI. The reference range was not used to interpret this result as normal/abnormal. TIF-1y AB (test code = 50614-9) <11 See_Comment [Automated Mob[employer] ge] The system which generated this result transmitted reference range: <11 SI. The reference range was not used to interpret this result as normal/abnormal. NXP-2 AB (test code = 86371-2) <11 See_Comment Myositis-specifi c autoantibodies (MSAs) are [...] association with a rash. Additionally, MSAsto MDA5 (OLZW089) have been identified in patients withclinically amyopathic [...] analytical performancecharacteristic s have been determined by [employer]. It has not been cleared or approved bythe FDA. This assay has been validated pursuant to theCLIA regulations and is used for clinical purposes. [Automated message] The system which generated this result transmitted reference range: <11 SI. The reference range was not used to interpret this result as normal/abnormal. JACY (test code = RAC) Performing Organization Information: ? ?Site ID: [id number] ? ?Name: [employer] ? ?Address: [address] [place] [address] ? ?Director: RAJ CLEMONS MD,PHD,MB A [place] HealthANA Screen, IFA w Reflex to [id number] 00:01:00* Test Item Value Reference Range Interpretation Comments CHANDLER SCREEN, IFA (test code = 83128-8) POSITIVE NEGATIVE A CHANDLER IFA is a fir st line screen for detecting thepresence of up to approximately 150 autoantibodies invarious autoimmune diseases. A positive CHANDLER IFA resultis suggestive of autoimmune disease and reflexes totiter and pattern. Further laboratory testing may beconsidered if clinically indicated. For additional information, please refer tohttp://education. [email or web address] m/faq/NQV540(This link is being provided for informational/educa tional purposes only.) ? JACY (test code = RAC) Performing Organization Information: ? ?Site ID: IG ? ?Name: [employer] ? ?Address: [address] [place] [id number] ? ?Director: MARTHA KELLY MD Lab Interpretation (test code = 06118-3) Abnormal [place] HealthANTINUCLEAR ANTIBODIES TITER AND [id number] 00:01:00* Test Item Value Reference Range Interpretation Comments CHANDLER TITER (test code = 5048-4) 1:160 titer H ?Reference Range ?<1:40 ?Negative ?1:40-1:80 ? ?Low Antibody Level ?>1:80 ?Elevated Antibody Level CHANDLER PATTERN (test code = 21222-2) Cytoplasmic A The presence of cytoplasmic fluorescence was noted onthe HEp-2 slide. Other reactivities (e.g., anti-mitochondrial antibodies or anti-smooth muscleantibodies) may be responsible for this fluorescence.The clinical significance of this finding is uncertain.Clinical correlation is recommended. AC-15 to AC-23: Cytoplasmic International Consensus on CHANDLER Patterns(https://d oi.org/10.1515/ccl m-2097-4673) JACY (test code = RAC) Performing Organization Information: ? ?Site ID: IG ? ?[facility] ? ?Address: [address] [place] [address], [place] [address] ? ?Director: MARTHA KELLY MD Lab Interpretation (test code = 71069-7) Abnormal [place] HealthRheumatoid [id number] 19:37:00* Test Item Value Reference Range Interpretation Comme [facility] RHEUMATOID FACTOR (test code = 16331-7) <14 See_Comment [Automated message] The system which generated this result transmitted reference range: <14 IU/mL. The reference range was not used to interpret this result as normal/abnormal. RAC (test code = RAC) Performing Organization Information: ? ?Site ID: RGA ? ?Name: [employer] [facility] ? ?Address: [address] [place] [phone] ? ?Director: TOSHA GRIGGS MD,PHD. [place] HealthSJOGREN'S ANTIBODIES (SS-A,SS-B)2024-02-07 19:12:00* Test Item Value Reference Range Interpretation Comme nts SJOGREN'S ANTIBODY (SS-A) (test code = 54704-4) <1.0 NEG See_Comment [Automated message] The system which generated this result transmitted reference range: <1.0 NEG AI. The reference range was not used to interpret this result as normal/abnormal. SJOGREN'S ANTIBODY (SS-B) (test code = 36687-9) <1.0 NEG See_Comment [Automated message] The system which generated this result transmitted reference range: <1.0 NEG AI. The reference range was not used to interpret this result as normal/abnormal. RAC (test code = RAC) Performing Organization Information: ? ?Site ID: IG ? ?Name[facility] ? ?Address: [address] [place] [address], [place] [address] ? ?Director: MARTHA KELLY MD [place] HealthCyclic citrul peptide antibody, [id number] 16:10:00* Test Item Value Reference Range Interpretation Comme nts CYCLIC CITRULLINATED PEPTIDE (CCP) AB (IGG) (test code = 13134-7) <16 UNITS Reference RangeNegative: ?<20Weak Positive: ? ? ? 20-39Moderate Positive: ? 40-59Strong Positive: ? ? >59 RAC (test code = RAC) Performing Organization Information: ? ?Site ID: IG ? ?Name: [facility] ? ?Address: [address] [place], [place] [address] [address] ? ?Director: MARTHA KELLY MD [facility] Notes Pending Results Date/Time Note Provider Source Health Maintenance Due Date Last Done Comments CT Colonography 1957 Colonoscopy 1955 Colorectal Cancer Screening 1955 FIT-DNA 1957 FIT 1957 FOBT 1955 Medicare Annual Wellness (AWV) 1955 Sigmoidoscopy 1955 Annual Physical 02/02/1960 DTaP/Tdap/Td Vaccines (1 - Tdap) 02/02/1976 Zoster Vaccines (1 of 2) 02/02/1976 Respiratory Syncytial Virus (RSV) or >=60 (1 - 1-dose 60+ series) 2017 Influenza Vaccine (#1) 2024 09/25/2021 Pneumococcal Vaccine: 65+ Years (3 of 3 - PPSV23 or PCV20) 09/25/2026 09/25/2021, 06/19/2019 Lipid Panel 08/07/2029 08/07/2024 HIB Vaccines Aged Out No longer eligi ble based on patient's age to complete this topic HPV Vaccines Aged Out No longer eligi ble based on patient's age to complete this topic Hepatitis A Vaccines Aged Out No long er eligible based on patient's age to complete this topic Hepatitis B Vaccines Aged Out No long er eligible based on patient's age to complete this topic IPV Vaccines Aged Out No longer eligi ble based on patient's age to complete this topic Meningococcal Vaccine Aged Out No shubham deb eligible based on patient's age to complete this topic Rotavirus Vaccines Aged Out No longer eligible based on patient's age to complete this topic [facility]61 00:35:36 [facility] WorthZejkqos8458-90-61 11:00:00 Addended by: KEMAR SHELBY on: 09/09/2024 02:30 PM Modules accepted: Level of Service [facility]
--- NOTE | 2024-10-03 12:55 | RAD REPORT ---
EXAM: CT CHEST, ABDOMEN AND PELVIS WITHOUT CONTRAST CLINICAL INDICATION: Male, 69 years old Congestion;Cough;Pain TECHNIQUE: CT chest, abdomen and pelvis was performed, without IV contrast, as per department protoco l. Axial, sagittal and coronal reconstructions were obtained. One or more of the following dose reduction techniques were used: Automated exposure control, adjustment of the mA and/or kV according to the patient size, and/or iterative reconstruction. Unless otherwise specified, incidental findings do not require dedicated imaging follow-up. [id number]. COMPARISON: CT chest 05/28/2024 FINDINGS: The lack of intravenous contrast limits the sensitivity of this exam for evaluation of solid visceral organs, vascular structures, and retroperitoneum. Chest: LOWER NECK/CHEST WALL: Visualized thyroid gland and soft tissues are normal. LUNGS AND AIRWAYS: Chronic interstitial lung changes which are similar may reflect visualization pneu monia. No evidence of a new superimposed acute process.. PLEURA: No pleural effusion. No pneumothorax. Hemidiaphragms are normally positioned. MEDIASTINUM AND LYMPH NODES: No mediastinal mass or fluid collection. Normal size mediastinal, hilar, and axillary lymph nodes. THORACIC AORTA: Normal caliber and configuration. PULMONARY ARTERIES: Normal caliber. HEART: Coronary calcifications. Mild cardiomegaly. Abdomen/Pelvis LIVER: Normal in size and contour. No focal lesion. GALLBLADDER/BILE DUCTS: No biliary ductal dilatation. PANCREAS: No mass, ductal dilation, or shirin-pancreatic fluid. SPLEEN: Normal size. No focal lesion. ADRENALS: Normal; no mass. KIDNEYS AND URETERS: Normal size and contour. No hydronephrosis. GASTROINTESTINAL TRACT: Stomach is non-dilated. Small bowel has normal course and caliber. No colonic wall thickening or pericolonic inflammatory changes. Normal appendix PERITONEUM: No free fluid. Fat-containing inguinal hernias. LYMPH NODES: No lymphadenopathy. ABDOMINAL AORTA AND OTHER VESSELS: Normal caliber aorta and IVC. Atherosclerosis URINARY BLADDER: Normal contour. REPRODUCTIVE ORGANS: Prostatomegaly. MUSCULOSKELETAL: No acute or suspicious osseous abnormality. T12 kyphoplasty. Multilevel degenerative changes are present in the spine. ADDITIONAL FINDINGS: None IMPRESSION: No acute or significant abnormalities in the chest, abdomen, or pelvis. Chronic interstitial lung cecily nges which may reflect usual interstitial pneumonia (UIP) pattern.
[2024-10-03 13:23] LABS: Absolute Eosinophils 0.2 K/uL (0-0.5); Absolute Lymphocytes (CBC) 2.1 K/uL (0.7-4.9); Absolute Monocytes 0.7 K/uL (0.1-1.3); Absolute Neutrophil 5.4 K/uL (1.8-8.0); Basophils % 0.4 % (0-1.3); Eosinophils % 1.9 % (0-4.4); Hematocrit 42.1 % (39.6-49.0); Hemoglobin 13.7 g/dL (13.6-17.9); Lymphocytes % 25.4 % (15.3-44.8); MCH 29.1 pg (27.0-35.0); MCHC 32.5 g/dL (32.0-36.0); MCV 89.5 fL (80-100); MPV 8.2 fL (7.6-11.3); Monocytes % 8.2 % (3.3-12.3); Neutrophils % 64.1 % (41.7-73.7); Platelets 239 thou/uL (152-406); RBC Red Blood Cell Count 4.71 M/uL (4.33-5.43); Red Cell Distribution Width 14.1 % (12.1-15.2)
[2024-10-03 13:25] LABS: Specific Gravity 1.013 (1.005-1.030); Urine Bilirubin NEGATIVE (Negative); Urine Blood Negative (Negative); Urine Clarity Clear (Clear); Urine Color Colorless (Yellow); Urine Glucose NEGATIVE (Negative); Urine Ketones NEGATIVE (Negative); Urine Microscopic Reflex YN NO UMIC; Urine Nitrite NEGATIVE (Negative); Urine Protein NEGATIVE (Negative); Urine Urobilinogen Normal (Normal)
[2024-10-03 13:31] LABS: PT Prothrombin Time 11.4 SECONDS (9.4-12.5); Protime INR 1.02
[2024-10-03 13:42] LABS: Albumin 3.6 g/dL (3.4-5.0); Albumin/Globulin Ratio 0.8 (1.1-1.8); Anion Gap 10.4 mEq/L (5.0-15.0); Bilirubin Direct 0.3 mg/dL (0-0.2); Bilirubin Indirect, Calculated 0.9 mg/dL (0.2-0.8); Bilirubin Total 1.2 mg/dL (0.2-1.0); Globulin 4.7 g/dL (2.3-3.5); Potassium 3.4 mEq/L (3.5-5.1); Protein, Total 8.3 g/dL (6.4-8.2); Troponin High Sensitivity 6.5 pg/mL (<58.9)
--- NOTE | 2024-10-03 13:47 | RAD REPORT ---
EXAM: Chest Single View HISTORY: Cough;Congestion COMPARISON: 10/03/2024 FINDINGS: LUNGS/PLEURA: Chronic interstitial lung changes. No new acute process. MEDIASTINUM: The mediastinal silhouette is within normal limits. CARDIAC: The cardiac silhouette is within normal limits. UPPER ABDOMEN: No significant abnormality. BONES: No acute fracture. LINES/TUBES/OTHER: N/A IMPRESSION: Chronic interstitial lung changes without evidence of a superimposed acute process.
[2024-10-03 14:09] LABS: SARS-CoV-2 Antigen CONTROL BLUE LINE VIS/BG OK; SARS-CoV-2 Antigen Rapid Res Negative (Negative)
[2024-10-03] MEDS ORDERED: NA CHLORIDE 0.9% 500 ML ONE (14:13)
[2024-10-03] MEDS ORDERED: ONDANSETRON 4 MG/2 ML VIAL ONE (14:13)
[2024-10-03] MEDS ORDERED: AZITHROMYCIN 250 MG TAB ONE (15:34)
[2024-10-03] MEDS ORDERED: LEVALBUTEROL 1.25 MG/3 ML NEB ONE (15:34)
[2024-10-03] MEDS ORDERED: IPRATROPIUM BROM 0.5MG/2.5ML ONE (15:34)
[2024-10-03] MEDS ORDERED: dexAMETHasone 10 MG/ML VIAL ONE (15:34)
--- NOTE | 2024-10-03 15:38 | ER ---
Nurse's Notes [facility] Name: Clinton Arnold Age: 69 yrs Sex: Male : 1955 Arrival Date: 10/03/2024 Time: 11:38 Bed 16 Private MD: Diagnosis: Idiopathic pulmonary fibrosis;Pulmonary fibrosis, unspecified;Nausea with vomiting, unspecified;Hypokalemia Presentation: 10/03 12:03 Chief complaint: Patient states: I went to my PCP and he put me on antibiotics. I have tm6 been taking them, but I have not started to feel better. I have shortness of breath, I don't want to drink water, I feel lightheaded, my eyesight doesn't feel right, I have a headache, my sinuses hurt, I didn't sleep well last night, no appetite today, I'm not peeing normally. I have a lot of mucus and phlegm. I have pain around my kidneys. Coronavirus screen: Client denies travel out of the [place] in the last 14 days. Ebola Screen: Patient negative for fever greater than or equal to 101.5 degrees Fahrenheit, and additional compatible Ebola Virus Disease symptoms Patient denies exposure to infectious person. Patient denies travel to an Ebola-affected area in the 21 days before illness onset. No symptoms or risks identified at this time. Initial Sepsis Screen: Does the patient meet any 2 criteria? No. Patient's initial sepsis screen is negative. Does the patient have a suspected source of infection? No. Patient's initial sepsis screen is negative. Risk Assessment: Do you want to hurt yourself or someone else? Patient reports no desire to harm self or others. Onset of symptoms was October 03, 2024. 12:03 Method Of Arrival: Ambulatory tm6 12:03 Acuity: [place] 3 tm6 Triage Assessment: 12:06 General: Appears in no apparent distress. Behavior is calm, cooperative. Pain: tm6 Complains of pain in face and back Pain currently is 3 out of 10 on a pain scale. EENT: Reports sinuses hurting. Neuro: Level of Consciousness is awake, alert, obeys commands, Oriented to person, place, time, situation, Reports headache. Cardiovascular: Patient's skin is warm and dry. Respiratory: Reports cough that is productive, persistent Airway is patent Respiratory effort is even, unlabored, Respiratory pattern is regular, symmetrical. Respiratory: Reports shortness of breath. GI: Abdomen is round Reports bloating. : Reports "pee is not normal". Derm: No signs and/or symptoms reported regarding the dermatologic system. Musculoskeletal: Reports pain in back. Historical: - Allergies: 12:06 Prednisone; tm6 - PMHx: 12:06 Back pain; High Cholesterol; Hodgkin's Lymphoma; pulmonary fibrosis; Hypertension; tm6 - PSHx: 12:06 eye and knee SX; heart stent; tm6 - Immunization history:: Flu vaccine is up to date. - Infectious Disease History:: Denies. - Social history:: Smoking status: Patient denies any tobacco usage or history of. Screenin:09 [facility] ED Fall Risk Assessment (Adult) History of falling in the last 3 months, tm6 including since admission No falls in past 3 months (0 pts) Confusion or Disorientation No (0 pts) Intoxicated or Sedated No (0 pts) Impaired Gait No (0 pts) Mobility Assist Device Used No (0 pt) Altered Elimination No (0 pt) Score/Fall Risk Level 0 - 2 = Low Risk Oriented to surroundings, Maintained a safe environment, Educated pt \\T\\ family on fall prevention, incl call for assistance when getting out of bed. Abuse screen: Denies threats or abuse. Denies injuries from another. Nutritional screening: No deficits noted. Tuberculosis screening: No symptoms or risk factors identified. Assessment: 14:09 Reassessment: see triage assessment. Reassessment: Patient and/or family updated on tm6 plan of care and expected duration. Pain level reassessed. Patient is alert, oriented x 3, equal unlabored respirations, skin warm/dry/pink. GI: Abdomen is flat, non-distended. 16:10 Reassessment: Patient and/or family updated on plan of care and expected duration. Pain tm6 level reassessed. Patient is alert, oriented x 3, equal unlabored respirations, skin warm/dry/pink. Vital Signs: 12:02 BP 148 / 73; Pulse 67; Resp 18; Temp 98.4(O); Pulse Ox 98% on R/A; MAP 95 mmHg; Weight tm6 81.65 kg; Height 5 ft. 6 in. ; Pain 3/10; 14:09 BP 134 / 78; Pulse 66; Pulse Ox 96% on R/A; MAP 95 mmHg; tm6 16:10 BP 153 / 72; Pulse 59; Resp 20; Temp 98.4; Pulse Ox 100% on R/A; MAP 92 mmHg; Pain 0/10;tm6 12:02 Body Mass Index 29.05 (81.65 kg, 167.64 cm) tm6 12:02 Pain Scale: Adult tm6 16:10 Pain Scale: Adult tm6 ED Course: 11:44 Patient arrived in ED. im 11:44 Jermaine Chou MD is Attending Physician. cecily 12:06 Triage completed. tm6 12:06 Arm band placed on right wrist. tm6 12:33 CT Chest Abdomen Pelvis W/O Contrast In Process Unspecified. EDMS 13:06 Inserted saline lock: 22 gauge in left antecubital area, using aseptic technique. Blood nh2 collected. Flushed with 10 mL NS. 13:18 Dea Vanessa, RN is Primary Nurse. tm6 13:35 Urine Culture Sent. nh2 13:35 SARS RAPID Sent. nh2 13:35 Flu Sent. nh2 13:35 Lipase Sent. nh2 13:35 Basic Metabolic Panel Sent. nh2 13:35 LFT's Sent. nh2 13:35 Magnesium Sent. nh2 13:35 NT PRO-BNP Sent. nh2 13:35 Troponin HS Sent. nh2 13:44 XRAY Chest (1 view) In Process Unspecified. EDMS 14:09 Patient has correct armband on for positive identification. Bed in low position. Call tm6 light in reach. Side rails up X 1. Provided Education on: use of call garcia. Client placed on continuous cardiac and pulse oximetry monitoring. NIBP monitoring applied. Pulse ox on. NIBP on. Door closed. Noise minimized. Warm blanket given. 15:37 Andre Natarajan MD is Referral Physician. cecily 16:11 No provider procedures requiring assistance completed. IV discontinued, intact, tm6 bleeding controlled, No redness/swelling at site. Pressure dressing applied. Administered Medications: 14:17 Drug: NS 0.9% IV 500 ml 500 ml IV at 1 bolus once; to be given as a bolus over 30 tm6 minutes Volume: 500 ml; Route: IV; Rate: 1 bolus; Site: left antecubital; 15:31 Follow up: Response: No adverse reaction; IV Status: Completed infusion; IV Intake: tm6 500ml 14:17 Drug: Ondansetron IVP 4 mg IVP once; over 2 minutes Route: IVP; Site: left antecubital; tm6 15:30 Follow up: Response: No adverse reaction tm6 15:48 Not Given (Patient Refused): Decadron - mg IVP once tm6 15:48 Drug: Levalbuterol Inhalation 2.5 mg Inhalation once Route: Inhalation; tm6 16:12 Follow up: Response: No adverse reaction tm6 15:48 Drug: Potassium PO Effervescent Tablet 25 mEq PO once; dissolve in 4 ounces of water or tm6 juice Route: PO; 16:12 Follow up: Response: No adverse reaction tm6 15:49 Drug: Ipratropium Inhalation Aerosol 0.5 mg Inhalation once Route: Inhalation; tm6 16:12 Follow up: Response: No adverse reaction tm6 15:49 Drug: AZITHromycin PO 500 mg PO once Route: PO; tm6 16:12 Follow up: Response: No adverse reaction tm6 Medication: 14:09 VIS not applicable for this client. tm6 Intake: 15:31 IV: 500ml; Total: 500ml. tm6 Outcome: 15:38 Discharge ordered by . cecily 16:11 Discharged to home ambulatory, tm6 16:11 Condition: stable 16:11 Discharge instructions given to patient, Instructed on discharge instructions, follow up and referral plans. medication usage, Demonstrated understanding of instructions, follow-up care, medications, Prescriptions given X X6 16:12 Patient left the ED. tm6 Signatures: Dispatcher [employer] EDAR Jermaine Chou MD MD cha Mendoza, Itzel im Masterson, Tawney, RN RN tm6 Janak Pride Jr Corrections: (The following items were deleted from the chart) 12:06 12:03 Chief complaint: Patient states: I went to my PCP and he put me on antibiotics. I tm6 have been taking them, but I have not started to feel better. I have shortness of breath, I don't want to drink water, I feel lightheaded, my eyesight doesn't feel right, I have a headache, my sinuses hurt, I didn't sleep well last night, no appetite today, I'm not peeing normally. I have a lot of mucus and phlegm tm6
--- NOTE | 2024-10-03 15:39 | EDPHYS ---
Physician Documentation [facility] Name: Clinton Arnold Age: 69 yrs Sex: Male : 1955 Arrival Date: 10/03/2024 Time: 11:38 Bed 16 Private MD: ED Physician Jermaine Chou HPI: 10/03 15:27 This 69 yrs old Male presents to ER via Ambulatory with complaints of Urinary cecily Problem, Nausea, Chest Congestion, Chest Pain, Congestion. 15:27 The patient presents to the emergency department with nausea, vomiting, that is cecily intermittent. Onset: The symptoms/episode began/occurred 3 day(s) ago. Possible causes: unknown. The symptoms are aggravated by nothing. The symptoms are alleviated by remaining still. Associated signs and symptoms: Pertinent positives: nausea, vomiting. Severity of symptoms: At their worst the symptoms were mild moderate in the emergency department the symptoms are unchanged. The patient has experienced similar episodes in the past, multiple times. Historical: - Allergies: 12:06 Prednisone; tm6 - PMHx: 12:06 Back pain; High Cholesterol; Hodgkin's Lymphoma; pulmonary fibrosis; Hypertension; tm6 - PSHx: 12:06 eye and knee SX; heart stent; tm6 - Immunization history:: Flu vaccine is up to date. - Infectious Disease History:: Denies. - Social history:: Smoking status: Patient denies any tobacco usage or history of. ROS: 15:28 Constitutional: Negative for fever, chills, and weight loss, Eyes: Negative for injury, cecily pain, redness, and discharge, ENT: Negative for injury, pain, and discharge, Neck: Negative for injury, pain, and swelling, Cardiovascular: Negative for chest pain, palpitations, and edema, Back: Negative for injury and pain, : Negative for injury, bleeding, discharge, and swelling, MS/Extremity: Negative for injury and deformity, Skin: Negative for injury, rash, and discoloration, Neuro: Negative for headache, weakness, numbness, tingling, and seizure, Psych: Negative for depression, anxiety, suicide ideation, homicidal ideation, and hallucinations, Allergy/Immunology: Negative for hives, rash, and allergies, Endocrine: Negative for neck swelling, polydipsia, polyuria, polyphagia, and marked weight changes, Hematologic/Lymphatic: Negative for swollen nodes, abnormal bleeding, and unusual bruising, 15:28 Respiratory: Positive for cough, "sounds productive", shortness of breath, USUAL, HX FIBROSIS, 15:28 MS/extremity: Negative for acute changes, swelling, tenderness, Exam: 15:28 Constitutional: This is a well developed, well nourished patient who is awake, alert, cecily and in no acute distress. Head/Face: Normocephalic, atraumatic. Eyes: Pupils equal round and reactive to light, extra-ocular motions intact. Lids and lashes normal. Conjunctiva and sclera are non-icteric and not injected. Cornea within normal limits. Periorbital areas with no swelling, redness, or edema. ENT: Nares patent. No nasal discharge, no septal abnormalities noted. Tympanic membranes are normal and external auditory canals are clear. Oropharynx with no redness, swelling, or masses, exudates, or evidence of obstruction, uvula midline. Mucous membranes moist. Neck: Trachea midline, no thyromegaly or masses palpated, and no cervical lymphadenopathy. Supple, full range of motion without nuchal rigidity, or vertebral point tenderness. No Meningismus. Chest/axilla: Normal chest wall appearance and motion. Nontender with no deformity. No lesions are appreciated. Cardiovascular: Regular rate and rhythm with a normal S1 and S2. No gallops, murmurs, or rubs. Normal PMI, no JVD. No pulse deficits. Abdomen/GI: Soft, non-tender, with normal bowel sounds. No distension or tympany. No guarding or rebound. No evidence of tenderness throughout. Back: No spinal tenderness. No costovertebral tenderness. Full range of motion. Male : Normal genitalia with no discharge or lesions. Skin: Warm, dry with normal turgor. Normal color with no rashes, no lesions, and no evidence of cellulitis. MS/ Extremity: Pulses equal, no cyanosis. Neurovascular intact. Full, normal range of motion., bilateral aka Neuro: Awake and alert, GCS 15, oriented to person, place, time, and situation. Cranial nerves II-XII grossly intact. Motor strength 5/5 in all extremities. Sensory grossly intact. Cerebellar exam normal. Normal gait. Psych: Awake, alert, with orientation to person, place and time. Behavior, mood, and affect are within normal limits. 15:28 Respiratory: the patient does not display signs of respiratory distress, Respirations: normal, Breath sounds: decreased breath sounds, that are mild, are located in both bases, rhonchi, that are mild, are scattered, stridor, is not appreciated, 15:37 Musculoskeletal/extremity: DVT Exam: No signs of deep vein thrombosis. no pain, no cecily swelling, no tenderness, negative Homans' sign noted on exam, no appreciated bluish discoloration, no erythema, no increased warmth, 15:43 ECG was reviewed by the Attending Physician. [facility] Vital Signs: 12:02 BP 148 / 73; Pulse 67; Resp 18; Temp 98.4(O); Pulse Ox 98% on R/A; MAP 95 mmHg; Weight tm6 81.65 kg; Height 5 ft. 6 in. ; Pain 3/10; 14:09 BP 134 / 78; Pulse 66; Pulse Ox 96% on R/A; MAP 95 mmHg; tm6 16:10 BP 153 / 72; Pulse 59; Resp 20; Temp 98.4; Pulse Ox 100% on R/A; MAP 92 mmHg; Pain 0/10;tm6 12:02 Body Mass Index 29.05 (81.65 kg, 167.64 cm) tm6 12:02 Pain Scale: Adult tm6 16:10 Pain Scale: Adult tm6 MDM: 11:44 Medical Screening Exam initiated [facility] 15:30 Antibiotic administration: The patient is discharged and will get outpatient [facility] antibiotics, Zithromax. Differential diagnosis: asthma, Bronchitis CHF exacerbation, Chronic Obstructive Pulmonary Disease obstructed airway, tracheal injury, bronchitis, flu, URI, Nonspecific abd pain, pancreatitis, viral gastroenteritis, gastroenteritis, Myocardial Infarction pneumonia, Pneumothorax pulmonary edema, Pulmonary Embolism reactive airway disease, Sepsis Unstable Angina. Differential Diagnosis: Obstructed Airway Bronchitis Influenza Upper Respiratory Infection Sinusitis Pharyngitis Otitis Media Asthma Exacerbation Viral Syndrome Pneumonia Tracheal Injury. Immunization status: Pneumococcal vaccine: within last 5 years. Influenza vaccine: within last 5 years. Data reviewed: vital signs, nurses notes, lab test result(s), EKG, radiologic studies, plain films. Consideration of Admission/Observation Escalation of care including admission/observation considered. I considered the following discharge prescriptions or medication management in the emergency department Medications were administered in the Emergency Department. See MAR. Independent interpretation of the following test(s) in the Emergency Department EKG: See my EKG interpretation above. Test considered but Not performed: CT: NO CT PE. Historians other than the Patient: Spouse/Significant Other: WELL INFORMED. Care significantly affected by the following chronic conditions: Hypertension, Chronic Obstructive Pulmonary Disease, Obesity, PULMONARY FIBROSIS, DUE TO BLEOMYCIN. Counseling: I had a detailed discussion with the patient and/or guardian regarding the historical points, exam findings, and any diagnostic results supporting the discharge/admit diagnosis, lab results, radiology results, the need for outpatient follow up, for definitive care, a family practitioner, a finance manager. 10/03 11:53 Order name: Basic Metabolic Panel; Complete Time: 13:53 [facility] 10/03 11:53 Order name: CBC with Diff; Complete Time: 13:53 [facility] 10/03 11:53 Order name: LFT's; Complete Time: 13:53 [facility] 10/03 11:53 Order name: Magnesium; Complete Time: 13:53 [facility] 10/03 11:53 Order name: NT PRO-BNP; Complete Time: 13:53 [facility] 10/03 11:53 Order name: PT-INR; Complete Time: 13:53 [facility] 10/03 11:53 Order name: Troponin HS; Complete Time: 13:53 [facility] 10/03 11:53 Order name: Lipase; Complete Time: 13:53 [facility] 10/03 11:53 Order name: Urinalysis w/ reflexes; Complete Time: 13:53 [facility] 10/03 11:53 Order name: Flu; Complete Time: 15:15 [facility] 10/03 11:53 Order name: SARS RAPID; Complete Time: 15:15 [facility] 10/03 11:53 Order name: Urine Culture [facility] 10/03 11:53 Order name: XRAY Chest (1 view); Complete Time: 13:53 [facility] 10/03 11:54 Order name: CT Chest Abdomen Pelvis W/O Contrast; Complete Time: 13:53 [facility] 10/03 11:53 Order name: Cardiac monitoring; Complete Time: 13:51 [facility] 10/03 11:53 Order name: EKG - Nurse/Tech; Complete Time: 13:43 [facility] 10/03 11:53 Order name: IV Saline Lock; Complete Time: 14:07 [facility] 10/03 11:53 Order name: Labs collected and sent; Complete Time: 14:07 [facility] 10/03 11:53 Order name: O2 Per Protocol; Complete Time: 14: [facility] 10/03 11:53 Order name: O2 Sat Monitoring; Complete Time: 13:51 cecily EC:43 Rate is 64 beats/min. Rhythm is regular. QRS [place] is Normal. [place] interval is normal. QRS cecily interval is normal. QT interval is normal. No Q waves. T waves are Normal. No ST changes noted. Clinical impression: Normal ECG and No evidence of ischemia. Interpreted by me. Reviewed by me. Administered Medications: 14:17 Drug: NS 0.9% IV 500 ml 500 ml IV at 1 bolus once; to be given as a bolus over 30 tm6 minutes Volume: 500 ml; Route: IV; Rate: 1 bolus; Site: left antecubital; 15:31 Follow up: Response: No adverse reaction; IV Status: Completed infusion; IV Intake: tm6 500ml 14:17 Drug: Ondansetron IVP 4 mg IVP once; over 2 minutes Route: IVP; Site: left antecubital; tm6 15:30 Follow up: Response: No adverse reaction tm6 15:48 Not Given (Patient Refused): Decadron - [id number] mg IVP once tm6 15:48 Drug: Levalbuterol Inhalation 2.5 mg Inhalation once Route: Inhalation; tm6 16:12 Follow up: Response: No adverse reaction tm6 15:48 Drug: Potassium PO Effervescent Tablet 25 mEq PO once; dissolve in 4 ounces of water or tm6 juice Route: PO; 16:12 Follow up: Response: No adverse reaction tm6 15:49 Drug: Ipratropium Inhalation Aerosol 0.5 mg Inhalation once Route: Inhalation; tm6 16:12 Follow up: Response: No adverse reaction tm6 15:49 Drug: AZITHromycin PO 500 mg PO once Route: PO; tm6 16:12 Follow up: Response: No adverse reaction tm6 Disposition Summary: 10/03/24 15:38 Discharge Ordered Notes: Location: Home cecily Problem: new cecily Symptoms: have improved cecily Condition: Stable cecily Diagnosis - Idiopathic pulmonary fibrosis cecily - Pulmonary fibrosis, unspecified cecily - Nausea with vomiting, unspecified cecily - Hypokalemia cecily Followup: cecily - With: Private Physician - When: 2 - 3 days - Reason: Recheck today's complaints, Continuance of care, Re-evaluation by your physician Followup: cecily - With: Andre Natarajan MD - When: 2 - 3 days - Reason: Recheck today's complaints, Re-evaluation by your physician Discharge Instructions: - Discharge Summary Sheet cecily - Potassium Content of Foods cecily - Nausea and Vomiting, Adult cecily - Nausea, Adult cecily - Pulmonary Fibrosis cecily - Nausea and Vomiting, Adult, [id number] cecily - Hypokalemia [facility] Forms: - Medication Reconciliation Form cecily - Antibiotic Education cecily - Prescription Opioid Use cecily - Patient Portal Instructions cecily - Leadership Thank You Letter [facility] Prescriptions: - dexamethasone 4 mg Oral tablet - take 1 tablet ORAL route daily; 5 tablet; Refills: 0, Product Selection cecily Permitted - ondansetron 4 mg Oral Tablet,disintegrating - take 1 tablet ORAL route every 6-8 hours as needed for nausea and vomiting; 20 cecily tablet; Refills: 0, Product Selection Permitted - Potassium Chloride 20 meq Oral Packet - take 1 packet ORAL route once daily 1 packet in 6 (six) ounces of water or cecily juice; Take after meal; 14 packet; Refills: 0, Product Selection Permitted - Tessalon Perles 100 mg Oral capsule - take 1 capsule ORAL route every 8 hours As needed; 30 capsule; Refills: 0, cecily Product Selection Permitted - Albuterol Sulfate 2.5 mg /3 mL (0.083 %) Inhalation Solution for Nebulization - inhale 1 unit NEBULIZATION route every 4-6 hours As needed; 45 unit; Refills: cecily 0, Product Selection Permitted - Zithromax 500 mg Oral Tablet - take 1 tablet ORAL route once daily for 5 days; 5 tablet; Refills: 0, Product cecily Selection Permitted Signatures: Dispatcher [employer] EDJermaine Latham MD MD cha Masterson, Tawney RN RN tm6 Corrections: (The following items were deleted from the chart) 11:54 11:54 BASIC METABOLIC PANEL+C.LAB.BRZ ordered. EDMS EDMS 11:54 11:54 CBC+H.LAB.BRZ ordered. EDMS EDMS 11:54 11:54 HEPATIC FUNCTION+C.LAB.BRZ ordered. EDMS EDMS 11:54 11:54 MAGNESIUM+C.LAB.BRZ ordered. EDMS EDMS 11:54 11:54 PROBNP+C.LAB.BRZ ordered. EDMS EDMS 11:54 11:54 PROTIME (+INR)+COAG.LAB.BRZ ordered. EDMS EDMS 11:54 11:54 Troponin High Sensitivity+C.LAB.BRZ ordered. EDMS EDMS 11:54 11:54 LIPASE+C.LAB.BRZ ordered. EDMS EDMS 11:54 11:54 Urinalysis+U.LAB.BRZ ordered. EDMS EDMS 11:54 11:54 Influenza Screen (A \\T\\ B)+BA.LAB.BRZ ordered. EDMS EDMS 11: 11:54 SARS-COV-2 Antigen Rapid+I.LAB.BRZ ordered. EDMS EDMS 11:54 11:54 Urine Culture+BA.LAB.BRZ ordered. EDMS EDMS 11:54 11:54 Chest Single View+RAD.RAD.BRZ ordered. EDMS EDMS
[2024-10-03] MEDS ORDERED: POTASSIUM 25 MEQ EFFERV TAB ONE (15:41)
[2024-10-03 16:35] VITALS: TEMP 98.4
[2024-10-03 16:47] VITALS: BP 153/72; O2SAT 100
--- NOTE | 2024-10-04 14:13 | EKG ---
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
== END 2024-10-03 16:12 | disposition home or self-care (01) ==
LOC: ER 11:38
DX: J84.112 Idiopathic pulmonary fibrosis (principal); R11.2 Nausea with vomiting, unspecified; E87.6 Hypokalemia; I10 Essential (primary) hypertension; Z95.818 Presence of other cardiac implants and grafts; Z11.52 Encounter for screening for COVID-19
CPT/HCPCS: 96361; 93005; 85025; 87086; 80048; 36415; 83735; 85610; 80076; 81003; 84484; 83690; 83880; 87804 ×2; 71250; 74176; 71045; 96374; 99285; 87811; J7614; J7644; J1100; J2405; J7040; 87088

== ENCOUNTER 2025-08-30 11:33 | Emergency (ER) | payer OTHER ==
--- NOTE | 2025-08-30 13:08 | RAD REPORT ---
EXAM: Chest Pa And Lat (2 Views) HISTORY: 70 years Male DYSPNEA COMPARISON: 10/03/2024 FINDINGS: LUNGS/PLEURA: Chronic interstitial lung disease. No focal consolidation. No edema or effusions. CARDIAC/MEDIASTINUM: The cardiac silhouette is within normal limits. UPPER ABDOMEN: No significant abnormality. BONES: No acute abnormality. LINES/TUBES/OTHER: N/A IMPRESSION: Chronic interstitial lung changes without evidence of a superimposed acute process.
[2025-08-30 13:54] LABS: Absolute Lymphocytes (CBC) 1.4 K/uL (0.7-4.9); Hematocrit 41.8 % (39.6-49.0); Hemoglobin 13.8 g/dL (13.6-17.9); MCH 28.8 pg (27.0-35.0); MCHC 33.1 g/dL (32.0-36.0); MCV 87.1 fL (80-100); MPV 8.4 fL (7.6-11.3); Nucleated RBC Absolute Count 0.0 (0-0); Nucleated Red Blood Cells % 0.1 % (0-0); RBC Red Blood Cell Count 4.80 M/uL (4.33-5.43); White Blood Count 8.10 thou/uL (4.3-10.9)
[2025-08-30 14:05] LABS: PT Prothrombin Time 12.2 SECONDS (10-13.0); PTT, Activated Partial Thromb 30.4 SECONDS (27.2-37.4); Protime INR 1.08
[2025-08-30 14:14] LABS: Influenza A Ag Negative; Influenza B Ag Negative; SARS-CoV-2 Antigen Rapid Res Negative (Negative)
[2025-08-30 14:15] LABS: Anion Gap 9.0 mEq/L (5.0-15.0); BUN Blood Urea Nitrogen 11.0 mg/dL (7-18); Glucose Level 93.0 mg/dL (74-106); Magnesium 1.9 mg/dL (1.6-2.4); NT PRO-BNP 116.0 pg/mL (<125); Potassium 4.0 mEq/L (3.5-5.1); Troponin High Sensitivity 6.5 pg/mL (<58.9)
--- NOTE | 2025-08-30 15:19 | RAD REPORT ---
Thorax W/ Con CLINICAL INDICATION: Male, 70 years old. Chest pain;Dyspnea TECHNIQUE: Routine CT scan of the chest with intravenous contrast. One or more of the following dose reduction techniques were used: Automated exposure control, adjustment of the mA and/or kV according to patient size, and/or iterative reconstruction. Unless otherwise specified, incidental fi ndings do not require dedicated imaging follow-up. [id number]. COMPARISON: 10/03/2024 FINDINGS: LOWER NECK: Visualized thyroid gland and soft tissues are normal. MEDIASTINUM AND LYMPH NODES: Prominent mediastinal and hilar lymph nodes which are likely reactive. THORACIC AORTA: No thoracic aortic aneurysm. PULMONARY ARTERIES: [place] is within normal limits. No pulmonary emboli identified. HEART: Normal heart size. Moderate coronary artery calcifications.No significant pericardial effusion . LUNGS AND AIRWAYS: Chronic interstitial lung changes. Mild honeycombing present. This is compatible w ith usual interstitial pneumonia. . No suspicious and/or stable pulmonary nodules. PLEURA: No pleural effusions. No pneumothorax. OSSEOUS STRUCTURES AND CHEST WALL: Kyphoplasty changes at T12. UPPER ABDOMEN: No acute abnormalities. Hepatic steatosis. IMPRESSION: Background of chronic interstitial lung disease in the usual interstitial pneumonia (UIP) pattern. No evidence of a superimposed acute process.
--- NOTE | 2025-08-30 15:25 | EDPHYS ---
Physician Documentation [facility] Name: Clinton Arnold Age: 70 yrs Sex: Male : 1955 Arrival Date: 08/30/2025 Time: 11:33 Bed DX4 Private MD: ED Physician Jace Hannah HPI: 08/30 13:07 This 70 yrs old Male presents to ER via Ambulatory with complaints of Cough, sb4 Congestion. 13:07 Patient reports cough and congestion for 3 days now. He states it all started after he sb4 was outside in the rain. States he has a history of lymphoma, pulmonary fibrosis, gets pneumonia easily. States that he has been taking leftover cefdinir twice a day that any improvement in symptoms. He called his machine cloth examiner and was told to come to the ED. Also reports some bilateral chest pain and shortness of breath while laying flat. Historical: - Allergies: 12:33 Prednisone; me1 - PMHx: 12:33 Back pain; High Cholesterol; Hodgkin's Lymphoma; Hypertension; pulmonary fibrosis; me1 - PSHx: 12:33 eye and knee SX; heart stent; me1 - Immunization history:: Adult Immunizations up to date. - Infectious Disease History:: Denies. - Social history:: Smoking status: Patient denies any tobacco usage or history of. ROS: 13:07 Constitutional: Negative for fever, chills, and weight loss, sb4 13:07 Cardiovascular: Positive for chest pain, 13:07 Respiratory: Positive for cough, dyspnea on exertion, shortness of breath, 13:07 All other systems are negative, Exam: 13:07 Constitutional: This is a well developed, well nourished patient who is awake, alert, sb4 and in no acute distress. Head/Face: Normocephalic, atraumatic. Eyes: Extra-ocular motions intact. Periorbital areas with no swelling, redness, or edema. ENT: Mucous membranes moist. Cardiovascular: Regular rate and rhythm with a normal S1 and S2. Respiratory: No increased work of breathing, no retractions or nasal flaring. Abdomen/GI: Soft, non-tender, no distension. Skin: Warm, dry with normal turgor. Normal color with no rashes, no lesions, and no evidence of cellulitis. 16:23 Respiratory: Breath sounds: bronchial sounds, that are mild, are scattered, sb4 Vital Signs: 12:29 BP 151 / 78; Pulse 96; Resp 20; Temp 98.9; Pulse Ox 97% ; Weight 79.38 kg; Height 5 ft. me1 7 in. ; Pain 6/10; 12:29 Body Mass Index 27.41 (79.38 kg, 170.18 cm) me1 12:29 Pain Scale: Adult me1 MDM: 11:45 Medical Screening Exam initiated sb4 15:34 Differential Diagnosis: Bronchitis Influenza Upper Respiratory Infection Viral Syndrome sb4 Pneumonia. Data reviewed: vital signs, nurses notes, lab test result(s), EKG, radiologic studies, and as a result, I will discharge patient. Counseling: I had a detailed discussion with the patient and/or guardian regarding the historical points, exam findings, and any diagnostic results supporting the discharge/admit diagnosis, the presence of at least one elevated blood pressure reading (>120/80) during this emergency department visit, lab results, radiology results, the need for outpatient follow up, for definitive care, to return to the emergency department if symptoms worsen or persist or if there are any questions or concerns that arise at home. 08/30 12:33 Order name: BMP; Complete Time: 14:16 sb4 08/30 12:33 Order name: CBC with Diff; Complete Time: 14:00 sb4 08/30 12:33 Order name: Magnesium; Complete Time: 14:16 sb4 08/30 12:33 Order name: NT PRO-BNP; Complete Time: 14:16 sb4 08/30 12:33 Order name: PT-INR; Complete Time: 14:07 sb4 08/30 12:33 Order name: Ptt, Activated; Complete Time: 14:07 sb4 08/30 12:33 Order name: Troponin HS; Complete Time: 14:16 sb4 08/30 12:47 Order name: COVID-19 Ag + Flu A+B Ag; Complete Time: 14:15 sb4 08/30 12:33 Order name: XRAY Chest Pa And Lat (2 Views); Complete Time: 13:08 sb4 08/30 13:52 Order name: Chest W/ Con CT; Complete Time: 15:23 sb4 08/30 12:33 Order name: EKG; Complete Time: 12:33 sb4 08/30 12:33 Order name: Cardiac monitoring; Complete Time: 16:05 sb4 08/30 12:33 Order name: EKG - Nurse/Tech; Complete Time: 13:49 sb4 08/30 12:33 Order name: IV Saline Lock; Complete Time: 13:49 sb4 08/30 12:33 Order name: Labs collected and sent; Complete Time: 13:49 sb4 08/30 12:33 Order name: O2 Per Protocol; Complete Time: 16:05 sb4 08/30 12:33 Order name: O2 Sat Monitoring; Complete Time: 16:06 sb4 EC:50 Rate is 85 beats/min. Rhythm is regular, Normal Sinus Rhythm. ME interval is normal at sb4 150 msec. QRS interval is normal at 92 msec. QT interval is normal at 362 msec. Clinical impression: No evidence of ischemia. Interpreted by me. Reviewed by me. Administered Medications: 16:09 Drug: LevOfloxacin PO 500 mg PO once Route: PO; jb4 16:09 Follow up: Response: Medication administered at discharge. jb4 Disposition: 18:22 Co-signature as Attending Physician, Jace Hannah MD I reviewed the patient's care rn provided by the Advanced Practice Provider and agree with the diagnosis and treatment plan. Disposition Summary: 08/30/25 15:25 Discharge Ordered Notes: Location: Home sb4 Problem: an acute exacerbation sb4 Symptoms: have improved sb4 Condition: Stable sb4 Diagnosis - Pulmonary fibrosis, unspecified sb4 - Dyspnea, unspecified sb4 Followup: sb4 - With: Emergency Department - When: As needed - Reason: Trouble breathing, Worsening of condition Discharge Instructions: - Discharge Summary Sheet sb4 - Shortness of Breath, Adult, [id number] sb4 - Pulmonary Fibrosis sb4 Forms: - Antibiotic Education sb4 - Patient Portal Instructions sb4 - Leadership Thank You Letter sb4 Prescriptions: - Tessalon Perles 100 mg Oral Capsule - take 1 capsule ORAL route every 8 hours As needed; 15 capsule; Refills: 0, sb4 Product Selection Permitted - levofloxacin 500 mg Oral tablet - take 1 tablet ORAL route once daily for 7 days; 7 tablet; Refills: 0, Product sb4 Selection Permitted - Dexamethasone 4mg Oral tablet - take 1 tablet ORAL route daily for 4 days; 4 tablet; Refills: 0, Product sb4 Selection Permitted Signatures: Dispatcher [employer] EDMS Jace Hannah MD MD rn Bryson, James, RN RN jb4 Lena Evangelista PASheri PACorneliusC sb4 Sonam Toro, RN RN me1 Corrections: (The following items were deleted from the chart) 12:47 12:47 COVID-19 Ag + Flu A+B [id number].[id number] ordered. [facility] 16:23 13:07 Constitutional: This is a well developed, well nourished patient who is awake, sb4 alert, and in no acute distress. Head/Face: Normocephalic, atraumatic. Eyes: Extra-ocular motions intact. Periorbital areas with no swelling, redness, or edema. ENT: Mucous membranes moist. Cardiovascular: Regular rate and rhythm with a normal S1 and S2. Respiratory: No increased work of breathing, no retractions or nasal flaring. Abdomen/GI: Soft, non-tender, no distension. Skin: Warm, dry with normal turgor. Normal color with no rashes, no lesions, and no evidence of cellulitis. sb4
--- NOTE | 2025-08-30 15:25 | ER ---
Nurse's Notes [facility] Name: Clinton Arnold Age: 70 yrs Sex: Male : 1955 Arrival Date: 08/30/2025 Time: 11:33 Bed DX4 Private MD: Diagnosis: Pulmonary fibrosis, unspecified;Dyspnea, unspecified Presentation: 08/30 12:29 Chief complaint: Patient states: starting 4 days ago he started coughing with green me1 phlegm, SOB, right sided chest pain with cough and chills that is getting worse. Coronavirus screen: Vaccine status:. Coronavirus screen: Vaccine status: Patient reports receiving the 2nd dose of the covid vaccine. Ebola Screen: No symptoms or risks identified at this time. Resp Distress? No respiratory distress is noted at this time. Initial Sepsis Screen: Does the patient meet any 2 criteria? HR > 90 bpm. Does the patient have a suspected source of infection? No. Patient's initial sepsis screen is negative. Risk Assessment: Do you want to hurt yourself or someone else? Patient reports no desire to harm self or others. Onset of symptoms was August 26, 2025. 12:29 Method Of Arrival: Ambulatory ks1 12:29 Acuity: [place] 3 me1 Historical: - Allergies: 12:33 Prednisone; me1 - PMHx: 12:33 Back pain; High Cholesterol; Hodgkin's Lymphoma; Hypertension; pulmonary fibrosis; me1 - PSHx: 12:33 eye and knee SX; heart stent; me1 - Immunization history:: Adult Immunizations up to date. - Infectious Disease History:: Denies. - Social history:: Smoking status: Patient denies any tobacco usage or history of. Screenin:18 [facility] ED Fall Risk Assessment (Adult) History of falling in the last 3 months, jb4 including since admission No falls in past 3 months (0 pts) Confusion or Disorientation No (0 pts) Intoxicated or Sedated No (0 pts) Impaired Gait No (0 pts) Mobility Assist Device Used No (0 pt) Altered Elimination No (0 pt) Score/Fall Risk Level 0 - 2 = Low Risk Oriented to surroundings, Maintained a safe environment. Abuse screen: Denies threats or abuse. Nutritional screening: No deficits noted. Tuberculosis screening: No symptoms or risk factors identified. Assessment: 16:18 General: Appears in no apparent distress. comfortable, Behavior is calm, cooperative, jb4 appropriate for age. Pain: Denies pain. Neuro: Level of Consciousness is awake, alert, obeys commands, Oriented to person, place, time, situation. Cardiovascular: Patient's skin is warm and dry. Respiratory: Airway is patent Respiratory effort is even, unlabored, Respiratory pattern is regular, symmetrical. Derm: Skin is intact, Skin is pink, warm \T\ dry. Musculoskeletal: Circulation, motion, and sensation intact. Range of motion: intact in all extremities. Vital Signs: 12:29 BP 151 / 78; Pulse 96; Resp 20; Temp 98.9; Pulse Ox 97% ; Weight 79.38 kg; Height 5 ft. me1 7 in. ; Pain 6/10; 12:29 Body Mass Index 27.41 (79.38 kg, 170.18 cm) me1 12:29 Pain Scale: Adult ks1 ED Course: 11:38 Patient arrived in ED. mr 11:39 Lena Evangelista PA-C [facility]. sb4 11:39 Jace Hannah MD is Attending Physician. sb4 12:32 Triage completed. me1 12:33 Arm band placed on Patient placed in waiting room. me1 12:51 XRAY Chest Pa And Lat (2 Views) In Process Unspecified. EDMS 13:50 EKG done, by camera technician. reviewed by Lena Evangelista PA-C. ts3 13:50 Initial lab(s) drawn, by manager labor delivery, sent to lab. Inserted saline lock: 20 gauge in right ts3 antecubital area, using aseptic technique. Blood collected. Flushed with 10 mL NS. 14:49 Chest W/ Con CT In Process Unspecified. EDMS 16:18 Patient has correct armband on for positive identification. Bed in low position. Call jb4 light in reach. Side rails up X 1. Provided Education on: discharge instructions.. 16:18 No provider procedures requiring assistance completed. IV discontinued, intact, jb4 bleeding controlled, No redness/swelling at site. Pressure dressing applied. Administered Medications: 16:09 Drug: LevOfloxacin PO 500 mg PO once Route: PO; jb4 16:09 Follow up: Response: Medication administered at discharge. jb4 Medication: 16:18 VIS not applicable for this client. jb4 Outcome: 15:25 Discharge ordered by . sb4 16:18 Discharged to home ambulatory, jb4 16:18 Condition: stable 16:18 Discharge instructions given to patient, Instructed on discharge instructions, follow up and referral plans. medication usage, Demonstrated understanding of instructions, follow-up care, medications, Prescriptions given X 3, 16:20 Patient left the ED. jb4 Signatures: Dispatcher [employer] EDMS Lynn Castellano, Reg Reg mr Francois Leigh RN RN jb4 Lena Evangelista, PA-C PA-C [id number] Sonam Toro RN RN me1 Natividad Freed ts3
[2025-08-30] MEDS ORDERED: levoFLOXacin 500 MG TAB ONE (15:58)
[2025-08-30 20:06] VITALS: BP 151/78; TEMP 98.9; O2SAT 97
== END 2025-08-30 16:20 | disposition home or self-care (01) ==
LOC: ER 11:33
DX: J84.10 Pulmonary fibrosis, unspecified (principal); R06.00 Dyspnea, unspecified; C81.90 Hodgkin lymphoma, unspecified, unspecified site; I10 Essential (primary) hypertension; E78.00 Pure hypercholesterolemia, unspecified; M54.9 Dorsalgia, unspecified; Z11.52 Encounter for screening for COVID-19
CPT/HCPCS: 93005; 85025; 80048; 36415; 83735; 85610; 85730; 84484; 83880; 71260; 71046; 99284; 87428; Q9967